=== PATIENT | female | born 1950 | race Caucasian/White ===

== ENCOUNTER 2017-04-17 10:34 | Emergency (ER) | payer OTHER ==
[~2017-04-17] VITALS: Ht 154.9 cm; Wt 58.2 kg
[~2017-04-17 10:34] MED LIST: AMLO10TA4 PO; APR25 PO; ATOR-22 PO; CIPR-255 PO; CLON0.3D4 TD; DOXA4TAB2 PO; FRC PO; HYDR25TA4 PO; LABE1TAB28 PO; LISI40TA PO; LORA-741 PO; LXP/10 PO; NXM/40 PO; SPIR25TA89 PO; ZOLP5TAB PO
[2017-04-17 10:45] VITALS: TEMP 36.5; Ht 154.9 cm; Wt 58.2 kg
[2017-04-17] MEDS ORDERED: HYDR-4717 PO (11:16)
[2017-04-17] MEDS ORDERED: LPT/40 PO (11:16)
[2017-04-17] MEDS ORDERED: SPIR50TA2 PO (11:16)
[2017-04-17] MEDS ORDERED: FRCT/ PO (11:16)
[2017-04-17] MEDS ORDERED: KETOROLAC TROMETHAMINE 60 MG/2 ML VIAL IM STA (11:51)
--- NOTE | 2017-04-17 12:01 | EMERGENCY ROOM VISIT NOTE ---
ED Visit Note First contact with patient: 11:43 CHIEF COMPLAINT: Low back pain HISTORY OF PRESENT ILLNESS: This 67-year-old female patient presents to the emergency department in [facility], with her family, complaining of pain in the low back on the right which began yesterday afternoon. The pain was gradual in onset, is now constant and worse with movement. The patient notes the pain as constant, achy with occasional sharp pains and a 6/10. The pain does occasionally radiate down the posterior aspect of her right leg. The patient does have a history of lumbar spine surgery, and states she had 2 lumbar disks removed. She did see pain management after this, approximately 3 years ago. She states the pain management, she had a steroid injection, which seems to have lasted the past 3 years, and she has not had a flare-up of her discomfort since then. The patient did not contact her PCP or pain management provider for worsening pain. The patient has taken no medication for relief of the pain. The patient denies any loss of control of their bowel or bladder functions. There has been no leg numbness or weakness, and no change in sensation. No nausea or vomiting or abdominal pain. No chest pain or shortness of breath. The patient denies recent back injury. No dysuria or increased urinary frequency. REVIEW OF SYSTEMS: A 10 system review of systems was performed with positives and pertinent negatives listed in the history of present illness. All other systems were reviewed and are negative. ALLERGIES: None MEDICATIONS: Please see list. I did personally review the patient's medication history with her. PMH: Migraines, hypertension, hyperlipidemia, anxiety, depression, heart disease , insomnia SOCIAL HISTORY: Patient lives locally with her family. She denies drug, alcohol , tobacco use. PHYSICAL EXAM: VITALS: Vitals are noted on the nurse's note and reviewed by myself. Vital signs stable. GENERAL: This is a 67-year-old female, in no acute distress, nondiaphoretic, well-developed well-nourished. SKIN: The skin was without rashes, erythema, edema, or bruising. Capillary refill less than 2 seconds. NECK: Supple without nuchal rigidity. No cervical spine tenderness. No paraspinous muscle tenderness. HEART: Regular rate and rhythm without murmurs gallops or rubs. LUNGS: Clear to auscultation bilaterally without wheezes, rales or rhonchi. ABDOMEN: Positive bowel sounds x 4. Normal tympanic percussion. Soft, nontender, without masses or organomegaly. Braun sign negative. MUSCULOSKELETAL: No muscle atrophy, erythema, or edema noted of the back. There is mild tenderness over the lumbar spinous processes on the right. There is more significant tenderness over the paraspinous muscles on the right. There is no tenderness over the thoracic spine or paraspinous muscles. There are muscle spasms present. The patient is slow to move around with maximum tenderness with with moving from a lying down to sitting position. Positive straight leg raise test on the right. NEURO: Patient was alert and oriented to person place and time. Normal sensation to light and sharp touch. Deep tendon reflexes 2+ in the lower extremities. Dorsalis pedis pulse 2+ bilaterally. Strength 5/5 and equal in the bilateral lower extremities. RADIOLOGY: X-Ray Lumbar Spine: FINDINGS: There is no fracture. No subluxation. Mild levoscoliosis which could be positional. Mild facet degenerative changes within the lower lumbar spine. This has slightly progressed. Mild disc space narrowing at L5-S1, unchanged. There are small endplate osteophytes seen within the lumbar spine. IMPRESSION: 1. Slight progression of the mild facet degenerative changes within the lower lumbar spine. 2. No change in the mild disc space narrowing at L5-S1.. 3. Mild levoscoliosis. This could be positional. EMERGENCY DEPARTMENT COURSE/MDM: The patient was seen and evaluated as above. X -ray of the lumbar spine was ordered and reviewed by myself and radiologist. Urinalysis was ordered. The patient was given a dose of 60 mg Toradol IM, and did report improvement in her pain. I discussed results with the patient and her family at bedside. Urinalysis did show 1+ blood, 10-30 WBC, 5-10 Hyaline Case, and >30 epithelial cells, and 1+ bacteria. Given the patient is not symptomatic at this time, I feel that this is likely a contaminated specimen. Culture is pending, and will consider treatment based on culture results. The patient was seen and evaluated by Dr. Hernandez. The patient was discharged home in good condition. DIFFERENTIAL DIAGNOSIS: Lumbar strain, sciatica, lumbar disc protrusion, lumbar fracture, muscle spasms, malignancy, and others DIAGNOSIS: Low back pain with sciatica DISCHARGE INSTRUCTIONS AND TREATMENT: Current/Historical Medications Scheduled Amlodipine Besylate (Norvasc), 10 MG PO DAILY Atorvastatin (Lipitor), 40 MG PO DAILY Clonidine Hcl ([id number]), 1 PATCH TD WK Doxazosin Mesylate (Cardura), 4 MG PO QPM Escitalopram Oxalate (Lexapro), 10 MG PO DAILY Hydralazine Hcl (Apresoline), 50 MG PO TID Hydrochlorothiazide (Hctz), 25 MG PO DAILY Labetalol (Normodyne), 200 MG PO DAILY Lisinopril (Zestril), 40 MG PO DAILY Lorazepam (Ativan), 0.5 MG PO BID PRN Spironolactone (Aldactone), 50 MG PO QAM Zolpidem Tartrate (Ambien), 5 MG PO HS Scheduled PRN Acetamin/Butalbital/Caffeine (Fioricet), 1 TAB PO Q6 PRN for Pain Allergies Coded Allergies: No Known Allergies (Verified , 10/31/02) Vital Signs Date Time Temp Pulse Resp B/P (MAP) Pulse Ox O2 Delivery O2 Flow Rate FiO2 04/17/17 11:58 72 18 142/76 97 Room Air 04/17/17 10:45 36.5 89 18 130/78 97 Room Air Laboratory Results Test 04/17/17 11:55 Urine Color YELLOW Urine Appearance CLOUDY (CLEAR) Urine pH 5.0 (4.5-7.5) Urine Specific [place] 1.028 (1.000-1.030) Urine Protein NEG (NEG) Urine Glucose (UA) NEG (NEG) Urine Ketones NEG (NEG) Urine Occult Blood 1+ (NEG) Urine Nitrite NEG (NEG) Urine Bilirubin NEG (NEG) Urine Urobilinogen NEG (NEG) Urine Leukocyte Esterase NEG (NEG) Urine WBC (Auto) 10-30 /hpf (0-5) Urine RBC (Auto) 0-4 /hpf (0-4) Urine Hyaline Casts (Auto) 5-10 /lpf (0-5) Urine Epithelial Cells (Auto) >30 /lpf (0-5) Urine Bacteria (Auto) 1+ (NEG) Medications Administered Medications (Trade) Dose Ordered Sig/Payton Route Start Time Stop Time Status Last Admin Dose Admin Ketorolac Tromethamine (Toradol Inj) 60 mg NOW STAT IM 04/17/17 11:51 04/17/17 11:53 DC 04/17/17 12:00 60 MG Departure Information Impression Primary Impression: Sciatica Dispostion Home / Self-Care Condition GOOD Prescriptions Methylprednisolone (MEDROL DOSEPAK) 4 Mg Jono 0 PO DAILY, #1 PKT Prov: Lauren Moon PA-C 04/17/17 Cyclobenzaprine Hcl (FLEXERIL) 5 Mg Tab 5 MG PO TID, #15 TAB PRN Prov: Lauren Moon PA-C 04/17/17 Referrals Everett Macedo D.O. (PCP) Patient Instructions ED Sciatica, [facility] Additional Instructions You have been treated in the Emergency Department for Back Pain. You have been prescribed Flexeril (cyclobenzaprine) 1 tab orally, up to three times per day. Do NOT exceed 30 mg (6 tabs) per day. Take your first dose at bedtime as it can make you drowsy. Always take all medications as prescribed. This medication may cause increased CLIENT SERVICES VICE PRESIDENT depression. If you experience any neurological symptoms, increased fatigue, or other concerns, return to the ED immediately. You have been prescribed a Medrol Dosepak. This is a steroid which will help decrease your inflammation, redness, and itch. Take the medicine as prescribed. Take the ENTIRE 6 day course of the steroids. For pain control, you can use the following [id number] medicines (if >12 yo): Ibuprofen(Motrin, Advil) may be used for fever or pain. Use 600mg every six hours as needed. Take with food. Avoid using more than 2400mg in a 24 hour period. Do not use 2400mg per day for more than three consecutive days without physician direction. Prolonged inappropriate use can lead to stomach upset or ulcers. (AND/OR) Acetaminophen(Tylenol) may be used for fever or pain. Use 1000mg every six to eight hours as needed. Avoid using more than 3000mg in a 24 hour period. If this is an acute injury, ice can be applied to the area of pain for the first 3 days to help decrease pain and inflammation. After the first 3 days, a heating pad can be used over the area for continued soothing relief. We did note some abnormalities on your urinalysis. We will send this for culture, and call you with the results. If you begin experiencing urinary symptoms including burning with urination, pain with urination, blood in her urine, or other concerning symptoms, contact your primary care provider or the emergency department for further evaluation and management. You should schedule a follow-up appointment in 2-3 days with your Primary Care Provider for further evaluation and treatment of your back pain. You should request a referral to physical therapy. You should consider follow-up with your painter barrel. Return to the Emergency Department if your current symptoms worsen despite treatment course outlined above, or if you develop any of the following symptoms : intractable pain despite aforementioned treatment course, loss of control of your bowel or bladder, numbness or tingling in your groin, or development of a fever. Problem Qualifiers Primary Impression: Sciatica Laterality: right Qualified Codes: M54.31 - Sciatica, right side
[2017-04-17 12:23] LABS: URINE APPEARANCE CLOUDY (CLEAR); URINE BILIRUBIN NEG (NEG); URINE COLOR YELLOW; URINE EPITHELIAL CELL AUTO >30 /lpf (0-5); URINE NITRITE NEG (NEG); URINE SPECIFIC GRAVITY 1.028 (1.000-1.030); UROBILINOGEN NEG (NEG); ZZUR CULT IF INDIC CLEAN CATCH YES
[2017-04-17 12:29] LABS: MANUAL MICROSCOPIC REQUIRED? NO; REVIEW REQ? NO
--- NOTE | 2017-04-17 12:31 | DIAGNOSTIC IMAGING REPORT ---
LUMBAR SPINE 5 VIEWS HISTORY: right low back pain COMPARISON: L spine 07/13/2012. FINDINGS: There is no fracture. No subluxation. Mild levoscoliosis which could be positional. Mild facet degenerative changes within the lower lumbar spine. This has slightly progressed. Mild disc space narrowing at L5-S1, unchanged. There are small endplate osteophytes seen within the lumbar spine. IMPRESSION: 1. Slight progression of the mild facet degenerative changes within the lower lumbar spine. 2. No change in the mild disc space narrowing at L5-S1.. 3. Mild levoscoliosis. This could be positional. Electronically signed by: César Decker M.D. 04/17/2017 12:30 PM Dictated Date/Time: 04/17/2017 12:27 PM
[2017-04-17] MEDS ORDERED: CYCL5TAB PO (12:52)
[2017-04-17] MEDS ORDERED: METH4PAK PO (12:52)
[2017-04-17 13:03] VITALS: BP 147/84; PULSE 68; O2SAT 96
--- NOTE | 2017-04-18 16:50 | EMERGENCY ROOM VISIT NOTE ---
ED Visit Note First contact with patient: 11:43 HPI: low back pain in setting of chronic low back pain. PE: AFVSS, NAD NC/AT RRR, no murmurs CTAB Abd soft NT/ND Back: Mild ttp lumbar region with +SLR. Ext: no edema, erythema Neuro: grossly intact Plan: Xray negative for acute findings. Sciatica. Plan for pcp/ortho f/u. I reviewed the patient's past medical history, medications, and visit nursing notes. I discussed the case with the physician social research assistant, examined the patient, and agree with the findings and plan as documented in the physician assistants note. Current/Historical Medications Scheduled Amlodipine Besylate (Norvasc), 10 MG PO DAILY Atorvastatin (Lipitor), 40 MG PO DAILY Clonidine Hcl ([id number]-Kyh-2), 1 PATCH TD WK Cyclobenzaprine Hcl (Flexeril), 5 MG PO TID Doxazosin Mesylate (Cardura), 4 MG PO QPM Escitalopram Oxalate (Lexapro), 10 MG PO DAILY Hydralazine Hcl (Apresoline), 50 MG PO TID Hydrochlorothiazide (Hctz), 25 MG PO DAILY Labetalol (Normodyne), 200 MG PO DAILY Lisinopril (Zestril), 40 MG PO DAILY Lorazepam (Ativan), 0.5 MG PO BID PRN Methylprednisolone (Medrol Dosepak), 0 PO DAILY Spironolactone (Aldactone), 50 MG PO QAM Zolpidem Tartrate (Ambien), 5 MG PO HS Scheduled PRN Acetamin/Butalbital/Caffeine (Fioricet), 1 TAB PO Q6 PRN for Pain Allergies Coded Allergies: No Known Allergies (Verified , 10/31/02) Vital Signs Date Time Temp Pulse Resp B/P (MAP) Pulse Ox O2 Delivery O2 Flow Rate FiO2 04/17/17 13:03 68 18 147/84 96 04/17/17 11:58 72 18 142/76 97 Room Air 04/17/17 10:45 36.5 89 18 130/78 97 Room Air Laboratory Results Test 04/17/17 11:55 Urine Color YELLOW Urine Appearance CLOUDY (CLEAR) Urine pH 5.0 (4.5-7.5) Urine Specific [place] 1.028 (1.000-1.030) Urine Protein NEG (NEG) Urine Glucose (UA) NEG (NEG) Urine Ketones NEG (NEG) Urine Occult Blood 1+ (NEG) Urine Nitrite NEG (NEG) Urine Bilirubin NEG (NEG) Urine Urobilinogen NEG (NEG) Urine Leukocyte Esterase NEG (NEG) Urine WBC (Auto) 10-30 /hpf (0-5) Urine RBC (Auto) 0-4 /hpf (0-4) Urine Hyaline Casts (Auto) 5-10 /lpf (0-5) Urine Epithelial Cells (Auto) >30 /lpf (0-5) Urine Bacteria (Auto) 1+ (NEG) Date/Time Source Procedure Growth Status 04/17/17 11:55 Urine , Clean Catch Urine Culture - Final MORE THAN THREE TYPES OF ORGANISMS MA... Complete Medications Administered Medications (Trade) Dose Ordered Sig/Payton Route Start Time Stop Time Status Last Admin Dose Admin Ketorolac Tromethamine (Toradol Inj) 60 mg NOW STAT IM 04/17/17 11:51 04/17/17 11:53 DC 04/17/17 12:00 60 MG Departure Information Impression Primary Impression: Sciatica Dispostion Home / Self-Care Condition GOOD Prescriptions Methylprednisolone (MEDROL DOSEPAK) 4 Mg Jono 0 PO DAILY, #1 PKT Prov: Lauren Moon PA-C 04/17/17 Cyclobenzaprine Hcl (FLEXERIL) 5 Mg Tab 5 MG PO TID, #15 TAB PRN Prov: Lauren Moon PA-C 04/17/17 Referrals Everett Macedo DSergioOSergio (PCP) Forms HOME CARE DOCUMENTATION FORM, IMPORTANT VISIT INFORMATION Patient Instructions [facility], ED Sciatica Additional Instructions You have been treated in the Emergency Department for Back Pain. You have been prescribed Flexeril (cyclobenzaprine) 1 tab orally, up to three times per day. Do NOT exceed 30 mg (6 tabs) per day. Take your first dose at bedtime as it can make you drowsy. Always take all medications as prescribed. This medication may cause increased FULFILLMENT ASSOCIATE depression. If you experience any neurological symptoms, increased fatigue, or other concerns, return to the ED immediately. You have been prescribed a Medrol Dosepak. This is a steroid which will help decrease your inflammation, redness, and itch. Take the medicine as prescribed. Take the ENTIRE 6 day course of the steroids. For pain control, you can use the following [id number] medicines (if >12 yo): Ibuprofen(Motrin, Advil) may be used for fever or pain. Use 600mg every six hours as needed. Take with food. Avoid using more than 2400mg in a 24 hour period. Do not use 2400mg per day for more than three consecutive days without physician direction. Prolonged inappropriate use can lead to stomach upset or ulcers. (AND/OR) Acetaminophen(Tylenol) may be used for fever or pain. Use 1000mg every six to eight hours as needed. Avoid using more than 3000mg in a 24 hour period. If this is an acute injury, ice can be applied to the area of pain for the first 3 days to help decrease pain and inflammation. After the first 3 days, a heating pad can be used over the area for continued soothing relief. We did note some abnormalities on your urinalysis. We will send this for culture, and call you with the results. If you begin experiencing urinary symptoms including burning with urination, pain with urination, blood in her urine, or other concerning symptoms, contact your primary care provider or the emergency department for further evaluation and management. You should schedule a follow-up appointment in 2-3 days with your Primary Care Provider for further evaluation and treatment of your back pain. You should request a referral to physical therapy. 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 Return to the Emergency Department if your current symptoms worsen despite treatment course outlined above, or if you develop any of the following symptoms : intractable pain despite aforementioned treatment course, loss of control of your bowel or bladder, numbness or tingling in your groin, or development of a fever.
== END 2017-04-17 13:04 | disposition home or self-care (01) ==
LOC: C.EDB 10:38 → C.EDC 13:04
DX: M54.40 Lumbago with sciatica, unspecified side (principal); I11.9 Hypertensive heart disease without heart failure; E78.5 Hyperlipidemia, unspecified; F41.9 Anxiety disorder, unspecified; F32.9 Major depressive disorder, single episode, unspecified; G47.00 Insomnia, unspecified; Z79.899 Other long term (current) drug therapy

== ENCOUNTER 2022-05-16 08:46 | Inpatient (IN) ==
[2022-05-16] MEDS ORDERED: SODIUM CHLORIDE 0.9% 1000ML 1,000 ML IV STA (08:57)
[2022-05-16] MEDS ORDERED: ONDANSETRON INJ 2 MG/ML 2 ML VIAL IV STA ×2 (08:57→12:40)
--- NOTE | 2022-05-16 08:59 | Emergency Department Note ---
Impression & Plan Atrial fibrillation with RVR ADMIT ED Provider Note HPI: The patient is a 72-year-old female with history of atrial fibrillation, on anticoagulation, who presents emergency department with a chief complaint of nausea, vomiting, and diarrhea that been ongoing for the past 3 days. Patient states her symptoms have been progressively worsening. Patient denies any abdom inal pain, states that she does have severe nausea, on arrival to the emergency department the patient is hemodynamically stable but mildly tachycardic, she appears uncomfortable but denies any chest pain or shortness of breath. Patient is saturating well on room air on arrival. 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 On arrival she does appear to be uncomfortable, complains of some chills as well as nausea but denies any focal complaint of pain. Denies any shortness of breath. Shortly after arrival IV was established, patient was given IV fluid bolus, lab work was obtained and CT imaging was ordered. While lab work was returning and patient was being fluid resuscitated, patient did go into a tachyarrhythmia on the monitor with rates into the 170s, she did also have some ectopy consistent with short runs of ventricular tachycardia approximately 8-10 beats each. These were not sustained. This was noted by me at the bedside. I did alert the bedside nurse and patient was placed on pads for possible cardioversion, amiodarone bolus and drip were ordered, shortly after amiodarone bolus was given the patient's heart rate did respond in the low 100s but did still appear irregular consistent with her atrial fibrillation. Case was discussed with on-call cardiology for [facility], Dr. Benitez, who did evaluate the patient at the bedside. She was symptomatically improved following the amiodarone bolus and drip being initiated. Troponin is noted to be elevated at 220, patient denies any chest pain or shortness of breath, suspect this might be demand ischemia related to her recent dehydration and tachyarrhythmia. We will hold off on heparin drip at this time and will repeat troponin upon admission. CT imaging of the chest as well as CT imaging of the abdomen pelvis were obtained, CT imaging of the chest does not show any evidence of pulmonary embol ism, no evidence of aortic dissection, CT imaging of the abdomen and pelvis does not show any evidence of any acute surgical pathology. Patient's lactic acid is elevated at 5.2, I suspect this is secondary to fluid losses given her vomiting and diarrhea over the weekend, this did downtrend with fluid resuscitation to 3.2 on repeat here in the ED. Potassium also noted to be low at 3.0, no acute k idney injury, potassium repletion ordered IV. Leukocytosis noted, likely viral in origin. We will hold on antibiotics at this time given that there is no obvious bacterial source for infection and patient symptoms are viral in nature in addition to her COVID-19 test being positive. On my reassessment the patient is well-appearing, her COVID-19 test did return positive, this also might be playing a role in her symptoms. At this point she is saturating well on room air and she is hemodynamically stable with heart rate now improved. Case was discussed with the on-call admitting hospitalist Dr. Valdes for [facility]. Patient was admitted to an inpatient bed for further management. * CRITICAL CARE TIME: 65 min -Stabilization of tachyarrhythmia requiring IV amiodarone, time spent at the bedside, discussion with consulting physicians/cardiology, arrangement of admission Diagnosis: 1. Atrial fibrillation with RVR 2. Elevated troponin 3. Lactic acidosis 4. Nausea, vomiting, diarrhea 5. Hypokalemia Disposition: ADMIT Mack Klein, Emergency Medicine Past Med/Surg History Medical History Anxiety Ascending aortic aneurysm 4.4cm per resting echo 04/2021 Chronic heart failure with preserved ejection fraction (HFpEF) Diastolic dysfunction Esophageal reflux HLD (hyperlipidemia) Hypertension Left atrial dilation Migraine PAF (paroxysmal atrial fibrillation) Persistent insomnia Surgical History History of cholecystectomy History of lumbar surgery History of partial hysterectomy Family History Mother Hypertension Father TIA (transient ischemic attack) Sister Diabetes Other No pertinent family history in first degree relatives Social History Smoking Status: Never smoker Hx Alcohol Use: No Hx Substance Use: No Preferred Language: Sudanese Communication Ability: Effective Visual Impairment: No Limitations Hearing Ability: Normal Sheriff Sergeant Required: No Beliefs That Will Affect Care: None marital status: Current Living Situation: Spouse current occupational status: retired Feels Safe at Home: Yes Safety Concerns: Feels Safe At This Time Assistive Devices: Denture - Upper, Denture - Lower and Glasses Allergies Allergies Allergy/AdvReac Type Severity Reaction Status Date / Time No Known Allergies Allergy Verified 05/16/22 12:46 Home Meds Home Medications Medication Instructions Recorded Confirmed apixaban 5 mg tablet (Eliquis) 5 mg PO BID 05/16/22 05/16/22 atorvastatin 40 mg tablet 40 mg PO DAILY 05/16/22 05/16/22 clonidine 0.3 mg/24 hr weekly 0.3 mg transdermal WK 05/16/22 05/16/22 transdermal patch doxazosin 4 mg tablet 4 mg PO QPM 05/16/22 05/16/22 gabapentin 100 mg capsule 100 mg PO TID 05/16/22 05/16/22 lorazepam 0.5 mg tablet 0.5 mg PO BID PRN Anxiety 05/16/22 05/16/22 ramelteon 8 mg tablet 8 mg PO HS 05/16/22 05/16/22 trazodone 50 mg tablet 50 mg PO HS 05/16/22 05/16/22 Results & Data (ED) Vital Signs Vital Signs - 24 hr 05/16/22 08:46 05/16/22 09:11 05/16/22 08:56 Temperature 36.4 C L Temperature Source Oral Pulse Rate 90 94 H 131 H Pulse Rate [Apical] Pulse Rate from SpO2 Sensor 130 H Respiratory Rate 18 18 23 Respiratory Effort / Characteristics Non-Labored Spontaneous Respiratory Depth Normal Respiratory Pattern Regular Blood Pressure 169/124 H Blood Pressure [Left Arm] Blood Pressure Mean 139 Blood Pressure Mean [Left Arm] Pulse Oximetry 96 98 97 Oxygen Delivery Method Room Air Room Air Sepsis Recent Fever Within 48 Hours No Sepsis New/Unexplained Change in Mental Status N/A Sepsis Action Taken by Nursing No Action Required 05/16/22 09:00 05/16/22 09:30 05/16/22 09:50 Temperature Temperature Source Pulse Rate 72 101 H 93 H Pulse Rate [Apical] Pulse Rate from SpO2 Sensor 119 H 114 H Respiratory Rate 24 25 H 25 H Respiratory Effort / Characteristics Respiratory Depth Respiratory Pattern Blood Pressure 150/91 H Blood Pressure [Left Arm] Blood Pressure Mean 110 Blood Pressure Mean [Left Arm] Pulse Oximetry 97 98 Oxygen Delivery Method Sepsis Recent Fever Within 48 Hours Sepsis New/Unexplained Change in Mental Status Sepsis Action Taken by Nursing 05/16/22 10:00 05/16/22 10:30 05/16/22 11:31 Temperature Temperature Source Pulse Rate 95 H 197 H 87 Pulse Rate [Apical] Pulse Rate from SpO2 Sensor 66 173 H 93 H Respiratory Rate 23 19 22 Respiratory Effort / Characteristics Respiratory Depth Respiratory Pattern Blood Pressure 148/106 H 142/95 H 131/80 Blood Pressure [Left Arm] Blood Pressure Mean 120 110 97 Blood Pressure Mean [Left Arm] Pulse Oximetry 98 99 97 Oxygen Delivery Method Sepsis Recent Fever Within 48 Hours Sepsis New/Unexplained Change in Mental Status Sepsis Action Taken by Nursing 05/16/22 12:40 05/16/22 12:00 05/16/22 12:30 Temperature 37.3 C Temperature Source Oral Pulse Rate 101 H 107 H Pulse Rate [Apical] 119 H Pulse Rate from SpO2 Sensor 105 H 120 H Respiratory Rate 24 33 H 28 H Respiratory Effort / Characteristics Non-Labored Spontaneous Respiratory Depth Normal Respiratory Pattern Blood Pressure 125/67 141/91 H Blood Pressure [Left Arm] 141/91 H Blood Pressure Mean 86 107 Blood Pressure Mean [Left Arm] 107 Pulse Oximetry 94 96 96 Oxygen Delivery Method Room Air Sepsis Recent Fever Within 48 Hours Sepsis New/Unexplained Change in Mental Status Sepsis Action Taken by Nursing 05/16/22 13:00 Temperature Temperature Source Pulse Rate 108 H Pulse Rate [Apical] Pulse Rate from SpO2 Sensor 111 H Respiratory Rate 21 Respiratory Effort / Characteristics Respiratory Depth Respiratory Pattern Blood Pressure 111/84 Blood Pressure [Left Arm] Blood Pressure Mean 93 Blood Pressure Mean [Left Arm] Pulse Oximetry 90 Oxygen Delivery Method Sepsis Recent Fever Within 48 Hours Sepsis New/Unexplained Change in Mental Status Sepsis Action Taken by Nursing Laboratory Data Result diagrams: 05/16/22 09:47 05/16/22 09:47 Lab Results 05/16/22 05/16/22 05/16/22 Range/Units 09:38 09:47 09:47 WBC 14.79 H (4.8-10.8) K/ul RBC 5.19 (3.93-5.22) M/uL Hgb 14.2 (12.0-16.0) g/dl Hct 43.3 (34.1-44.9) % MCV 83.4 (80.0-100.0) fL MCH 27.4 (25.0-34.0) pg MCHC 32.8 (32.0-36.0) g/dL RDW Std Deviation 46.0 (36.4-46.3) fL RDW Coeff of Jessica 15.2 H (11.5-14.5) % Plt Count 293 (130-400) K/uL MPV 11.7 (9.4-12.3) fL Immature Gran % (Auto) 0.9 % Neut % (Auto) 89.3 % Lymph % (Auto) 6.7 % [place] % (Auto) 2.9 % Eos % (Auto) 0.0 % Baso % (Auto) 0.2 % Neut # (Auto) 13.20 H (1.4-6.5) K/uL Lymph # (Auto) 0.99 L (1.2-3.4) K/uL [place] # (Auto) 0.43 (0.24-0.82) K/uL Eos # (Auto) 0.00 (0-0.50) K/uL Baso # (Auto) 0.03 (0-0.2) K/uL Immature Gran # (Auto) 0.14 H (0.00-0.02) K/uL PT 11.4 (9.0-12.0) Seconds INR 1.1 (0.9-1.1) APTT 27.1 (21.0-31.0) Seconds PTT Ratio 1.0 Sodium (136-145) mmol/L Potassium (3.5-5.1) mmol/L Chloride (98-107) mmol/L Carbon Dioxide (21-32) mmol/L Anion Gap (3-11) BUN (6-23) mg/dl Creatinine (0.6-1.2) mg/dl Est Cr Clr Drug Dosing ml/min Est GFR ( Amer) ml/min Est GFR (Non-Af Amer) ml/min BUN/Creatinine Ratio (10-20) Glucose (70-99(Fasting)) mg/dl Lactate (0.4-2.0) mmol/L Calcium (8.5-10.1) mg/dl Magnesium (1.7-2.4) mg/dl Total Bilirubin (0.2-1.0) mg/dl AST (13-39) U/L ALT (7-52) U/L Alkaline Phosphatase (34-104) U/L Troponin I High Sens (0-14) pg/ml Total Protein (6.0-8.3) gm/dl Albumin (3.4-5.0) gm/dl Globulin (2.5-4.0) gm/dl Albumin/Globulin Ratio (0.9-2) Lipase (11-82) U/L Urine Color Urine Appearance (Clear) Urine pH (4.5-7.5) Ur Specific [place] (1.000-1.030) Urine Protein (Negative) Urine Glucose (UA) (Negative) Urine Ketones (Negative) Urine Blood (Negative) Urine Nitrite (Negative) Urine Bilirubin (Negative) Urine Urobilinogen (Negative) Ur Leukocyte Esterase (Negative) Urine WBC (Auto) (0-5) /hpf Urine RBC (Auto) (0-4) /hpf U Hyaline Cast (Auto) (0-5) /lpf U Epithel Cells (Auto) (0-5) /lpf Urine Bacteria (Auto) (Negative) Ur Renal Epithelial Cell Granular Casts (0) /lpf Urine Mucus (None Prsent) Urine Yeast (None Prsent) SARS-CoV-2 (PCR) POSITIVE A* (Negative) Influenza Type A (PCR) Negative (Neg) Influenza Type B (PCR) Negative (Neg) RSV (RT-PCR) Negative (Neg) 05/16/22 05/16/22 05/16/22 Range/Units 09:47 09:47 09:47 WBC (4.8-10.8) K/ul RBC (3.93-5.22) M/uL Hgb (12.0-16.0) g/dl Hct (34.1-44.9) % MCV (80.0-100.0) fL MCH (25.0-34.0) pg MCHC (32.0-36.0) g/dL RDW Std Deviation (36.4-46.3) fL RDW Coeff of Jessica (11.5-14.5) % Plt Count (130-400) K/uL MPV (9.4-12.3) fL Immature Gran % (Auto) % Neut % (Auto) % Lymph % (Auto) % [place] % (Auto) % Eos % (Auto) % Baso % (Auto) % Neut # (Auto) (1.4-6.5) K/uL Lymph # (Auto) (1.2-3.4) K/uL [place] # (Auto) (0.24-0.82) K/uL Eos # (Auto) (0-0.50) K/uL Baso # (Auto) (0-0.2) K/uL Immature Gran # (Auto) (0.00-0.02) K/uL PT (9.0-12.0) Seconds INR (0.9-1.1) APTT (21.0-31.0) Seconds PTT Ratio Sodium 140 (136-145) mmol/L Potassium 3.0 L (3.5-5.1) mmol/L Chloride 103 (98-107) mmol/L Carbon Dioxide 15 L (21-32) mmol/L Anion Gap 22 H (3-11) BUN 19 (6-23) mg/dl Creatinine 0.64 (0.6-1.2) mg/dl Est Cr Clr Drug Dosing 59.1 ml/min Est GFR ( Amer) 102.6 ml/min Est GFR (Non-Af Amer) 88.5 ml/min BUN/Creatinine Ratio 29.7 H (10-20) Glucose 213 H (70-99(Fasting)) mg/dl Lactate 5.2 H* (0.4-2.0) mmol/L Calcium 9.5 (8.5-10.1) mg/dl Magnesium 2.0 (1.7-2.4) mg/dl Total Bilirubin 0.4 (0.2-1.0) mg/dl AST 37 (13-39) U/L ALT 23 (7-52) U/L Alkaline Phosphatase 111 H (34-104) U/L Troponin I High Sens 221.4 H* (0-14) pg/ml Total Protein 8.4 H (6.0-8.3) gm/dl Albumin 4.5 (3.4-5.0) gm/dl Globulin 3.9 (2.5-4.0) gm/dl Albumin/Globulin Ratio 1.2 (0.9-2) Lipase 18 (11-82) U/L Urine Color Urine Appearance (Clear) Urine pH (4.5-7.5) Ur Specific [place] (1.000-1.030) Urine Protein (Negative) Urine Glucose (UA) (Negative) Urine Ketones (Negative) Urine Blood (Negative) Urine Nitrite (Negative) Urine Bilirubin (Negative) Urine Urobilinogen (Negative) Ur Leukocyte Esterase (Negative) Urine WBC (Auto) (0-5) /hpf Urine RBC (Auto) (0-4) /hpf U Hyaline Cast (Auto) (0-5) /lpf U Epithel Cells (Auto) (0-5) /lpf Urine Bacteria (Auto) (Negative) Ur Renal Epithelial Cell Granular Casts (0) /lpf Urine Mucus (None Prsent) Urine Yeast (None Prsent) SARS-CoV-2 (PCR) (Negative) Influenza Type A (PCR) (Neg) Influenza Type B (PCR) (Neg) RSV (RT-PCR) (Neg) 05/16/22 05/16/22 Range/Units 11:30 12:01 WBC (4.8-10.8) K/ul RBC (3.93-5.22) M/uL Hgb (12.0-16.0) g/dl Hct (34.1-44.9) % MCV (80.0-100.0) fL MCH (25.0-34.0) pg MCHC (32.0-36.0) g/dL RDW Std Deviation (36.4-46.3) fL RDW Coeff of Jessica (11.5-14.5) % Plt Count (130-400) K/uL MPV (9.4-12.3) fL Immature Gran % (Auto) % Neut % (Auto) % Lymph % (Auto) % [place] % (Auto) % Eos % (Auto) % Baso % (Auto) % Neut # (Auto) (1.4-6.5) K/uL Lymph # (Auto) (1.2-3.4) K/uL [place] # (Auto) (0.24-0.82) K/uL Eos # (Auto) (0-0.50) K/uL Baso # (Auto) (0-0.2) K/uL Immature Gran # (Auto) (0.00-0.02) K/uL PT (9.0-12.0) Seconds INR (0.9-1.1) APTT (21.0-31.0) Seconds PTT Ratio Sodium (136-145) mmol/L Potassium (3.5-5.1) mmol/L Chloride (98-107) mmol/L Carbon Dioxide (21-32) mmol/L Anion Gap (3-11) BUN (6-23) mg/dl Creatinine (0.6-1.2) mg/dl Est Cr Clr Drug Dosing ml/min Est GFR ( Amer) ml/min Est GFR (Non-Af Amer) ml/min BUN/Creatinine Ratio (10-20) Glucose (70-99(Fasting)) mg/dl Lactate 3.2 H* (0.4-2.0) mmol/L Calcium (8.5-10.1) mg/dl Magnesium (1.7-2.4) mg/dl Total Bilirubin (0.2-1.0) mg/dl AST (13-39) U/L ALT (7-52) U/L Alkaline Phosphatase (34-104) U/L Troponin I High Sens (0-14) pg/ml Total Protein (6.0-8.3) gm/dl Albumin (3.4-5.0) gm/dl Globulin (2.5-4.0) gm/dl Albumin/Globulin Ratio (0.9-2) Lipase (11-82) U/L Urine Color Yellow Urine Appearance Clear (Clear) Urine pH 5.5 (4.5-7.5) Ur Specific [place] 1.030 (1.000-1.030) Urine Protein 4+ H (Negative) Urine Glucose (UA) 1+ H (Negative) Urine Ketones 4+ H (Negative) Urine Blood 2+ H (Negative) Urine Nitrite Negative (Negative) Urine Bilirubin Negative (Negative) Urine Urobilinogen Negative (Negative) Ur Leukocyte Esterase Negative (Negative) Urine WBC (Auto) 10-30 H (0-5) /hpf Urine RBC (Auto) 5-10 H (0-4) /hpf U Hyaline Cast (Auto) 5-10 H (0-5) /lpf U Epithel Cells (Auto) >30 H (0-5) /lpf Urine Bacteria (Auto) 1+ H (Negative) Ur Renal Epithelial Cell Not Reportable Granular Casts 1-5 H (0) /lpf Urine Mucus Present A (None Prsent) Urine Yeast Budding A (None Prsent) SARS-CoV-2 (PCR) (Negative) Influenza Type A (PCR) (Neg) Influenza Type B (PCR) (Neg) RSV (RT-PCR) (Neg) Administered Medications Amiodarone HCl/Dextrose (Nexterone / D5w) 360 mg in 200 mls @ 33.333 mls/hr IV ONE ONE Stop: 05/16/22 16:43 Last Admin: 05/16/22 10:45 Dose: 1 mg/min, 33.3 mls/hr Documented By: JUSTIN Co-signed By: MALACHI Potassium Chloride/Sodium Chloride (Normal Saline W/20 Meq Kcl) 20 meq in 1,000 mls @ 125 mls/hr IV .Q8H VEGA; Protocol Stop: 06/15/22 10:44 Last Admin: 05/16/22 10:53 Dose: 125 mls/hr Documented By: MALACHI Discontinued Medications Amiodarone HCl/Dextrose (Amiodarone 360mg / 200ml D5w) Confirm Administered Dose 360 mg IV .STK-MED ONE Stop: 05/16/22 10:32 Last Admin: 05/16/22 10:46 Dose: Not Given Documented By: JUSTIN Amiodarone HCl/Dextrose (Amiodarone 150mg / 100ml D5w) Confirm Administered Dose 150 mg IV .STK-MED ONE Stop: 05/16/22 10:32 Last Admin: 05/16/22 10:36 Dose: Not Given Documented By: BRIDGET Amiodarone HCl (Amiodarone Iv Bolus & Drip) 1 each IV NOW STA; Protocol Stop: 05/16/22 10:34 Last Admin: 05/16/22 10:46 Dose: Not Given Documented By: JUSTIN Sodium Chloride (Nss 1000ml) 1,000 mls @ 999 mls/hr IV .Q1H1M STA Stop: 05/16/22 09:57 Last Infusion: 05/16/22 10:45 Dose: 0 mls/hr Documented By: Admin: 05/16/22 09:43 Dose: 999 mls/hr Documented By: MALACHI Amiodarone HCl/Dextrose (Nexterone / D5w) 150 mg in 100 mls @ 600 mls/hr IV NOW STA Stop: 05/16/22 10:42 Last Infusion: 05/16/22 10:45 Dose: 0 mls/hr Documented By: JUSTIN Co-signed By: MALACHI Admin: 05/16/22 10:36 Dose: 600 mls/hr Documented By: BRIDGET Co-signed By: JUSTIN Sodium Chloride (Nss 1000ml) 1,000 mls @ 999 mls/hr IV .Q1H1M ONE Stop: 05/16/22 12:16 Last Infusion: 05/16/22 12:56 Dose: 0 mls/hr Documented By: Admin: 05/16/22 11:37 Dose: 999 mls/hr Documented By: MALACHI Ioversol (Optiray 300 500ml) 120 ml IV ONCE ONE Stop: 05/16/22 11:18 Last Admin: 05/16/22 11:17 Dose: 120 ml Documented By: RONY Lorazepam (Lorazepam 2 Mg/1 Ml Vial) Confirm Administered Dose 1 mg .ROUTE .STK- MED ONE Stop: 05/16/22 10:40 Last Admin: 05/16/22 10:43 Dose: 1 mg Documented By: JUSTIN Metoprolol Tartrate (Metoprolol Tartrate 25 Mg Tab) 25 mg PO ONCE ONE Stop: 05/16/22 10:42 Last Admin: 05/16/22 10:53 Dose: 25 mg Documented By: MALACHI Miscellaneous (Stat Iv Infusion Titration Per Protocol) 1 each N/A NOW STA Stop: 05/16/22 10:34 Last Admin: 05/16/22 10:46 Dose: Not Given Documented By: JUSTIN Ondansetron HCl (Ondansetron Inj 2 Mg/Ml 2 Ml Vial) 4 mg IV NOW STA Stop: 05/16/22 08:58 Last Admin: 05/16/22 09:43 Dose: 4 mg Documented By: MALACHI Ondansetron HCl (Ondansetron Inj 2 Mg/Ml 2 Ml Vial) 4 mg IV NOW STA Stop: 05/16/22 12:41 Last Admin: 05/16/22 12:42 Dose: 4 mg Documented By: MCKENNA Imaging Data Radiologist's Impression: Chest X-Ray 05/16/22 08:57 SINGLE VIEW CHEST CLINICAL HISTORY: Atypical chest pain. FINDINGS: An AP, portable, upright chest radiograph is compared to study dated 12/11/2021 and correlated with chest CT dated 01/27/2014. The heart is mildly enlarged noting atherosclerotic calcification of the thoracic aorta. The pulmonary vasculature is noncongested. Chronic interstitial thickening and mild elevation of the right hemidiaphragm is similar to previous. There is bibasilar scarring/atelectasis. The lungs and pleural spaces are otherwise clear. No pneumothorax is seen. The skeletal structures are osteopenic. The bony thorax is grossly intact. IMPRESSION: Mild cardiomegaly with no active disease in the chest. ACT 112: Negative or not required by law. Electronically signed by: Austin Saucedo M.D. 05/16/2022 9:27 AM Abdomen/Pelvis CT 05/16/22 08:58 CT SCAN OF THE ABDOMEN AND PELVIS WITH IV CONTRAST CLINICAL HISTORY: Nausea and vomiting. Diarrhea. COMPARISON STUDY: Abdominal CT dated 12/12/2019. TECHNIQUE: Following the IV administration of 120 cc of Optiray 300, CT scan of the abdomen and pelvis is performed from the lung bases to the proximal femora. Images are reviewed in the axial, sagittal, and coronal planes. IV contrast was administered without complication. A dose lowering technique was utilized adhering to the principles of ALARA. FINDINGS: Lung bases: The heart is enlarged and without pericardial effusion. The coronary arteries a density calcified. There is a small hiatal hernia. The lung bases are clear noting dependent atelectasis. There is mild aneurysmal dilatation of the partially visualized ascending thoracic aorta. This measures at least 4.0 cm in diameter. Liver: The contrast-enhanced liver is normal in size, contour, and attenuation. There is no intrahepatic biliary ductal dilatation. The hepatic veins and portal veins are patent. Gallbladder: Surgically absent. Spleen: Normal in size and attenuation. Pancreas: Atrophic and grossly unremarkable. Adrenal glands: Unremarkable. Kidneys: The contrast enhanced kidneys are normal in size and without hydronephrosis. The kidneys enhance symmetrically. Scattered subcentimeter cortical hypodensities likely represent cysts but are too small for definitive characterization. Abdominal vasculature: There is advanced atherosclerotic calcification mild ectasia of the abdominal aorta. Bowel: There is moderate colonic diverticulosis without CT evidence of acute diverticulitis. No bowel obstruction is seen. Question mucosal hyperemia of the left colon. There is no colonic wall thickening or surrounding inflammation. The appendix is identified and reported surgically absent. Peritoneum: There is no intraperitoneal free air or abdominal ascites. Lymphadenopathy: None. Pelvic viscera: The bladder is mildly distended but otherwise normal in appearance. The uterus is surgically absent. No adnexal lesion is seen. Skeletal structures: No lytic or blastic lesions are seen. IMPRESSION: 1. Question mucosal hyperemia of the left colon. There is no colonic wall thickening or surrounding inflammation. Correlate clinically for evidence of a mild nonspecific colitis. 2. Colonic diverticulosis without CT evidence of acute diverticulitis. 3. There is no bowel obstruction. 4. Additional findings as above. ACT 112: Negative or not required by law. Electronically signed by: Austin Saucedo M.D. 05/16/2022 11:36 AM Chest CTA 05/16/22 10:55 CHEST CTA for PULMONARY ARTERIES CT DOSE: 545.39 mGy.cm HISTORY: Covid. Headache. Nausea. Vomiting. Shortness of breath. Assess for pulmonary embolus. TECHNIQUE: Multiaxial CT images of the chest were performed following the intravenous administration of contrast to evaluate the pulmonary arteries. Maximal intensity projection images were also obtained. A dose lowering technique was utilized adhering to the principles of ALARA. COMPARISON STUDY: Chest CT 01/27/2014. FINDINGS: There is a 2.1 cm right thyroid nodule. No mediastinal or hilar lymphadenopathy. There is a small hiatus hernia. Otherwise, normal caliber esophagus moderate focal narrowing at the takeoff of the right subclavian artery due to the calcified plaque. The ascending thoracic aorta measures up to 4.3 cm in diameter which is slightly increased in size. The heart is mildly enlarged. No evidence for an aortic dissection. Please refer to the same day abdomen and pelvis CT for further evaluation of the abdominal structures. No pleural or pericardial effusions. No suspicious lytic or blastic osseous lesions. Nondiagnostic evaluation of the bilateral lower lobe subsegmental pulmonary art eries due to the respiratory motion artifact. Otherwise, the remaining pulmonary arteries show no filling defects to suggest a pulmonary embolus. No pneumothorax. The central airways are patent. No focal lung consolidations to suggest pneumonia. Mild dependent changes seen at the lung bases. IMPRESSION: 1. No evidence for pulmonary embolus with limitations as described above. 2. Mild aneurysmal dilatation of the ascending thoracic aorta measuring 4.3 cm in diameter. This has slightly increased in size. 3. No focal lung consolidations to suggest pneumonia. 4. A 2.1 cm right thyroid nodule. Follow-up nonemergent thyroid ultrasound recommended for further evaluation. ACT 112: Negative or not required by law. Electronically signed by: César Decker M.D. 05/16/2022 11:49 AM Discharge Plan Visit Data Chief Complaint: Illness ED Provider: Mack Klein Discharge Problem: Atrial fibrillation with RVR Patient Disposition: Admitted As Inpatient Discharge Instructions Interventions: ED Discharge Assessment Last Done: 05/16/22 14:50
--- NOTE | 2022-05-16 09:29 | XRay Report ---
SINGLE VIEW CHEST CLINICAL HISTORY: Atypical chest pain. FINDINGS: An AP, portable, upright chest radiograph is compared to study dated 12/11/2021 and correlat ed with chest CT dated 01/27/2014. The heart is mildly enlarged noting atherosclerotic calcification o f the thoracic aorta. The pulmonary vasculature is noncongested. Chronic interstitial thickening and mild elevation of the right hemidiaphragm is similar to previous. There is bibasilar scarring/atelect asis. The lungs and pleural spaces are otherwise clear. No pneumothorax is seen. The skeletal structu res are osteopenic. The bony thorax is grossly intact. IMPRESSION: Mild cardiomegaly with no active disease in the chest. ACT 112: Negative or not required by law. Electronically signed by: Austin Saucedo M.D. 05/16/2022 9:27 AM
[2022-05-16 10:07] LABS: Basophils # (auto) 0.03 K/uL (0-0.2); Basophils % (auto) 0.2 %; Hematocrit (blood only) 43.3 % (34.1-44.9); Hemoglobin 14.2 g/dl (12.0-16.0); Immature Granulocytes # (auto) 0.14 K/uL (0.00-0.02); Immature Granulocytes % (auto) 0.9 %; Lymphocytes # (auto) 0.99 K/uL (1.2-3.4); Lymphocytes % (auto) 6.7 %; Mean Corpuscular Hemoglobin 27.4 pg (25.0-34.0); Mean Corpuscular Hgb Conc 32.8 g/dL (32.0-36.0); Mean Corpuscular Volume 83.4 fL (80.0-100.0); Mean Platelet Volume 11.7 fL (9.4-12.3); Monocytes # (auto) 0.43 K/uL (0.24-0.82); Monocytes % (auto) 2.9 %; Neutrophils % (auto) 89.3 %; Platelet Count 293 K/uL (130-400); RDW Coefficient of Variation 15.2 % (11.5-14.5); Red Blood Count 5.19 M/uL (3.93-5.22); White Blood Count 14.79 K/ul (4.8-10.8)
[2022-05-16 10:18] LABS: INR 1.1 (0.9-1.1); Partial Thromboplastin Time 27.1 Seconds (21.0-31.0); Prothrombin Time 11.4 Seconds (9.0-12.0)
[2022-05-16] MEDS ORDERED: AMIODARONE 150MG / 100ML D5W IV ONE (10:31)
[2022-05-16] MEDS ORDERED: AMIODARONE 360MG / 200ML D5W IV ONE (10:31)
[2022-05-16] MEDS ORDERED: 0.2 MICRON FILTER SET 1 EACH IV STA (10:33)
[2022-05-16] MEDS ORDERED: AMIODARONE IV BOLUS & DRIP IV STA (10:33)
[2022-05-16] MEDS ORDERED: AMIODARONE / D5W 150 MG/100 ML BAG IV STA (10:33)
[2022-05-16] MEDS ORDERED: STAT IV Infusion **Titration per Protocol STA (10:33)
[2022-05-16 10:36] LABS: Albumin Globulin Ratio 1.2 (0.9-2); Albumin Level 4.5 gm/dl (3.4-5.0); BUN Creatinine Ratio 29.7 (10-20); Bilirubin,Total 0.4 mg/dl (0.2-1.0); Calcium 9.5 mg/dl (8.5-10.1); Creatinine Clr Calc Pharmacy 59.1 ml/min; Est GFR (African American) 102.6 ml/min; Est GFR (Non-African American) 88.5 ml/min; Globulin 3.9 gm/dl (2.5-4.0); Total Protein 8.4 gm/dl (6.0-8.3)
[2022-05-16] MEDS ORDERED: LORazepam 2 MG/1 ML VIAL ONE (10:39)
[2022-05-16] MEDS ORDERED: METOPROLOL TARTRATE 25 MG TAB PO ONE (10:41)
[2022-05-16 10:42] LABS: Influenza A virus by PCR Negative (Neg); Influenza B virus by PCR Negative (Neg); RSV by PCR Negative (Neg)
[2022-05-16] MEDS ORDERED: AMIODARONE / D5W 360 MG/200 ML BAG IV ONE (10:44)
[2022-05-16] MEDS ORDERED: NSS + 20MEQ KCL 20 MEQ/1,000 ML BAG IV SCH (10:45)
--- NOTE | 2022-05-16 10:46 | Cardiology Consultation ---
Date of Consultation May 16, 2022 Assessment & Plan (1) PAF (paroxysmal atrial fibrillation): (2) NSVT (nonsustained ventricular tachycardia): (3) Atrial fibrillation with rapid ventricular response: (4) Hypertension: (5) Diastolic dysfunction: (6) Ascending aortic aneurysm: (7) Pneumonia due to COVID-19 virus: (8) Hypokalemia: Plan Atrial fibrillation and rapid ventricular response along with nonsustained ventricular tachycardia in the setting of acute COVID-19 infection, questionable UTI and significant hypokalemia I agree with the initiation of amiodarone if nothing else for the short-term until electrolytes have been corrected and underlying infectious process has been treated Also recommend starting the Toprol tartrate 25 mg p.o. twice daily, may uptitrate frequency and dose as needed Obviously, electrolytes should be repleted and followed closely 1600: pt spontaneously converted to sinus rhythm complete 24 hour amio load repeat ekg pt states that she has a clonidine patch on, recommend removing for now History of Present Illness Reason for Consultation: Tachyarrhythmia Requesting Physician: Dr. Plunkett Attending Physician: The patient and her daughter state that she has not been feeling well for 5 days now with URI symptoms. She then developed N/V/D for the last 3 days and has not been able to take any of her home meds. On the moring of presentation she becam so weak that her summoned EMS. Upon arrival she was in afib with rvr and salvos of NSVT. Past medical history: 1. Paroxysmal atrial fibrillation, 1st diagnosed 05/2020 asymptomatic, [id number] score of 3- on Eliquis 2. Severe left atrial dilation 3. Longstanding labile difficult to control hypertension 4. Mixed valvular heart disease a. Aortic sclerosis b. Partial fusion of the non coronary cusp and left coronary cusp of the aortic valve c. Mild aortic regurg d. Mild mitral regurg 5. Chronic diastolic CHF, NYHA class 1 6. Asymptomatic PACs and PVCs 7. Enlarged ascending aorta 4.4 cm per resting echo 04/2021 8. Dyslipidemia Allergies Allergy/AdvReac Type Severity Reaction Status Date / Time No Known Allergies Allergy Verified 05/16/22 12:46 Home Medications Medication Instructions Recorded Confirmed Type apixaban 5 mg tablet (Eliquis) 5 mg PO BID 05/16/22 05/16/22 History atorvastatin 40 mg tablet 40 mg PO DAILY 05/16/22 05/16/22 History gabapentin 100 mg capsule 100 mg PO TID 05/16/22 05/16/22 History lorazepam 0.5 mg tablet 0.5 mg PO BID PRN Anxiety 05/16/22 05/16/22 History ramelteon 8 mg tablet 8 mg PO HS 05/16/22 05/16/22 History amiodarone 200 mg tablet 200 mg PO DAILY #30 tabs 05/27/22 Rx furosemide 20 mg tablet 20 mg PO BID17 30 days #30 tabs 05/27/22 Rx metoprolol succinate 25 mg 12.5 mg PO QAM 30 days #15 tabs 05/27/22 Rx tablet,extended release 24 hr pantoprazole 40 mg tablet,delayed 40 mg PO QAM 7 days #7 tabs 05/27/22 Rx release polyethylene glycol 3350 17 gram 17 g PO DAILY 30 days #30 ea 05/27/22 Rx oral powder packet (Miralax) sacubitril 24 mg-valsartan 26 mg 1 tab PO BID 30 days #60 tabs 05/27/22 Rx tablet (Entresto) Patient History Medical History Anxiety Ascending aortic aneurysm 4.4cm per resting echo 04/2021 Chronic heart failure with preserved ejection fraction (HFpEF) Diastolic dysfunction Esophageal reflux HLD (hyperlipidemia) Hypertension Left atrial dilation Migraine PAF (paroxysmal atrial fibrillation) Persistent insomnia Surgical History History of cholecystectomy History of lumbar surgery History of partial hysterectomy Family History Mother Hypertension Father TIA (transient ischemic attack) Sister Diabetes Other No pertinent family history in first degree relatives Social History Smoking Status: Never smoker Hx Alcohol Use: No Hx Substance Use: No Preferred Language: [place]ian Communication Ability: Unable Visual Impairment: No Limitations Hearing Ability: Normal Frame Tender Required: No Beliefs That Will Affect Care: None marital status: Current Living Situation: Spouse current occupational status: retired Feels Safe at Home: Yes Assistive Devices: None Physical Exam Physical Exam: General: Awake alert oriented, no acute distress. HEENT: Normocephalic, atraumatic. Pupils equal, round and reactive to light and accommodation. Extraocular muscles are intact. Anicteric sclera. Moist mucous membranes. Neck: No JVD. No bruit. Cardiovascular: Regular. Positive S-4. Normal S-1 and S-2. No S-3. 3/6 mid to late systolic ejection murmur, greatest at the right sternal border, second intercostal space with radiation to the bilateral carotids. No rubs. Pulmonary: Clear to auscultation bilaterally. No rales, rhonchi, or wheezing. Abdomen: Bowel sounds x 4, soft. Diffuse tenderness. Extremities: No clubbing, cyanosis or edema. +2 pedal pulses bilaterally. Skin: Warm and dry. Results & Data ([facility]) Vital Signs (Past 12 Hours) Vital Signs Temp Pulse Resp BP Pulse Ox O2 Del Method 05/16/22 09:50 93 H 25 H 150/91 H 05/16/22 09:30 101 H 25 H 98 05/16/22 09:00 72 24 97 05/16/22 08:56 131 H 23 97 05/16/22 09:11 94 H 18 98 Room Air 05/16/22 08:46 36.4 C L 90 18 169/124 H 96 Room Air Diagnostic Findings May 10, 2021 TTE Interpretation Summary (as per Dr. Benitez): Normal LV chamber size and wall thickness. Normal LV systolic function without regional wall motion abnormality. Calculated LV ejection Fraction = 64% (bi-plane method of discs). Grade 2 diastolic dysfunction. Mild aortic valve sclerosis without stenosis, mild aortic regurgitation. Severe left atrial enlargement. The aortic root is normal sized. The proximal ascending thoracic aorta is mildly enlarged, 4.4 cm
[2022-05-16 10:50] LABS: SARS CoV2 RNA(COVID-19) InHosp POSITIVE (Negative)
[2022-05-16 10:54] LABS: Troponin I High Sensitivity 221.4 pg/ml (0-14)
[2022-05-16] MEDS ORDERED: SODIUM CHLORIDE 0.9% 1000ML 1,000 ML IV ONE (11:16)
[2022-05-16] MEDS ORDERED: OPTIRAY 300 500mL IV ONE (11:17)
--- NOTE | 2022-05-16 11:38 | CT Scan Report ---
CT SCAN OF THE ABDOMEN AND PELVIS WITH IV CONTRAST CLINICAL HISTORY: Nausea and vomiting. Diarrhea. COMPARISON STUDY: Abdominal CT dated 12/12/2019. TECHNIQUE: Following the IV administration of 120 cc of Optiray 300, CT scan of the abdomen and pelv is is performed from the lung bases to the proximal femora. Images are reviewed in the axial, sagitta l, and coronal planes. IV contrast was administered without complication. A dose lowering technique w as utilized adhering to the principles of ALARA. FINDINGS: Lung bases: The heart is enlarged and without pericardial effusion. The coronary arteries a density c alcified. There is a small hiatal hernia. The lung bases are clear noting dependent atelectasis. Ther e is mild aneurysmal dilatation of the partially visualized ascending thoracic aorta. This measures a t least 4.0 cm in diameter. Liver: The contrast-enhanced liver is normal in size, contour, and attenuation. There is no intrahepa tic biliary ductal dilatation. The hepatic veins and portal veins are patent. Gallbladder: Surgically absent. Spleen: Normal in size and attenuation. Pancreas: Atrophic and grossly unremarkable. Adrenal glands: Unremarkable. Kidneys: The contrast enhanced kidneys are normal in size and without hydronephrosis. The kidneys enh ance symmetrically. Scattered subcentimeter cortical hypodensities likely represent cysts but are too small for definitive characterization. Abdominal vasculature: There is advanced atherosclerotic calcification mild ectasia of the abdominal aorta. Bowel: There is moderate colonic diverticulosis without CT evidence of acute diverticulitis. No bowel obstruction is seen. Question mucosal hyperemia of the left colon. There is no colonic wall thickeni ng or surrounding inflammation. The appendix is identified and reported surgically absent. Peritoneum: There is no intraperitoneal free air or abdominal ascites. Lymphadenopathy: None. Pelvic viscera: The bladder is mildly distended but otherwise normal in appearance. The uterus is chinedu gically absent. No adnexal lesion is seen. Skeletal structures: No lytic or blastic lesions are seen. IMPRESSION: 1. Question mucosal hyperemia of the left colon. There is no colonic wall thickening or surrounding i nflammation. Correlate clinically for evidence of a mild nonspecific colitis. 2. Colonic diverticulosis without CT evidence of acute diverticulitis. 3. There is no bowel obstruction. 4. Additional findings as above. ACT 112: Negative or not required by law. Electronically signed by: Austin Saucedo M.D. 05/16/2022 11:36 AM
[2022-05-16 11:48] LABS: Appearance Urine Clear (Clear); Bacteria Urine Automated 1+ (Negative); Bilirubin Urine Negative (Negative); Blood Urine 2+ (Negative); Color Urine Yellow; Epithelial Cell Urine Auto >30 /lpf (0-5); Glucose Urine UA 1+ (Negative); Ketones Urine 4+ (Negative); Leukocyte Esterase Urine Negative (Negative); Nitrite Urine Negative (Negative); Protein Urine 4+ (Negative); Urobilinogen Urine Negative (Negative); pH Urine 5.5 (4.5-7.5)
--- NOTE | 2022-05-16 11:52 | CT Scan Report ---
CHEST CTA for PULMONARY ARTERIES CT DOSE: 545.39 mGy.cm HISTORY: Covid. Headache. Nausea. Vomiting. Shortness of breath. Assess for pulmonary embolus. TECHNIQUE: Multiaxial CT images of the chest were performed following the intravenous administration of contrast to evaluate the pulmonary arteries. Maximal intensity projection images were also obtaine d. A dose lowering technique was utilized adhering to the principles of ALARA. COMPARISON STUDY: Chest CT 01/27/2014. FINDINGS: There is a 2.1 cm right thyroid nodule. No mediastinal or hilar lymphadenopathy. There is a small hiatus hernia. Otherwise, normal caliber esophagus moderate focal narrowing at the takeoff of the right subclavian artery due to the calcified plaque. The ascending thoracic aorta measures up to 4.3 cm in diameter which is slightly increased in size. The heart is mildly enlarged. No evidence for an aortic dissection. Please refer to the same day abdomen and pelvis CT for further evaluation of t he abdominal structures. No pleural or pericardial effusions. No suspicious lytic or blastic osseous lesions. Nondiagnostic evaluation of the bilateral lower lobe subsegmental pulmonary arteries due to the respiratory motion artifact. Otherwise, the remaining pulmonary arteries show no filling defects to suggest a pulmonary embolus. No pneumothorax. The central airways are patent. No focal lung consol idations to suggest pneumonia. Mild dependent changes seen at the lung bases. IMPRESSION: 1. No evidence for pulmonary embolus with limitations as described above. 2. Mild aneurysmal dilatation of the ascending thoracic aorta measuring 4.3 cm in diameter. This has slightly increased in size. 3. No focal lung consolidations to suggest pneumonia. 4. A 2.1 cm right thyroid nodule. Follow-up nonemergent thyroid ultrasound recommended for further ev aluation. ACT 112: Negative or not required by law. Electronically signed by: César Decker M.D. 05/16/2022 11:49 AM
[2022-05-16 12:15] LABS: Mucus Urine Present (None Prsent)
--- NOTE | 2022-05-16 13:26 | History & Physical Report ---
Date of Service May 16, 2022 Assessment & Plan (1) Atrial fibrillation with rapid ventricular response: Plan: In the setting of COVID-19 infection and hypokalemia. Currently hemodynamically stable on amiodarone drip. - Admit to PCU - Continue amiodarone gtt for now - appreciate cardiology input - Starting metoprolol tartrate 25 mg BID per cardio recommendations - Potassium being repleted - recheck tonight. Magnesium was 2.0. - Continue Eliquis (2) NSVT (nonsustained ventricular tachycardia): (3) Elevated troponin: Plan: Tachyarrhythmias noted on EKG and monitor in ED - suspect demand ischemia related to #1 and #2 as well as hypovolemia - Trend troponin Q6H x3 - Repeat EKG in AM (4) Pneumonia due to COVID-19 virus: Plan: Not hypoxic when initially evaluated. If develops hypoxia requiring persistent O2, would consider addition of dexamethasone. Supportive care for N/V/D - diarrhea seems to be improving but if recurrent consider stool studies. Continue IVF hydration - clinically dehydrated. Concern for ischemic colitis based on location of abdominal pain and diarrhea, which seemed to start after poor oral intake. (5) Hypokalemia: Plan: Replete potassium and recheck in AM (6) Chronic heart failure with preserved ejection fraction (HFpEF): Plan: Appears hypovolemic at present (7) HLD (hyperlipidemia): (8) Hypertension: (9) Ascending aortic aneurysm: Plan: Stable on imaging (10) Esophageal reflux: Plan Continue other home medications as appropriate Pt seen and reviewed with collaborating physician, Dr. Valdes. Plan of care discussed and as outlined above. DVT Prophylaxis: Eliquis Code status: DNI but otherwise would like everything done. Francy Mcclellan PA-C History of Present Illness Chief Complaint: nausea, vomiting, weakness Primary Care Provider: Everett Macedo, This is 72 y/o female with a PMH of PAF on chronic AC with Eliquis, HFpEF, stable thoracic aortic aneurysm, HTN, GERD, anxiety, migraine, and hypercholesterolemia who presents to the ED today with N/V and weakness. Pt apparently started with congestion and cough five days ago, which last about two days. Three days ago, she started with N/V/D, fatigue, and loss of appetite. Yesterday, symptoms were particularly severe with frequent diarrhea, subjective fevers, sweats, abdominal pain, and weakness. Today, although the diarrhea has started to improve, she had multiple episodes of emesis and was so weak that she was unable to walk so her called EMS to bring her to the ED. In the ED, she developed a tachyarrhythmia with multiple runs of non-sustained V-tach so she was given an amiodarone bolus and started on a drip with improvement. Since then, her HR has improved and she has been hemodynamically stable. She reports mild SOB but no significant cough. Denies headache, chest pain or tightness. She has noted dizziness, worse with position changes. Pt was vaccinated for COVID x 3 ([facility] She notes that she was around her sister last week who tested positive for COVID. Allergies Allergy/AdvReac Type Severity Reaction Status Date / Time No Known Allergies Allergy Verified 05/16/22 12:46 Home Medications Medication Instructions Recorded Confirmed Type apixaban 5 mg tablet (Eliquis) 5 mg PO BID 05/16/22 05/16/22 History atorvastatin 40 mg tablet 40 mg PO DAILY 05/16/22 05/16/22 History clonidine 0.3 mg/24 hr weekly 0.3 mg transdermal WK 05/16/22 05/16/22 History transdermal patch doxazosin 4 mg tablet 4 mg PO QPM 05/16/22 05/16/22 History gabapentin 100 mg capsule 100 mg PO TID 05/16/22 05/16/22 History lorazepam 0.5 mg tablet 0.5 mg PO BID PRN Anxiety 05/16/22 05/16/22 History ramelteon 8 mg tablet 8 mg PO HS 05/16/22 05/16/22 History trazodone 50 mg tablet 50 mg PO HS 05/16/22 05/16/22 History Past Med/Surg History Medical History Anxiety Ascending aortic aneurysm 4.4cm per resting echo 04/2021 Chronic heart failure with preserved ejection fraction (HFpEF) Diastolic dysfunction Esophageal reflux HLD (hyperlipidemia) Hypertension Left atrial dilation Migraine PAF (paroxysmal atrial fibrillation) Persistent insomnia Surgical History History of cholecystectomy History of lumbar surgery History of partial hysterectomy Family History Mother Hypertension Father TIA (transient ischemic attack) Sister Diabetes Other No pertinent family history in first degree relatives Social History Smoking Status: Never smoker Hx Alcohol Use: No Hx Substance Use: No Preferred Language: Spanish Communication Ability: Effective Visual Impairment: No Limitations Hearing Ability: Normal Bridge Opener Required: No Beliefs That Will Affect Care: None marital status: Current Living Situation: Spouse current occupational status: retired Feels Safe at Home: Yes Safety Concerns: Feels Safe At This Time Assistive Devices: Denture - Upper, Denture - Lower and Glasses Review of Systems Review of Systems: All systems reviewed & are unremarkable except as noted in HPI & below Constitutional: + fever, + sweats, + fatigue, + weakness and + anorexia Eyes: no diplopia Ear, Nose, Mouth, Throat: as per Subjective / HPI Respiratory: + dyspnea; no cough and no hemoptysis Cardiovascular: + lightheadedness; no chest pain, no palpitations, no syncope and no edema Gastrointestinal: as per Subjective / HPI; no hematemesis and no blood in stools Genitourinary: no dysuria, no difficulty urinating and no urinary frequency Musculoskeletal: + myalgia; no back pain and no neck pain Integumentary: no rash and no yellowing of the skin Neurologic: + generalized weakness and + dizziness; no headache(s) Psychiatric: + anxiety; no depression Physical Exam Constitutional: well developed and well nourished; no acute distress Eyes: + anicteric sclerae ENMT: Mouth: + dry oral mucous membranes Neck: trachea midline Respiratory: no respiratory distress and no labored breathing Auscultation: + crackles (at left base); no wheezes Cardiovascular: Rate/Rhythm: + tachycardic and + irregularly irregular Vessels: dorsalis pedis pulses present and radial pulses present Extremities: no calf tenderness and no pedal edema Gastrointestinal (Abdomen): Inspection/Auscultation: + hypoactive bowel sounds; abdomen not distended Percussion/Palpation: + abdomen tender (diffusely but worse in epigastric area) and abdomen soft Musculoskeletal: Head/Neck/Chest: normocephalic, head atraumatic and neck supple Skin: no jaundice Neurologic: moves all extremities; no focal motor deficits and not confused Psychiatric: A+Ox3, euthymic affect Results & Data Results & Data ([facility]) Vital Signs (Past 12 Hours) Vital Signs Temp Pulse Pulse Resp BP BP Pulse Ox 05/16/22 12:40 37.3 C 119 H 24 141/91 H 94 05/16/22 11:31 87 22 131/80 97 05/16/22 10:30 197 H 19 142/95 H 99 05/16/22 10:00 95 H 23 148/106 H 98 05/16/22 09:50 93 H 25 H 150/91 H 05/16/22 09:30 101 H 25 H 98 05/16/22 09:00 72 24 97 05/16/22 08:56 131 H 23 97 05/16/22 09:11 94 H 18 98 05/16/22 08:46 36.4 C L 90 18 169/124 H 96 O2 Del Method 05/16/22 12:40 Room Air 05/16/22 11:31 05/16/22 10:30 05/16/22 10:00 05/16/22 09:50 05/16/22 09:30 05/16/22 09:00 05/16/22 08:56 05/16/22 09:11 Room Air 05/16/22 08:46 Room Air Laboratory Results Laboratory Results - last 24 hr 05/16/22 05/16/22 05/16/22 09:38 09:47 09:47 WBC 14.79 H RBC 5.19 Hgb 14.2 Hct 43.3 MCV 83.4 MCH 27.4 MCHC 32.8 RDW Std Deviation 46.0 RDW Coeff of Jessica 15.2 H Plt Count 293 MPV 11.7 Immature Gran % (Auto) 0.9 Neut % (Auto) 89.3 Lymph % (Auto) 6.7 [place] % (Auto) 2.9 Eos % (Auto) 0.0 Baso % (Auto) 0.2 Neut # (Auto) 13.20 H Lymph # (Auto) 0.99 L [place] # (Auto) 0.43 Eos # (Auto) 0.00 Baso # (Auto) 0.03 Immature Gran # (Auto) 0.14 H PT 11.4 INR 1.1 APTT 27.1 PTT Ratio 1.0 Sodium Potassium Chloride Carbon Dioxide Anion Gap BUN Creatinine Est Cr Clr Drug Dosing Est GFR ( Amer) Est GFR (Non-Af Amer) BUN/Creatinine Ratio Glucose Lactate Calcium Magnesium Total Bilirubin AST ALT Alkaline Phosphatase Troponin I High Sens Total Protein Albumin Globulin Albumin/Globulin Ratio Lipase Urine Color Urine Appearance Urine pH Ur Specific [place] Urine Protein Urine Glucose (UA) Urine Ketones Urine Blood Urine Nitrite Urine Bilirubin Urine Urobilinogen Ur Leukocyte Esterase Urine WBC (Auto) Urine RBC (Auto) U Hyaline Cast (Auto) U Epithel Cells (Auto) Urine Bacteria (Auto) Ur Renal Epithelial Cell Granular Casts Urine Mucus Urine Yeast SARS-CoV-2 (PCR) POSITIVE A* Influenza Type A (PCR) Negative Influenza Type B (PCR) Negative RSV (RT-PCR) Negative 05/16/22 05/16/22 05/16/22 09:47 09:47 09:47 WBC RBC Hgb Hct MCV MCH MCHC RDW Std Deviation RDW Coeff of Jessica Plt Count MPV Immature Gran % (Auto) Neut % (Auto) Lymph % (Auto) [place] % (Auto) Eos % (Auto) Baso % (Auto) Neut # (Auto) Lymph # (Auto) [place] # (Auto) Eos # (Auto) Baso # (Auto) Immature Gran # (Auto) PT INR APTT PTT Ratio Sodium 140 Potassium 3.0 L Chloride 103 Carbon Dioxide 15 L Anion Gap 22 H BUN 19 Creatinine 0.64 Est Cr Clr Drug Dosing 59.1 Est GFR ( Amer) 102.6 Est GFR (Non-Af Amer) 88.5 BUN/Creatinine Ratio 29.7 H Glucose 213 H Lactate 5.2 H* Calcium 9.5 Magnesium 2.0 Total Bilirubin 0.4 AST 37 ALT 23 Alkaline Phosphatase 111 H Troponin I High Sens 221.4 H* Total Protein 8.4 H Albumin 4.5 Globulin 3.9 Albumin/Globulin Ratio 1.2 Lipase 18 Urine Color Urine Appearance Urine pH Ur Specific [place] Urine Protein Urine Glucose (UA) Urine Ketones Urine Blood Urine Nitrite Urine Bilirubin Urine Urobilinogen Ur Leukocyte Esterase Urine WBC (Auto) Urine RBC (Auto) U Hyaline Cast (Auto) U Epithel Cells (Auto) Urine Bacteria (Auto) Ur Renal Epithelial Cell Granular Casts Urine Mucus Urine Yeast SARS-CoV-2 (PCR) Influenza Type A (PCR) Influenza Type B (PCR) RSV (RT-PCR) 05/16/22 05/16/22 11:30 12:01 WBC RBC Hgb Hct MCV MCH MCHC RDW Std Deviation RDW Coeff of Jessica Plt Count MPV Immature Gran % (Auto) Neut % (Auto) Lymph % (Auto) [place] % (Auto) Eos % (Auto) Baso % (Auto) Neut # (Auto) Lymph # (Auto) [place] # (Auto) Eos # (Auto) Baso # (Auto) Immature Gran # (Auto) PT INR APTT PTT Ratio Sodium Potassium Chloride Carbon Dioxide Anion Gap BUN Creatinine Est Cr Clr Drug Dosing Est GFR ( Amer) Est GFR (Non-Af Amer) BUN/Creatinine Ratio Glucose Lactate 3.2 H* Calcium Magnesium Total Bilirubin AST ALT Alkaline Phosphatase Troponin I High Sens Total Protein Albumin Globulin Albumin/Globulin Ratio Lipase Urine Color Yellow Urine Appearance Clear Urine pH 5.5 Ur Specific [place] 1.030 Urine Protein 4+ H Urine Glucose (UA) 1+ H Urine Ketones 4+ H Urine Blood 2+ H Urine Nitrite Negative Urine Bilirubin Negative Urine Urobilinogen Negative Ur Leukocyte Esterase Negative Urine WBC (Auto) 10-30 H Urine RBC (Auto) 5-10 H U Hyaline Cast (Auto) 5-10 H U Epithel Cells (Auto) >30 H Urine Bacteria (Auto) 1+ H Ur Renal Epithelial Cell Not Reportable Granular Casts 1-5 H Urine Mucus Present A Urine Yeast Budding A SARS-CoV-2 (PCR) Influenza Type A (PCR) Influenza Type B (PCR) RSV (RT-PCR) Diagnostic Findings Chest X-ray 05/16/22 - IMPRESSION: Mild cardiomegaly with no active disease in the chest. Chest CTA 05/16/22 - IMPRESSION: 1. No evidence for pulmonary embolus with limitations as described above. 2. Mild aneurysmal dilatation of the ascending thoracic aorta measuring 4.3 cm in diameter. This has slightly increased in size. 3. No focal lung consolidations to suggest pneumonia. 4. A 2.1 cm right thyroid nodule. Follow-up nonemergent thyroid ultrasound recommended for further evaluation. CT Abd/Pel 05/16/22 - IMPRESSION: 1. Question mucosal hyperemia of the left colon. There is no colonic wall thickening or surrounding inflammation. Correlate clinically for evidence of a mild nonspecific colitis. 2. Colonic diverticulosis without CT evidence of acute diverticulitis. 3. There is no bowel obstruction. 4. Additional findings as above. Medications Administered Amiodarone HCl/Dextrose (Nexterone / D5w) 360 mg in 200 mls @ 33.333 mls/hr IV ONE ONE Stop: 05/16/22 16:43 Last Admin: 05/16/22 10:45 Dose: 1 mg/min, 33.3 mls/hr Documented By: JUSTIN Co-signed By: MALACHI Potassium Chloride/Sodium Chloride (Normal Saline W/20 Meq Kcl) 20 meq in 1,000 mls @ 125 mls/hr IV .Q8H VEGA; Protocol Stop: 06/15/22 10:44 Last Admin: 05/16/22 10:53 Dose: 125 mls/hr Documented By: MALACHI Discontinued Medications Amiodarone HCl/Dextrose (Amiodarone 360mg / 200ml D5w) Confirm Administered Dose 360 mg IV .STK-MED ONE Stop: 05/16/22 10:32 Last Admin: 05/16/22 10:46 Dose: Not Given Documented By: JUSTIN Amiodarone HCl/Dextrose (Amiodarone 150mg / 100ml D5w) Confirm Administered Dose 150 mg IV .STK-MED ONE Stop: 05/16/22 10:32 Last Admin: 05/16/22 10:36 Dose: Not Given Documented By: BRIDGET Amiodarone HCl (Amiodarone Iv Bolus & Drip) 1 each IV NOW STA; Protocol Stop: 05/16/22 10:34 Last Admin: 05/16/22 10:46 Dose: Not Given Documented By: JUSTIN Sodium Chloride (Nss 1000ml) 1,000 mls @ 999 mls/hr IV .Q1H1M STA Stop: 05/16/22 09:57 Last Infusion: 05/16/22 10:45 Dose: 0 mls/hr Documented By: Admin: 05/16/22 09:43 Dose: 999 mls/hr Documented By: MALACHI Amiodarone HCl/Dextrose (Nexterone / D5w) 150 mg in 100 mls @ 600 mls/hr IV NOW STA Stop: 05/16/22 10:42 Last Infusion: 05/16/22 10:45 Dose: 0 mls/hr Documented By: JUSTIN Co-signed By: MALACHI Admin: 05/16/22 10:36 Dose: 600 mls/hr Documented By: BRIDGET Co-signed By: JUSTIN Sodium Chloride (Nss 1000ml) 1,000 mls @ 999 mls/hr IV .Q1H1M ONE Stop: 05/16/22 12:16 Last Infusion: 05/16/22 12:56 Dose: 0 mls/hr Documented By: Admin: 05/16/22 11:37 Dose: 999 mls/hr Documented By: MALACHI Ioversol (Optiray 300 500ml) 120 ml IV ONCE ONE Stop: 05/16/22 11:18 Last Admin: 05/16/22 11:17 Dose: 120 ml Documented By: RONY Lorazepam (Lorazepam 2 Mg/1 Ml Vial) Confirm Administered Dose 1 mg .ROUTE .STK- MED ONE Stop: 05/16/22 10:40 Last Admin: 05/16/22 10:43 Dose: 1 mg Documented By: JUSTIN Metoprolol Tartrate (Metoprolol Tartrate 25 Mg Tab) 25 mg PO ONCE ONE Stop: 05/16/22 10:42 Last Admin: 05/16/22 10:53 Dose: 25 mg Documented By: MALACHI Miscellaneous (Stat Iv Infusion Titration Per Protocol) 1 each N/A NOW STA Stop: 05/16/22 10:34 Last Admin: 05/16/22 10:46 Dose: Not Given Documented By: JUSTIN Ondansetron HCl (Ondansetron Inj 2 Mg/Ml 2 Ml Vial) 4 mg IV NOW STA Stop: 05/16/22 08:58 Last Admin: 05/16/22 09:43 Dose: 4 mg Documented By: MALACHI Ondansetron HCl (Ondansetron Inj 2 Mg/Ml 2 Ml Vial) 4 mg IV NOW STA Stop: 05/16/22 12:41 Last Admin: 05/16/22 12:42 Dose: 4 mg Documented By: Code Status & VTE Plan VTE Prophylaxis Plan VTE Prophylaxis will be ordered: Yes Supervising Physician Co-Signing Physician Notes 72-year-old female presents with nausea vomiting and diarrhea following a 2-day influenza-like illness now known to be COVID. No known antibiotics in the last 3 months but she is on a PPI regularly. Reports the diarrhea has now resolved as of this morning. She is still significantly nauseous and not eating or drinking much. She presented via EMS to the ER and developed a tachyarrhythmia with multiple runs of nonsustained V. tach so was given an amiodarone bolus and started on a drip with improvement in her heart rate to the 120s. She denies any chest pain or trouble breathing. She does report some fever yesterday but did not take her temperature. She has an epigastric/left upper quadrant abdominal pain that is continuous and improved when she lays on her right side. She is overall feeling significantly weak and reporting difficulty walking. Her sister was positive for COVID last week and likely gave it to her. White blood cell count elevated to 15 K, normal H&H, normal platelet, patient is on Eliquis and INR is 1.1. Sodium is normal at 140, potassium low at 3.0. She is acidotic with a CO2 of 15 and an elevated anion gap is noted with a lactic acidosis present and a lactate of 5.2. BUN and creatinine are normal with creatinine at 0.64. Glucose is 213 and she reports poor p.o. intake so this is likely a fasting glucose. Highly sensitive troponin was 221 in the setting of multiple tachyarrhythmias. Lipase was 18. Imaging revealed a CT angiogram of the chest with no evidence of pulmonary embolus. She had mild aneurysmal dilation of the ascending thoracic aorta measuring 4.3 cm. She had a 2.1 cm right thyroid nodule. There were no focal lung consolidations to suggest pneumonia. CT scan of the abdomen pelvis with IV contrast was also performed revealing questionable mucosal hyperemia of the left colon with no colonic wall thickening or surrounding inflammation. There was no evidence of acute diverticulitis. Overall this patient presents with conduction abnormalities and a clinical picture consistent with possible severe sepsis. She is COVID-positive and has no urinary symptoms but bacteria present in the urine. There is no evidence of focal pneumonia at this point and she is not hypoxic. No COVID-specific therapies will be offered. Labs are reflective of a starvation/lactic acidosis with a high anion gap metabolic acidosis, low potassium, and reports of poor p.o. intake. LUQ pain and findings on CT abd reflect possible ischemic colitis from hypotension and dehydration in a known watershed area of the gut. Magnesium is normal with Phos pending. Multiple days of not eating but this patient at clinical risk for refeeding syndrome. We will ensure Phos is repleted. We will also give thiamine. Will check BMP and electrolytes frequently and replace as needed. Troponin is elevated with EKG abnormalities suggestive of subendocardial ischemia. She denies any chest pain and has suffered tachyarrhythmias in the setting of possible sepsis. Cardiology has been consulted and will continue to monitor on telemetry and trend troponins. Calcified plaque noted in right subclavian artery on imaging. She has a history of paroxysmal atrial fibrillation and is on Eliquis. She has known diastolic dysfunction but is not presenting with a heart failure syndrome. She is clinically hypovolemic. Plan will be to cover with broad-spectrum antibiotics, rehydrate and await blood and urine cultures. We will continue amiodarone drip for tachyarrhythmia and trend troponins and EKGs out of concern for possible developing ACS. Demand ischemia is more likely in the setting of acute infection with dehydration and tachycardia. Defer to cardiology for further work-up. Beta-john added as noted above. Cont Eliquis. Notably her fasting glucose is elevated to 213 indicating a possible diagnosis of diabetes. She has not been diagnosed with this in the past. We will check an A1c and frequently monitor blood glucose with coverage using insulin as needed. No carb coverage or glargine has been ordered at this time. Darling Valdes DO [facility] Hospitalist
[2022-05-16] MEDS ORDERED: ACETAMINOPHEN 325 MG TAB PO PRN (15:27)
[2022-05-16] MEDS ORDERED: GLUCOSE 40% GEL 15 GM TUBE PO PRN (15:46)
[2022-05-16] MEDS ORDERED: GLUCAGON FOR INJ 1 MG VIAL SQ PRN (15:46)
[2022-05-16] MEDS ORDERED: CARBOHYDRATES FOR HYPOGLYCEMIA PO PRN (15:46)
[2022-05-16] MEDS ORDERED: DEXTROSE 50% 50 ML SYRINGE IV PRN (15:46)
[2022-05-16] MEDS ORDERED: GLUCOSE 10 TAB/TUBE PO PRN (15:46)
[2022-05-16] MEDS ORDERED: THIAMINE HCL 100 MG in SYRINGE 9 ML IV STA (15:57)
[2022-05-16] MEDS ORDERED: CHECK CLONIDINE PATCH PLACEMENT SCH (16:00)
[2022-05-16 16:35] LABS: Troponin I High Sensitivity 3563.6 pg/ml (0-14)
[2022-05-16] MEDS: AMIODARONE / D5W 360 MG/200 ML BAG IV SCH (16:46)
[2022-05-16] MEDS ORDERED: NITROGLYCERIN SL 0.4 MG/TAB TAB ONE (16:55)
[2022-05-16 16:59] LABS: Phosphorus 1.7 mg/dl (2.5-4.9)
[2022-05-16 17:01] LABS: Base Excess ABG -8.6 mEq/L (-9-1.8); HCO3 ABG 14 mmol/L (19-24); Oxygen Saturation ABG 99.2 % (90-95); PCO2 ABG 22 mmHg (35-46); PO2 ABG 80 mmHg (80-95); pH ABG 7.41 (7.35-7.45)
[2022-05-16 17:03] LABS: Allen Test POS (Pos)
[2022-05-16] MEDS ORDERED: FUROSEMIDE 40 MG/4 ML VIAL IV ONE ×2 (17:08→17:13)
[2022-05-16] MEDS: POTASSIUM CHLORIDE / WTR 10 MEQ/100 ML PLCT IV SCH ×3 (17:12→18:25)
[2022-05-16] MEDS: RAMELTEON: ORDER AWAITING ACTION SCH (17:16)
[2022-05-16] MEDS ORDERED: HYDROmorphone INJ 0.5 MG/0.5 ML SYR IV STA (17:17)
[2022-05-16] MEDS ORDERED: POTASSIUM PHOS 3 MMOL/1 ML INFUSION IV STA (17:26)
[2022-05-16] MEDS ORDERED: PROMETHAZINE HCL 12.5 MG in SODIUM CHLORIDE 0.9% 50 ML IV ONE (17:30)
[2022-05-16] MEDS ORDERED: ACETAMINOPHEN 1,000 MG/100 ML VIAL IV PRN (17:32)
--- NOTE | 2022-05-16 17:39 | XRay Report ---
XR chest 1V portable CLINICAL HISTORY: difficulty breathing COMPARISON STUDY: Chest radiograph and chest CT performed earlier today. FINDINGS: Lung volumes are normal. There is no pneumothorax. There has been interval development of i nterstitial thickening and bilateral airspace opacities since chest radiograph and chest CT performed earlier today. Cardiomediastinal silhouette is stable. IMPRESSION: Interval development of interstitial thickening in bilateral airspace opacities since ch est radiograph and chest CT performed earlier today. This favors rapid development of moderate pulmon amada edema. ACT 112: Negative or not required by law. Electronically signed by: Mega Butler M.D. 05/16/2022 5:37 PM
--- NOTE | 2022-05-16 17:42 | Communication Note ---
Date of Service: May 16, 2022 Contacted by nurse around 4:40p that she was having increased SOB and hypoxia, worsened subxiphoid discomfort, similar to what was going on earlier in the ER. She has persistent nausea and is diaphoretic and holding her head. Her eyes are closed and she is in moderate distress. No vomiting. Vitals are 106/71, HR 84, 94% on 6LPM via oxymask. Repeat trop was 3563 from 212 several hours ago. She was given sublingual nitroglycerin 0.4mg x one tab with no change in subxiphoid pain. Repeat EKG showed sinus arrhythmia without evidence of ST elevations or depressions concerning for active ACS. Demand ischemia most likely but with worsening symptoms, I did contact the on-call casino controller to discuss further. Per Dr. Heaton, she doesn't currently meet criteria to go for heart catheterization. Also, we can explain her symptoms with other possible etiologies. Telemetry review did reveal short bursts of atrial fibrillation at least twice with her heart rate climbing to 180bpm for several seconds and then converting back to sinus rhythm. She remains on the amiodarone drip. Breath sounds were coarse bilaterally and flash pulmonary edema was of concern after rapid fluid resuscitation for sepsis this morning. Lasix 40mg IV x one dose was ordered and as her hypoxia was worsening to 88%, she was placed on BIPAP 08/22. [place] ordered. ABG returned with pH 7.41/ pCO2 22/pO2 80/HCO3 14 consistent with a metabolic acidosis with respiratory compensation. Additional attempts to control her nausea will be to use phenergan now (avoid zofran with prolonged QTc) and if not successful try a small dose of dilaudid. Discussed timing with primary RN who will separate to avoid polypharmacy side effect and excessive sedation. Phosphate will be repleted. Potassium replacement is hanging now given low K to start and now furosemide administration. was updated at bedside and he and his verbalized understanding of the plan. Repeat lactate returned at 3.0 from 3.2. With ongoing abdominal pain, persistent nausea that is mod to severe, almost suggestive of pain out of proportion to exam, there is a concern for possible mesenteric ischemia. This also may just be related to possible ischemic colitis given the dehydration picture described originally. Contacted surgery for a look at her and recommendations. Total critical care time spent at bedside with patient, obtaining diagnostic studies with interpretation, coordinating care with professional staff and updating family members includes 30 minutes. DO Lucio
[2022-05-16] MEDS ORDERED: POTASSIUM PHOSPHATE 30 MMOL in SODIUM CHLORIDE 0.9% 500 ML IV ONE (17:45)
[2022-05-16] MEDS: INSULIN ASPART PER UNIT SC SCH ×2 (17:59→21:07)
[2022-05-16] MEDS ORDERED: PIPERACILLIN/TAZOBACTAM 3.375 GM in DEXTROSE 5% 100 ML IV ONE (18:15)
[2022-05-16] MEDS ORDERED: PIPERACILLIN/TAZOBACTAM 4.5 GM in DEXTROSE 5% 100 ML IV SCH (18:15)
[2022-05-16] MEDS ORDERED: HEPARIN 25000 UNIT/500 ML D5W IV ONE (18:34)
[2022-05-16] MEDS ORDERED: IPRATROPIUM BROMIDE NEB SOLN 0.02% 2.5 ML VIAL INH STA (20:10)
[2022-05-16] MEDS ORDERED: LEVALBUTEROL 1.25MG/0.5ML NEB INH STA (20:10)
[2022-05-16] MEDS ORDERED: XOPENEX/ATROVENT 1.25mg/0.5MG NEB COMBO NEB STA (20:10)
--- NOTE | 2022-05-16 20:39 | Surgery Consultation ---
Date of Consultation May 16, 2022 Assessment & Plan (1) Abdominal pain: The patient has been admitted on the hospitalist service. Concerning the patient's abdominal pain we recommend proceeding as follows: Is uncertain the cause of patient's abdominal pain but certainly could be related to her underlying COVID infection. She also may have a developing nonspecific colitis as noted on her CT scan Recommend providing analgesics Recommend providing antiemetics Recommending resuscitation with IV fluids Continue antibiotics in form of Zosyn Follow serial abdominal exams The present time the patient does not have a surgical abdomen or hot does not exhibit pain out of proportion to physical exam, therefore not feel an urgent operation is required Patient has numerous other medical issues at play which could be contributing to her abdominal pain. She is noted to have episodes of atrial fibrillation with rapid ventricular response. She is also noted to have an elevated troponin suggesting an underlying cardiac etiology. The treating service has ordered an echocardiogram which is pending. Will continue to follow along while the patient is hospitalized. Remainder of plan as directed by primary service Supervising Physician Co-Signing Physician Notes Patient discussed with Grant CIFUENTES, labs and imaging results reviewed. Symptoms likely related to covid and other underlying medical problems, unlikely to be mesenteric ischemia as queried. Surgery will follow, call with questions or concerns History of Present Illness Reason for Consultation: Abdominal pain/concern for possible mesenteric ischemia Attending Physician: Darling Valdes, History of Present Illness This is a 72-year-old female with multiple medical problems. Patient notes that she developed a COVID-19 infection approximately 2 days ago. Her symptomatology included a cough along with decreased appetite and some generalized abdominal pain. She notes that the abdominal pain is not pinpoint and is just generally across her entire abdomen. She denies any radiation of the pain. She also denies any modifying factors of her abdominal pain. She did report some associated nausea and vomiting along with diarrhea. She does not note any fevers, shakes, or chills. She also reports some minor shortness of breath with her COVID-19 infection. She further reports that since she developed this infection she has had very poor oral intake, eating and drinking very little over the past 2 days. She finally presented to the emergency department today as she noted some generalized weakness stating she had a great deal of difficulty getting around her home. With her generalized weakness she denies any vertigo. She denies any visual changes. She denies any falls or head injuries. The patient presented to the emergency department where the patient developed atrial fibrillation with rapid ventricular response with a heart rate in the 170s to 180s. She has subsequent been placed on a amiodarone drip along with a heparin drip. Imaging that the patient had included an initial chest x-ray that showed no evidence of CHF or pneumonia. She underwent a CT scan of the chest that showed no evidence of pulmonary emboli. She was noted to have some aneurysmal dilatation of the ascending thoracic aorta at approximately 4.3 cm. There were no evidence of pneumonia on this study. She underwent a CT scan of the abdomen pelvis that showed some hyperemia of the left colon. There was no colonic wall thickening or surrounding inflammation. Nonspecific colitis could not be excluded. There is no evidence of bowel obstruction or diverticulitis. Labs include a CBC her white blood cell count was 14.7. Her hemoglobin and hematocrit were both noted to be normal. Her platelet count was noted to be normal. Coagulation studies were all noted to be within the normal range. Chemistry profile showed sodium was 140 with a potassium of 3.0. Her BUN and creatinine were both within the normal range. The patient was not noted to have significant elevation of her LFTs or lipase. It is nowhere the mention that she was tested for COVID which came back positive. It should be noted that the patient developed respiratory distress following admission. She had a follow-up chest x-ray performed that showed development of interstitial thickening and bilateral airspace opacities suggestive of developing pulmonary edema. Serial labs were performed including lactic acid levels. Her initial lactic acid level in the emergency department is 5.2. This was repeated at 12:00 PM and was noted to be 3.2. She had an additional lactic acid level checked at approximately 4:50 PM which was decreased to 3.0. At approximately 4:50 PM the patient also had an ABG that showed a pH of 7.41, a PCO2 of 22, P O2 of 80, and a bicarb level of 14. Troponin levels were checked with initial troponin of 221 which is subsequently risen to 3563. At the time of my visit with the patient (which was at approximately 7:30 PM this evening) she had been placed on BiPAP secondary to her respiratory distress. I discussed with the bedside nurse and the patient has received some diuresis and with these modalities she has noted a significant improvement of h er respiratory symptoms. At the time of my visit she specifically denied any chest pain. The patient did not report any abdominal pain other than pain with palpation. With palpation the patient complained of some pain in a generalized fashion of her abdomen but she specifically denied any rebound tenderness or guarding. There is noteworthy to mention that the treating at the bedside noted that the patient was noted to be hypotensive with a systolic blood pressure in the 80s to 90s upon arrival to the floor, but she was noted to have a clonidine patch in place which was subsequently removed and her blood pressure has improved. At the present time the patient is receiving medicines in the form of an amiodarone drip, a heparin drip, antibiotics in the form of Zosyn, and intravenous fluids. At the time of my interview the patient notes that her symptomatology had markedly improved as noted above and she was in no distress. Allergies Allergy/AdvReac Type Severity Reaction Status Date / Time No Known Allergies Allergy Verified 05/16/22 12:46 Home Medications Medication Instructions Recorded Confirmed Type apixaban 5 mg tablet (Eliquis) 5 mg PO BID 05/16/22 05/16/22 History atorvastatin 40 mg tablet 40 mg PO DAILY 05/16/22 05/16/22 History clonidine 0.3 mg/24 hr weekly 0.3 mg transdermal WK 05/16/22 05/16/22 History transdermal patch doxazosin 4 mg tablet 4 mg PO QPM 05/16/22 05/16/22 History gabapentin 100 mg capsule 100 mg PO TID 05/16/22 05/16/22 History lorazepam 0.5 mg tablet 0.5 mg PO BID PRN Anxiety 05/16/22 05/16/22 History ramelteon 8 mg tablet 8 mg PO HS 05/16/22 05/16/22 History trazodone 50 mg tablet 50 mg PO HS 05/16/22 05/16/22 History Patient History Medical History Anxiety Ascending aortic aneurysm 4.4cm per resting echo 04/2021 Chronic heart failure with preserved ejection fraction (HFpEF) Diastolic dysfunction Esophageal reflux HLD (hyperlipidemia) Hypertension Left atrial dilation Migraine PAF (paroxysmal atrial fibrillation) Persistent insomnia Surgical History History of cholecystectomy History of lumbar surgery History of partial hysterectomy Family History Mother Hypertension Father TIA (transient ischemic attack) Sister Diabetes Other No pertinent family history in first degree relatives Social History Smoking Status: Never smoker Hx Alcohol Use: No Hx Substance Use: No Preferred Language: Citizen Of The [place] Communication Ability: Effective Visual Impairment: No Limitations Hearing Ability: Normal Prototype Sewer Required: No Beliefs That Will Affect Care: None marital status: Current Living Situation: Spouse current occupational status: retired Feels Safe at Home: Yes Safety Concerns: Feels Safe At This Time Assistive Devices: Denture - Upper, Denture - Lower and Glasses Review of Systems Constitutional: + fatigue and + weakness; no fever and no chills Eyes: no eye pain Ear, Nose, Mouth, Throat: no ear pain Respiratory: + cough and + dyspnea Cardiovascular: no chest pain Gastrointestinal: + abdominal pain, + nausea, + vomiting and + diarrhea/loose stools Genitourinary: no dysuria Musculoskeletal: no back pain Integumentary: no rash Neurologic: + generalized weakness; no localized weakness Physical Exam Constitutional: well developed and well nourished; no acute distress Eyes: no conjunctival abnormality ENMT: Ears: no hearing impairment and no external ear abnormality Unable to assess oral mucosa as patient had BiPAP in place Neck: trachea midline Respiratory: Breath sounds are present bilaterally with some decreased breath sounds noted at the bases. There is no use of accessory muscles. BiPAP was in place. She was not in respiratory distress at this time. Cardiovascular: Rate/Rhythm: regular rate and regular rhythm Vessels: dorsalis pedis pulses present and radial pulses present Gastrointestinal (Abdomen): Abdomen is soft, nonrigid, and nondistended. There is no rebound tenderness or guarding. There was some generalized pain with palpation which appeared to be greatest on the left side of her abdomen. Musculoskeletal: Feet are warm and non-mottled, there is no calf tenderness Skin: no rashes Neurologic: Patient is alert and oriented x3. She can move all 4 extremities and follows simple commands without any noted focal deficits Psychiatric: A+Ox3, euthymic affect Results & Data ([facility]) Vital Signs (Past 12 Hours) Vital Signs Temp Pulse Pulse Resp BP BP Pulse Ox 05/16/22 19:40 96 H 28 H 96 05/16/22 19:34 36.7 C 88 18 112/74 97 05/16/22 18:49 85 05/16/22 17:30 86 32 H 95 05/16/22 17:03 26 H 135/91 88 L 05/16/22 15:27 05/16/22 15:27 36.7 C 84 22 106/71 94 05/16/22 14:50 91 H 30 H 98/71 L 95 05/16/22 14:30 91 H 30 H 98/71 L 95 05/16/22 14:00 86 23 97/67 L 97 05/16/22 13:50 83 18 94/65 L 93 05/16/22 13:50 83 20 94/65 L 93 05/16/22 13:30 86 22 88/64 L 93 05/16/22 13:00 108 H 21 111/84 90 05/16/22 12:30 107 H 28 H 141/91 H 96 05/16/22 12:00 101 H 33 H 125/67 96 05/16/22 13:22 94 05/16/22 13:21 83 L 05/16/22 12:40 37.3 C 119 H 24 141/91 H 94 05/16/22 11:31 87 22 131/80 97 05/16/22 10:30 197 H 19 142/95 H 99 05/16/22 10:00 95 H 23 148/106 H 98 05/16/22 09:50 93 H 25 H 150/91 H 05/16/22 09:30 101 H 25 H 98 05/16/22 09:00 72 24 97 05/16/22 08:56 131 H 23 97 05/16/22 09:11 94 H 18 98 05/16/22 08:46 36.4 C L 90 18 169/124 H 96 O2 Del Method O2 Flow Rate FiO2 05/16/22 19:40 40 05/16/22 19:34 BiPAP 05/16/22 18:49 05/16/22 17:30 50 05/16/22 17:03 Oxymask 7 05/16/22 15:27 Oxymask 6 05/16/22 15:27 Oxymask 6 05/16/22 14:50 Room Air 05/16/22 14:30 05/16/22 14:00 05/16/22 13:50 05/16/22 13:50 Nasal Cannula 2 05/16/22 13:30 05/16/22 13:00 05/16/22 12:30 05/16/22 12:00 05/16/22 13:22 Nasal Cannula 6 05/16/22 13:21 Room Air 05/16/22 12:40 Room Air 05/16/22 11:31 05/16/22 10:30 05/16/22 10:00 05/16/22 09:50 05/16/22 09:30 05/16/22 09:00 05/16/22 08:56 05/16/22 09:11 Room Air 05/16/22 08:46 Room Air PG Care Time/CCT Total # of Minutes Spent Total Time Spent with Patient: Total time spent is greater than 50% in coordination of care (as documented) at patient's floor/unit and/or counseling patient: Coding Level of Care Code 24162 Inpt Consult Level 5 Diagnoses Abdominal pain R10.9
[2022-05-16] MEDS: HEPARIN SODIUM/DEXTROSE 25,000 UNITS/500 ML BAG IV SCH (20:47)
[2022-05-16] MEDS ORDERED: Heparin IV Adult Wt-Based Low-Dose *NO* Bolus Protocol IV SCH (21:00)
[2022-05-16] MEDS ORDERED: traZODone HCL 50 MG TAB PO SCH (21:00)
[2022-05-16] MEDS ORDERED: APIXABAN 5 MG TABLET PO SCH (21:00)
[2022-05-16] MEDS ORDERED: DOXAZosin MESYLATE 4 MG TAB PO SCH (21:00)
[2022-05-16 21:53] LABS: BUN Creatinine Ratio 26.1 (10-20); Calcium 8.3 mg/dl (8.5-10.1); Creatinine Clr Calc Pharmacy 54.8 ml/min; Est GFR (African American) 100.1 ml/min; Est GFR (Non-African American) 86.4 ml/min; Potassium 3.7 mmol/L (3.5-5.1)
[2022-05-16] MEDS: GABAPENTIN 100 MG CAP PO SCH (22:00)
[2022-05-16] MEDS: METOPROLOL TARTRATE 25 MG TAB PO SCH (22:00)
[2022-05-16 22:03] LABS: Troponin I High Sensitivity 5229.6 pg/ml (0-14)
[2022-05-16] MEDS ORDERED: MELATONIN 3 MG TAB PO PRN (23:00)
[2022-05-16] MEDS: PIPERACILLIN/TAZOBACTAM 3.375 GM in DEXTROSE 5% 100 ML IV SCH (23:32)
[2022-05-17] MEDS ORDERED: hydrOXYzine HCl 10 MG TAB PO STA (01:20)
[2022-05-17] MEDS ORDERED: POTASSIUM CHLORIDE CRTAB 20 MEQ TABCR PO STA (01:22)
[2022-05-17] MEDS ORDERED: DIGOXIN 250 MCG in SYRINGE 9 ML IV STA (01:23)
[2022-05-17] MEDS ORDERED: ALBUMIN 25% 100 mL 25 GM/100 ML VIAL IV ONE (02:33)
[2022-05-17] MEDS ORDERED: FUROSEMIDE INJ 20 MG/2 ML VIAL IV ONE (02:33)
[2022-05-17] MEDS ORDERED: XOPENEX/ATROVENT 1.25mg/0.5MG NEB COMBO NEB STA (02:33)
[2022-05-17] MEDS ORDERED: IPRATROPIUM BROMIDE NEB SOLN 0.02% 2.5 ML VIAL INH STA (02:45)
[2022-05-17] MEDS ORDERED: LEVALBUTEROL 1.25MG/0.5ML NEB INH STA (02:45)
[2022-05-17] MEDS ORDERED: ACETAMINOPHEN 1000 MG/100 ML IV IV ONE (02:59)
[2022-05-17] MEDS ORDERED: FAMOTIDINE 20 MG in SYRINGE 3 ML IV ONE (03:15)
[2022-05-17] MEDS ORDERED: LORazepam 0.25 MG in SYRINGE 0.125 ML IV STA (03:16)
[2022-05-17 03:49] LABS: Partial Thromboplastin Ratio 1.4; Partial Thromboplastin Time 38.3 Seconds (21.0-31.0)
[2022-05-17] MEDS: AMIODARONE / D5W 360 MG/200 ML BAG IV SCH ×2 (03:49→15:47)
[2022-05-17 04:00] LABS: Basophils # (auto) 0.03 K/uL (0-0.2); Basophils % (auto) 0.2 %; Hematocrit (blood only) 41.4 % (34.1-44.9); Hemoglobin 13.6 g/dl (12.0-16.0); Immature Granulocytes % (auto) 0.5 %; Lymphocytes # (auto) 1.29 K/uL (1.2-3.4); Lymphocytes % (auto) 6.9 %; Mean Corpuscular Hgb Conc 32.9 g/dL (32.0-36.0); Mean Corpuscular Volume 82.1 fL (80.0-100.0); Mean Platelet Volume 12.2 fL (9.4-12.3); Monocytes % (auto) 5.4 %; Neutrophils # (auto) 16.18 K/uL (1.4-6.5); Platelet Count 310 K/uL (130-400); RDW Coefficient of Variation 15.9 % (11.5-14.5); RDW Standard Deviation 47.1 fL (36.4-46.3); Red Blood Count 5.04 M/uL (3.93-5.22)
[2022-05-17 04:04] LABS: BUN Creatinine Ratio 29.7 (10-20); Calcium 8.3 mg/dl (8.5-10.1); Creatinine Clr Calc Pharmacy 51.1 ml/min; Est GFR (African American) 93.2 ml/min; Est GFR (Non-African American) 80.4 ml/min; Magnesium 1.7 mg/dl (1.7-2.4); Phosphorus 4.1 mg/dl (2.5-4.9); Potassium 3.8 mmol/L (3.5-5.1)
--- NOTE | 2022-05-17 06:02 | Electrocardiogram Report ---
Test Reason : Blood Pressure : / mmHG Vent. Rate : 103 BPM Atrial Rate : 103 BPM P-R Int : 114 ms QRS Dur : 092 ms QT Int : 372 ms P-R-T Axes : 073 003 019 degrees QTc Int : 487 ms Multifocal atrial tachycardia with frequent Premature ventricular complexes Marked ST abnormality, possible inferior subendocardial injury Abnormal ECG When compared with ECG of 12-DEC-2019 18:59, ST now depressed in Inferior leads T wave amplitude has increased in Anterior leads Premature ventricular complexes are now Present There are now multiple P wave morphologies Confirmed by Luke Vallejo ([id number]) on 05/17/2022 6:01:53 AM Referred By: REFERRED SELF Confirmed By:Luke Vallejo
--- NOTE | 2022-05-17 06:11 | Electrocardiogram Report ---
Test Reason : Blood Pressure : / mmHG Vent. Rate : 186 BPM Atrial Rate : 178 BPM P-R Int : 126 ms QRS Dur : 086 ms QT Int : 266 ms P-R-T Axes : 071 023 -79 degrees QTc Int : 468 ms Atrial fibrillation with rapid ventricular response with premature ventricular or aberrantly conducte d complexes Marked ST abnormality, possible inferior subendocardial injury Marked ST abnormality, possible anterolateral subendocardial injury Abnormal ECG When compared with ECG of 16-MAY-2022 09:23, Atrial fibrillation has replaced Multifocal atrial tachycardia ST now depressed in Lateral leads T wave inversion more evident in Inferior leads Vent. rate has increased by 83 bpm Confirmed by Luke Vallejo ([id number]) on 05/17/2022 6:11:18 AM Referred By: REFERRED SELF Confirmed By:Luke Vallejo
[2022-05-17 07:30] LABS: Estimated Average Glucose 128 mg/dl; Hemoglobin A1C 6.1 % (4.5-5.6)
[2022-05-17] MEDS: RAMELTEON: ORDER AWAITING ACTION SCH ×3 (07:41→15:47)
[2022-05-17] MEDS: INSULIN ASPART PER UNIT SC SCH ×3 (07:41→19:21)
[2022-05-17] MEDS: THIAMINE HCL 100 MG in SYRINGE 9 ML IV SCH (07:48)
[2022-05-17] MEDS: PIPERACILLIN/TAZOBACTAM 3.375 GM in DEXTROSE 5% 100 ML IV SCH ×3 (07:48→23:52)
[2022-05-17] MEDS: FUROSEMIDE 40 MG/4 ML VIAL IV SCH (07:49)
[2022-05-17 08:21] LABS: Partial Thromboplastin Ratio 1.8
[2022-05-17 08:22] LABS: Partial Thromboplastin Time 48.3 Seconds (21.0-31.0)
[2022-05-17] MEDS ORDERED: AMIODARONE 150MG / 100ML D5W IV ONE (08:48)
--- NOTE | 2022-05-17 08:53 | Cardiology Progress Note ---
Date of Service May 17, 2022 Assessment & Plan (1) PAF (paroxysmal atrial fibrillation): (2) NSVT (nonsustained ventricular tachycardia): (3) Atrial fibrillation with rapid ventricular response: (4) Hypertension: (5) Diastolic dysfunction: (6) Ascending aortic aneurysm: (7) Pneumonia due to COVID-19 virus: (8) Hypokalemia: (9) STEMI (ST elevation myocardial infarction): (10) Elevated troponin: (11) Abdominal pain: (12) Atrial flutter with rapid ventricular response: (13) Acute respiratory failure with hypoxia: Plan Atrial fibrillation and rapid ventricular response along with nonsustained ventricular tachycardia in the setting of acute COVID-19 infection, questionable UTI and significant hypokalemia 0840: now with new ST segment elevations in anterior leads with reciprocal changes echo with severely reduced LV systolic function, apical ballooning pattern also, atrial flutter with rapid ventricular response I rebolused IV amiodarone recommend pulmonary/critical care evaluation discussed with crown and bridge dental lab technician team, will be taken to the lab with COVID precautions Update 1030: cardiac cath without significant obstructive disease recurrent and sustained v-tach, shocked x 1 lidocaine added to amio with improvement pt intubated after giving consent transfer to ICU will cont IV amio and lidocaine ideally would benefit from beta blockade as well hemodynamics will not support currently at this time, pt is critically ill with new nonischemic cardiomyopathy (suspect catecholamine induced in the setting of Covid 19 infection), acute cardiogenic shock and recurrent ventricular tachycardia requiring defibrillation and 2 antiarrhythmics cont IV amio and lidocaine vent support per critical care may ultimately require transfer to tertiary care center for ECMO support multiple attempts made to contact without success Admission and Anticipated Discharge Date Admission Date: May 16, 2022 Subjective Patient seen and examined. Chart reviewed. Telemetry reviewed. EKG reviewed. Echocardiogram reviewed. Contacted by nursing and the primary team. Patient had atrial flutter overnight which recurred this morning. With flutter the patient feels significantly worsened. She states that she just feels washed out and exhausted. Denies chest pain. States that her breathing is okay but when further questioning admits that she is short of breath from her baseline. Also with continued abdominal discomfort and bilateral hand numbness and tingling. Review of Systems 2 Review of Systems: All systems reviewed & are unremarkable except as noted in HPI & below Physical Exam Physical Exam: General: Awake, alert and oriented x 3. Mild respiratory distress on high flow oxygen. HEENT: Normocephalic, atraumatic. Pupils equal, round and reactive to light an d accommodation. Extraocular muscles are intact. Anicteric sclera. Moist mucous membranes. Neck: No JVD. No bruit. Cardiovascular: Regular. Positive S-4. Normal S-1 and S-2. No S-3. 3/6 mid to late systolic ejection murmur, greatest at the right sternal border, second intercostal space with radiation to the bilateral carotids. No rubs. Pulmonary: Clear to auscultation bilaterally. No rales, rhonchi, or wheezing. Abdomen: Bowel sounds x 4, soft. Diffuse tenderness. Extremities: No clubbing, cyanosis or edema. +2 pedal pulses bilaterally. Skin: Warm and dry. Results & Data ([facility]) Vital Signs (Past 12 Hours) Vital Signs Temp Pulse Pulse Resp BP BP Pulse Ox 05/17/22 07:25 36.6 C 90 22 121/79 90 05/17/22 07:13 102 H 05/17/22 07:02 102 H 22 91 05/17/22 04:06 36.6 C 98 H 18 121/79 91 05/17/22 03:14 100 H 26 H 90 05/17/22 00:15 89 05/16/22 23:30 105 H 27 H 92 05/16/22 22:52 36.6 C 89 18 114/76 92 05/16/22 22:01 O2 Del Method O2 Flow Rate FiO2 05/17/22 07:25 High Flow Nasal Cannula 05/17/22 07:13 05/17/22 07:02 High Flow Nasal Cannula 40 90 05/17/22 04:06 BiPAP 05/17/22 03:14 High Flow Nasal Cannula 40 100 05/17/22 00:15 05/16/22 23:30 40 05/16/22 22:52 BiPAP 05/16/22 22:01 BiPAP 40
--- NOTE | 2022-05-17 08:53 | Hospitalist Progress Note ---
Date of Service May 17, 2022 Assessment & Plan (1) Atrial fibrillation with rapid ventricular response: Plan: Afib RVR Sustained VT requiring defibrillation Continue on amiodarone drip Continue IV heparin for anticoagulation Appreciate cardiology input [facility] Nonischemic cardiomyopathy Possibly Takotsubo cardiomyopathy Cardiogenic shock -S/P Cardiac Cath:Multivessel coronary artery disease. 50% mid LAD. Medium D2 80% proximal. 50% calcified ostial circumflex, 50% inferior branch of OM2. 60% mid, 50% distal RCA. Elevated left-sided filling pressure (LVEDP 22). Normal pulmonary artery pressure. Preserved cardiac output --ECHO: Apical ballooning pattern of the LV chamber. Moderate hypokinesis of all basal wall segments with progressive akinesis at the mid levels and dyskinesis at the apex. Severely reduced LV systolic function EF 15 to 20%. Right ventricular cavity size is normal. Right ventricular systolic function is normal as assessed by tricuspid annular plane systolic excursion. Aortic valve sclerosis moderate, without significant aortic valvular stenosis. Mild aortic regurgitation. PASP of 48 mmHg. --Patient had sustained VT requiring defibrillation --Appreciate Cardiology, Critical Care Input -- Continue pressors --On IV lasix 40mg daily, volume status, I's and O's, daily weight --Monitor electrolytes Acute respiratory distress syndrome Acute hypoxic respiratory failure S/P Intubation 05/17 COVID 19 Infection Patient is intubated in [employer] CRP:5.69 Procalcitonin: 0.24 Appreciate critical care input Continue vent support Started on Dexamethasone Continue Empiric Antibiotics Sepsis Likely multifactorial: COVID-19 infection, colitis, possible UTI Lactic acidosis Colitis Abnormal UA Rule out UTI Urine Culture pending Blood Cultures:pedning On Zosyn for now Prediabetes HbA1C: 6.1 Continue ISS given elevated BGs while on steroids (2) NSVT (nonsustained ventricular tachycardia): Plan: Management as above (3) Elevated troponin: Plan: Likely demand ischemia due to Sepsis, tachyarrhythmias, stress-induced cardiomyopathy, COVID-19 infection (4) Pneumonia due to COVID-19 virus: Plan: Management as above (5) Hypokalemia: Plan: Hypokalemia Hypophosphatemia Replete electrolytes as needed (6) Chronic heart failure with preserved ejection fraction (HFpEF): Plan: Monitor volume status closely on IV diuresis (7) HLD (hyperlipidemia): Plan: Resume Statin as able (8) Hypertension: Plan: Monitor (9) Ascending aortic aneurysm: Plan: Stable (10) Esophageal reflux: Plan DVT Px: IV Heparin Code Status Conditional Code Admission and Anticipated Discharge Date Admission Date: May 16, 2022 Subjective Patient is seen and examined at bedside Reports nausea, dizziness, feels flushed this morning Denied any chest pain, dyspnea Was on High flow oxygen and IV heparin Discussed with Cardiology regarding EKG changes and heart alert was called Planned to transferred to ICU post Cath [employer] Operations Specialist was notified as well Tried to call family, but no answer Review of Systems Review of Systems: All systems reviewed & are unremarkable except as noted in Subjective Physical Exam Physical Exam: Physical Exam: Vitals signs as noted above General Appearance:Moderately built and nourished, no apparent distress Head: normocephalic, Atraumatic Eyes: normal inspection, EOMI Neck: supple, Trachea midline Respiratory/Chest: Normal breath sounds, CTA, No accessory muscle use Cardiovascular: S1, S2, ? murmur, +Tachycardia Abdomen/GI:Soft, Non tender, Bowel sounds present Extremities/Musculoskeletal:normal inspection, no edema Neurologic/Psych:AAOX3, grossly no focal neurological deficits Skin: normal color, warm Results & Data Results & Data ([facility]) Vital Signs (Past 12 Hours) Vital Signs Temp Pulse Pulse Resp BP BP Pulse Ox 05/17/22 07:25 36.6 C 90 22 121/79 90 05/17/22 07:13 102 H 05/17/22 07:02 102 H 22 91 05/17/22 04:06 36.6 C 98 H 18 121/79 91 05/17/22 03:14 100 H 26 H 90 05/17/22 00:15 89 05/16/22 23:30 105 H 27 H 92 05/16/22 22:52 36.6 C 89 18 114/76 92 05/16/22 22:01 O2 Del Method O2 Flow Rate FiO2 05/17/22 07:25 High Flow Nasal Cannula 05/17/22 07:13 05/17/22 07:02 High Flow Nasal Cannula 40 90 05/17/22 04:06 BiPAP 05/17/22 03:14 High Flow Nasal Cannula 40 100 05/17/22 00:15 05/16/22 23:30 40 05/16/22 22:52 BiPAP 05/16/22 22:01 BiPAP 40 Laboratory Results Short CBC 05/17/22 Range/Units 03:10 WBC 18.60 H (4.8-10.8) K/ul Hgb 13.6 (12.0-16.0) g/dl Hct 41.4 (34.1-44.9) % Plt Count 310 (130-400) K/uL BMP 05/16/22 05/17/22 21:15 03:10 Sodium 140 140 Potassium 3.7 D 3.8 Chloride 110 H 110 H Carbon Dioxide 20 L 16 L BUN 18 22 Creatinine 0.69 0.74 Glucose 147 H 151 H Calcium 8.3 L 8.3 L
[2022-05-17] MEDS ORDERED: AMIODARONE / D5W 150 MG/100 ML BAG IV STA (08:57)
[2022-05-17] MEDS ORDERED: 0.2 MICRON FILTER SET 1 EACH IV ONE (08:57)
[2022-05-17] MEDS ORDERED: PROMETHAZINE HCL 6.25 MG in SODIUM CHLORIDE 0.9% 50 ML IV PRN (09:12)
[2022-05-17] MEDS ORDERED: HEPARIN (PORCINE) 1000 UNIT/ML 10 ML (CATH LAB USE ONLY) ONE (09:17)
[2022-05-17] MEDS ORDERED: niCARdipine HCL INJ 2.5 MG/ML 10 ML AMP ONE (09:17)
[2022-05-17] MEDS ORDERED: MIDAZOLAM HCL 1 MG/ML 2ML VIAL ONE (09:18)
[2022-05-17] MEDS ORDERED: fentaNYL citrate 100 MCG/2 ML VIAL ONE (09:18)
[2022-05-17] MEDS ORDERED: NITROGLYCERIN/D5W 100MCG/ML 20ML SYR ONE (09:18)
[2022-05-17] MEDS ORDERED: PHENYLEPHRINE HCL INJ 10 MG/ML VIAL (CATH LAB USE ONLY) ONE (09:23)
--- NOTE | 2022-05-17 09:27 | Communication Note ---
Date of Service: May 17, 2022 I attempted to contact the patient's , Shady, to update on status. No answer on either listed home number or work number.
--- NOTE | 2022-05-17 09:29 | Communication Note ---
Date of Service: May 17, 2022 Tried to reach family multiple times to update patient's condition. No answer when called.
--- NOTE | 2022-05-17 09:32 | Pre Anesthesia Assessment ---
Date of Service May 17, 2022 Pre Sedation Assessment Vital Signs Temp Pulse Pulse Resp BP BP BP 05/17/22 07:25 97.9 F 90 22 121/79 05/17/22 07:13 102 H 05/17/22 07:02 102 H 22 05/17/22 04:06 97.9 F 98 H 18 121/79 05/17/22 03:14 100 H 26 H 05/17/22 00:15 89 05/16/22 23:30 105 H 27 H 05/16/22 22:52 97.9 F 89 18 114/76 05/16/22 22:01 05/16/22 20:38 88 26 H 05/16/22 19:40 96 H 28 H 05/16/22 19:34 98.1 F 88 18 112/74 05/16/22 18:49 85 05/16/22 17:30 86 32 H 05/16/22 17:03 26 H 135/91 05/16/22 15:27 05/16/22 15:27 98.1 F 84 22 106/71 05/16/22 14:50 91 H 30 H 98/71 L 05/16/22 14:30 91 H 30 H 98/71 L 05/16/22 14:00 86 23 97/67 L 05/16/22 13:50 83 18 94/65 L 05/16/22 13:50 83 20 94/65 L 05/16/22 13:30 86 22 88/64 L 05/16/22 13:00 108 H 21 111/84 05/16/22 12:30 107 H 28 H 141/91 H 05/16/22 12:00 101 H 33 H 125/67 05/16/22 13:22 05/16/22 13:21 05/16/22 12:40 99.1 F 119 H 24 141/91 H 05/16/22 11:31 87 22 131/80 05/16/22 10:30 197 H 19 142/95 H 05/16/22 10:00 95 H 23 148/106 H 05/16/22 09:50 93 H 25 H 150/91 H Pulse Ox O2 Del Method O2 Flow Rate FiO2 05/17/22 07:25 90 High Flow Nasal Cannula 05/17/22 07:13 05/17/22 07:02 91 High Flow Nasal Cannula 40 90 05/17/22 04:06 91 BiPAP 05/17/22 03:14 90 High Flow Nasal Cannula 40 100 05/17/22 00:15 05/16/22 23:30 92 40 05/16/22 22:52 92 BiPAP 05/16/22 22:01 BiPAP 40 05/16/22 20:38 95 BiPAP 40 05/16/22 19:40 96 40 05/16/22 19:34 97 BiPAP 05/16/22 18:49 05/16/22 17:30 95 50 05/16/22 17:03 88 L Oxymask 7 05/16/22 15:27 Oxymask 6 05/16/22 15:27 94 Oxymask 6 05/16/22 14:50 95 Room Air 05/16/22 14:30 95 05/16/22 14:00 97 05/16/22 13:50 93 05/16/22 13:50 93 Nasal Cannula 2 05/16/22 13:30 93 05/16/22 13:00 90 05/16/22 12:30 96 05/16/22 12:00 96 05/16/22 13:22 94 Nasal Cannula 6 05/16/22 13:21 83 L Room Air 05/16/22 12:40 94 Room Air 05/16/22 11:31 97 05/16/22 10:30 99 05/16/22 10:00 98 05/16/22 09:50 Cardiovascular RRR, no murmur, no edema Respiratory normal respiratory effort, lungs clear to auscultation Pre-Sedation Airway Assessment Smoking Status: Never smoker Hx Sleep Apnea: No Hx Difficult Intubation: No Short, Thick Neck: No Thyromental Distance: > or= 3.5 Finger Breadths Mallampati Class: III ASA: ASA4 Procedure Planning Contraindications for Sedation: none Current Medications Reviewed: Yes Notes The planned sedation has been discussed with the patient. Informed Consent was obtained. I have identified the patient, determined the appropriateness of sedation and have assessed the patient immediately prior to the procedure. All medicine(s) and interventions are by my order.
[2022-05-17] MEDS ORDERED: diphenhydrAMINE 50 MG/ML VIAL ONE (09:35)
[2022-05-17] MEDS ORDERED: ONDANSETRON INJ 2 MG/ML 2 ML VIAL ONE (09:39)
[2022-05-17] MEDS ORDERED: SODIUM BICARB 8.4% INJ 50 MEQ/50 ML SYR IV ONE ×2 (09:41→11:31)
[2022-05-17] MEDS ORDERED: LIDOCAINE HCL/D5W 2000 MG/500 ML BAG IV ONE (09:48)
--- NOTE | 2022-05-17 09:48 | Critical Care Consultation ---
Date of Consultation May 17, 2022 Assessment & Plan (1) STEMI (ST elevation myocardial infarction): (2) Atrial fibrillation with RVR: (3) UTI (urinary tract infection): (4) Acute respiratory failure with hypoxia: (5) Hypokalemia: (6) Pneumonia due to COVID-19 virus: (7) NSVT (nonsustained ventricular tachycardia): Plan ICU Assessment and Plan Reason Critically Ill: 72 yo F with PMH PAF on Eliquis, HFpEF, HTN, HLD and active COVID infection presenting with multiple symptoms including fatigue, cough- later went to AF w/ RVR and had acute STEMI, transferred to ICU s/p cardiac catheterization for critical illness. Neuro - [facility] ICU: NEGATIVE Sedation: Propofol 20 mcg/kg/min Analgesia: None Cardiac - Cardiogenic shock and ventricular tachycardia storm secondary to acute anterior wall STEMI -Cardiology consulted and following -Echocardiogram 05/17/22, read pending -Cardiac catheterization 05/17/22, report pending -Continue pressor support- norepinephrine 0.05 mcg/kg/min, wean as tolerated -Continue anti-arrhythmics- amiodarone infusion, lidocaine infusion -Further runs of VT noted after transfer to ICU Atrial fibrillation with RVR -Likely due to hypokalemia, sepsis from acute infection -Continue amiodarone as above -Resume heparin for anticoagulation once pt hemodynamically stable Respiratory- Acute hypoxic respiratory failure -Multifactorial- cardiogenic shock from STEMI, flash pulmonary edema in background of active COVID infection -Required intubation prior to cardiac catheterization, assess extubation readiness once hemodynamically stable -Ventilator settings- TV 330, RR 25, PEEP 14, FiO2 100 -Maintain FiO2 < 60%, plateau pressures < 30 cm H2O GI - Nonspecific colitis -CTAP on admission demonstrating mucosal hyperemia of left colon -May be due to dehydration -General surgery consulted- low suspicion for mesenteric ischemia, continue supportive care NPO while intubated, continue Normosol mIVF RENAL/LYTES - High anion gap metabolic acidosis -AG 22 on admission, improved to 14 today- likely due to lactic acidosis 2/2 sepsis as lactate also downtrending Hypokalemia -K 3.0 on admission improved to 3.8 today s/p IV repletion -Goal K > 4 Hypophosphatemia -PO4 1.7 on admission improved to 4.1 today s/p IV repletion Hypomagnesemia -Mg 1.7 borderline, trend Mg -Goal Mg > 2 Cr 0.74 today, at baseline ICU electrolyte repletion protocol Trend BMP, Mg, PO4 - Abnormal urinalysis -Admission UA with some concern for infection though pt reports no urinary symptoms -Continue Zosyn empirically [place] in place -Strict I's and O's ENDO - Prediabetes -A1C 6.1% on admission -BSGs acceptable at present -ICU hyperglycemia protocol HEME - Hgb stable 13.6 Heparin infusion discontinued prior to catheterization lab May resume heparin infusion pending pt stability ID - Sepsis likely secondary to COVID-19 infection/pneumonia, colitis, possible UTI -WBC 14.8 -> 18.6 -Procalcitonin negative, CRP 5.7 on admission -Lactate 5.2 on admission resolved to 1.9 last night -Repeat lactate today -Continue empiric Zosyn for now -Dexamethasone 6 mg IV initiated 05/17 -BCx, UCx, MRSA nares pending -Trend CBC INTEGUMENTARY - -None LINES/IV ACCESS - -PIV x3 -L radial arterial line -Central venous line -[place] -Intubated DVT PROPHYLAXIS - -Holding home Eliquis -May resume heparin infusion pending pt stability Thank you for allowing us to be part of this patient's care. Please refer to Dr. Palmer's documentation for any further recommendations. Supervising Physician Co-Signing Physician Notes Patient seen and examined. EMR reviewed. Discussed with family practice resident as well as cardiology in the admitting hospitalist. Discussed with bedside critical care nurse. Patient transferred to the ICU after undergoing cardiac catheterization for presumed non-ST elevation myocardial infarction. Diffuse coronary disease identified which was nonocclusive. The patient developed respiratory distress and was intubated in the [employer] Physical Therapist Assistant and brought to the ICU. On arrival she was immediately assessed. She was hypotensive and hypoxemic with sats in the low 80s. Recurrent maneuvers were conducted. She responded favorably. Additional sedative medications and paralytics were administered to facilitate compliance with the ventilator. Blood gas was obtained which demonstrated improvement in the patient's acidosis. Additional bicarb and calcium were given and norepinephrine was started for persistent hypotension after an arterial line was placed. The patient has severe hypoxemic respiratory failure which is likely multifactorial in the setting of cardiomyopathy as well as COVID infection. Will place on dexamethasone for COVID and follow chest x-ray. Continue ARDS net ventilator strategy with plateau pressures less than 30. We will allow for permissive hypercapnia if needed. Try and maintain PaO2 greater than 55. Continue sedation with propofol. As needed Versed and fentanyl. Restraints will be applied to prevent dislodgment of life-sustaining support devices. Discussed with cardiology. The patient is currently on amiodarone and lidocaine for refractory VT. Defer antiarrhythmics to them. Would also defer restarting heparin anticoagulation for atrial fibrillation. Brought up whether or not the patient would be candidate for advanced heart failure therapies such as LVAD. Will defer to cardiology as to whether or not she is a candidate although her age might preclude that at this point time. Will obtain cultures given the patient's febrile status and elevated white blood cell count. If they are negative, antibiotics will likely be discontinued in the next 24 hours. Cultures to date have shown no growth. Keep n.p.o. pending improvement in the patient's hemodynamics. If she is able to wean off pressors, may consider initiation of trophic tube feeding within the next 12 to 24 hours. The patient previously expressed desire to avoid intubation but reportedly in the [employer] [facility] Physical Therapist Assistant rescinded her DNR status and would now like her maintained is a full code. She is already on pressors and intubated in the ICU. I doubt that CPR would add much with regards to the patient's overall survival however defibrillation does seem reasonable until we can get her out of her VT. Continue electrolyte replacement. The patient is critically ill at this point time. A total of 55 minutes in critical care time was spent evaluation management stabilization of this patient excluding procedures. No family immediately available History of Present Illness Reason for Consultation: Cardiogenic shock due to STEMI, AF w/ RVR, COVID+ Requesting Physician: Javier Cardoso MD Attending Physician: Javier Cardoso MD History of Present Illness 72 yo F with PMH PAF on Eliquis, HFpEF, thoracic aortic aneurysm, HTN, HLD, GERD, anxiety initially presented on 05/16 for nausea, NBNB emesis and generalized weakness in background of URI symptoms- cough, congestion- over past 5 days. Pt experienced worsening of symptoms including onset of diarrhea, subjec tive fevers, night sweats and abdominal pain and dyspnea leading up to admission. Pt was exposed to her sister who tested positive for COVID last week. In ED, pt experienced AF w/ RVR to 170s-180s and multiple runs of NSVT prompting amiodarone bolus + infusion with improvement. Also started on heparin infusion. Admission CXR clear for CHF, pneumonia. Chest CT clear of acute PE. Labs significant for WBC 14.7, K 3.0, COVID+, lactate 5.2, troponin 221. Pt became hypotensive to 90s/60s, concern for sepsis prompted IV fluid resuscitation with NSS and initiation of Zosyn, K repletion. HR did improve to 100s. Pt subsequently experienced respiratory distress with hypoxia, along with chest pain and dyspnea- f/u CXR demonstrated interstitial thickening with b/l airspace opacities concerning for pulmonary edema. Repeat labs demonstrated downtrending of lactate to 3.0, troponin increase to 3563. Started on BIPAP for respiratory distress, also diuresed with Lasix 40 mg IV- improved respiratory symptoms noted. Continued on amiodarone infusion. Overnight, pt experienced atrial flutter and continued to report dyspnea but no chest pain. EKG revealed anterior lead ST elevations concerning for STEMI. Received another amiodarone bolus. Pt emergently taken to cardiac catheterization, ICU consulted for critical illness. Allergies Allergy/AdvReac Type Severity Reaction Status Date / Time No Known Allergies Allergy Verified 05/16/22 12:46 Home Medications Medication Instructions Recorded Confirmed Type apixaban 5 mg tablet (Eliquis) 5 mg PO BID 05/16/22 05/16/22 History atorvastatin 40 mg tablet 40 mg PO DAILY 05/16/22 05/16/22 History clonidine 0.3 mg/24 hr weekly 0.3 mg transdermal WK 05/16/22 05/16/22 History transdermal patch doxazosin 4 mg tablet 4 mg PO QPM 05/16/22 05/16/22 History gabapentin 100 mg capsule 100 mg PO TID 05/16/22 05/16/22 History lorazepam 0.5 mg tablet 0.5 mg PO BID PRN Anxiety 05/16/22 05/16/22 History ramelteon 8 mg tablet 8 mg PO HS 05/16/22 05/16/22 History trazodone 50 mg tablet 50 mg PO HS 05/16/22 05/16/22 History Patient History Medical History Anxiety Ascending aortic aneurysm 4.4cm per resting echo 04/2021 Chronic heart failure with preserved ejection fraction (HFpEF) Diastolic dysfunction Esophageal reflux HLD (hyperlipidemia) Hypertension Left atrial dilation Migraine PAF (paroxysmal atrial fibrillation) Persistent insomnia Surgical History History of cholecystectomy History of lumbar surgery History of partial hysterectomy Family History Mother Hypertension Father TIA (transient ischemic attack) Sister Diabetes Other No pertinent family history in first degree relatives Social History Smoking Status: Never smoker Hx Alcohol Use: No Hx Substance Use: No Preferred Language: Slovenian Communication Ability: Effective Visual Impairment: No Limitations Hearing Ability: Normal Ecotherapist Required: No Beliefs That Will Affect Care: None marital status: Current Living Situation: Spouse current occupational status: retired Feels Safe at Home: Yes Safety Concerns: Feels Safe At This Time Assistive Devices: Denture - Upper, Denture - Lower and Glasses Review of Systems Review of Systems: Negative per HPI Physical Exam Physical Exam: GENERAL - Sedated, intubated SKIN - No rashes. HEAD - NC/AT. EYES - PERRL EARS - No deformities of external structures b/l NOSE - Midline. No epistaxis. Septum midline without deviation. MOUTH/OROPHARYNX - No perioral cyanosis. Buccal mucosa pink and moist. NECK - no tracheal deviation LUNGS - intubated, ventilator settings- TV 330, RR 25, PEEP 14, FiO2 100 CARDIAC - Tachycardic, normal S1, S2, no murmurs noted ABDOMEN - Soft, nondistended, no rigidity EXTREMITIES - No clubbing or peripheral cyanosis. No peripheral edema present. Distal pulses of b/l LE intact b/l NEUROLOGIC - Sedated, responds to noxious stimuli PSYCH - Sedated Results & Data Results & Data ([facility]) Vital Signs (Past 12 Hours) Vital Signs Temp Pulse Pulse Resp BP BP Pulse Ox 05/17/22 07:25 36.6 C 90 22 121/79 90 05/17/22 07:13 102 H 05/17/22 07:02 102 H 22 91 05/17/22 04:06 36.6 C 98 H 18 121/79 91 05/17/22 03:14 100 H 26 H 90 05/17/22 00:15 89 05/16/22 23:30 105 H 27 H 92 05/16/22 22:52 36.6 C 89 18 114/76 92 05/16/22 22:01 O2 Del Method O2 Flow Rate FiO2 05/17/22 07:25 High Flow Nasal Cannula 05/17/22 07:13 05/17/22 07:02 High Flow Nasal Cannula 40 90 05/17/22 04:06 BiPAP 05/17/22 03:14 High Flow Nasal Cannula 40 100 05/17/22 00:15 05/16/22 23:30 40 05/16/22 22:52 BiPAP 05/16/22 22:01 BiPAP 40 Resident Activity Tracking Resident Involvement: Resident Care Provided Care Provided: Adult Hospital Medicine
[2022-05-17] MEDS ORDERED: MAG SULFATE 50% 1GM/2ML VIAL IV ONE (09:50)
--- NOTE | 2022-05-17 10:30 | Emergency Department Note ---
ED Visit Note The patient is a 72-year-old female that I was called to evaluate while she was in the S[employer]er Apprentice. The patient was admitted yesterday for rapid atrial fibrillation ventricular tachycardia and an abnormal troponin. She had worsening symptoms this morning and was found to have an EKG that was felt to be consistent with an acute STEMI. The patient was taken to the S[facility]er Apprentice. Her pulmonary condition started to worsen. She was felt to be suffering from cardiogenic shock and pulmonary edema. I was asked to evaluate the patient in the S[employer]er Apprentice. It was noted the patient previously was a DNR. I talked to her while she was on the Splicer Apprentice table and she was agreeable to intubation at this time given the severity of her symptoms especially her cardiogenic shock. The patient was intubated in the usual fashion. Please see the intubation note. Endotracheal Intubation Indication edema and hypoxia. The patient was on 100% oxygen via NRB prior to the procedure. Suction, airway equipment, RSI drugs, respiratory equipment, and appropriate personnel were prepared prior to the initiation of the procedure. A time out was taken. Induction was performed with etomidate and rocuronium. After observing the clinical benefit of the medications, the airway was easily visualized utilizing a 7.5glide scope. A 7.5 size ETT tube was placed atraumatically to 26 cm using standard technique. The cuff inflated without signs of malfunction. There were bilateral breath sounds, positive colormetric change, no gastric sounds, a good capnography waveform, and post procedure pulse oximetry was 78%. There were no complications. Endotracheal tube position was confirmed using fluoro. .
--- NOTE | 2022-05-17 10:41 | Cardiac Catheterization ---
[facility] Data: Magazine Designer Cardiac Status Clinical evaluation leading to the procedure CAD Presenation: STEMI Diagnostic Physicians Name: Tay Heaton MD Closure Device Recommendations: Medical Therapy and/or Counseling Cardiac Cath Procedure Full Procedure Date May 17, 2022 Pre-Procedure Diagnosis Pre-Procedure Diagnosis: Acute Coronary Syndrome AUC Score AUC Score: 8 Post-Procedure Diagnosis Post-Procedure Diagnosis: Severe CAD and Elevated Intracardiac Pressures Procedure(s) Performed Procedure(s) Performed: Coronary Angiography, Left Heart Cath, Right Heart Cath and Defibrillation Match Up Person Tay Heaton MD Restaurant Hourly Manager(s) Hot Billet Shear Operator Estimated Blood Loss Estimated Blood Loss: 15 Medication(s) Medication(s): Fentanyl, Heparin, Lidocaine 1%, Nicardipine, Nitroglycerin and Versed Summary of Findings Indication: Anterior ST elevations, hypoxic respiratory failure, nonsustained VT, new severe LV dysfunction Access: 6 Fr right radial artery, 7 Fr right common femoral vein Catheters: EBU 3.5 guide, JR4, pigtail, 7 Fr swan Findings: LM -medium caliber, calcified, luminal regularities LAD -ectatic proximally, calcified, early trifurcation with D1, D2 and medium LAD. 50% mid LAD after D2. Mid segment calcified with mild diffuse disease, distal vessel small without significant disease and wraps around apex. Medium D2 with 80 to 90% proximal stenosis Circumflex -medium caliber, 50% calcified ostial stenosis. Bifurcating OM 2 with 50% diffuse disease in inferior branch. Small distal AV groove circumflex with diffuse disease RCA -medium caliber, dominant, 50-60% mid segment stenosis, 50% distal stenosis just before takeoff of PDA. Small distal PLB/PLB with mild disease LVEDP -22 Procedure course: Patient arrived to Magazine Designer nauseated, tachypneic, hypoxic on BiPAP. Chest pain-free. During diagnostic angiography had frequent nonsustained and sustained VT. Was already on amiodarone infusion. Received additional magnesium, bicarbonate and started on lidocaine infusion. 1 prolonged sustained episode of VT requiring defibrillation at 200 J x 1. In the setting of respiratory distress, ventricular arrhythmia patient electively intubated by Dr. Casas. Received additional 40 of IV Lasix. Right heart catheterization: RA 3 RV 31/5 PA 38/16/22 PAWP 12 PaSat 48% AoSat 70% Prbahakar CO/CI 5.6/3.6 Arterial Closure: TR band Summary: 1. Multivessel coronary artery disease -50% mid LAD. Medium D2 80% proximal 50% calcified ostial circumflex, 50% inferior branch of OM2 60% mid, 50% distal RCA 2. Elevated left-sided filling pressure (LVEDP 22) 3. Normal pulmonary artery pressure 4. Preserved cardiac output 5. Sustained VT requiring defibrillation x1 6. Acute hypoxic respiratory failure post intubation Recommendations: Patient has YARA-3 flow throughout coronaries. No occlusive/high risk CAD to explain new LV dysfunction, decompensated heart failure. Has a nonischemic cardiomyopathy possible stress-induced. Continue antiarrhythmics, GDMT for NICM and diuresis per Dr. Benitez Continue ASCVD risk factor modification. No need for additional revascularization or hemodynamic support Hemodynamics Rest Ao:: 104/64/82 Final Ao: 117/62/82 LV: 100/22 Recommendations Recommendations: Medical Therapy and/or Counseling Specimens Specimens: None Radiation Exposure (mGy) 882 Contrast (mls) 50 Anesthesia Moderate 1012-3567 Procedural Complication(s) None Disposition ICU I attest to the content of the Intraoperative Record and any orders documented therein. Any exceptions are noted below. [facility] Card Cath Procedure Codes Cardiac Catheterization Procedure 1: Cardiovascular Cath Procedures: 92441 Coronaries & LHC (+/-LV) & RHC Therapeutic Services & Ancillary Proc Procedure 1: Cardiovascular Tx and Anc Procedures: 46421 Cardioversion Moderate Sedation Procedure 1: Sedation/Anesthesia: 80295 Mod Sedation by the same physician;Init15 Min Child Age 5 & Up Procedure 2: Sedation/Anesthesia: 55596 Mod Sedation by the same physician; Ea [id number] Minutes PG Care Time/CCT Total # of Minutes Spent Total Time Spent with Patient: Total time spent is greater than 50% in coordination of care (as documented) at patient's floor/unit and/or counseling patient:
[2022-05-17] MEDS ORDERED: PROPOFOL IV EMULSION 10 MG/ML 100 ML VIAL IV ONE (10:58)
[2022-05-17] MEDS: LIDOCAINE/D5W DRIP 4MG/ML 2,000 MG/500 ML BAG IV SCH (11:00)
[2022-05-17] MEDS: propofoL 1,000 MG/100 ML VIAL IV SCH ×3 (11:00→23:52)
[2022-05-17] MEDS ORDERED: VECURONIUM BROMIDE 10 MG VIAL IV ONE (11:09)
[2022-05-17] MEDS ORDERED: NOREPINEPHRINE/D5W 4 MG/250 ML IV ONE (11:18)
[2022-05-17] MEDS: NOREPINEPHRINE/D5W 4 MG/250 ML PLCT IV SCH (11:20)
[2022-05-17] MEDS: PROPOFOL BOLUS FROM BAG IV PRN ×2 (11:30→15:00)
[2022-05-17] MEDS ORDERED: CALCIUM CHLORIDE 10% 10 ML SYR IV ONE (11:31)
[2022-05-17] MEDS ORDERED: ICU PROTOCOL FOR HYPERGLYCEMIA PRN (11:37)
[2022-05-17] MEDS ORDERED: VECURONIUM BROMIDE 10 MG VIAL IV STA (11:37)
[2022-05-17] MEDS ORDERED: STAT IV Infusion **Titration per Protocol STA ×2 (11:37→16:50)
[2022-05-17] MEDS ORDERED: SODIUM BICARBONATE 8.4% INJ 50 MEQ/50 ML VIAL IV STA (12:08)
--- NOTE | 2022-05-17 12:18 | XRay Report ---
XR chest 1V portable CLINICAL HISTORY: intubation TECHNIQUE: Single frontal radiograph of the chest was obtained. Comparison: Comparison is made to chest radiograph 05/16/2022 FINDINGS: Interval placement of an endotracheal tube with the tip in the right mainstem bronchus. The enteric t ube tip and side-port lie below the diaphragm. The cardiomediastinal silhouette is normal. Multifocal airspace opacities are seen. No evidence of pleural effusion or pneumothorax. IMPRESSION: 1. Endotracheal tube is in the right mainstem bronchus and should be withdrawn approximately 4 cm fo r improved positioning. The enteric tube is in satisfactory position. 2. Multifocal airspace opacities are seen which may represent alveolar edema with or without superim posed aspiration/pneumonia. ACT 112: Negative or not required by law. Electronically signed by: Filipe Hyman M.D. 05/17/2022 12:16 PM
[2022-05-17] MEDS: GABAPENTIN 100 MG CAP PO SCH ×3 (12:29→20:46)
[2022-05-17] MEDS ORDERED: CALCIUM CHLORIDE 10% 1,000 MG in DEXTROSE 5% 50 ML IV ONE (12:30)
--- NOTE | 2022-05-17 12:30 | Communication Note ---
Date of Service: May 17, 2022 Spoke with patient's in ICU waiting, updated on status and severity of current condition. Preferred house number to contact: [phone] his contact number in the chart is his cell phone, he has limited bilingual receptionist
[2022-05-17] MEDS: METOPROLOL TARTRATE 25 MG TAB PO SCH (12:45)
[2022-05-17] MEDS ORDERED: Nursing to Pharmacy Communication SCH (12:45)
--- NOTE | 2022-05-17 13:05 | Procedure Note ---
Procedure Note Date of Service May 17, 2022 Note ARTERIAL LINE PROCEDURE NOTE: Procedure: Arterial Line Placement Provider: Karan Palmer MD Indication: Monitoring on Pressors Anesthesia: None Procedure was emergent. Patient intubated and sedated. No family immediately available. A time-out was completed verifying correct patient, procedure, site, positioning, and implant(s) or special equipment if applicable. Allens test was performed to ensure adequate perfusion. Patients left wrist was prepped and draped in the usual sterile fashion. A 20g Arrow arterial line was introduced into the left radial artery. Catheter was threaded, and the needle was removed with appropriate blood return. Good waveform was observed. The patient tolerated the procedure well. Blood Loss: Minimal Complications: None Coding CPT Codes Tubes, Drains, and Vasc Access - Tubes, Drains, and Vasc Access: [id number] Insertion Catheter, Artery ([id number]) [facility] [place] Procedure Codes (Charges) Tubes, Drains, and Vasc Access Procedure 1: Tubes, Drains, and Vasc Access: [id number] Insertion Catheter, Artery
--- NOTE | 2022-05-17 13:10 | Billing Data ---
Date of Service May 17, 2022 Coding Level of Care Code Critical Care mins
[2022-05-17] MEDS: dexAMETHasone 6 MG in SYRINGE 0 ML IV SCH (13:15)
--- NOTE | 2022-05-17 13:29 | Communication Note ---
Date of Service: May 17, [address] Palmer, ICU attending. He has a low concern for mesenteric ischemia. Given her significantly depressed EF and other current med ical problems, we will follow peripherally.
--- NOTE | 2022-05-17 13:49 | Electrocardiogram Report ---
Test Reason : Blood Pressure : / mmHG Vent. Rate : 122 BPM Atrial Rate : 122 BPM P-R Int : 136 ms QRS Dur : 078 ms QT Int : 364 ms P-R-T Axes : 066 026 050 degrees QTc Int : 518 ms Poor data quality, interpretation may be adversely affected Atrial fibrillation with rapid ventricular response with premature ventricular or aberrantly conducte d complexes Possible Anterior infarct , age undetermined Nonspecific ST and T wave abnormality Abnormal ECG When compared with ECG of 16-MAY-2022 10:30, Vent. rate has decreased by 64 bpm Confirmed by Luke Vallejo ([id number]) on 05/17/2022 1:49:44 PM Referred By: REFERRED SELF Confirmed By:Luke Vallejo
--- NOTE | 2022-05-17 13:54 | Electrocardiogram Report ---
Test Reason : Blood Pressure : / mmHG Vent. Rate : 091 BPM Atrial Rate : 091 BPM P-R Int : 136 ms QRS Dur : 084 ms QT Int : 430 ms P-R-T Axes : 054 -01 -19 degrees QTc Int : 528 ms Normal sinus rhythm with sinus arrhythmia Nonspecific ST and T wave abnormality Prolonged QT Abnormal ECG When compared with ECG of 16-MAY-2022 12:35, Sinus rhythm has replaced Atrial fibrillation Premature ventricular complexes are no longer Present Borderline criteria for Anterior infarct are no longer Present ST no longer depressed in Anterolateral leads Confirmed by Luke Vallejo ([id number]) on 05/17/2022 1:53:58 PM Referred By: REFERRED SELF Confirmed By:Luke Vallejo
[2022-05-17] MEDS: NORMOSOL-R 1,000 ML IV SCH (14:00)
--- NOTE | 2022-05-17 14:31 | Electrocardiogram Report ---
Test Reason : Blood Pressure : / mmHG Vent. Rate : 105 BPM Atrial Rate : 105 BPM P-R Int : 162 ms QRS Dur : 086 ms QT Int : 376 ms P-R-T Axes : 067 026 -60 degrees QTc Int : [address] elevation consider anterior injury or acute infarct ACUTE SC / STEMI Prolonged QT Abnormal ECG When compared with ECG of 16-MAY-2022 16:59, ST elevation now present in Anterior leads Confirmed by Luke Vallejo ([id number]) on 05/17/2022 2:31:22 PM Referred By: REFERRED SELF Confirmed By:Luke Vallejo
[2022-05-17 14:34] LABS: iSTAT Arterial Blood Gas HCO3 15 meg/L (19-24); iSTAT Arterial Blood Gas pCO2 34 mmHg (35-46); iSTAT Arterial Blood Gas pH 7.23 (7.35-7.45); iSTAT Arterial Blood Gas pO2 83 mmHg (80-95); iSTAT Carbon Dioxide 15 mmol/L (24-31)
[2022-05-17 14:34] LABS: iSTAT Arterial Blood Gas HCO3 23 meg/L (19-24); iSTAT Arterial Blood Gas pCO2 55 mmHg (35-46); iSTAT Arterial Blood Gas pH 7.23 (7.35-7.45); iSTAT Arterial Blood Gas pO2 < 32 mmHg (80-95); iSTAT Carbon Dioxide 25 mmol/L (24-31)
[2022-05-17] MEDS: ACETAMINOPHEN 500 MG TAB PO SCH ×2 (14:59→22:06)
[2022-05-17] MEDS ORDERED: ETOMIDATE 2 MG/ML 20 ML VIAL IV ONE (16:14)
[2022-05-17] MEDS ORDERED: ROCURONIUM BROMIDE 10 MG/ML 5 ML VIAL IV ONE (16:14)
[2022-05-17] MEDS: MIDAZOLAM HCL 1 MG/ML 2ML VIAL IV PRN ×3 (16:29→22:06)
[2022-05-17 17:29] LABS: BUN Creatinine Ratio 23.5 (10-20); Calcium 9.3 mg/dl (8.5-10.1); Creatinine Clr Calc Pharmacy 37.1 ml/min; Est GFR (African American) 63.2 ml/min; Est GFR (Non-African American) 54.5 ml/min; Magnesium 2.6 mg/dl (1.7-2.4); Phosphorus 2.3 mg/dl (2.5-4.9)
[2022-05-17] MEDS: ICU ELECTROLYTE REPLACEMENT PROTOCOL SCH (18:50)
[2022-05-17] MEDS: POT PHOSPHATE MONOBASIC W/ SOD TAB NG SCH ×2 (18:55→22:06)
[2022-05-17] MEDS: POTASSIUM CHLORIDE 20 MEQ/15 ML UDC NG SCH ×2 (18:55→22:05)
--- NOTE | 2022-05-17 19:28 | Communication Note ---
Date of Service: May 17, [address] Palmer regarding the patient's condition and reviewed the patient's chart. Patient remains in critical condition with guarded prognosis. She continues to have frequent PVCs but no more sustained V. tach at this time. Continue amiodarone and lidocaine and replete electrolytes. Weaning pressors as tolerated and have made a little progress on FiO2 weaning. I did speak with the patient's and updated him on her status and he is aware that she is in critical condition with guarded prognosis. CODE STATUS was readdressed and per 's wishes, in the event of cardiac arrest he would not like any more aggressive measures including CPR, defibrillation, and other ACLS measures taken. He stated that she has suffered enough. We will continue with current medical management and support in hopes that her condition improves. CRITICAL CARE TIME - I have personally spent 20 minutes of critical care time in the direct manag ement of this patient. This is a life/limb threatening event. This includes time spent evaluating patient, direct bedside care, chart review, placing orders, interpretation of diagnostic studies, discussion with consultants, patient, and family members, as well as other required patient management activities. This time is exclusive of all separately billable procedures, and teaching time and separate from and in addition to any other critical care service time. Coding Level of Care Code Critical Care misty de la fuente'kelly 30 min
[2022-05-17 21:06] LABS: Partial Thromboplastin Ratio 2.2
[2022-05-17 21:09] LABS: Partial Thromboplastin Time 61.8 Seconds (21.0-31.0)
[2022-05-18] MEDS: INSULIN ASPART PER UNIT SC SCH ×5 (00:19→20:19)
[2022-05-18] MEDS: MIDAZOLAM HCL 1 MG/ML 2ML VIAL IV PRN ×10 (00:20→21:25)
[2022-05-18] MEDS: RAMELTEON: ORDER AWAITING ACTION SCH ×3 (00:22→12:38)
[2022-05-18] MEDS: NOREPINEPHRINE/D5W 4 MG/250 ML PLCT IV SCH (01:01)
[2022-05-18] MEDS: POT PHOSPHATE MONOBASIC W/ SOD TAB NG SCH (01:47)
[2022-05-18] MEDS: PROPOFOL BOLUS FROM BAG IV PRN ×3 (01:54→03:49)
[2022-05-18] MEDS: AMIODARONE / D5W 360 MG/200 ML BAG IV SCH ×2 (03:49→15:57)
[2022-05-18] MEDS: HEPARIN SODIUM/DEXTROSE 25,000 UNITS/500 ML BAG IV SCH (03:51)
[2022-05-18] MEDS: propofoL 1,000 MG/100 ML VIAL IV SCH ×4 (04:02→21:25)
[2022-05-18 04:10] LABS: Mixed Venous Blood Gas Base Excess 4.9 mEq/L (-7.7-1.9); Mixed Venous Blood Gas HCO3 29 mmol/L (19-24); Mixed Venous Blood Gas O2 Sat < 60.0 % (68); Mixed Venous Blood Gas PCO2 41 mmHg (38-50); Mixed Venous Blood Gas PO2 23 mmHg (80-95); Mixed Venous Blood Gas pH 7.46 (7.35-7.45)
[2022-05-18 04:12] LABS: Basophils # (auto) 0.02 K/uL (0-0.2); Basophils % (auto) 0.1 %; Hemoglobin 11.4 g/dl (12.0-16.0); Immature Granulocytes # (auto) 0.06 K/uL (0.00-0.02); Immature Granulocytes % (auto) 0.4 %; Lymphocytes # (auto) 1.93 K/uL (1.2-3.4); Lymphocytes % (auto) 11.9 %; Mean Corpuscular Hemoglobin 27.3 pg (25.0-34.0); Mean Corpuscular Hgb Conc 33.5 g/dL (32.0-36.0); Mean Corpuscular Volume 81.5 fL (80.0-100.0); Mean Platelet Volume 11.9 fL (9.4-12.3); Monocytes # (auto) 0.72 K/uL (0.24-0.82); Monocytes % (auto) 4.4 %; Neutrophils # (auto) 13.49 K/uL (1.4-6.5); Neutrophils % (auto) 83.2 %; Platelet Count 219 K/uL (130-400); RDW Coefficient of Variation 15.5 % (11.5-14.5); RDW Standard Deviation 45.8 fL (36.4-46.3); Red Blood Count 4.17 M/uL (3.93-5.22); White Blood Count 16.22 K/ul (4.8-10.8)
[2022-05-18 04:34] LABS: BUN Creatinine Ratio 27.6 (10-20); Calcium 8.3 mg/dl (8.5-10.1); Creatinine Clr Calc Pharmacy 43.5 ml/min; Est GFR (African American) 76.6 ml/min; Est GFR (Non-African American) 66.1 ml/min; Magnesium 2.4 mg/dl (1.7-2.4); Phosphorus 1.8 mg/dl (2.5-4.9)
[2022-05-18 04:40] LABS: Partial Thromboplastin Ratio 3.4
[2022-05-18] MEDS ORDERED: SODIUM PHOSPHATE 3 MMOL/1 ML INFUSION IV STA (04:40)
[2022-05-18] MEDS: ICU ELECTROLYTE REPLACEMENT PROTOCOL SCH ×2 (04:42→17:04)
[2022-05-18] MEDS: POTASSIUM CHLORIDE / WTR 20 MEQ/100 ML PLCT IV SCH ×4 (05:26→12:24)
[2022-05-18] MEDS: ACETAMINOPHEN 500 MG TAB PO SCH ×3 (05:27→21:28)
[2022-05-18] MEDS ORDERED: SODIUM PHOSPHATE 21 MMOL in DEXTROSE 5% 500 ML IV ONE (05:30)
[2022-05-18 05:37] LABS: Partial Thromboplastin Time 93.7 Seconds (21.0-31.0)
--- NOTE | 2022-05-18 05:47 | Electrocardiogram Report ---
Test Reason : Blood Pressure : / mmHG Vent. Rate : 099 BPM Atrial Rate : 099 BPM P-R Int : 144 ms QRS Dur : 078 ms QT Int : 340 ms P-R-T Axes : 080 021 -51 degrees QTc Int : 436 ms Sinus rhythm with marked sinus arrhythmia Premature atrial complexes ST elevation consider anterolateral injury or acute infarct ACUTE MN / STEMI Abnormal ECG When compared with ECG of 17-MAY-2022 05:43, QT has shortened Confirmed by Luke Vallejo ([id number]) on 05/18/2022 5:46:44 AM Referred By: REFERRED SELF Confirmed By:Luke Vallejo
[2022-05-18] MEDS: GABAPENTIN 100 MG CAP PO SCH ×3 (07:31→20:02)
[2022-05-18] MEDS: THIAMINE HCL 100 MG in SYRINGE 9 ML IV SCH (07:40)
[2022-05-18] MEDS: FUROSEMIDE 40 MG/4 ML VIAL IV SCH (07:41)
[2022-05-18] MEDS ORDERED: cloNIDine HCL 0.3 MG/24 HR TRANSDERM SYS TD SCH (09:00)
--- NOTE | 2022-05-18 09:22 | Critical Care Progress Note ---
Date of Service May 18, 2022 Assessment & Plan (1) NSVT (nonsustained ventricular tachycardia): (2) PAF (paroxysmal atrial fibrillation): (3) Pneumonia due to COVID-19 virus: (4) Atrial fibrillation with rapid ventricular response: (5) Chronic heart failure with preserved ejection fraction (HFpEF): (6) Elevated troponin: (7) STEMI (ST elevation myocardial infarction): (8) Acute respiratory failure with hypoxia: Plan ICU Assessment and Plan Reason Critically Ill:72 yo F with PMH PAF on Eliquis, HFpEF, HTN, HLD and active COVID infection presenting with multiple symptoms including fatigue, cough- later went to AF w/ RVR and had acute STEMI, transferred to ICU s/p cardiac catheterization for critical illness. Neuro - [facility] ICU: NEGATIVE Sedation: Propofol 20 mcg/kg/min Analgesia: None Wean sedation as tolerated Cardiac - Cardiogenic shock and ventricular tachycardia storm secondary to acute anterior wall STEMI -Cardiology consulted and following -Echocardiogram 05/17- EF 15-20%, global hypo/akinesis -Cardiac catheterization 05/17- severe non-obstructive CAD -Pt may need medical optimization of CHF/CAD, possible LVAD/AICD for long- term, deferring to cardiology -Continue pressor support- norepinephrine 0.05 mcg/kg/min, wean as tolerated -Continue anti-arrhythmics- amiodarone infusion, lidocaine infusion -No further VT runs since day prior Atrial fibrillation with RVR -Likely due to hypokalemia, sepsis from acute infection -Continue amiodarone as above -Heparin infusion for anticoagulation Respiratory- Acute hypoxic respiratory failure -Multifactorial- cardiogenic shock from STEMI, flash pulmonary edema 2/2 cardiomyopathy, in background of active COVID infection -Required intubation prior to cardiac catheterization, assess extubation readiness once hemodynamically stable -Continue dexamethasone 6 mg IV (day 2) -Ventilator settings- TV 330, RR 25, PEEP 14, FiO2 30 -Maintain FiO2 < 60%, plateau pressures < 30 cm H2O GI - Nonspecific colitis -CTAP on admission demonstrating mucosal hyperemia of left colon -May be due to dehydration -General surgery consulted- low suspicion for mesenteric ischemia, continue supportive care NPO while intubated, continue Normosol mIVF Initiate trophic feeds today Renal/Electrolytes High anion gap metabolic acidosis -AG 22 on admission, improved to 9 today- likely due to lactic acidosis 2/2 sepsis which is improving Hypokalemia -K 3.0 today -Goal K > 4 Hypophosphatemia -PO4 1.8 today Hypomagnesemia -Mg 2.4 today -Goal Mg > 2 Cr 0.87 today, at baseline ICU electrolyte repletion protocol Trend BMP, Mg, PO4 - Abnormal urinalysis -Admission UA with some concern for infection though pt reports no urinary symptoms -Discontinued Zosyn today [place] in place -Strict I's and O's ENDO - Prediabetes -A1C 6.1% on admission -BSGs acceptable at present -ICU hyperglycemia protocol HEME - Hgb 13.6 -> 11.4 today Trend CBC, aPTT while on heparin ID - Sepsis likely secondary to COVID-19 infection/pneumonia, colitis, possible UTI -WBC 18.6 -> 16.2 -Procalcitonin negative, CRP 5.7 on admission -Lactate 5.2 on admission, resolved to 1.8 today -BCx and UCx NGTD, MRSA nares negative -Afebrile past 24 hours -Discontinued Zosyn today -Trend CBC INTEGUMENTARY - -None LINES/IV ACCESS - -PIV x3 -L radial arterial line -Central venous line -NG tube -[place] -Intubated -Remove pulmonary artery catheter today DVT PROPHYLAXIS - -Heparin infusion Admission and Anticipated Discharge Date Admission Date: May 16, 2022 Supervising Physician Co-Signing Physician Notes Patient seen and examined. EMR reviewed. Discussed on multidisciplinary rounds and with bedside critical care nurse as well as with family practice resident. Agree with assessment plan as noted. The patient has shown improvement in her hemodynamics. Norepinephrine has been weaned down significantly. We have also been able to make significant progress with regards to her oxygenation status. We will start working on weaning PEEP per [facility] net protocols. Continue dexamethasone. Continue glycemic control per pharmacy. Will defer lidocaine and amiodarone to cardiology. She is fully anticoagulated on a heparin drip at this point time. Unclear if she will require LifeVest or AICD implantation if she recovers. Does not appear that the pulmonary artery catheter is offering actionable data at this point time so I would recommend that it be discontinued but will defer to cardiology. Would like to keep the venous sheath in place if possible for access. Patient's completed a full course of antibiotics. Her fevers have improved. We will start trophic tube feeds. Overall prognosis remains guarded although the patient has shown some clinical improvement over the last 24 hours. No family immediately available. A total of 47 minutes critical care time was spent in evaluation management stabilization of this patient with life-threatening organ system failure Subjective No acute events overnight, no further runs of VT Pt intubated and sedated on evaluation this morning. Was able to track but no meaningful interview could be obtained given sedation. Did not appear to be in any increased distress. Review of Systems Review of Systems: Per subjective Physical Exam Physical Exam: GENERAL - Awake, intubated SKIN - No rashes. HEAD - NC/AT. EYES - PERRL EARS - No deformities of external structures b/l NOSE - Midline. No epistaxis. Septum midline without deviation. MOUTH/OROPHARYNX - No perioral cyanosis. Buccal mucosa pink and moist. NECK - no tracheal deviation LUNGS - intubated, ventilator settings- TV 330, RR 22, PEEP 14, FiO2 30 CARDIAC - Tachycardic, irregular rate, normal S1, S2, no murmurs noted ABDOMEN - Soft, nondistended, no rigidity EXTREMITIES - No clubbing or peripheral cyanosis. No peripheral edema present. Distal pulses of b/l LE intact b/l NEUROLOGIC - Tracks, responds to noxious stimuli PSYCH - Sedated Results & Data Results & Data ([facility]) Vital Signs (Past 12 Hours) Vital Signs Temp Pulse Resp BP Pulse Ox O2 Del Method FiO2 05/18/22 08:15 36.6 C 81 27 H 90 Mechanical Vent 0.4 05/18/22 08:00 36.7 C 78 26 H 91 05/18/22 07:57 36.7 C 75 20 90 05/18/22 07:57 115/77 05/18/22 07:45 36.7 C 83 27 H 89 L 05/18/22 07:30 36.7 C 71 22 95 05/18/22 07:15 36.7 C 70 20 95 05/18/22 07:00 36.8 C 77 38 H 93 05/18/22 08:00 Mechanical Vent 0.4 05/18/22 07:13 69 24 95 50 05/18/22 06:00 50 05/18/22 06:00 37.0 C 71 20 90 05/18/22 05:57 97/57 L 05/18/22 05:57 37.0 C 75 20 90 05/18/22 05:30 37.0 C 81 33 H 90 05/18/22 05:00 36.9 C 77 23 90 05/18/22 04:57 36.9 C 80 26 H 91 05/18/22 04:57 113/74 05/18/22 04:30 36.9 C 66 22 97 05/18/22 04:00 36.9 C 73 25 H 95 05/18/22 03:57 36.9 C 70 25 H 95 05/18/22 03:57 99/63 L 05/18/22 03:30 36.9 C 68 25 H 96 05/18/22 06:00 67 102/51 L 05/18/22 04:00 72 118/57 L 05/18/22 04:54 20 50 05/18/22 02:15 72 25 H 94 60 05/18/22 02:49 60 05/18/22 02:50 69 105/57 L 05/18/22 01:00 37.1 C 05/18/22 03:00 37.0 C 70 25 H 95 05/18/22 02:57 37.0 C 70 25 H 95 05/18/22 02:57 85/62 L 05/18/22 02:30 37.1 C 71 25 H 94 05/18/22 02:00 77 25 H 93 05/18/22 01:57 77 25 H 92 05/18/22 01:57 120/76 05/18/22 01:30 79 22 91 05/18/22 01:00 73 25 H 95 05/18/22 00:30 75 25 H 95 05/18/22 00:30 60 05/17/22 23:00 73 05/18/22 00:00 37.5 C 05/17/22 23:00 37.3 C 05/17/22 22:00 37.1 C 05/17/22 21:00 37.2 C 05/18/22 00:00 93 H 31 H 93 05/17/22 23:57 116/87 05/17/22 23:57 87 27 H 91 05/17/22 23:30 75 25 H 96 05/17/22 23:00 78 25 H 95 05/17/22 22:57 107/74 05/17/22 22:57 77 25 H 95 05/17/22 22:30 78 25 H 93 05/17/22 22:00 85 25 H 92 05/17/22 21:57 81 25 H 05/17/22 21:57 113/83 05/17/22 21:30 75 25 H 97 05/17/22 21:00 78 25 H 97 05/17/22 20:57 78 25 H 97 05/17/22 20:57 103/79 05/18/22 00:00 77 104/57 L 05/17/22 23:27 Mechanical Vent 70 05/17/22 23:20 78 25 H 95 70 05/17/22 22:49 70 05/17/22 22:48 70 Resident Activity Tracking Resident Involvement: Resident Care Provided Care Provided: Adult Hospital Medicine
[2022-05-18 09:32] LABS: iSTAT Arterial Blood Gas HCO3 22 meg/L (19-24); iSTAT Arterial Blood Gas pCO2 52 mmHg (35-46); iSTAT Arterial Blood Gas pH 7.24 (7.35-7.45); iSTAT Arterial Blood Gas pO2 43 mmHg (80-95); iSTAT Carbon Dioxide 24 mmol/L (24-31); iSTAT Hematocrit 37 % (37-47); iSTAT Hemoglobin 12.6 g/dl (12.0-16.0); iSTAT Potassium 2.7 mmol/L (3.3-5.0); iSTAT Sodium 143 mmol/L (135-144)
[2022-05-18] MEDS: NORMOSOL-R 1,000 ML IV SCH (10:12)
[2022-05-18] MEDS ORDERED: PEPTAMEN INTENSE VHP 1.0 CAL 1,000 ML BAG OG SCH (10:15)
[2022-05-18] MEDS: TUBE FEEDING WATER FLUSH OG SCH ×4 (11:04→22:36)
--- NOTE | 2022-05-18 11:58 | Cardiology Progress Note ---
Date of Service May 18, 2022 Assessment & Plan (1) PAF (paroxysmal atrial fibrillation): (2) NSVT (nonsustained ventricular tachycardia): (3) Atrial fibrillation with rapid ventricular response: (4) Hypertension: (5) Diastolic dysfunction: (6) Ascending aortic aneurysm: (7) Pneumonia due to COVID-19 virus: (8) Hypokalemia: (9) STEMI (ST elevation myocardial infarction): (10) Elevated troponin: (11) Abdominal pain: (12) Atrial flutter with rapid ventricular response: (13) Acute respiratory failure with hypoxia: Plan Atrial fibrillation and rapid ventricular response along with nonsustained ventricular tachycardia in the setting of acute COVID-19 infection, questionable UTI and significant hypokalemia which progressed to ventricular tachycardia requiring defibrillation during catheterization No significant obstructive disease by cardiac catheterization. No further sustained ventricular tachycardia while on IV amiodarone and lidocaine Differential diagnosis from a cardiac standpoint would be catecholamine induced cardiomyopathy versus myocarditis In either circumstance would recommend continued supportive care and antiarrhythmics to prevent further ventricular arrhythmias. No changes from a cardiac standpoint at this time Admission and Anticipated Discharge Date Admission Date: May 16, 2022 Subjective Patient seen and examined. Chart reviewed. Telemetry reviewed. 2 bursts of nonsustained ventricular tachycardia this a.m. at 0301 and 0746. No sustained ventricular tachycardia. Review of Systems Review of Systems: Unobtainable due to endotracheal tube Physical Exam Physical Exam: General: Intubated and sedated. HEENT: Normocephalic, atraumatic. Pupils equal, round and reactive to light and accommodation. Extraocular muscles are intact. Anicteric sclera. Moist mucous membranes. Neck: No JVD. No bruit. Cardiovascular: Regular. Positive S-4. Normal S-1 and S-2. No S-3. 3/6 mid to late systolic ejection murmur, greatest at the right sternal border, second intercostal space with radiation to the bilateral carotids. No rubs. Pulmonary: Clear to auscultation bilaterally. No rales, rhonchi, or wheezing. Abdomen: Bowel sounds x 4, soft. Diffuse tenderness. Extremities: No clubbing, cyanosis or edema. +2 pedal pulses bilaterally. Skin: Warm and dry. Results & Data ([facility]) Vital Signs (Past 12 Hours) Vital Signs Temp Pulse Resp BP Pulse Ox O2 Del Method FiO2 08/31/22 11:06 90 22 91 40 05/18/22 10:00 0.4 05/18/22 08:15 36.6 C 81 27 H 90 Mechanical Vent 0.4 05/18/22 08:00 36.7 C 78 26 H 91 05/18/22 07:57 36.7 C 75 20 90 05/18/22 07:57 115/77 05/18/22 07:45 36.7 C 83 27 H 89 L 05/18/22 07:30 36.7 C 71 22 95 05/18/22 07:15 36.7 C 70 20 95 05/18/22 07:00 36.8 C 77 38 H 93 05/18/22 08:00 Mechanical Vent 0.4 05/18/22 07:13 69 24 95 50 05/18/22 06:00 50 05/18/22 06:00 37.0 C 71 20 90 05/18/22 05:57 97/57 L 05/18/22 05:57 37.0 C 75 20 90 05/18/22 05:30 37.0 C 81 33 H 90 05/18/22 05:00 36.9 C 77 23 90 05/18/22 04:57 36.9 C 80 26 H 91 05/18/22 04:57 113/74 05/18/22 04:30 36.9 C 66 22 97 05/18/22 04:00 36.9 C 73 25 H 95 05/18/22 03:57 36.9 C 70 25 H 95 05/18/22 03:57 99/63 L 05/18/22 03:30 36.9 C 68 25 H 96 05/18/22 06:00 67 102/51 L 05/18/22 04:00 72 118/57 L 05/18/22 04:54 20 50 05/18/22 02:15 72 25 H 94 60 05/18/22 02:49 60 05/18/22 02:50 69 105/57 L 05/18/22 01:00 37.1 C 05/18/22 03:00 37.0 C 70 25 H 95 05/18/22 02:57 37.0 C 70 25 H 95 05/18/22 02:57 85/62 L 05/18/22 02:30 37.1 C 71 25 H 94 08/31/22 02:00 77 25 H 93 05/18/22 01:57 77 25 H 92 05/18/22 01:57 120/76 05/18/22 01:30 79 22 91 05/18/22 01:00 73 25 H 95 05/18/22 00:30 75 25 H 95 05/18/22 00:30 60 05/18/22 00:00 37.5 C 05/18/22 00:00 93 H 31 H 93 05/17/22 23:57 116/87 05/17/22 23:57 87 27 H 91 05/18/22 00:00 77 104/57 L
--- NOTE | 2022-05-18 12:37 | XRay Report ---
XR chest 1V portable CLINICAL HISTORY: Resp failure TECHNIQUE: Single frontal radiograph of the chest was obtained. Comparison: Comparison is made to chest radiograph 05/17/2022 FINDINGS: The endotracheal tube has been withdrawn and the tip now lies 1 cm from the miya. Enteric tube is s table. Cardiomegaly is noted. Lower lobe airspace opacities are less conspicuous than on the prior ex am. There is suggestion of moderate pulmonary edema. No evidence of pleural effusion or pneumothorax. IMPRESSION: 1. Interval improvement in airspace opacities which may represent improving alveolar edema. Intersti tial edema is again noted. 2. The endotracheal tube tip has been retracted. It can be further withdrawn approximately 2 cm for improved positioning. ACT 112: Negative or not required by law. Electronically signed by: Filipe Hyman M.D. 05/18/2022 12:35 PM
[2022-05-18] MEDS: PANTOprazole 40 MG in SYRINGE 0 ML IV SCH (13:39)
[2022-05-18] MEDS: dexAMETHasone 6 MG in SYRINGE 0 ML IV SCH (13:40)
[2022-05-18 13:52] LABS: Partial Thromboplastin Ratio 1.7
--- NOTE | 2022-05-18 13:54 | Hospitalist Progress Note ---
Date of Service May 18, 2022 Assessment & Plan (1) Atrial fibrillation with rapid ventricular response: Plan: Afib RVR Sustained VT requiring defibrillation Continue on amiodarone drip Continue IV heparin for anticoagulation Appreciate cardiology input Transition to Eliquis as able Also on IV lidocaine Nonischemic cardiomyopathy Possibly Takotsubo cardiomyopathy Cardiogenic shock -S/P Cardiac Cath:Multivessel coronary artery disease. 50% mid LAD. Medium D2 80% proximal. 50% calcified ostial circumflex, 50% inferior branch of OM2. 60% mid, 50% distal RCA. Elevated left-sided filling pressure (LVEDP 22). Normal pulmonary artery pressure. Preserved cardiac output --ECHO: Apical ballooning pattern of the LV chamber. Moderate hypokinesis of all basal wall segments with progressive akinesis at the mid levels and dyskinesis at the apex. Severely reduced LV systolic function EF 15 to 20%. Right ventricular cavity size is normal. Right ventricular systolic function is normal as assessed by tricuspid annular plane systolic excursion. Aortic valve sclerosis moderate, without significant aortic valvular stenosis. Mild aortic regurgitation. PASP of 48 mmHg. --Patient had sustained VT requiring defibrillation --Appreciate Cardiology, Critical Care Input -- Continue pressors --On IV lasix 40mg daily, volume status, I's and O's, daily weight --Monitor electrolytes Wean off of pressors as able Acute respiratory distress syndrome Acute hypoxic respiratory failure S/P Intubation 05/17 COVID 19 Infection Patient is intubated in [employer] CRP:5.69 Procalcitonin: 0.24 Appreciate critical care input Continue vent support Started on Dexamethasone Sepsis Likely multifactorial: COVID-19 infection, colitis, possible UTI Lactic acidosis Colitis UTI ruled out Urine Culture Mixed Probable Skin elier Blood Cultures:No growth to date Zosyn discontinued Prediabetes HbA1C: 6.1 Continue ISS given elevated BGs while on steroids (2) NSVT (nonsustained ventricular tachycardia): Plan: Management as above (3) Elevated troponin: Plan: Likely demand ischemia due to Sepsis, tachyarrhythmias, stress-induced cardiomyopathy, COVID-19 infection (4) Pneumonia due to COVID-19 virus: Plan: Management as above (5) Hypokalemia: Plan: Hypokalemia Hypophosphatemia Replete electrolytes as needed (6) Chronic heart failure with preserved ejection fraction (HFpEF): Plan: Monitor volume status closely on IV diuresis (7) HLD (hyperlipidemia): Plan: Resume Statin as able (8) Hypertension: Plan: Monitor (9) Ascending aortic aneurysm: Plan: Stable (10) Esophageal reflux: Plan DVT Px: IV Heparin Code Status Conditional Code Admission and Anticipated Discharge Date Admission Date: May 16, 2022 Subjective Patient is seen and examined at bedside Sedated and intubated Currently on pressors, trying to be weaned off Also on IV amiodarone, heparin drip 2 episodes of NSVT overnight No sustained tachycardia this morning No distress on exam today Review of Systems Review of Systems: Unobtainable due to endotracheal tube Physical Exam Physical Exam: Physical Exam: Vitals signs as noted above General Appearance:Moderately built and nourished, no apparent distress, Intubated Head: normocephalic, Atraumatic Eyes: normal inspection, EOMI Neck: supple, Trachea midline Respiratory/Chest: Normal breath sounds, CTA, No accessory muscle use Cardiovascular: S1, S2, murmur Abdomen/GI:Soft, Non tender, Bowel sounds present Extremities/Musculoskeletal:normal inspection, no edema Neurologic/Psych:Sedated and Intubated Skin: normal color, warm Results & Data Results & Data ([facility]) Vital Signs (Past 12 Hours) Vital Signs Temp Pulse Resp BP Pulse Ox O2 Del Method FiO2 05/18/22 11:06 90 22 91 40 05/18/22 10:00 0.4 05/18/22 08:15 36.6 C 81 27 H 90 Mechanical Vent 0.4 05/18/22 08:00 36.7 C 78 26 H 91 05/18/22 07:57 36.7 C 75 20 90 05/18/22 07:57 115/77 05/18/22 07:45 36.7 C 83 27 H 89 L 05/18/22 07:30 36.7 C 71 22 95 05/18/22 07:15 36.7 C 70 20 95 05/18/22 07:00 36.8 C 77 38 H 93 05/18/22 08:00 Mechanical Vent 0.4 05/18/22 07:13 69 24 95 50 05/18/22 06:00 50 05/18/22 06:00 37.0 C 71 20 90 05/18/22 05:57 97/57 L 05/18/22 05:57 37.0 C 75 20 90 05/18/22 05:30 37.0 C 81 33 H 90 05/18/22 05:00 36.9 C 77 23 90 05/18/22 04:57 36.9 C 80 26 H 91 05/18/22 04:57 113/74 05/18/22 04:30 36.9 C 66 22 97 05/18/22 04:00 36.9 C 73 25 H 95 05/18/22 03:57 36.9 C 70 25 H 95 05/18/22 03:57 99/63 L 05/18/22 03:30 36.9 C 68 25 H 96 05/18/22 06:00 67 102/51 L 05/18/22 04:00 72 118/57 L 05/18/22 04:54 20 50 05/18/22 02:15 72 25 H 94 60 05/18/22 02:49 60 05/18/22 02:50 69 105/57 L 05/18/22 03:00 37.0 C 70 25 H 95 05/18/22 02:57 37.0 C 70 25 H 95 05/18/22 02:57 85/62 L 05/18/22 02:30 37.1 C 71 25 H 94 05/18/22 02:00 77 25 H 93 05/18/22 01:57 77 25 H 92 05/18/22 01:57 120/76 Laboratory Results Short CBC 05/18/22 Range/Units 03:49 WBC 16.22 H (4.8-10.8) K/ul Hgb 11.4 L (12.0-16.0) g/dl Hct 34.0 L (34.1-44.9) % Plt Count 219 (130-400) K/uL BMP 05/17/22 05/18/22 17:00 03:49 Sodium 144 141 Potassium 3.0 L D 3.0 L Chloride 107 107 Carbon Dioxide 25 25 BUN 24 H 24 H Creatinine 1.02 0.87 Glucose 162 H 175 H Calcium 9.3 8.3 L
[2022-05-18 13:57] LABS: Partial Thromboplastin Time 48.1 Seconds (21.0-31.0)
[2022-05-18] MEDS: LIDOCAINE/D5W DRIP 4MG/ML 2,000 MG/500 ML BAG IV SCH (16:17)
--- NOTE | 2022-05-18 22:35 | Electrocardiogram Report ---
Test Reason : Blood Pressure : / mmHG Vent. Rate : 076 BPM Atrial Rate : 076 BPM P-R Int : 130 ms QRS Dur : 078 ms QT Int : 388 ms P-R-T Axes : -55 030 -78 degrees QTc Int : 436 ms Unusual P axis, possible ectopic atrial rhythm with occasional Premature ventricular complexes T wave abnormality, consider anterolateral ischemia Abnormal ECG When compared with ECG of 17-MAY-2022 08:39, Ectopic atrial rhythm has replaced Sinus rhythm ST no longer elevated in Anterior leads Confirmed by Luke Vallejo ([id number]) on 05/18/2022 10:35:16 PM Referred By: REFERRED SELF Confirmed By:Luke Vallejo
[2022-05-19] MEDS: PROPOFOL BOLUS FROM BAG IV PRN ×3 (00:35→06:22)
[2022-05-19] MEDS: INSULIN ASPART PER UNIT SC SCH ×6 (00:36→20:21)
[2022-05-19] MEDS: TUBE FEEDING WATER FLUSH OG SCH ×5 (02:11→16:54)
[2022-05-19] MEDS: HEPARIN SODIUM/DEXTROSE 25,000 UNITS/500 ML BAG IV SCH (02:11)
[2022-05-19] MEDS: RAMELTEON: ORDER AWAITING ACTION SCH ×3 (02:11→11:19)
[2022-05-19] MEDS: propofoL 1,000 MG/100 ML VIAL IV SCH ×4 (02:14→13:33)
[2022-05-19] MEDS: AMIODARONE / D5W 360 MG/200 ML BAG IV SCH ×2 (04:18→16:53)
[2022-05-19 04:46] LABS: iSTAT Art Bld Gas pCO2 Correct 38 mmHg (35-46); iSTAT Art Bld Gas pH Corrected 7.476 (7.35-7.45); iSTAT Arterial Blood Gas HCO3 28 meg/L (19-24); iSTAT Arterial Blood Gas pCO2 37 mmHg (35-46); iSTAT Arterial Blood Gas pH 7.48 (7.35-7.45); iSTAT Arterial Blood Gas pO2 72 mmHg (80-95); iSTAT Arterial Blood Gas pO2 C 74; iSTAT Carbon Dioxide 29 mmol/L (24-31); iSTAT FiO2 50 %; iSTAT Hematocrit 29 % (37-47); iSTAT Hemoglobin 9.9 g/dl (12.0-16.0); iSTAT Potassium 3.5 mmol/L (3.3-5.0); iSTAT Site Art Line; iSTAT Sodium 139 mmol/L (135-144)
[2022-05-19 05:45] LABS: Hematocrit (blood only) 29.1 % (34.1-44.9); Hemoglobin 9.8 g/dl (12.0-16.0); Mean Corpuscular Hemoglobin 27.4 pg (25.0-34.0); Mean Corpuscular Hgb Conc 33.7 g/dL (32.0-36.0); Mean Corpuscular Volume 81.3 fL (80.0-100.0); RDW Coefficient of Variation 15.5 % (11.5-14.5); RDW Standard Deviation 45.7 fL (36.4-46.3); Red Blood Count 3.58 M/uL (3.93-5.22); White Blood Count 10.71 K/ul (4.8-10.8)
[2022-05-19 06:11] LABS: Partial Thromboplastin Ratio 1.5; Partial Thromboplastin Time 40.4 Seconds (21.0-31.0)
[2022-05-19 06:19] LABS: BUN Creatinine Ratio 39.5 (10-20); Calcium 7.9 mg/dl (8.5-10.1); Creatinine Clr Calc Pharmacy 108.2 ml/min; Est GFR (African American) 121.8 ml/min; Est GFR (Non-African American) 105.1 ml/min; Phosphorus 1.8 mg/dl (2.5-4.9); Potassium 3.4 mmol/L (3.5-5.1)
[2022-05-19] MEDS: NORMOSOL-R 1,000 ML IV SCH (06:19)
[2022-05-19] MEDS: MIDAZOLAM HCL 1 MG/ML 2ML VIAL IV PRN ×2 (06:19→08:09)
[2022-05-19] MEDS: ACETAMINOPHEN 500 MG TAB PO SCH (06:20)
[2022-05-19] MEDS ORDERED: POTASSIUM PHOS 3 MMOL/1 ML INFUSION IV STA (06:29)
[2022-05-19] MEDS: ICU ELECTROLYTE REPLACEMENT PROTOCOL SCH ×2 (06:40→16:00)
[2022-05-19 06:47] LABS: Mean Platelet Volume 13.3 fL (9.4-12.3); Platelet Count 140 K/uL (130-400)
[2022-05-19] MEDS ORDERED: POTASSIUM PHOSPHATE 24 MMOL in SODIUM CHLORIDE 0.9% 500 ML IV ONE (07:00)
[2022-05-19 07:36] LABS: Basophils # (auto) 0.01 K/uL (0-0.2); Basophils % (auto) 0.1 %; Immature Granulocytes # (auto) 0.05 K/uL (0.00-0.02); Immature Granulocytes % (auto) 0.5 %; Lymphocytes # (auto) 1.25 K/uL (1.2-3.4); Lymphocytes % (auto) 11.7 %; Monocytes # (auto) 0.48 K/uL (0.24-0.82); Monocytes % (auto) 4.5 %; Neutrophils # (auto) 8.92 K/uL (1.4-6.5); Neutrophils % (auto) 83.2 %
[2022-05-19] MEDS ORDERED: ACETAMINOPHEN 500 MG TAB PO PRN (07:40)
[2022-05-19] MEDS: THIAMINE HCL 100 MG in SYRINGE 9 ML IV SCH (08:04)
[2022-05-19] MEDS: MULTI VIT W/MINERALS LIQUID 15 ML UDP NG SCH (08:04)
[2022-05-19] MEDS: GABAPENTIN 100 MG CAP PO SCH ×3 (08:05→19:14)
[2022-05-19] MEDS: NOREPINEPHRINE/D5W 4 MG/250 ML PLCT IV SCH (08:06)
[2022-05-19] MEDS: FUROSEMIDE 40 MG/4 ML VIAL IV SCH ×2 (08:09→20:12)
[2022-05-19] MEDS ORDERED: metOLazone 5 MG TABLET PO ONE (08:33)
--- NOTE | 2022-05-19 09:20 | Critical Care Progress Note ---
Date of Service May 19, 2022 Assessment & Plan (1) NSVT (nonsustained ventricular tachycardia): (2) PAF (paroxysmal atrial fibrillation): (3) Pneumonia due to COVID-19 virus: (4) Atrial fibrillation with rapid ventricular response: (5) Chronic heart failure with preserved ejection fraction (HFpEF): (6) Elevated troponin: (7) STEMI (ST elevation myocardial infarction): (8) Acute respiratory failure with hypoxia: Plan ICU Assessment and Plan Reason Critically Ill:72 yo F with PMH PAF on Eliquis, HFpEF, HTN, HLD and active COVID infection presenting with multiple symptoms including fatigue, cough- later went to AF w/ RVR and had acute STEMI, transferred to ICU s/p cardiac catheterization for critical illness. Neuro - [facility] ICU: NEGATIVE Sedation: Propofol Analgesia: Tylenol PRN Pt awake today, wean sedation as tolerated Cardiac - Cardiogenic shock and ventricular tachycardia storm secondary to acute anterior wall STEMI -Cardiology consulted and following -Echocardiogram 05/17- EF 15-20%, global hypo/akinesis -Cardiac catheterization 05/17- severe non-obstructive CAD -Pt may need medical optimization of CHF/CAD, possible LVAD/AICD for long- term, deferring to cardiology -Pt weaned off pressors 05/18 -Continue anti-arrhythmics- amiodarone infusion, lidocaine infusion- deferring to cardiology HFrEF with pulmonary vascular congestion -Diuresis regimen increased from Lasix 40 mg IV daily to BID -1x metolazone given due to poor UOP- net positive 2500 ccs -Cr 0.38 Atrial fibrillation with RVR- resolved -Likely due to hypokalemia, sepsis from acute infection -Continue amiodarone as above -Heparin infusion for anticoagulation -Currently in sinus rhythm Respiratory- Acute hypoxic respiratory failure -Multifactorial- cardiogenic shock from STEMI, flash pulmonary edema 2/2 cardiomyopathy, in background of active COVID infection -Required intubation prior to cardiac catheterization -Continue dexamethasone 6 mg IV (day 3) -Ventilator settings- TV 330, RR 18, PEEP 12, FiO2 40- attempt wean as PEEP further reduced -Maintain FiO2 < 60%, plateau pressures < 30 cm H2O GI - -CTAP on admission demonstrating mucosal hyperemia of left colon -May be due to dehydration, does not represent active colitis -General surgery consulted- low suspicion for mesenteric ischemia, continue supportive care Continue Normosol mIVF Continue trophic feeds- Peptamen VHP, goal rate 50 cc/hr Renal/Electrolytes Metabolic alkalosis -ABG pH 7.48, HCO3 28- likely in wake of recent hypercapnia in ventilated patient also receiving Lasix -Attempt to weani High anion gap metabolic acidosis- resolved -AG 22 on admission, improved to 7 today- likely due to lactic acidosis 2/2 sepsis which has improved Hypokalemia -K 3.4 today -Goal K > 4 Hypophosphatemia -PO4 1.8 today Hypomagnesemia -Mg 2.0 today -Goal Mg > 2 Cr 0.38 today, at baseline ICU electrolyte repletion protocol Trend BMP, Mg, PO4 - Abnormal urinalysis -Admission UA with some concern for infection though pt reports no urinary symptoms -Discontinued Zosyn 05/[address] ENDO - Prediabetes -A1C 6.1% on admission -BSGs acceptable at present -ICU hyperglycemia protocol HEME - Hgb 11.4 -> 9.8 today Trend CBC, aPTT while on heparin ID - Sepsis likely secondary to COVID-19 infection/pneumonia, colitis, possible UTI -WBC 16.2 -> 10.7 -Procalcitonin negative, CRP 5.7 on admission -Lactate 5.2 on admission, resolved to 1.8 -BCx and UCx NGTD, MRSA nares negative -Discontinued Zosyn 05/18 -Trend CBC INTEGUMENTARY - -None LINES/IV ACCESS - -PIV x3 -L radial arterial line -Central venous line -NG tube -[place] -Intubated -Remove pulmonary artery catheter today- coordinate with cardiology DVT PROPHYLAXIS - -Heparin infusion Admission and Anticipated Discharge Date Admission Date: May 16, 2022 Supervising Physician Co-Signing Physician Notes Patient seen and examined. EMR reviewed. Discussed on critical care multidisciplinary rounds and reviewed with bedside ICU nurse and family practice resident. Discussed with overnight critical care MARC. Patient remains ventilator dependent but were making progress in weaning her FiO2 and PEEP. She is now off pressors. Her pulmonary artery catheter was discontinued this morning without event. She is tolerating trophic tube feedings but if were able to get her PEEP down to 8, these will be held in hopes of spontaneous breathing trial and potential ventilator liberation. She may need to be extubated to positive airway pressure/BiPAP. X-ray appears more wet. Despite Lasix, we have been unable to achieve any significant diuresis. Will increase Lasix to 40 mg IV twice daily and add single dose of metolazone. Depending on results and electrolytes, may consider chronic metolazone and/or Aldactone therapy. Will defer amiodarone, anticoagulation, and lidocaine to cardiology. If the patient is successful in ventilator liberation, she will require speech therapy evaluation, PT, and OT evaluations. We will keep the femoral sheath in place for now for IV access but if the patient is extubated, this will likely need to be discontinued but hopefully at that point time will have adequate peripheral access for her parenteral medications. No family immediately available. Patient remains critically ill with significant possibility of clinical decline and loss of organ function and or . A total of 47 minutes in critical care time was spent in evaluation management and stabilization of this patient Subjective Pt had 5 beat run of VT earlier around 6:30 AM. Otherwise no acute events overnight. Pt awake on evaluation and responsive to commands, appeared pleased when told we will attempt to wean her off ventilator today. Review of Systems Review of Systems: Per subjective Physical Exam Physical Exam: GENERAL - Awake, intubated SKIN - No rashes. HEAD - NC/AT. EYES - PERRL EARS - No deformities of external structures b/l NOSE - Midline. No epistaxis. Septum midline without deviation. MOUTH/OROPHARYNX - No perioral cyanosis. Buccal mucosa pink and moist. NECK - no tracheal deviation LUNGS - intubated, ventilator settings- TV 330, RR 18, PEEP 12, FiO2 40 CARDIAC - Regular rate and rhythm, normal S1, S2, systolic murmur noted over RUSB ABDOMEN - Soft, nondistended, no rigidity EXTREMITIES - No clubbing or peripheral cyanosis. No peripheral edema present. Distal pulses of b/l LE intact b/l NEUROLOGIC - Tracks, responds to commands Results & Data Results & Data ([facility]) Vital Signs (Past 12 Hours) Vital Signs Temp Pulse Resp BP Pulse Ox FiO2 05/19/22 08:02 76 25 H 94 40 05/19/22 06:00 36.9 C 75 18 117/69 95 05/19/22 05:30 36.9 C 69 18 93 05/19/22 05:00 37.0 C 68 16 94 05/19/22 04:57 37.0 C 69 20 94 05/19/22 04:57 94/63 L 05/19/22 04:30 37.0 C 73 18 96 05/19/22 04:00 36.8 C 78 21 96 05/19/22 03:57 115/73 05/19/22 03:57 36.8 C 81 23 93 05/19/22 03:30 36.7 C 82 35 H 93 05/19/22 03:00 36.6 C 81 22 93 05/19/22 02:57 111/67 05/19/22 02:57 36.6 C 78 28 H 92 05/19/22 02:30 36.5 C 77 19 97 05/19/22 05:50 40 05/19/22 04:35 18 40 05/19/22 03:25 73 20 94 50 05/18/22 23:00 76 05/19/22 02:00 36.5 C 77 29 H 98 05/19/22 01:57 117/73 05/19/22 01:57 36.5 C 75 24 97 05/19/22 01:30 36.4 C L 75 24 97 05/19/22 01:00 36.4 C L 76 26 H 97 05/19/22 00:57 120/73 05/19/22 00:57 36.4 C L 74 25 H 98 05/19/22 00:30 36.4 C L 63 20 95 05/19/22 00:00 36.6 C 63 20 95 05/18/22 23:57 88/59 L 05/18/22 23:57 36.6 C 64 20 95 05/18/22 23:30 36.7 C 64 20 94 05/18/22 23:00 36.9 C 67 20 93 05/18/22 22:57 89/57 L 05/18/22 22:57 36.9 C 67 18 93 05/18/22 22:30 37.0 C 70 20 96 05/18/22 22:00 37.2 C 72 0 L 96 05/18/22 21:57 88/59 L 05/18/22 21:57 37.2 C 72 20 96 05/18/22 21:30 37.3 C 85 49 H 95 05/18/22 21:00 37.2 C 83 23 05/18/22 20:57 114/73 05/18/22 20:57 37.2 C 87 27 H 05/19/22 02:00 50 05/18/22 23:05 67 20 94 50 05/18/22 22:00 50 Resident Activity Tracking Resident Involvement: Resident Care Provided Care Provided: Adult Hospital Medicine
--- NOTE | 2022-05-19 10:10 | Cardiology Progress Note ---
Date of Service May 19, 2022 Assessment & Plan (1) PAF (paroxysmal atrial fibrillation): (2) NSVT (nonsustained ventricular tachycardia): (3) Atrial fibrillation with rapid ventricular response: (4) Hypertension: (5) Diastolic dysfunction: (6) Ascending aortic aneurysm: (7) Pneumonia due to COVID-19 virus: (8) Hypokalemia: (9) STEMI (ST elevation myocardial infarction): (10) Elevated troponin: (11) Abdominal pain: (12) Atrial flutter with rapid ventricular response: (13) Acute respiratory failure with hypoxia: Plan Atrial fibrillation and rapid ventricular response along with nonsustained ventricular tachycardia in the setting of acute COVID-19 infection, questionable UTI and significant hypokalemia which progressed to ventricular tachycardia requiring defibrillation during catheterization No significant obstructive disease by cardiac catheterization. No further sustained ventricular tachycardia while on IV amiodarone and lidocaine Differential diagnosis from a cardiac standpoint would be catecholamine induced cardiomyopathy versus myocarditis In either circumstance would recommend continued supportive care and antiarrhythmics to prevent further ventricular arrhythmias. Will attempt to wean off lidocaine today but continue amiodarone infusion. Should blood pressure supported low-dose beta-john should also be added. Admission and Anticipated Discharge Date Admission Date: May 16, 2022 Subjective Patient seen and examined. Chart reviewed. Telemetry reviewed. No events overnight reported by nursing. Review of Systems Review of Systems: Unobtainable due to endotracheal tube Physical Exam Physical Exam: General: Intubated and sedated. HEENT: Normocephalic, atraumatic. Pupils equal, round and reactive to light and accommodation. Extraocular muscles are intact. Anicteric sclera. Moist mucous membranes. Neck: No JVD. No bruit. Cardiovascular: Regular. Positive S-4. Normal S-1 and S-2. No S-3. 3/6 mid to late systolic ejection murmur, greatest at the right sternal border, second intercostal space with radiation to the bilateral carotids. No rubs. Pulmonary: Clear to auscultation bilaterally. No rales, rhonchi, or wheezing. Abdomen: Bowel sounds x 4, soft. Diffuse tenderness. Extremities: No clubbing, cyanosis or edema. +2 pedal pulses bilaterally. Skin: Warm and dry. Results & Data ([facility]) Vital Signs (Past 12 Hours) Vital Signs Temp Pulse Resp BP Pulse Ox FiO2 09/01/22 08:02 76 25 H 94 40 05/19/22 06:00 36.9 C 75 18 117/69 95 05/19/22 05:30 36.9 C 69 18 93 05/19/22 05:00 37.0 C 68 16 94 05/19/22 04:57 37.0 C 69 20 94 05/19/22 04:57 94/63 L 05/19/22 04:30 37.0 C 73 18 96 05/19/22 04:00 36.8 C 78 21 96 05/19/22 03:57 115/73 05/19/22 03:57 36.8 C 81 23 93 05/19/22 03:30 36.7 C 82 35 H 93 05/19/22 03:00 36.6 C 81 22 93 05/19/22 02:57 111/67 05/19/22 02:57 36.6 C 78 28 H 92 05/19/22 02:30 36.5 C 77 19 97 05/19/22 05:50 40 05/19/22 04:35 18 40 05/19/22 03:25 73 20 94 50 05/18/22 23:00 76 05/19/22 02:00 36.5 C 77 29 H 98 05/19/22 01:57 117/73 05/19/22 01:57 36.5 C 75 24 97 05/19/22 01:30 36.4 C L 75 24 97 05/19/22 01:00 36.4 C L 76 26 H 97 05/19/22 00:57 120/73 05/19/22 00:57 36.4 C L 74 25 H 98 05/19/22 00:30 36.4 C L 63 20 95 05/19/22 00:00 36.6 C 63 20 95 05/18/22 23:57 88/59 L 05/18/22 23:57 36.6 C 64 20 95 05/18/22 23:30 36.7 C 64 20 94 05/18/22 23:00 36.9 C 67 20 93 05/18/22 22:57 89/57 L 05/18/22 22:57 36.9 C 67 18 93 05/18/22 22:30 37.0 C 70 20 96 05/19/22 02:00 50 05/18/22 23:05 67 20 94 50
--- NOTE | 2022-05-19 10:25 | Billing Data ---
Date of Service May 19, 2022 Coding Level of Care Code Critical Care mins
[2022-05-19] MEDS: PANTOprazole 40 MG in SYRINGE 0 ML IV SCH (12:27)
[2022-05-19] MEDS: dexAMETHasone 6 MG in SYRINGE 0 ML IV SCH (12:27)
[2022-05-19 12:50] LABS: Partial Thromboplastin Ratio 1.4; Partial Thromboplastin Time 38.7 Seconds (21.0-31.0)
--- NOTE | 2022-05-19 14:51 | XRay Report ---
SINGLE VIEW CHEST CLINICAL HISTORY: Respiratory failure. FINDINGS: An AP, portable, upright chest radiograph is compared to study dated 05/18/2022 and correlat ed with chest CT dated 05/16/2022. The examination is degraded by portable technique and patient rotat ion. Endotracheal and enteric tubes are unchanged in position. The tip of the endotracheal tube termi nates approximately 1 cm above the miya. The heart is enlarged noting atherosclerotic calcification of the thoracic aorta. There is pulmonary vascular congestion with evidence of interstitial edema. S mall pleural effusions are suspected. No pneumothorax is seen. The skeletal structures are osteopenic . The bony thorax is grossly intact. IMPRESSION: 1. Stable lines and tubes. 2. Cardiomegaly with evidence of congestive failure and pulmonary edema. This appears worsened as com pared to yesterday. 3. Suspect small pleural effusions. ACT 112: Negative or not required by law. Electronically signed by: Austin Saucedo M.D. 05/19/2022 2:50 PM
[2022-05-19] MEDS: LIDOCAINE/D5W DRIP 4MG/ML 2,000 MG/500 ML BAG IV SCH (16:00)
--- NOTE | 2022-05-19 16:19 | Hospitalist Progress Note ---
Date of Service May 19, 2022 Assessment & Plan (1) Atrial fibrillation with rapid ventricular response: Plan: Afib RVR Sustained VT requiring defibrillation Continue on amiodarone drip Continue IV heparin for anticoagulation Appreciate cardiology input Transition to Eliquis as able IV lidocaine discontinued Plan to start on Beta john if BP tolerates Nonischemic cardiomyopathy Possibly Takotsubo cardiomyopathy Cardiogenic shock -S/P Cardiac Cath:Multivessel coronary artery disease. 50% mid LAD. Medium D2 80% proximal. 50% calcified ostial circumflex, 50% inferior branch of OM2. 60% mid, 50% distal RCA. Elevated left-sided filling pressure (LVEDP 22). Normal pulmonary artery pressure. Preserved cardiac output --ECHO: Apical ballooning pattern of the LV chamber. Moderate hypokinesis of all basal wall segments with progressive akinesis at the mid levels and dyskinesis at the apex. Severely reduced LV systolic function EF 15 to 20%. Right ventricular cavity size is normal. Right ventricular systolic function is normal as assessed by tricuspid annular plane systolic excursion. Aortic valve sclerosis moderate, without significant aortic valvular stenosis. Mild aortic regurgitation. PASP of 48 mmHg. --Patient had sustained VT requiring defibrillation --Appreciate Cardiology, Critical Care Input --Pressors discontinued --volume status, I's and O's, daily weight --Monitor electrolytes -IV lasix increased to 40mg BID Acute respiratory distress syndrome Acute hypoxic respiratory failure S/P Intubation 05/17 COVID 19 Infection Patient is intubated in [employer] Claim [employer]er CRP:5.69 Procalcitonin: 0.24 Appreciate critical care input Continue vent support Continue Dexamethasone Plan to be extubated today Sepsis Likely multifactorial: COVID-19 infection, colitis, possible UTI Lactic acidosis Colitis UTI ruled out Urine Culture Mixed Probable Skin elier Blood Cultures:No growth to date Zosyn discontinued Prediabetes HbA1C: 6.1 Continue ISS given elevated BGs while on steroids (2) NSVT (nonsustained ventricular tachycardia): Plan: Management as above (3) Elevated troponin: Plan: Likely demand ischemia due to Sepsis, tachyarrhythmias, stress-induced cardiomyopathy, COVID-19 infection (4) Pneumonia due to COVID-19 virus: Plan: Management as above (5) Hypokalemia: Plan: Hypokalemia Hypophosphatemia Replete electrolytes as needed (6) Chronic heart failure with preserved ejection fraction (HFpEF): Plan: Monitor volume status closely on IV diuresis (7) HLD (hyperlipidemia): Plan: Resume Statin as able (8) Hypertension: Plan: Monitor (9) Ascending aortic aneurysm: Plan: Stable (10) Esophageal reflux: Plan DVT Px: IV Heparin Code Status Conditional Code Admission and Anticipated Discharge Date Admission Date: May 16, 2022 Subjective Patient is seen and examined at bedside Plan to be extubated today IV lidocaine discontinued Off pressors today Tolerating trickle feeds Chest x-ray showed evidence of congestive failure and pulmonary edema Off sedation, patient denies any chest pain, dyspnea Review of Systems Review of Systems: Unobtainable due to endotracheal tube Physical Exam Physical Exam: Physical Exam: Vitals signs as noted above General Appearance:Moderately built and nourished, no apparent distress, Intubated Head: normocephalic, Atraumatic Eyes: normal inspection, EOMI Neck: supple, Trachea midline Respiratory/Chest: Normal breath sounds, CTA, No accessory muscle use Cardiovascular: S1, S2, murmur Abdomen/GI:Soft, Non tender, Bowel sounds present Extremities/Musculoskeletal:normal inspection, no edema Neurologic/Psych:Intubated Skin: normal color, warm Results & Data Results & Data ([facility]) Vital Signs (Past 12 Hours) Vital Signs Temp Pulse Resp BP Pulse Ox O2 Del Method FiO2 05/19/22 16:00 37.7 C H 84 21 93 05/19/22 15:00 37.5 C 78 24 91 05/19/22 15:55 79 32 H 92 50 05/19/22 14:00 37.2 C 77 24 91 BiPAP 50 05/19/22 14:00 74 30 H 94 50 05/19/22 13:45 78 92 05/19/22 13:03 72 25 H 93 40 05/19/22 13:00 36.9 C 72 24 97 05/19/22 12:00 36.7 C 68 20 96 05/19/22 12:00 40 05/19/22 11:15 67 19 96 40 05/19/22 11:00 36.7 C 67 18 96 05/19/22 10:00 36.9 C 69 19 95 05/19/22 09:00 36.9 C 73 18 91 05/19/22 08:57 112/73 05/19/22 08:57 36.9 C 71 18 91 09/01/22 08:00 36.8 C 77 24 93 40 05/19/22 07:57 122/74 05/19/22 07:57 36.8 C 77 23 93 05/19/22 07:00 36.9 C 68 18 94 05/19/22 08:00 Mechanical Vent 40 05/19/22 08:00 40 05/19/22 08:00 Mechanical Vent 05/19/22 08:02 76 25 H 94 40 05/19/22 06:00 36.9 C 75 18 117/69 95 05/19/22 05:30 36.9 C 69 18 93 05/19/22 05:00 37.0 C 68 16 94 05/19/22 04:57 37.0 C 69 20 94 05/19/22 04:57 94/63 L 05/19/22 04:30 37.0 C 73 18 96 05/19/22 05:50 40 05/19/22 04:35 18 40 Laboratory Results Short CBC 05/19/22 Range/Units 05:21 WBC 10.71 (4.8-10.8) K/ul Hgb 9.8 L (12.0-16.0) g/dl Hct 29.1 L (34.1-44.9) % Plt Count 140 (130-400) K/uL BMP 05/19/22 05:21 Sodium 138 Potassium 3.4 L Chloride 104 Carbon Dioxide 27 BUN 15 Creatinine 0.38 L D Glucose 117 H Calcium 7.9 L
--- NOTE | 2022-05-19 17:49 | Electrocardiogram Report ---
Test Reason : Blood Pressure : / mmHG Vent. Rate : 069 BPM Atrial Rate : 069 BPM P-R Int : 110 ms QRS Dur : 086 ms QT Int : 478 ms P-R-T Axes : 045 039 111 degrees QTc Int : 512 ms Sinus rhythm with short VA T wave abnormality, consider anterolateral ischemia Prolonged QT Abnormal ECG When compared with ECG of 18-MAY-2022 05:43, Sinus rhythm has replaced Ectopic atrial rhythm QT has lengthened Confirmed by Tay Lorenz ([id number]) on 05/19/2022 5:49:39 PM Referred By: REFERRED SELF Confirmed By:Conrado Lorezn
[2022-05-19 20:06] LABS: Partial Thromboplastin Ratio 1.4; Partial Thromboplastin Time 37.2 Seconds (21.0-31.0)
[2022-05-19] MEDS ORDERED: HEPARIN SOD (PORCINE) 1000 UNIT/ML IV ONE (20:23)
[2022-05-20] MEDS: RAMELTEON: ORDER AWAITING ACTION SCH ×4 (00:25→22:40)
[2022-05-20] MEDS: INSULIN ASPART PER UNIT SC SCH ×6 (00:42→20:15)
[2022-05-20 02:52] LABS: Partial Thromboplastin Ratio 1.5; Partial Thromboplastin Time 42.4 Seconds (21.0-31.0)
[2022-05-20] MEDS: AMIODARONE / D5W 360 MG/200 ML BAG IV SCH ×2 (03:03→15:41)
[2022-05-20 04:36] LABS: Hematocrit (blood only) 34.3 % (34.1-44.9); Hemoglobin 11.3 g/dl (12.0-16.0); Mean Corpuscular Hemoglobin 26.8 pg (25.0-34.0); Mean Corpuscular Hgb Conc 32.9 g/dL (32.0-36.0); Mean Corpuscular Volume 81.5 fL (80.0-100.0); Mean Platelet Volume 12.5 fL (9.4-12.3); Nucleated RBC # (auto) 0.03 K/uL (0-0); Nucleated RBC % (auto) 0.2 %; Platelet Count 184 K/uL (130-400); RDW Coefficient of Variation 15.6 % (11.5-14.5); RDW Standard Deviation 45.7 fL (36.4-46.3); Red Blood Count 4.21 M/uL (3.93-5.22); White Blood Count 14.55 K/ul (4.8-10.8)
[2022-05-20 05:11] LABS: BUN Creatinine Ratio 27.1 (10-20); Creatinine Clr Calc Pharmacy 69.7 ml/min; Est GFR (African American) 105.4 ml/min; Est GFR (Non-African American) 90.9 ml/min; Magnesium 1.9 mg/dl (1.7-2.4); Phosphorus 2.3 mg/dl (2.5-4.9); Potassium 3.6 mmol/L (3.5-5.1)
[2022-05-20] MEDS: ICU ELECTROLYTE REPLACEMENT PROTOCOL SCH ×3 (06:08→22:39)
--- NOTE | 2022-05-20 07:42 | Critical Care Progress Note ---
Date of Service May 20, 2022 Assessment & Plan (1) NSVT (nonsustained ventricular tachycardia): (2) PAF (paroxysmal atrial fibrillation): (3) Pneumonia due to COVID-19 virus: (4) Atrial fibrillation with rapid ventricular response: (5) Chronic heart failure with preserved ejection fraction (HFpEF): (6) Elevated troponin: (7) STEMI (ST elevation myocardial infarction): (8) Acute respiratory failure with hypoxia: Plan ICU Assessment and Plan Reason Critically Ill:72 yo F with PMH PAF on Eliquis, HFpEF, HTN, HLD and active COVID infection presenting with multiple symptoms including fatigue, cough- later went to AF w/ RVR and had acute STEMI, transferred to ICU s/p cardiac catheterization for critical illness. Neuro - CAM ICU: NEGATIVE Sedation: None Analgesia: Tylenol PRN Pt awake and interactive at present Cardiac - Cardiogenic shock and ventricular tachycardia storm secondary to acute anterior wall STEMI- improving -Cardiology consulted and following -Echocardiogram 05/17- EF 15-20%, global hypo/akinesis -Cardiac catheterization 05/17- severe non-obstructive CAD -Pt may need medical optimization of CHF/CAD, possible life-vest/AICD for long-term, deferring to cardiology -Pt weaned off pressors 05/18 -Lidocaine weaned on 05/19, HR stable in 70s -Continue amiodarone infusion- deferring to cardiology HFrEF with pulmonary vascular congestion -Diuresis regimen increased from Lasix 40 mg IV daily to BID on 05/19 -UOP adequate 5.3L over past 24 hours, -3L fluid balance -Cr 0.38 -> 0.6 today -Continue Lasix 40 mg IV BID -Repeat CXR pending Atrial fibrillation with RVR- resolved -Likely due to hypokalemia, sepsis from acute infection -Continue amiodarone as above- deferring to cardiology for weaning anti- arrhythmics -Heparin infusion for anticoagulation Respiratory- Acute hypoxic respiratory failure -Multifactorial- cardiogenic shock from STEMI, flash pulmonary edema 2/2 cardiomyopathy, in background of active COVID infection -Required intubation prior to cardiac catheterization, extubated 05/19 to BIPAP and now on oxymask 7L/min -Continue dexamethasone 6 mg IV (day 4) -Attempt slow wean to RA GI - -CTAP on admission demonstrating mucosal hyperemia of left colon -May be due to dehydration, does not represent active colitis -General surgery consulted- low suspicion for mesenteric ischemia, continue supportive care Continue Normosol mIVF Speech therapy evaluation ordered Renal/Electrolytes Hypokalemia -K 3.6 today -Goal K > 4 Hypophosphatemia -PO4 2.3 today Hypomagnesemia -Mg 1.9 today -Goal Mg > 2 Cr 0.38 to 0.6 today, at baseline ICU electrolyte repletion protocol Trend BMP, Mg, PO4 - Abnormal urinalysis -Admission UA with some concern for infection though pt reports no urinary symptoms -Discontinued Zosyn 05/[address] ENDO - Prediabetes -A1C 6.1% on admission -BSGs acceptable at present -ICU hyperglycemia protocol HEME - Hgb 9.8 -> 11.3 today Trend CBC, aPTT while on heparin ID - Sepsis likely secondary to COVID-19 infection/pneumonia, colitis, possible UTI- resolved -WBC 10.7 -> 14.6 today -Procalcitonin negative, CRP 5.7 on admission -Lactate 5.2 on admission, resolved to 1.8 -BCx and UCx NGTD, MRSA nares negative -Discontinued Zosyn 05/18 -Trend CBC INTEGUMENTARY - -None LINES/IV ACCESS - -PIV x3 -L radial arterial line -Central venous line -[place] -Remove femoral sheath catheter today- coordinate with cardiac catheterization lab DVT PROPHYLAXIS - -Heparin infusion PT/OT- ordered Admission and Anticipated Discharge Date Admission Date: May 16, 2022 Supervising Physician Co-Signing Physician Notes Patient seen and examined. She is doing well clinically. She is having her oxygen weaned down. She is now diuresing appropriately. She remains hemodynamically stable off pressors. Will contact the Plug Sorter to remove the venous sheath. We will then get her out of bed to chair. PT OT and speech therapy evaluations. Advance diet per speech therapy. Continue diuresis with goal 1 to 2 L net negative over the next 24 hours. Hold additional metolazone but will continue Lasix twice daily. We will continue to wean oxygen as tolerated. Continue pulmonary toilet. Continue dexamethasone 6 mg daily for total of 10 days or until oxygen saturations improved. Defer antiarrhythmics to cardiology. The patient is significantly improved at this point time and stable to transfer out of the intensive care unit. Critical care services will sign off. Feel free to contact us with additional questions or concerns Subjective Pt extubated to BIPAP over past 24 hours, now on oxymask Pt awake on evaluation today, was able to interact and follow commands despite not speaking due to being on BIPAP at time of evaluation. Did not indicate any acute distress. Review of Systems Review of Systems: Per subjective Physical Exam Physical Exam: GENERAL - Awake, oxymask in place, no acute distress SKIN - No rashes. HEAD - NC/AT. EYES - PERRL EARS - No deformities of external structures b/l NOSE - Midline. No epistaxis. Septum midline without deviation. MOUTH/OROPHARYNX - No perioral cyanosis. Buccal mucosa pink and moist. NECK - no tracheal deviation LUNGS - coarse breath sounds diffusely without overt wheezes or respiratory distress CARDIAC - Irregular rhythm, normal S1, S2, systolic murmur noted over RUSB ABDOMEN - Soft, nondistended, mild diffuse tenderness, no rigidity EXTREMITIES - No clubbing or peripheral cyanosis. No peripheral edema present. Distal pulses of b/l LE intact b/l NEUROLOGIC - Tracks, responds to commands Results & Data Results & Data ([facility]) Vital Signs (Past 12 Hours) Vital Signs Temp Pulse Resp BP Pulse Ox O2 Del Method O2 Flow Rate 05/20/22 06:15 37.5 C 75 28 H 118/66 92 BiPAP 05/20/22 05:15 37.5 C 74 27 H 123/69 92 BiPAP 05/20/22 04:15 37.6 C H 79 28 H 117/64 91 BiPAP 05/20/22 03:55 75 28 H 91 05/20/22 03:15 37.6 C H 79 25 H 123/69 92 BiPAP 40 05/20/22 03:00 37.6 C H 73 25 H 123/69 92 BiPAP 05/20/22 02:15 37.6 C H 80 25 H 116/64 93 BiPAP 05/20/22 01:15 37.6 C H 78 23 93 BiPAP 05/20/22 00:00 37.7 C H 82 25 H 122/68 93 BiPAP 05/19/22 23:16 74 26 H 94 05/19/22 23:00 37.7 C H 76 24 116/78 93 BiPAP 05/19/22 22:16 37.7 C H 89 23 124/69 92 BiPAP 05/19/22 21:15 37.7 C H 80 23 118/76 92 BiPAP 05/19/22 19:55 87 27 H 97 05/19/22 20:15 37.7 C H 86 30 H 131/73 95 BiPAP 05/19/22 20:36 FiO2 05/20/22 06:15 40 05/20/22 05:15 40 05/20/22 04:15 40 05/20/22 03:55 40 05/20/22 03:15 05/20/22 03:00 40 05/20/22 02:15 40 05/20/22 01:15 40 05/20/22 00:00 40 05/19/22 23:16 40 05/19/22 23:00 40 05/19/22 22:16 40 05/19/22 21:15 50 05/19/22 19:55 40 05/19/22 20:15 50 05/19/22 20:36 50 Resident Activity Tracking Resident Involvement: Resident Care Provided Care Provided: Adult [facility] Medicine
[2022-05-20] MEDS: HEPARIN SODIUM/DEXTROSE 25,000 UNITS/500 ML BAG IV SCH ×2 (07:49→12:45)
[2022-05-20] MEDS: MULTI VIT W/MINERALS LIQUID 15 ML UDP NG SCH (07:50)
--- NOTE | 2022-05-20 08:28 | XRay Report ---
XR chest 1V portable CLINICAL HISTORY: covid COMPARISON STUDY: Chest CT May 16, 2022. Chest radiograph May 19, 2022. FINDINGS: Endotracheal and nasogastric tubes have been removed. Mild cardiomegaly is unchanged. Inter stitial thickening and bilateral opacities have improved. There is no pneumothorax. No definite pleur al effusion is identified. IMPRESSION: 1. Interval improvement in interstitial thickening and bilateral opacities. 2. Interval removal of the endotracheal and nasogastric tubes. ACT 112: Negative or not required by law. Electronically signed by: Mega Butler M.D. 05/20/2022 8:26 AM
[2022-05-20] MEDS: POTASSIUM CHLORIDE / WTR 20 MEQ/100 ML PLCT IV SCH ×2 (08:31→10:43)
[2022-05-20] MEDS: FUROSEMIDE 40 MG/4 ML VIAL IV SCH ×2 (08:31→20:15)
[2022-05-20] MEDS: MAGNESIUM SULFATE / D5W 1 GM/100 ML BAG IV SCH ×2 (08:31→10:43)
[2022-05-20] MEDS: POT PHOSPHATE MONOBASIC W/ SOD TAB PO SCH ×3 (08:31→12:45)
[2022-05-20] MEDS: GABAPENTIN 100 MG CAP PO SCH ×3 (08:31→19:19)
[2022-05-20 09:36] LABS: Partial Thromboplastin Time 55.3 Seconds (21.0-31.0)
--- NOTE | 2022-05-20 11:20 | Billing Data ---
Date of Service May 20, 2022 Coding Level of Care Code 94743 Subseq Hosp Care Lvl 3
[2022-05-20] MEDS: dexAMETHasone 6 MG in SYRINGE 0 ML IV SCH (12:44)
[2022-05-20] MEDS: PANTOprazole 40 MG in SYRINGE 0 ML IV SCH (12:44)
--- NOTE | 2022-05-20 12:46 | Cardiology Progress Note ---
Date of Service May 20, 2022 Assessment & Plan (1) PAF (paroxysmal atrial fibrillation): (2) NSVT (nonsustained ventricular tachycardia): (3) Atrial fibrillation with rapid ventricular response: (4) Hypertension: (5) Diastolic dysfunction: (6) Ascending aortic aneurysm: (7) Pneumonia due to COVID-19 virus: (8) Hypokalemia: (9) STEMI (ST elevation myocardial infarction): (10) Elevated troponin: (11) Abdominal pain: (12) Atrial flutter with rapid ventricular response: (13) Acute respiratory failure with hypoxia: Plan Atrial fibrillation and rapid ventricular response along with nonsustained ventricular tachycardia in the setting of acute COVID-19 infection, questionable UTI and significant hypokalemia which progressed to ventricular tachycardia requiring defibrillation during catheterization No significant obstructive disease by cardiac catheterization. Lidocaine drip discontinued on 05/19/2022 No further ventricular tachycardia. Has converted to normal sinus rhythm. Unable to take p.o. so we will continue IV amiodarone for now but once able to tolerate it would change to 200 mg p.o. twice daily. Would also start low-dose evidence-based beta-john when able to Okay to transfer to telemetry from a cardiac standpoint Admission and Anticipated Discharge Date Admission Date: May 16, 2022 Subjective Patient seen and examined. Chart reviewed. Telemetry reviewed. Extubated last p.m. Converted normal sinus rhythm this a.m. She did fail her speech eval. Review of Systems Review of Systems: All systems reviewed & are unremarkable except as noted in HPI & below Physical Exam Physical Exam: General: Awake alert oriented, no acute distress. HEENT: Normocephalic, atraumatic. Pupils equal, round and reactive to light and accommodation. Extraocular muscles are intact. Anicteric sclera. Moist mucous membranes. Neck: No JVD. No bruit. Cardiovascular: Regular. Positive S-4. Normal S-1 and S-2. No S-3. 3/6 mid to late systolic ejection murmur, greatest at the right sternal border, second intercostal space with radiation to the bilateral carotids. No rubs. Pulmonary: Clear to auscultation bilaterally. No rales, rhonchi, or wheezing. Abdomen: Bowel sounds x 4, soft. Diffuse tenderness. Extremities: No clubbing, cyanosis or edema. +2 pedal pulses bilaterally. Skin: Warm and dry. Results & Data ([facility]) Vital Signs (Past 12 Hours) Vital Signs Temp Pulse Pulse Resp BP Pulse Ox O2 Del Method 05/20/22 12:00 37.3 C 82 26 H 92 05/20/22 11:29 78 26 H 93 High Flow Nasal Cannula 05/20/22 11:09 37.2 C 80 24 93 High Flow Nasal Cannula 05/20/22 11:09 115/68 05/20/22 11:00 37.2 C 81 23 95 05/20/22 10:09 114/70 05/20/22 10:09 37.3 C 82 28 H 92 05/20/22 10:00 37.3 C 82 26 H 92 05/20/22 09:09 115/69 05/20/22 09:00 37.4 C 75 22 93 High Flow Nasal Cannula 05/20/22 08:35 84 27 H 91 High Flow Nasal Cannula 05/20/22 08:15 124/70 05/20/22 08:00 37.4 C 81 33 H 93 05/20/22 07:15 122/65 05/20/22 07:15 37.4 C 73 26 H 93 05/20/22 07:00 37.4 C 75 30 H 93 05/20/22 08:00 Oxymask 05/20/22 08:00 Oxymask 05/20/22 06:15 37.5 C 75 28 H 118/66 92 BiPAP 05/20/22 05:15 37.5 C 74 27 H 123/69 92 BiPAP 05/20/22 04:15 37.6 C H 79 28 H 117/64 91 BiPAP 05/20/22 03:55 75 28 H 91 05/20/22 03:15 37.6 C H 79 25 H 123/69 92 BiPAP 05/20/22 03:00 37.6 C H 73 25 H 123/69 92 BiPAP 05/20/22 02:15 37.6 C H 80 25 H 116/64 93 BiPAP 05/20/22 01:15 37.6 C H 78 23 93 BiPAP O2 Flow Rate FiO2 05/20/22 12:00 05/20/22 11:29 30 45 05/20/22 11:09 30 60 05/20/22 11:09 05/20/22 11:00 05/20/22 10:09 05/20/22 10:09 05/20/22 10:00 05/20/22 09:09 05/20/22 09:00 30 60 05/20/22 08:35 30 60 05/20/22 08:15 05/20/22 08:00 05/20/22 07:15 05/20/22 07:15 05/20/22 07:00 05/20/22 08:00 7 05/20/22 08:00 7 05/20/22 06:15 40 05/20/22 05:15 40 05/20/22 04:15 40 05/20/22 03:55 40 05/20/22 03:15 40 05/20/22 03:00 40 05/20/22 02:15 40 05/20/22 01:15 40
--- NOTE | 2022-05-20 14:12 | Hospitalist Progress Note ---
Date of Service May 20, 2022 Assessment & Plan (1) Atrial fibrillation with rapid ventricular response: Plan: Afib RVR Sustained VT requiring defibrillation Continue on amiodarone drip Continue IV heparin for anticoagulation Appreciate cardiology input Transition to Eliquis as able IV lidocaine discontinued Plan to start on Beta john if BP tolerates Has been improving gradually . We will moved to telemetry unit Nonischemic cardiomyopathy Possibly Takotsubo cardiomyopathy Cardiogenic shock -S/P Cardiac Cath:Multivessel coronary artery disease. 50% mid LAD. Medium D2 80% proximal. 50% calcified ostial circumflex, 50% inferior branch of OM2. 60% mid, 50% distal RCA. Elevated left-sided filling pressure (LVEDP 22). Normal pulmonary artery pressure. Preserved cardiac output --ECHO: Apical ballooning pattern of the LV chamber. Moderate hypokinesis of all basal wall segments with progressive akinesis at the mid levels and dyskinesis at the apex. Severely reduced LV systolic function EF 15 to 20%. Right ventricular cavity size is normal. Right ventricular systolic function is normal as assessed by tricuspid annular plane systolic excursion. Aortic valve sclerosis moderate, without significant aortic valvular stenosis. Mild aortic regurgitation. PASP of 48 mmHg. --Patient had sustained VT requiring defibrillation --Appreciate Cardiology, Critical Care Input --Pressors discontinued --volume status, I's and O's, daily weight --Monitor electrolytes -Rate is controlled and no evidence of fluid overload (2) NSVT (nonsustained ventricular tachycardia): Plan: Management as above (3) Elevated troponin: Plan: Likely demand ischemia due to Sepsis, tachyarrhythmias, stress-induced cardio myopathy, COVID-19 infection (4) Pneumonia due to COVID-19 virus: Plan: Sepsis Likely multifactorial: COVID-19 infection, colitis, possible UTI Lactic acidosis Colitis UTI ruled out Urine Culture Mixed Probable Skin elier Blood Cultures:No growth to date Zosyn discontinued Course of antibiotic's finished Acute respiratory distress syndrome Acute hypoxic respiratory failure S/P Intubation 05/17 COVID 19 Infection Patient is intubated in [employer] CRP:5.69 Procalcitonin: 0.24 Appreciate critical care input Continue vent support Continue Dexamethasone Plan to be extubated on 05/19/2022 Remains medically stable (5) Hypokalemia: Plan: Hypokalemia Hypophosphatemia Replete electrolytes as needed (6) Chronic heart failure with preserved ejection fraction (HFpEF): Plan: Monitor volume status closely on IV diuresis (7) HLD (hyperlipidemia): Plan: Resume Statin as able (8) Hypertension: Plan: Monitor (9) Ascending aortic aneurysm: Plan: Stable (10) Esophageal reflux: Plan Prediabetes HbA1C: 6.1 Continue ISS given elevated BGs while on steroids DVT Px: IV Heparin Code Status Conditional Code Admission and Anticipated Discharge Date Admission Date: May 16, 2022 Subjective 05/20/2022 The patient was seen and examined in ICU She remains weak and lethargic and complains to have some problem with swallowing Denies any fever and or chills, any shortness of breath at rest, any abdominal pain, nausea and or vomiting Review of Systems Review of Systems: All systems reviewed and are unremarkable except as noted below Physical Exam Physical Exam: Lying in bed comfortably Constitutional: + ill appearing and average body habitus Eyes: PERRL, conjunctivae normal, anicteric sclerae ENMT: external ear and nose normal, oropharynx normal Neck: trachea midline, no thyromegaly Respiratory: no respiratory distress Auscultation: + diminished lung sounds and + crackles (Minimal bibasilar crackles) Cardiovascular: Rate/Rhythm: regular rate and regular rhythm; not tachycardic Heart Sounds: normal S1 and normal S2; no murmur Extremities: + edema (1 + bilaterally) Results & Data Results & Data ([facility]) Vital Signs (Past 12 Hours) Vital Signs Temp Pulse Pulse Resp BP Pulse Ox O2 Del Method 05/20/22 13:09 37.3 C 82 25 H 90 High Flow Nasal Cannula 05/20/22 13:09 115/65 05/20/22 12:09 117/70 05/20/22 12:00 37.3 C 82 26 H 92 05/20/22 11:29 78 26 H 93 High Flow Nasal Cannula 05/20/22 11:09 37.2 C 80 24 93 High Flow Nasal Cannula 05/20/22 11:09 115/68 05/20/22 11:00 37.2 C 81 23 95 05/20/22 10:09 114/70 05/20/22 10:09 37.3 C 82 28 H 92 05/20/22 10:00 37.3 C 82 26 H 92 05/20/22 09:09 115/69 05/20/22 09:00 37.4 C 75 22 93 High Flow Nasal Cannula 05/20/22 08:35 84 27 H 91 High Flow Nasal Cannula 05/20/22 08:15 124/70 05/20/22 08:00 37.4 C 81 33 H 93 05/20/22 07:15 122/65 05/20/22 07:15 37.4 C 73 26 H 93 05/20/22 07:00 37.4 C 75 30 H 93 05/20/22 08:00 Oxymask 05/20/22 08:00 Oxymask 05/20/22 06:15 37.5 C 75 28 H 118/66 92 BiPAP 05/20/22 05:15 37.5 C 74 27 H 123/69 92 BiPAP 05/20/22 04:15 37.6 C H 79 28 H 117/64 91 BiPAP 05/20/22 03:55 75 28 H 91 05/20/22 03:15 37.6 C H 79 25 H 123/69 92 BiPAP 05/20/22 03:00 37.6 C H 73 25 H 123/69 92 BiPAP 05/20/22 02:15 37.6 C H 80 25 H 116/64 93 BiPAP O2 Flow Rate FiO2 05/20/22 13:09 30 45 05/20/22 13:09 05/20/22 12:09 05/20/22 12:00 05/20/22 11:29 30 45 05/20/22 11:09 30 60 05/20/22 11:09 05/20/22 11:00 05/20/22 10:09 05/20/22 10:09 05/20/22 10:00 05/20/22 09:09 05/20/22 09:00 30 60 05/20/22 08:35 30 60 05/20/22 08:15 05/20/22 08:00 05/20/22 07:15 05/20/22 07:15 05/20/22 07:00 05/20/22 08:00 7 05/20/22 08:00 7 05/20/22 06:15 40 05/20/22 05:15 40 05/20/22 04:15 40 05/20/22 03:55 40 05/20/22 03:15 40 05/20/22 03:00 40 05/20/22 02:15 40 Laboratory Results Short CBC 05/20/22 Range/Units 04:27 WBC 14.55 H (4.8-10.8) K/ul Hgb 11.3 L (12.0-16.0) g/dl Hct 34.3 (34.1-44.9) % Plt Count 184 (130-400) K/uL BMP 05/20/22 04:27 Sodium 137 Potassium 3.6 Chloride 96 L Carbon Dioxide 32 BUN 16 Creatinine 0.59 L Glucose 122 H Calcium 9.0 Medications Administered Current Inpatient Medications Acetaminophen (Acetaminophen 500 Mg Tab) 1,000 mg PO Q8H PRN PRN Reason: pain Stop: 06/16/22 14:29 Dextrose (Dextrose 50% 50 Ml Syringe) 25 - 50 ml IV UD PRN; Protocol PRN Reason: Hypoglycemia Protocol Stop: 06/15/22 15:45 Furosemide (Furosemide 40 Mg/4 Ml Vial) 40 mg IV BID VEGA Stop: 06/18/22 20:59 Last Admin: 05/20/22 08:31 Dose: 40 mg Gabapentin (Gabapentin 100 Mg Cap) 100 mg PO TID VEGA Stop: 06/15/22 20:59 Last Admin: 05/20/22 11:35 Dose: Not Given Glucagon (Glucagon For Inj 1 Mg Vial) 1 mg SQ UD PRN; Protocol PRN Reason: Hypoglycemia Protocol Stop: 06/15/22 15:45 Glucose (Glucose 40% Gel 15 Gm Tube) 15 - 30 gm PO UD PRN; Protocol PRN Reason: Hypoglycemia Protocol Stop: 06/15/22 15:45 Glucose (Glucose 10 Tab/Tube) 4 - 8 tab PO UD PRN; Protocol PRN Reason: Hypoglycemia Treatment Stop: 06/15/22 15:45 Amiodarone HCl/Dextrose (Nexterone / D5w) 360 mg in 200 mls @ 16.667 mls/hr IV .Q12H VEGA Stop: 06/15/22 16:44 Last Admin: 05/20/22 03:03 Dose: 0.5 mg/min, 16.7 mls/hr Heparin Sodium/Dextrose (Heparin Sodium/Dextrose) 25,000 units in 500 mls @ 16 mls/hr IV .Q24H VEGA; Protocol Stop: 06/15/22 20:59 Last Admin: 05/20/22 12:45 Dose: 800 units/hr, 16 mls/hr Dexamethasone 6 mg/ Syringe 1.5 mls @ 1 mls/min IV Q24H [facility] Stop: 06/16/22 11:59 Last Admin: 05/20/22 12:44 Dose: 1 mls/min Pantoprazole Sodium 40 mg/ (Syringe) 10 mls @ 5 mls/min IV DAILY@1100 [facility] Stop: 06/17/22 10:59 Last Admin: 05/20/22 12:44 Dose: 5 mls/min Insulin Aspart (Insulin Aspart Per Unit) 0 units SC Q4 [facility] Stop: 06/17/22 11:59 Last Admin: 05/20/22 12:45 Dose: Not Given Miscellaneous (Ramelteon: Order Awaiting Action) 1 each N/A QS [facility] Stop: 06/15/22 15:59 Last Admin: 05/20/22 11:35 Dose: Not Given Miscellaneous (Carbohydrates For Hypoglycemia ) 15 - 30 gm PO UD PRN PRN Reason: Hypoglycemia Protocol Stop: 06/15/22 15:45 Miscellaneous (Icu Electrolyte Replacement Protocol) 1 each N/A BID@06,18 [facility]; Protocol Stop: 05/24/22 17:59 Last Admin: 05/20/22 07:52 Dose: 1 each Multivitamins/Minerals (Multi Vit W/Minerals Liquid 15 Ml Udp) 15 ml NG QAM [facility] Stop: 06/18/22 08:59 Last Admin: 05/20/22 07:50 Dose: Not Given Potassium Phosphate (Pot Phosphate Monobasic W/ Sod Tab) 1 tab PO Q4H [facility] Stop: 05/20/22 16:01 Last Admin: 05/20/22 12:45 Dose: Not Given
--- NOTE | 2022-05-20 15:01 | Electrocardiogram Report ---
Test Reason : Blood Pressure : / mmHG Vent. Rate : 084 BPM Atrial Rate : 227 BPM P-R Int : 000 ms QRS Dur : 094 ms QT Int : 494 ms P-R-T Axes : 000 026 -06 degrees QTc Int : 583 ms Poor data quality, interpretation may be adversely affected Sinus rhythm with PACs Nonspecific ST and T wave abnormality Abnormal ECG When compared with ECG of 19-MAY-2022 05:28, Nonspecific T wave abnormality has replaced inverted T waves in Anterolateral leads QT has lengthened Confirmed by Tay Lorenz ([id number] on 05/20/2022 3:00:47 PM Referred By: REFERRED SELF Confirmed By:Conrado Lorenz
[2022-05-20] MEDS ORDERED: ONDANSETRON INJ 2 MG/ML 2 ML VIAL IV PRN (22:53)
[2022-05-20] MEDS ORDERED: ONDANSETRON INJ 2 MG/ML 2 ML VIAL IV ONE (22:55)
[2022-05-21] MEDS: INSULIN ASPART PER UNIT SC SCH ×6 (00:27→20:12)
[2022-05-21] MEDS: AMIODARONE / D5W 360 MG/200 ML BAG IV SCH ×2 (03:54→15:24)
[2022-05-21 05:55] LABS: Basophils # (auto) 0.01 K/uL (0-0.2); Basophils % (auto) 0.1 %; Hematocrit (blood only) 36.3 % (34.1-44.9); Immature Granulocytes # (auto) 0.06 K/uL (0.00-0.02); Immature Granulocytes % (auto) 0.5 %; Mean Corpuscular Hemoglobin 26.9 pg (25.0-34.0); Mean Corpuscular Hgb Conc 33.1 g/dL (32.0-36.0); Mean Corpuscular Volume 81.4 fL (80.0-100.0); Mean Platelet Volume 11.8 fL (9.4-12.3); Monocytes # (auto) 1.09 K/uL (0.24-0.82); Monocytes % (auto) 9.9 %; Neutrophils # (auto) 8.71 K/uL (1.4-6.5); Neutrophils % (auto) 79.5 %; Nucleated RBC # (auto) 0.03 K/uL (0-0); Nucleated RBC % (auto) 0.3 %; Platelet Count 232 K/uL (130-400); RDW Coefficient of Variation 15.5 % (11.5-14.5); RDW Standard Deviation 45.2 fL (36.4-46.3); Red Blood Count 4.46 M/uL (3.93-5.22); White Blood Count 10.97 K/ul (4.8-10.8)
[2022-05-21 06:10] LABS: Partial Thromboplastin Ratio 1.3
[2022-05-21 06:18] LABS: BUN Creatinine Ratio 47.5 (10-20); Calcium 9.3 mg/dl (8.5-10.1); Creatinine Clr Calc Pharmacy 69.3 ml/min; Est GFR (African American) 105.4 ml/min; Est GFR (Non-African American) 90.9 ml/min; Magnesium 2.2 mg/dl (1.7-2.4); Phosphorus 3.1 mg/dl (2.5-4.9); Potassium 3.5 mmol/L (3.5-5.1)
[2022-05-21] MEDS ORDERED: HEPARIN SOD (PORCINE) 1000 UNIT/ML IV ONE (06:40)
[2022-05-21] MEDS: GABAPENTIN 100 MG CAP PO SCH ×3 (08:52→19:57)
[2022-05-21] MEDS: RAMELTEON: ORDER AWAITING ACTION SCH ×2 (08:52→11:22)
[2022-05-21] MEDS: FUROSEMIDE 40 MG/4 ML VIAL IV SCH ×2 (08:53→19:58)
[2022-05-21] MEDS: MULTI VIT W/MINERALS LIQUID 15 ML UDP NG SCH (08:53)
[2022-05-21] MEDS: ICU ELECTROLYTE REPLACEMENT PROTOCOL SCH (08:53)
[2022-05-21] MEDS: dexAMETHasone 6 MG in SYRINGE 0 ML IV SCH (11:22)
[2022-05-21] MEDS: PANTOprazole 40 MG in SYRINGE 0 ML IV SCH (11:22)
--- NOTE | 2022-05-21 12:30 | Cardiology Progress Note ---
Date of Service May 21, 2022 Assessment & Plan (1) PAF (paroxysmal atrial fibrillation): (2) NSVT (nonsustained ventricular tachycardia): (3) Atrial fibrillation with rapid ventricular response: (4) Hypertension: (5) Diastolic dysfunction: (6) Ascending aortic aneurysm: (7) Pneumonia due to COVID-19 virus: (8) Hypokalemia: (9) STEMI (ST elevation myocardial infarction): (10) Elevated troponin: (11) Abdominal pain: (12) Atrial flutter with rapid ventricular response: (13) Acute respiratory failure with hypoxia: Plan The patient is maintaining sinus rhythm. She is not quite taking oral medications and food regularly and I think we should keep her on the amiodarone before we switch her off to oral. Otherwise the patient is stable. Admission and Anticipated Discharge Date Admission Date: May 16, 2022 Subjective The patient is extubated and alert. Review of Systems Review of Systems: Review of Systems: See HPI for pertinent positives. All other 10 point review of systems are negative. Physical Exam Physical Exam: General: no acute distress and stated age Head: normocephalic, no masses, lesions, tenderness or abnormalities Eyes: conjunctiva are pink and non-injected, sclera clear Neck: supple, no adenopathy, no bruits, normal jugular venous pulse, no hepatojugular reflux Chest: normal shape and normal respiratory effort Lungs: clear to auscultation and percussion Cardiac Exam: - regular rate & rhythm, no murmurs gallops or rubs - normal S1, normal S2 Pulses: 2(+) throughout Abdomen: abdomen soft, non-tender, no abnormal masses and no hepatosplenomegaly Musculoskeletal: no gait disturbance, no joint inflammation, no deforming arthritis Extremities: no edema and no cyanosis Neuro: grossly normal exam Results & Data ([facility]) Vital Signs (Past 12 Hours) Vital Signs Temp Pulse Resp BP Pulse Ox O2 Del Method O2 Flow Rate 05/21/22 11:29 82 22 94 High Flow Nasal Cannula 05/21/22 08:00 36.9 C 73 23 127/75 90 High Flow Nasal Cannula 05/21/22 08:00 High Flow Nasal Cannula 05/21/22 07:25 72 22 90 High Flow Nasal Cannula 05/21/22 03:11 80 23 93 High Flow Nasal Cannula 30 09/03/22 04:00 37.0 C 77 22 135/76 95 High Flow Nasal Cannula 30 FiO2 05/21/22 11:29 35 05/21/22 08:00 35 05/21/22 08:00 35 05/21/22 07:25 35 05/21/22 03:11 35 05/21/22 04:00 35 Laboratory Results Laboratory Results - last 24 hr 05/20/22 05/20/22 05/20/22 12:50 15:46 20:06 WBC RBC Hgb Hct MCV MCH MCHC RDW Std Deviation RDW Coeff of Jessica Plt Count MPV Immature Gran % (Auto) Neut % (Auto) Lymph % (Auto) [place] % (Auto) Eos % (Auto) Baso % (Auto) Neut # (Auto) Lymph # (Auto) [place] # (Auto) Eos # (Auto) Baso # (Auto) Immature Gran # (Auto) Absolute Nucleated RBC Nucleated RBC % (auto) APTT PTT Ratio Sodium Potassium Chloride Carbon Dioxide Anion Gap BUN Creatinine Est Cr Clr Drug Dosing Est GFR ( Amer) Est GFR (Non-Af Amer) BUN/Creatinine Ratio Glucose POC Glucose 118 H 139 H 135 H Calcium Phosphorus Magnesium 05/20/22 05/21/22 05/21/22 23:25 04:03 05:38 WBC 10.97 H RBC 4.46 Hgb 12.0 Hct 36.3 MCV 81.4 MCH 26.9 MCHC 33.1 RDW Std Deviation 45.2 RDW Coeff of Jessica 15.5 H Plt Count 232 MPV 11.8 Immature Gran % (Auto) 0.5 Neut % (Auto) 79.5 Lymph % (Auto) 10.0 [place] % (Auto) 9.9 Eos % (Auto) 0.0 Baso % (Auto) 0.1 Neut # (Auto) 8.71 H Lymph # (Auto) 1.10 L [place] # (Auto) 1.09 H Eos # (Auto) 0.00 Baso # (Auto) 0.01 Immature Gran # (Auto) 0.06 H Absolute Nucleated RBC 0.03 H Nucleated RBC % (auto) 0.3 APTT PTT Ratio Sodium Potassium Chloride Carbon Dioxide Anion Gap BUN Creatinine Est Cr Clr Drug Dosing Est GFR ( Amer) Est GFR (Non-Af Amer) BUN/Creatinine Ratio Glucose POC Glucose 132 H 120 H Calcium Phosphorus Magnesium 05/21/22 05/21/22 05/21/22 05:38 05:38 11:28 WBC RBC Hgb Hct MCV MCH MCHC RDW Std Deviation RDW Coeff of Jessica Plt Count MPV Immature Gran % (Auto) Neut % (Auto) Lymph % (Auto) [place] % (Auto) Eos % (Auto) Baso % (Auto) Neut # (Auto) Lymph # (Auto) [place] # (Auto) Eos # (Auto) Baso # (Auto) Immature Gran # (Auto) Absolute Nucleated RBC Nucleated RBC % (auto) APTT 37.0 H PTT Ratio 1.3 Sodium 135 L Potassium 3.5 Chloride 94 L Carbon Dioxide 30 Anion Gap 11 BUN 28 H Creatinine 0.59 L Est Cr Clr Drug Dosing 69.3 Est GFR ( Amer) 105.4 Est GFR (Non-Af Amer) 90.9 BUN/Creatinine Ratio 47.5 H Glucose 118 H POC Glucose 131 H Calcium 9.3 Phosphorus 3.1 Magnesium 2.2 Medications Administered Current Inpatient Medications Acetaminophen (Acetaminophen 500 Mg Tab) 1,000 mg PO Q8H PRN PRN Reason: pain Stop: 06/16/22 14:29 Dextrose (Dextrose 50% 50 Ml Syringe) 25 - 50 ml IV UD PRN; Protocol PRN Reason: Hypoglycemia Protocol Stop: 06/15/22 15:45 Furosemide (Furosemide 40 Mg/4 Ml Vial) 40 mg IV BID VEGA Stop: 06/18/22 20:59 Last Admin: 05/21/22 08:53 Dose: 40 mg Gabapentin (Gabapentin 100 Mg Cap) 100 mg PO TID VEGA Stop: 06/15/22 20:59 Last Admin: 05/21/22 11:22 Dose: 100 mg Glucagon (Glucagon For Inj 1 Mg Vial) 1 mg SQ UD PRN; Protocol PRN Reason: Hypoglycemia Protocol Stop: 06/15/22 15:45 Glucose (Glucose 40% Gel 15 Gm Tube) 15 - 30 gm PO UD PRN; Protocol PRN Reason: Hypoglycemia Protocol Stop: 06/15/22 15:45 Glucose (Glucose 10 Tab/Tube) 4 - 8 tab PO UD PRN; Protocol PRN Reason: Hypoglycemia Treatment Stop: 06/15/22 15:45 Amiodarone HCl/Dextrose (Nexterone / D5w) 360 mg in 200 mls @ 16.667 mls/hr IV .Q12H VEGA Stop: 06/15/22 16:44 Last Admin: 05/21/22 03:54 Dose: 0.5 mg/min, 16.7 mls/hr Heparin Sodium/Dextrose (Heparin Sodium/Dextrose) 25,000 units in 500 mls @ 18 mls/hr IV .Q24H [facility]; Protocol Stop: 06/15/22 20:59 Last Titration: 05/21/22 06:34 Dose: 900 units/hr, 18 mls/hr Dexamethasone 6 mg/ Syringe 1.5 mls @ 1 mls/min IV Q24H [facility] Stop: 06/16/22 11:59 Last Admin: 05/21/22 11:22 Dose: 1 mls/min Pantoprazole Sodium 40 mg/ (Syringe) 10 mls @ 5 mls/min IV DAILY@1100 [facility] Stop: 06/17/22 10:59 Last Admin: 05/21/22 11:22 Dose: 5 mls/min Insulin Aspart (Insulin Aspart Per Unit) 0 units SC Q4 [facility] Stop: 06/17/22 11:59 Last Admin: 05/21/22 11:22 Dose: Not Given Miscellaneous (Ramelteon: Order Awaiting Action) 1 each N/A QS [facility] Stop: 06/15/22 15:59 Last Admin: 05/21/22 11:22 Dose: Not Given Miscellaneous (Carbohydrates For Hypoglycemia ) 15 - 30 gm PO UD PRN PRN Reason: Hypoglycemia Protocol Stop: 06/15/22 15:45 Miscellaneous (Icu Electrolyte Replacement Protocol) 1 each N/A BID@06,18 [facility]; Protocol Stop: 05/24/22 17:59 Last Admin: 05/21/22 08:53 Dose: Not Given Multivitamins/Minerals (Multi Vit W/Minerals Liquid 15 Ml Udp) 15 ml NG QAM [facility] Stop: 06/18/22 08:59 Last Admin: 05/21/22 08:53 Dose: Not Given
[2022-05-21 13:25] LABS: Partial Thromboplastin Ratio 1.6
[2022-05-21] MEDS: HEPARIN SODIUM/DEXTROSE 25,000 UNITS/500 ML BAG IV SCH (15:23)
--- NOTE | 2022-05-21 15:35 | Hospitalist Progress Note ---
Date of Service May 21, 2022 Assessment & Plan (1) Atrial fibrillation with rapid ventricular response: Plan: Afib RVR Sustained VT requiring defibrillation Continue on amiodarone drip Continue IV heparin for anticoagulation Appreciate cardiology input Transition to Eliquis as able IV lidocaine discontinued Plan to start on Beta john if BP tolerates Has been improving gradually . We will moved to telemetry unit We will continue with the intravenous amiodarone for now as per pharmacy manager Remains stable without any cardiac symptoms Has been getting PT and OT Nonischemic cardiomyopathy Possibly Takotsubo cardiomyopathy Cardiogenic shock -S/P Cardiac Cath:Multivessel coronary artery disease. 50% mid LAD. Medium D2 80% proximal. 50% calcified ostial circumflex, 50% inferior branch of OM2. 60% mid, 50% distal RCA. Elevated left-sided filling pressure (LVEDP 22). Normal pulmonary artery pressure. Preserved cardiac output --ECHO: Apical ballooning pattern of the LV chamber. Moderate hypokinesis of all basal wall segments with progressive akinesis at the mid levels and dyskinesis at the apex. Severely reduced LV systolic function EF 15 to 20%. Right ventricular cavity size is normal. Right ventricular systolic function is normal as assessed by tricuspid annular plane systolic excursion. Aortic valve sclerosis moderate, without significant aortic valvular stenosis. Mild aortic regurgitation. PASP of 48 mmHg. --Patient had sustained VT requiring defibrillation --Appreciate Cardiology, Critical Care Input --Pressors discontinued --volume status, I's and O's, daily weight --Monitor electrolytes -Rate is controlled and no evidence of fluid overload (2) NSVT (nonsustained ventricular tachycardia): Plan: Management as above (3) Elevated troponin: Plan: Likely demand ischemia due to Sepsis, tachyarrhythmias, stress-induced cardiomyopathy, COVID-19 infection (4) Pneumonia due to COVID-19 virus: Plan: Sepsis Likely multifactorial: COVID-19 infection, colitis, possible UTI Lactic acidosis Colitis UTI ruled out Urine Culture Mixed Probable Skin elier Blood Cultures:No growth to date Zosyn discontinued Course of antibiotic's finished Acute respiratory distress syndrome Acute hypoxic respiratory failure S/P Intubation 05/17 COVID 19 Infection Patient is intubated in [employer] CRP:5.69 Procalcitonin: 0.24 Appreciate critical care input Continue vent support Continue Dexamethasone Extubated on 05/19/2022 Remains medically stable-saturating normally on 3 L nasal cannula (5) Hypokalemia: Plan: Hypokalemia Hypophosphatemia Replete electrolytes as needed (6) Chronic heart failure with preserved ejection fraction (HFpEF): Plan: Monitor volume status closely on IV diuresis (7) HLD (hyperlipidemia): Plan: Resume Statin as able (8) Hypertension: Plan: Monitor (9) Ascending aortic aneurysm: Plan: Stable (10) Esophageal reflux: Plan Prediabetes HbA1C: 6.1 Continue ISS given elevated BGs while on steroids DVT Px: IV Heparin Code Status Conditional Code Admission and Anticipated Discharge Date Admission Date: May 16, 2022 Subjective 05/20/2022 The patient was seen and examined in ICU She remains weak and lethargic and complains to have some problem with swallowing Denies any fever and or chills, any shortness of breath at rest, any abdominal pain, nausea and or vomiting 05/21/2022 The patient was seen and examined in ICU She required high flow nasal cannula oxygen to maintain saturation but now she has been saturating normally on 3 L via nasal cannula Generally weak but denies any other significant symptoms Review of Systems Review of Systems: All systems reviewed and are unremarkable except as noted below Neurologic: Generally very weak and lethargic Physical Exam Physical Exam: Sitting on a chair without any acute distress Constitutional: + ill appearing and average body habitus Eyes: PERRL, conjunctivae normal, anicteric sclerae ENMT: external ear and nose normal, oropharynx normal Neck: trachea midline, no thyromegaly Respiratory: no respiratory distress Auscultation: + diminished lung sounds and + crackles (Minimal bibasilar crackles) Cardiovascular: Rate/Rhythm: regular rate and regular rhythm; not tachycardic Heart Sounds: normal S1 and normal S2; no murmur Extremities: + edema (1 + bilaterally) Gastrointestinal (Abdomen): Inspection/Auscultation: normal bowel sounds; abdomen not distended Percussion/Palpation: abdomen soft; abdomen nontender Musculoskeletal: No acute arthritis involving any joint Neurologic: Alert awake and oriented x3. Generally weak Results & Data Results & Data ([facility]) Vital Signs (Past 12 Hours) Vital Signs Temp Pulse Resp BP Pulse Ox O2 Del Method O2 Flow Rate 05/21/22 12:29 37.0 C 83 24 108/67 94 Nasal Cannula 3 05/21/22 11:29 82 22 94 High Flow Nasal Cannula 30 05/21/22 08:00 36.9 C 73 23 127/75 90 High Flow Nasal Cannula 30 05/21/22 08:00 High Flow Nasal Cannula 30 05/21/22 07:25 72 22 90 High Flow Nasal Cannula 30 05/21/22 04:00 37.0 C 77 22 135/76 95 High Flow Nasal Cannula 30 FiO2 05/21/22 12:29 05/21/22 11:29 35 05/21/22 08:00 35 05/21/22 08:00 35 05/21/22 07:25 35 05/21/22 04:00 35 Laboratory Results Short CBC 05/21/22 Range/Units 05:38 WBC 10.97 H (4.8-10.8) K/ul Hgb 12.0 (12.0-16.0) g/dl Hct 36.3 (34.1-44.9) % Plt Count 232 (130-400) K/uL BMP 05/21/22 05:38 Sodium 135 L Potassium 3.5 Chloride 94 L Carbon Dioxide 30 BUN 28 H Creatinine 0.59 L Glucose 118 H Calcium 9.3 Medications Administered Laboratory Results WBC 10.97 K/ul (4.8-10.8) H 05/21/22 05:38 RBC 4.46 M/uL (3.93-5.22) 05/21/22 05:38 Hgb 12.0 g/dl (12.0-16.0) 05/21/22 05:38 POC Hgb 9.9 g/dl (12.0-16.0) L 05/19/22 04:28 Hct 36.3 % (34.1-44.9) 05/21/22 05:38 POC Hct 29 % (37-47) L 05/19/22 04:28 MCV 81.4 fL (80.0-100.0) 05/21/22 05:38 MCH 26.9 pg (25.0-34.0) 05/21/22 05:38 MCHC 33.1 g/dL (32.0-36.0) 05/21/22 05:38 RDW Std Deviation 45.2 fL (36.4-46.3) 05/21/22 05:38 RDW Coeff of Jessica 15.5 % (11.5-14.5) H 05/21/22 05:38 Plt Count 232 K/uL (130-400) 05/21/22 05:38 MPV 11.8 fL (9.4-12.3) 05/21/22 05:38 Immature Gran % (Auto) 0.5 % 05/21/22 05:38 Neut % (Auto) 79.5 % 05/21/22 05:38 Lymph % (Auto) 10.0 % 05/21/22 05:38 [place] % (Auto) 9.9 % 05/21/22 05:38 Eos % (Auto) 0.0 % 05/21/22 05:38 Baso % (Auto) 0.1 % 05/21/22 05:38 Neut # (Auto) 8.71 K/uL (1.4-6.5) H 05/21/22 05:38 Lymph # (Auto) 1.10 K/uL (1.2-3.4) L 05/21/22 05:38 [place] # (Auto) 1.09 K/uL (0.24-0.82) H 05/21/22 05:38 Eos # (Auto) 0.00 K/uL (0-0.50) 05/21/22 05:38 Baso # (Auto) 0.01 K/uL (0-0.2) 05/21/22 05:38 Immature Gran # (Auto) 0.06 K/uL (0.00-0.02) H 05/21/22 05:38 Absolute Nucleated RBC 0.03 K/uL (0-0) H 05/21/22 05:38 Nucleated RBC % (auto) 0.3 % 05/21/22 05:38 PT 11.4 Seconds (9.0-12.0) 05/16/22 09:47 INR 1.1 (0.9-1.1) 05/16/22 09:47 APTT 43.0 Seconds (21.0-31.0) H 05/21/22 12:49 PTT Ratio 1.6 05/21/22 12:49 Sample Site Art Line 05/19/22 04:28 POC pH 7.48 (7.35-7.45) H 05/19/22 04:28 POC pCO2 37 mmHg (35-46) 05/19/22 04:28 POC pO2 72 mmHg (80-95) L 05/19/22 04:28 POC HCO3 28 matias/L (19-24) H 05/19/22 04:28 POC Total CO2 29 mmol/L (24-31) 05/19/22 04:28 POC Base Excess 4.0 matias/L (-9-1.8) H 05/19/22 04:28 ABG pH 7.41 (7.35-7.45) 05/16/22 16:51 ABG pH (Temp Correct) 7.476 (7.35-7.45) H 05/19/22 04:28 ABG pCO2 22 mmHg (35-46) L 05/16/22 16:51 ABG pCO2 (Temp Corrct 38 mmHg (35-46) 05/19/22 04:28 ABG pO2 80 mmHg (80-95) 05/16/22 16:51 POC ABG pO2 at Pt Temp 74 05/19/22 04:28 ABG HCO3 14 mmol/L (19-24) L 05/16/22 16:51 POC ABG O2 Sat 95.0 % (90-95) 05/19/22 04:28 ABG O2 Saturation 99.2 % (90-95) H 05/16/22 16:51 ABG Base Excess -8.6 mEq/L (-9-1.8) 05/16/22 16:51 Kenneth Test NA 05/19/22 04:28 Mixed VBG pH 7.46 (7.35-7.45) H 05/18/22 04:03 Mixed VBG pCO2 41 mmHg (38-50) 05/18/22 04:03 Mixed VBG pO2 23 mmHg (80-95) L 05/18/22 04:03 Mixed VBG HCO3 29 mmol/L (19-24) H 05/18/22 04:03 Mixed VBG Base Excess 4.9 mEq/L (-7.7-1.9) H 05/18/22 04:03 Mixed VBG O2 Saturation < 60.0 % (68) 05/18/22 04:03 Oxygen Given 6L 05/16/22 16:51 O2 Delivery Device Ventilator 05/19/22 04:28 POC O2 Rate 20 05/19/22 04:28 Minute Ventilation 6.6 05/19/22 04:28 POC FiO2 50 % 05/19/22 04:28 Tidal Volume 330 05/19/22 04:28 PEEP 12 05/19/22 04:28 POC Sodium 139 mmol/L (135-144) 05/19/22 04:28 Sodium 135 mmol/L (136-145) L 05/21/22 05:38 POC Potassium 3.5 mmol/L (3.3-5.0) 05/19/22 04:28 Potassium 3.5 mmol/L (3.5-5.1) 05/21/22 05:38 Chloride 94 mmol/L (98-107) L 05/21/22 05:38 Carbon Dioxide 30 mmol/L (21-32) 05/21/22 05:38 Anion Gap 11 (3-11) 05/21/22 05:38 BUN 28 mg/dl (6-23) H 05/21/22 05:38 Creatinine 0.59 mg/dl (0.6-1.2) L 05/21/22 05:38 Est Cr Clr Drug Dosing 69.3 ml/min 05/21/22 05:38 Est GFR ( Amer) 105.4 ml/min 05/21/22 05:38 Est GFR (Non-Af Amer) 90.9 ml/min 05/21/22 05:38 BUN/Creatinine Ratio 47.5 (10-20) H 05/21/22 05:38 Glucose 118 mg/dl (70-99(Fasting)) H 05/21/22 05:38 POC Glucose 131 mg/dl (70-99) H 05/21/22 11:28 POC Glucose (other) 122 mg/dl (70-99) H 05/18/22 16:09 Estimat Average Glucose 128 mg/dl 05/17/22 03:10 Hemoglobin A1c 6.1 % (4.5-5.6) H 05/17/22 03:10 Lactate 1.8 mmol/L (0.4-2.0) 05/17/22 19:15 Calcium 9.3 mg/dl (8.5-10.1) 05/21/22 05:38 Phosphorus 3.1 mg/dl (2.5-4.9) 05/21/22 05:38 Magnesium 2.2 mg/dl (1.7-2.4) 05/21/22 05:38 Total Bilirubin 0.4 mg/dl (0.2-1.0) 05/16/22 09:47 AST 37 U/L (13-39) 05/16/22 09:47 ALT 23 U/L (7-52) 05/16/22 09:47 Alkaline Phosphatase 111 U/L (34-104) H 05/16/22 09:47 Troponin I High Sens 3597.5 pg/ml (0-14) H* D 05/18/22 07:52 C-Reactive Protein 5.69 mg/dl (0-0.5) H 05/17/22 07:43 B-Natriuretic Peptide 1588 pg/ml (0-100) H 05/16/22 21:15 Total Protein 8.4 gm/dl (6.0-8.3) H 05/16/22 09:47 Albumin 4.5 gm/dl (3.4-5.0) 05/16/22 09:47 Globulin 3.9 gm/dl (2.5-4.0) 05/16/22 09:47 Albumin/Globulin Ratio 1.2 (0.9-2) 05/16/22 09:47 Lipase 18 U/L (11-82) 05/16/22 09:47 Procalcitonin 0.24 ng/ml (0-0.5) 05/16/22 15:44 Urine Color Yellow 05/16/22 11:30 Urine Appearance Clear (Clear) 05/16/22 11:30 Urine pH 5.5 (4.5-7.5) 05/16/22 11:30 Ur Specific [place] 1.030 (1.000-1.030) 05/16/22 11:30 Urine Protein 4+ (Negative) H 05/16/22 11:30 Urine Glucose (UA) 1+ (Negative) H 05/16/22 11:30 Urine Ketones 4+ (Negative) H 05/16/22 11:30 Urine Blood 2+ (Negative) H 05/16/22 11:30 Urine Nitrite Negative (Negative) 05/16/22 11:30 Urine Bilirubin Negative (Negative) 05/16/22 11:30 Urine Urobilinogen Negative (Negative) 05/16/22 11:30 Ur Leukocyte Esterase Negative (Negative) 05/16/22 11:30 Urine WBC (Auto) 10-30 /hpf (0-5) H 05/16/22 11:30 Urine RBC (Auto) 5-10 /hpf (0-4) H 05/16/22 11:30 U Hyaline Cast (Auto) 5-10 /lpf (0-5) H 05/16/22 11:30 U Epithel Cells (Auto) >30 /lpf (0-5) H 05/16/22 11:30 Urine Bacteria (Auto) 1+ (Negative) H 05/16/22 11:30 Ur Renal Epithelial Cell Not Reportable 05/16/22 11:30 Granular Casts 1-5 /lpf (0) H 05/16/22 11:30 Urine Mucus Present (None Prsent) A 05/16/22 11:30 Urine Yeast Budding (None Prsent) A 05/16/22 11:30 Nasal Screen MRSA (PCR) Negative (Negative) 05/17/22 11:40 SARS-CoV-2 (PCR) POSITIVE (Negative) A* 05/16/22 09:38 Influenza Type A (PCR) Negative (Neg) 05/16/22 09:38 Influenza Type B (PCR) Negative (Neg) 05/16/22 09:38 RSV (RT-PCR) Negative (Neg) 05/16/22 09:38 Impressions Abdomen/Pelvis CT 05/16/22 08:58 CT SCAN OF THE ABDOMEN AND PELVIS WITH IV CONTRAST CLINICAL HISTORY: Nausea and vomiting. Diarrhea. COMPARISON STUDY: Abdominal CT dated 12/12/2019. TECHNIQUE: Following the IV administration of 120 cc of Optiray 300, CT scan of the abdomen and pelvis is performed from the lung bases to the proximal femora. Images are reviewed in the axial, sagittal, and coronal planes. IV contrast was administered without complication. A dose lowering technique was utilized adhering to the principles of ALARA. FINDINGS: Lung bases: The heart is enlarged and without pericardial effusion. The coronary arteries a density calcified. There is a small hiatal hernia. The lung bases are clear noting dependent atelectasis. There is mild aneurysmal dilatation of the partially visualized ascending thoracic aorta. This measures at least 4.0 cm in diameter. Liver: The contrast-enhanced liver is normal in size, contour, and attenuation. There is no intrahepatic biliary ductal dilatation. The hepatic veins and portal veins are patent. Gallbladder: Surgically absent. Spleen: Normal in size and attenuation. Pancreas: Atrophic and grossly unremarkable. Adrenal glands: Unremarkable. Kidneys: The contrast enhanced kidneys are normal in size and without hydronephrosis. The kidneys enhance symmetrically. Scattered subcentimeter cortical hypodensities likely represent cysts but are too small for definitive characterization. Abdominal vasculature: There is advanced atherosclerotic calcification mild ectasia of the abdominal aorta. Bowel: There is moderate colonic diverticulosis without CT evidence of acute diverticulitis. No bowel obstruction is seen. Question mucosal hyperemia of the left colon. There is no colonic wall thickening or surrounding inflammation. The appendix is identified and reported surgically absent. Peritoneum: There is no intraperitoneal free air or abdominal ascites. Lymphadenopathy: None. Pelvic viscera: The bladder is mildly distended but otherwise normal in appearance. The uterus is surgically absent. No adnexal lesion is seen. Skeletal structures: No lytic or blastic lesions are seen. IMPRESSION: 1. Question mucosal hyperemia of the left colon. There is no colonic wall thickening or surrounding inflammation. Correlate clinically for evidence of a mild nonspecific colitis. 2. Colonic diverticulosis without CT evidence of acute diverticulitis. 3. There is no bowel obstruction. 4. Additional findings as above. ACT 112: Negative or not required by law. Electronically signed by: Austin Saucedo M.D. 05/16/2022 11:36 AM Chest CTA 05/16/22 10:55 CHEST CTA for PULMONARY ARTERIES CT DOSE: 545.39 mGy.cm HISTORY: Covid. Headache. Nausea. Vomiting. Shortness of breath. Assess for pulmonary embolus. TECHNIQUE: Multiaxial CT images of the chest were performed following the intravenous administration of contrast to evaluate the pulmonary arteries. Maximal intensity projection images were also obtained. A dose lowering technique was utilized adhering to the principles of ALARA. COMPARISON STUDY: Chest CT 01/27/2014. FINDINGS: There is a 2.1 cm right thyroid nodule. No mediastinal or hilar lymphadenopathy. There is a small hiatus hernia. Otherwise, normal caliber esophagus moderate focal narrowing at the takeoff of the right subclavian artery due to the calcified plaque. The ascending thoracic aorta measures up to 4.3 cm in diameter which is slightly increased in size. The heart is mildly enlarged. No evidence for an aortic dissection. Please refer to the same day abdomen and pelvis CT for further evaluation of the abdominal structures. No pleural or pericardial effusions. No suspicious lytic or blastic osseous lesions. Nondiagnostic evaluation of the bilateral lower lobe subsegmental pulmonary arteries due to the respiratory motion artifact. Otherwise, the remaining pulmonary arteries show no filling defects to suggest a pulmonary embolus. No pn eumothorax. The central airways are patent. No focal lung consolidations to suggest pneumonia. Mild dependent changes seen at the lung bases. IMPRESSION: 1. No evidence for pulmonary embolus with limitations as described above. 2. Mild aneurysmal dilatation of the ascending thoracic aorta measuring 4.3 cm in diameter. This has slightly increased in size. 3. No focal lung consolidations to suggest pneumonia. 4. A 2.1 cm right thyroid nodule. Follow-up nonemergent thyroid ultrasound recommended for further evaluation. ACT 112: Negative or not required by law. Electronically signed by: César Dceker M.D. 05/16/2022 11:49 AM Chest X-Ray 05/20/22 08:10 XR chest 1V portable CLINICAL HISTORY: covid COMPARISON STUDY: Chest CT May 16, 2022. Chest radiograph May 19, 2022. FINDINGS: Endotracheal and nasogastric tubes have been removed. Mild cardiomegaly is unchanged. Interstitial thickening and bilateral opacities have improved. There is no pneumothorax. No definite pleural effusion is identified. IMPRESSION: 1. Interval improvement in interstitial thickening and bilateral opacities. 2. Interval removal of the endotracheal and nasogastric tubes. ACT 112: Negative or not required by law. Electronically signed by: Mega Butler M.D. 05/20/2022 8:26 AM
[2022-05-21 23:42] LABS: Partial Thromboplastin Ratio 1.8
[2022-05-22] MEDS: INSULIN ASPART PER UNIT SC SCH ×6 (00:12→20:29)
[2022-05-22] MEDS: RAMELTEON: ORDER AWAITING ACTION SCH ×4 (00:24→22:34)
[2022-05-22] MEDS: AMIODARONE / D5W 360 MG/200 ML BAG IV SCH (02:34)
[2022-05-22] MEDS: ICU ELECTROLYTE REPLACEMENT PROTOCOL SCH (04:57)
[2022-05-22 04:59] LABS: BUN Creatinine Ratio 53.6 (10-20); Calcium 9.2 mg/dl (8.5-10.1); Creatinine Clr Calc Pharmacy 59.3 ml/min; Est GFR (African American) 100.1 ml/min; Est GFR (Non-African American) 86.4 ml/min; Magnesium 2.2 mg/dl (1.7-2.4); Partial Thromboplastin Ratio 1.9; Phosphorus 3.6 mg/dl (2.5-4.9); Potassium 3.4 mmol/L (3.5-5.1)
[2022-05-22 05:13] LABS: Partial Thromboplastin Time 52.2 Seconds (21.0-31.0)
[2022-05-22] MEDS: MULTI VIT W/MINERALS LIQUID 15 ML UDP NG SCH (07:31)
[2022-05-22] MEDS ORDERED: POTASSIUM CHLORIDE CRTAB 20 MEQ TABCR PO STA (07:53)
[2022-05-22] MEDS: GABAPENTIN 100 MG CAP PO SCH ×3 (09:04→20:07)
[2022-05-22] MEDS: FUROSEMIDE 40 MG/4 ML VIAL IV SCH ×2 (09:04→20:07)
[2022-05-22] MEDS: PANTOprazole 40 MG TAB PO SCH (09:10)
[2022-05-22] MEDS: dexAMETHasone 6 MG in SYRINGE 0 ML IV SCH (11:29)
--- NOTE | 2022-05-22 11:47 | Cardiology Progress Note ---
Date of Service May 22, 2022 Assessment & Plan (1) PAF (paroxysmal atrial fibrillation): (2) NSVT (nonsustained ventricular tachycardia): (3) Diastolic dysfunction: (4) Ascending aortic aneurysm: (5) Pneumonia due to COVID-19 virus: (6) STEMI (ST elevation myocardial infarction): (7) Elevated troponin: (8) Atrial flutter with rapid ventricular response: (9) Acute respiratory failure with hypoxia: Plan I think at this point we should discontinue the IV amiodarone and start her on amiodarone 200 mg with meals 3 times daily. Otherwise the patient is stable and slowly improving. Admission and Anticipated Discharge Date Admission Date: May 16, 2022 Subjective The patient is in isolation due to COVID. She is sitting in a chair and now ab le to take oral medications Review of Systems Review of Systems: Review of Systems: See HPI for pertinent positives. All other 10 point review of systems are negative. Physical Exam Physical Exam: General: no acute distress and stated age Head: normocephalic, no masses, lesions, tenderness or abnormalities Eyes: conjunctiva are pink and non-injected, sclera clear Neck: supple, no adenopathy, no bruits, normal jugular venous pulse, no hepatojugular reflux Chest: normal shape and normal respiratory effort Lungs: clear to auscultation and percussion Cardiac Exam: - regular rate & rhythm, no murmurs gallops or rubs - normal S1, normal S2 Pulses: 2(+) throughout Abdomen: abdomen soft, non-tender, no abnormal masses and no hepatosplenomegaly Musculoskeletal: no gait disturbance, no joint inflammation, no deforming arthritis Extremities: no edema and no cyanosis Neuro: grossly normal exam Results & Data ([facility]) Vital Signs (Past 12 Hours) Vital Signs Temp Pulse Pulse Resp BP BP Pulse Ox 05/22/22 10:00 77 22 96 05/22/22 08:00 36.9 C 70 20 130/74 95 05/22/22 08:00 05/22/22 03:47 36.6 C 69 22 129/73 94 05/22/22 03:20 72 14 94 05/21/22 23:44 36.5 C 71 24 113/69 94 O2 Del Method O2 Flow Rate FiO2 05/22/22 10:00 Nasal Cannula 3 05/22/22 08:00 05/22/22 08:00 BiPAP 05/22/22 03:47 BiPAP 05/22/22 03:20 35 05/21/22 23:44 BiPAP Laboratory Results Laboratory Results - last 24 hr 05/21/22 05/21/22 05/21/22 12:49 15:36 20:02 APTT 43.0 H PTT Ratio 1.6 Sodium Potassium Chloride Carbon Dioxide Anion Gap BUN Creatinine Est Cr Clr Drug Dosing Est GFR ( Amer) Est GFR (Non-Af Amer) BUN/Creatinine Ratio Glucose POC Glucose 148 H 147 H Calcium Phosphorus Magnesium 05/21/22 05/21/22 05/22/22 23:03 23:16 04:14 APTT 49.0 H* PTT Ratio 1.8 Sodium 136 Potassium 3.4 L Chloride 93 L Carbon Dioxide 32 Anion Gap 11 BUN 37 H Creatinine 0.69 Est Cr Clr Drug Dosing 59.3 Est GFR ( Amer) 100.1 Est GFR (Non-Af Amer) 86.4 BUN/Creatinine Ratio 53.6 H Glucose 128 H POC Glucose 138 H Calcium 9.2 Phosphorus 3.6 Magnesium 2.2 05/22/22 05/22/22 05/22/22 04:14 04:47 11:35 APTT 52.2 H* PTT Ratio 1.9 Sodium Potassium Chloride Carbon Dioxide Anion Gap BUN Creatinine Est Cr Clr Drug Dosing Est GFR ( Amer) Est GFR (Non-Af Amer) BUN/Creatinine Ratio Glucose POC Glucose 116 H 126 H Calcium Phosphorus Magnesium Medications Administered Current Inpatient Medications Acetaminophen (Acetaminophen 500 Mg Tab) 1,000 mg PO Q8H PRN PRN Reason: pain Stop: 06/16/22 14:29 Amiodarone HCl (Amiodarone 200 Mg Tab) 200 mg PO TIDM [facility] Stop: 06/21/22 11:59 Dextrose (Dextrose 50% 50 Ml Syringe) 25 - 50 ml IV UD PRN; Protocol PRN Reason: Hypoglycemia Protocol Stop: 06/15/22 15:45 Furosemide (Furosemide 40 Mg/4 Ml Vial) 40 mg IV BID [facility] Stop: 06/18/22 20:59 Last Admin: 05/22/22 09:04 Dose: 40 mg Gabapentin (Gabapentin 100 Mg Cap) 100 mg PO TID [facility] Stop: 06/15/22 20:59 Last Admin: 05/22/22 09:04 Dose: 100 mg Glucagon (Glucagon For Inj 1 Mg Vial) 1 mg SQ UD PRN; Protocol PRN Reason: Hypoglycemia Protocol Stop: 06/15/22 15:45 Glucose (Glucose 40% Gel 15 Gm Tube) 15 - 30 gm PO UD PRN; Protocol PRN Reason: Hypoglycemia Protocol Stop: 06/15/22 15:45 Glucose (Glucose 10 Tab/Tube) 4 - 8 tab PO UD PRN; Protocol PRN Reason: Hypoglycemia Treatment Stop: 06/15/22 15:45 Heparin Sodium/Dextrose (Heparin Sodium/Dextrose) 25,000 units in 500 mls @ 19 mls/hr IV .Q24H [facility]; Protocol Stop: 06/15/22 20:59 Last Titration: 05/22/22 05:42 Dose: 950 units/hr, 19 mls/hr Dexamethasone 6 mg/ Syringe 1.5 mls @ 1 mls/min IV Q24H [facility] Stop: 06/16/22 11:59 Last Admin: 05/22/22 11:29 Dose: 1 mls/min Insulin Aspart (Insulin Aspart Per Unit) 0 units SC Q4 [facility] Stop: 06/17/22 11:59 Last Admin: 05/22/22 07:30 Dose: Not Given Miscellaneous (Ramelteon: Order Awaiting Action) 1 each N/A QS [facility] Stop: 06/15/22 15:59 Last Admin: 05/22/22 07:31 Dose: Not Given Miscellaneous (Carbohydrates For Hypoglycemia ) 15 - 30 gm PO UD PRN PRN Reason: Hypoglycemia Protocol Stop: 06/15/22 15:45 Pantoprazole Sodium (Pantoprazole 40 Mg Tab) 40 mg PO QAM [facility] Stop: 06/21/22 08:59 Last Admin: 05/22/22 09:10 Dose: 40 mg
[2022-05-22] MEDS: AMIODARONE 200 MG TAB PO SCH ×2 (11:59→16:12)
--- NOTE | 2022-05-22 13:38 | Hospitalist Progress Note ---
Date of Service May 22, 2022 Assessment & Plan (1) Atrial fibrillation with rapid ventricular response: Plan: Afib RVR Sustained VT requiring defibrillation Continue on amiodarone drip Continue IV heparin for anticoagulation Appreciate cardiology input Transition to Eliquis as able IV lidocaine discontinued Plan to start on Beta john if BP tolerates Has been improving gradually . We will moved to telemetry unit We will continue with the intravenous amiodarone for now as per campaign management senior manager Remains stable without any cardiac symptoms Nonischemic cardiomyopathy Possibly Takotsubo cardiomyopathy Cardiogenic shock -S/P Cardiac Cath:Multivessel coronary artery disease. 50% mid LAD. Medium D2 80% proximal. 50% calcified ostial circumflex, 50% inferior branch of OM2. 60% mid, 50% distal RCA. Elevated left-sided filling pressure (LVEDP 22). Normal p ulmonary artery pressure. Preserved cardiac output --ECHO: Apical ballooning pattern of the LV chamber. Moderate hypokinesis of all basal wall segments with progressive akinesis at the mid levels and dyskinesis at the apex. Severely reduced LV systolic function EF 15 to 20%. Right ventricular cavity size is normal. Right ventricular systolic function is normal as assessed by tricuspid annular plane systolic excursion. Aortic valve sclerosis moderate, without significant aortic valvular stenosis. Mild aortic regurgitation. PASP of 48 mmHg. --Patient had sustained VT requiring defibrillation --Appreciate Cardiology, Critical Care Input --Pressors discontinued --volume status, I's and O's, daily weight --Monitor electrolytes -Rate is controlled and no evidence of fluid overload -Intravenous amiodarone has been changed to oral amiodarone from today and will continue IV heparin for now Anorexia No problem with swallowing Diet consistency and form as per speech therapist (2) NSVT (nonsustained ventricular tachycardia): Plan: Management as above (3) Elevated troponin: Plan: Likely demand ischemia due to Sepsis, tachyarrhythmias, stress-induced cardiomyopathy, COVID-19 infection (4) Pneumonia due to COVID-19 virus: Plan: Sepsis Likely multifactorial: COVID-19 infection, colitis, possible UTI Lactic acidosis Colitis UTI ruled out Urine Culture Mixed Probable Skin elier Blood Cultures:No growth to date Zosyn discontinued Course of antibiotic's finished Decadron will be finished on eighth of this month Acute respiratory distress syndrome Acute hypoxic respiratory failure S/P Intubation 8/30 COVID 19 Infection Patient is intubated in [place] CRP:5.69 Procalcitonin: 0.24 Appreciate critical care input Continue vent support Continue Dexamethasone Extubated on 05/19/2022 Remains medically stable-saturating normally on 3 L nasal cannula (5) Hypokalemia: Plan: Hypokalemia Hypophosphatemia Replete electrolytes as needed (6) Chronic heart failure with preserved ejection fraction (HFpEF): Plan: Monitor volume status closely on IV diuresis We will continue intravenous furosemide for now Remains in positive balance of more than 1 L (7) HLD (hyperlipidemia): Plan: Resume Statin as able (8) Hypertension: Plan: Monitor (9) Ascending aortic aneurysm: Plan: Stable (10) Esophageal reflux: Plan Prediabetes HbA1C: 6.1 Continue ISS given elevated BGs while on steroids DVT Px: IV Heparin Code Status Conditional Code Admission and Anticipated Discharge Date Admission Date: May 16, 2022 Subjective 05/20/2022 The patient was seen and examined in ICU She remains weak and lethargic and complains to have some problem with swallowing Denies any fever and or chills, any shortness of breath at rest, any abdominal pain, nausea and or vomiting 05/21/2022 The patient was seen and examined in ICU She required high flow nasal cannula oxygen to maintain saturation but now she has been saturating normally on 3 L via nasal cannula Generally weak but denies any other significant symptoms 05/22/2022 The patient was seen and examined in ICU with telemetry status She has been feeling much better but remains very weak and lethargic She complains to have anorexia but no other significant symptoms Review of Systems Review of Systems: All systems reviewed and are unremarkable except as noted below Physical Exam Physical Exam: Sitting on a chair without any acute distress Constitutional: + ill appearing and average body habitus Eyes: PERRL, conjunctivae normal, anicteric sclerae ENMT: external ear and nose normal, oropharynx normal Neck: trachea midline, no thyromegaly Respiratory: no respiratory distress Auscultation: + diminished lung sounds and + crackles (Minimal bibasilar crackles) Cardiovascular: Rate/Rhythm: regular rate and regular rhythm; not tachycardic Heart Sounds: normal S1 and normal S2; no murmur Extremities: + edema (1 + bilaterally) Gastrointestinal (Abdomen): Inspection/Auscultation: normal bowel sounds; abdomen not distended Percussion/Palpation: abdomen soft; abdomen nontender Musculoskeletal: No acute arthritis in any joint Neurologic: normal touch/pain/proprioception and moves all extremities; not confused Generally weak and lethargic Lymphatic: no cervical or axillary lymphadenopathy Results & Data Results & Data ([facility]) Vital Signs (Past 12 Hours) Vital Signs Temp Pulse Pulse Resp BP BP Pulse Ox 05/22/22 12:00 36.7 C 72 15 126/79 93 05/22/22 10:00 77 22 96 05/22/22 08:00 36.9 C 70 20 130/74 95 05/22/22 08:00 05/22/22 03:47 36.6 C 69 22 129/73 94 05/22/22 03:20 72 14 94 O2 Del Method O2 Flow Rate FiO2 05/22/22 12:00 Nasal Cannula 2 05/22/22 10:00 Nasal Cannula 3 05/22/22 08:00 05/22/22 08:00 BiPAP 05/22/22 03:47 BiPAP 05/22/22 03:20 35 Laboratory Results BMP 05/22/22 04:14 Sodium 136 Potassium 3.4 L Chloride 93 L Carbon Dioxide 32 BUN 37 H Creatinine 0.69 Glucose 128 H Calcium 9.2 Medications Administered Current Inpatient Medications Acetaminophen (Acetaminophen 500 Mg Tab) 1,000 mg PO Q8H PRN PRN Reason: pain Stop: 06/16/22 14:29 Amiodarone HCl (Amiodarone 200 Mg Tab) 200 mg PO TIDM [facility] Stop: 06/21/22 11:59 Last Admin: 05/22/22 11:59 Dose: 200 mg Dextrose (Dextrose 50% 50 Ml Syringe) 25 - 50 ml IV UD PRN; Protocol PRN Reason: Hypoglycemia Protocol Stop: 06/15/22 15:45 Furosemide (Furosemide 40 Mg/4 Ml Vial) 40 mg IV BID [facility] Stop: 06/18/22 20:59 Last Admin: 05/22/22 09:04 Dose: 40 mg Gabapentin (Gabapentin 100 Mg Cap) 100 mg PO TID [facility] Stop: 06/15/22 20:59 Last Admin: 05/22/22 11:59 Dose: Not Given Glucagon (Glucagon For Inj 1 Mg Vial) 1 mg SQ UD PRN; Protocol PRN Reason: Hypoglycemia Protocol Stop: 06/15/22 15:45 Glucose (Glucose 40% Gel 15 Gm Tube) 15 - 30 gm PO UD PRN; Protocol PRN Reason: Hypoglycemia Protocol Stop: 06/15/22 15:45 Glucose (Glucose 10 Tab/Tube) 4 - 8 tab PO UD PRN; Protocol PRN Reason: Hypoglycemia Treatment Stop: 06/15/22 15:45 Heparin Sodium/Dextrose (Heparin Sodium/Dextrose) 25,000 units in 500 mls @ 19 mls/hr IV .Q24H [facility]; Protocol Stop: 06/15/22 20:59 Last Titration: 05/22/22 05:42 Dose: 950 units/hr, 19 mls/hr Dexamethasone 6 mg/ Syringe 1.5 mls @ 1 mls/min IV Q24H [facility] Stop: 06/16/22 11:59 Last Admin: 05/22/22 11:29 Dose: 1 mls/min Insulin Aspart (Insulin Aspart Per Unit) 0 units SC Q4 [facility] Stop: 06/17/22 11:59 Last Admin: 05/22/22 11:58 Dose: Not Given Miscellaneous (Ramelteon: Order Awaiting Action) 1 each N/A QS [facility] Stop: 06/15/22 15:59 Last Admin: 05/22/22 11:59 Dose: Not Given Miscellaneous (Carbohydrates For Hypoglycemia ) 15 - 30 gm PO UD PRN PRN Reason: Hypoglycemia Protocol Stop: 06/15/22 15:45 Pantoprazole Sodium (Pantoprazole 40 Mg Tab) 40 mg PO QAM [facility] Stop: 06/21/22 08:59 Last Admin: 05/22/22 09:10 Dose: 40 mg
[2022-05-22] MEDS: HEPARIN SODIUM/DEXTROSE 25,000 UNITS/500 ML BAG IV SCH (16:12)
[2022-05-23] MEDS: INSULIN ASPART PER UNIT SC SCH ×7 (00:03→19:57)
[2022-05-23 06:27] LABS: BUN Creatinine Ratio 69.4 (10-20); Calcium 9.2 mg/dl (8.5-10.1); Est GFR (African American) 103.7 ml/min; Est GFR (Non-African American) 89.5 ml/min; Magnesium 2.1 mg/dl (1.7-2.4); Potassium 3.3 mmol/L (3.5-5.1)
[2022-05-23 06:32] LABS: Partial Thromboplastin Ratio 2.5
[2022-05-23 06:41] LABS: Basophils # (auto) 0.04 K/uL (0-0.2); Basophils % (auto) 0.3 %; Hemoglobin 12.7 g/dl (12.0-16.0); Immature Granulocytes # (auto) 0.12 K/uL (0.00-0.02); Immature Granulocytes % (auto) 0.8 %; Lymphocytes % (auto) 7.2 %; Mean Corpuscular Hemoglobin 26.7 pg (25.0-34.0); Mean Corpuscular Hgb Conc 31.8 g/dL (32.0-36.0); Mean Corpuscular Volume 84.2 fL (80.0-100.0); Mean Platelet Volume 12.5 fL (9.4-12.3); Monocytes # (auto) 1.46 K/uL (0.24-0.82); Monocytes % (auto) 9.5 %; Neutrophils # (auto) 12.63 K/uL (1.4-6.5); Neutrophils % (auto) 82.2 %; Platelet Count 171 K/uL (130-400); RDW Coefficient of Variation 15.7 % (11.5-14.5); RDW Standard Deviation 47.2 fL (36.4-46.3); Red Blood Count 4.75 M/uL (3.93-5.22); White Blood Count 15.35 K/ul (4.8-10.8)
[2022-05-23 06:55] LABS: Partial Thromboplastin Time 68.9 Seconds (21.0-31.0)
[2022-05-23] MEDS: RAMELTEON: ORDER AWAITING ACTION SCH ×2 (07:12→11:44)
[2022-05-23] MEDS: AMIODARONE 200 MG TAB PO SCH ×3 (07:12→17:10)
[2022-05-23] MEDS: PANTOprazole 40 MG TAB PO SCH (07:13)
[2022-05-23] MEDS: GABAPENTIN 100 MG CAP PO SCH ×3 (07:13→20:04)
[2022-05-23] MEDS ORDERED: POTASSIUM CHLORIDE CRTAB 20 MEQ TABCR PO STA (07:50)
[2022-05-23] MEDS: FUROSEMIDE 40 MG/4 ML VIAL IV SCH ×2 (08:46→20:05)
[2022-05-23] MEDS: dexAMETHasone 6 MG in SYRINGE 0 ML IV SCH (11:43)
--- NOTE | 2022-05-23 12:27 | Hospitalist Progress Note ---
Date of Service May 23, 2022 Assessment & Plan (1) Atrial fibrillation with rapid ventricular response: Plan: Afib RVR Sustained VT requiring defibrillation Continue on amiodarone drip Continue IV heparin for anticoagulation Appreciate cardiology input Transition to Eliquis as able IV lidocaine discontinued Plan to start on Beta john if BP tolerates Has been improving gradually . We will moved to telemetry unit We will continue with the intravenous amiodarone for now as per audio visual production specialist Remains stable without any cardiac symptoms Heart rate remains controlled and asymptomatic Nonischemic cardiomyopathy Possibly Takotsubo cardiomyopathy Cardiogenic shock -S/P Cardiac Cath:Multivessel coronary artery disease. 50% mid LAD. Medium D2 80% proximal. 50% calcified ostial circumflex, 50% inferior branch of OM2. 60% mid, 50% distal RCA. Elevated left-sided filling pressure (LVEDP 22). Normal pulmonary artery pressure. Preserved cardiac output --ECHO: Apical ballooning pattern of the LV chamber. Moderate hypokinesis of all basal wall segments with progressive akinesis at the mid levels and dyskinesis at the apex. Severely reduced LV systolic function EF 15 to 20%. Right ventricular cavity size is normal. Right ventricular systolic function is normal as assessed by tricuspid annular plane systolic excursion. Aortic valve sclerosis moderate, without significant aortic valvular stenosis. Mild aortic regurgitation. PASP of 48 mmHg. --Patient had sustained VT requiring defibrillation --Appreciate Cardiology, Critical Care Input --Pressors discontinued --volume status, I's and O's, daily weight --Monitor electrolytes -Rate is controlled and no evidence of fluid overload -Intravenous amiodarone has been changed to oral amiodarone from today and will continue IV heparin for now -Cumulative fluid balance is still positive to 79 -We will continue current management Anorexia No problem with swallowing Diet consistency and form as per speech therapist (2) NSVT (nonsustained ventricular tachycardia): Plan: Management as above (3) Elevated troponin: Plan: Likely demand ischemia due to Sepsis, tachyarrhythmias, stress-induced cardiomyopathy, COVID-19 infection (4) Pneumonia due to COVID-19 virus: Plan: Sepsis Likely multifactorial: COVID-19 infection, colitis, possible UTI Lactic acidosis Colitis UTI ruled out Urine Culture Mixed Probable Skin elier Blood Cultures:No growth to date Zosyn discontinued Course of antibiotic's finished Decadron will be finished on eighth of this month Acute respiratory distress syndrome Acute hypoxic respiratory failure S/P Intubation 05/17 COVID 19 Infection Patient is intubated in [place] CRP:5.69 Procalcitonin: 0.24 Appreciate critical care input Continue vent support Continue Dexamethasone Extubated on 05/19/2022 Remains medically stable-saturating normally on 3 L nasal cannula Oxygen requirement is down to 2 L/min (5) Hypokalemia: Plan: Hypokalemia Hypophosphatemia Replete electrolytes as needed (6) Chronic heart failure with preserved ejection fraction (HFpEF): Plan: Monitor volume status closely on IV diuresis We will continue intravenous furosemide for now Remains in positive balance of more than 1 L (7) HLD (hyperlipidemia): Plan: Resume Statin as able (8) Hypertension: Plan: Monitor (9) Ascending aortic aneurysm: Plan: Stable (10) Esophageal reflux: Plan Prediabetes HbA1C: 6.1 Continue ISS given elevated BGs while on steroids DVT Px: IV Heparin Code Status Conditional Code Admission and Anticipated Discharge Date Admission Date: May 16, 2022 Subjective 05/20/2022 The patient was seen and examined in ICU She remains weak and lethargic and complains to have some problem with swallowing Denies any fever and or chills, any shortness of breath at rest, any abdominal pain, nausea and or vomiting 05/21/2022 The patient was seen and examined in ICU She required high flow nasal cannula oxygen to maintain saturation but now she has been saturating normally on 3 L via nasal cannula Generally weak but denies any other significant symptoms 05/22/2022 The patient was seen and examined in ICU with telemetry status She has been feeling much better but remains very weak and lethargic She complains to have anorexia but no other significant symptoms 05/23/2022 The patient was seen and examined in ICU with telemetry status She has been weak and lethargic otherwise denies any significant symptoms She has been out of bed today Review of Systems Review of Systems: All systems reviewed and are unremarkable except as noted below Physical Exam Physical Exam: Sitting on a chair without any acute distress Constitutional: + ill appearing and average body habitus Eyes: PERRL, conjunctivae normal, anicteric sclerae ENMT: external ear and nose normal, oropharynx normal Neck: trachea midline, no thyromegaly Respiratory: no respiratory distress Auscultation: + diminished lung sounds and + crackles (Minimal bibasilar crackles) Cardiovascular: Rate/Rhythm: regular rate and regular rhythm; not tachycardic Heart Sounds: normal S1 and normal S2; no murmur Extremities: + edema (1 + bilaterally) Gastrointestinal (Abdomen): Inspection/Auscultation: normal bowel sounds; abdomen not distended Percussion/Palpation: abdomen soft; abdomen nontender Neurologic: normal touch/pain/proprioception and moves all extremities; not confused Lymphatic: no cervical or axillary lymphadenopathy Results & Data Results & Data ([facility]) Vital Signs (Past 12 Hours) Vital Signs Temp Pulse Pulse Resp BP Pulse Ox O2 Del Method 05/23/22 12:17 36.9 C 89 24 136/82 94 Nasal Cannula 05/23/22 08:00 Nasal Cannula 05/23/22 07:16 37.0 C 74 22 127/79 96 Nasal Cannula 05/23/22 04:00 36.6 C 65 20 146/82 H 96 BiPAP 05/23/22 02:15 64 24 91 O2 Flow Rate FiO2 05/23/22 12:17 2 05/23/22 08:00 2 05/23/22 07:16 2 05/23/22 04:00 35 05/23/22 02:15 35 Laboratory Results Short CBC 05/23/22 Range/Units 05:44 WBC 15.35 H (4.8-10.8) K/ul Hgb 12.7 (12.0-16.0) g/dl Hct 40.0 (34.1-44.9) % Plt Count 171 (130-400) K/uL BMP 05/23/22 05:44 Sodium 136 Potassium 3.3 L Chloride 94 L Carbon Dioxide 31 BUN 43 H Creatinine 0.62 Glucose 121 H Calcium 9.2 Medications Administered Current Inpatient Medications Acetaminophen (Acetaminophen 500 Mg Tab) 1,000 mg PO Q8H PRN PRN Reason: pain Stop: 06/16/22 14:29 Amiodarone HCl (Amiodarone 200 Mg Tab) 200 mg PO TIDM [facility] Stop: 06/21/22 11:59 Last Admin: 05/23/22 11:43 Dose: 200 mg Dextrose (Dextrose 50% 50 Ml Syringe) 25 - 50 ml IV UD PRN; Protocol PRN Reason: Hypoglycemia Protocol Stop: 06/15/22 15:45 Furosemide (Furosemide 40 Mg/4 Ml Vial) 40 mg IV BID [facility] Stop: 06/18/22 20:59 Last Admin: 05/23/22 08:46 Dose: 40 mg Gabapentin (Gabapentin 100 Mg Cap) 100 mg PO TID [facility] Stop: 06/15/22 20:59 Last Admin: 05/23/22 11:43 Dose: 100 mg Glucagon (Glucagon For Inj 1 Mg Vial) 1 mg SQ UD PRN; Protocol PRN Reason: Hypoglycemia Protocol Stop: 06/15/22 15:45 Glucose (Glucose 40% Gel 15 Gm Tube) 15 - 30 gm PO UD PRN; Protocol PRN Reason: Hypoglycemia Protocol Stop: 06/15/22 15:45 Glucose (Glucose 10 Tab/Tube) 4 - 8 tab PO UD PRN; Protocol PRN Reason: Hypoglycemia Treatment Stop: 06/15/22 15:45 Heparin Sodium/Dextrose (Heparin Sodium/Dextrose) 25,000 units in 500 mls @ 18 mls/hr IV .Q24H [facility]; Protocol Stop: 06/15/22 20:59 Last Titration: 05/23/22 07:09 Dose: 900 units/hr, 18 mls/hr Dexamethasone 6 mg/ Syringe 1.5 mls @ 1 mls/min IV Q24H [facility] Stop: 06/16/22 11:59 Last Admin: 05/23/22 11:43 Dose: 1 mls/min Insulin Aspart (Insulin Aspart Per Unit) 0 units SC Q4 [facility] Stop: 06/17/22 11:59 Last Admin: 05/23/22 12:16 Dose: Not Given Miscellaneous (Ramelteon: Order Awaiting Action) 1 each N/A QS [facility] Stop: 06/15/22 15:59 Last Admin: 05/23/22 11:44 Dose: Not Given Miscellaneous (Carbohydrates For Hypoglycemia ) 15 - 30 gm PO UD PRN PRN Reason: Hypoglycemia Protocol Stop: 06/15/22 15:45 Pantoprazole Sodium (Pantoprazole 40 Mg Tab) 40 mg PO QAM [facility] Stop: 06/21/22 08:59 Last Admin: 05/23/22 07:13 Dose: 40 mg
[2022-05-23 13:41] LABS: Partial Thromboplastin Ratio 2.2
[2022-05-23 14:14] LABS: Partial Thromboplastin Time 60.1 Seconds (21.0-31.0)
[2022-05-23] MEDS: HEPARIN SODIUM/DEXTROSE 25,000 UNITS/500 ML BAG IV SCH (17:13)
[2022-05-24] MEDS: INSULIN ASPART PER UNIT SC SCH ×6 (00:43→21:47)
[2022-05-24] MEDS: RAMELTEON: ORDER AWAITING ACTION SCH ×4 (00:44→23:34)
[2022-05-24 06:12] LABS: Basophils # (auto) 0.03 K/uL (0-0.2); Basophils % (auto) 0.1 %; Hematocrit (blood only) 40.3 % (34.1-44.9); Immature Granulocytes # (auto) 0.27 K/uL (0.00-0.02); Immature Granulocytes % (auto) 1.2 %; Lymphocytes # (auto) 1.06 K/uL (1.2-3.4); Lymphocytes % (auto) 4.9 %; Mean Corpuscular Hemoglobin 26.6 pg (25.0-34.0); Mean Corpuscular Hgb Conc 32.3 g/dL (32.0-36.0); Mean Corpuscular Volume 82.6 fL (80.0-100.0); Mean Platelet Volume 11.7 fL (9.4-12.3); Monocytes # (auto) 1.73 K/uL (0.24-0.82); Neutrophils # (auto) 18.53 K/uL (1.4-6.5); Neutrophils % (auto) 85.8 %; Platelet Count 288 K/uL (130-400); RDW Coefficient of Variation 15.5 % (11.5-14.5); RDW Standard Deviation 46.2 fL (36.4-46.3); Red Blood Count 4.88 M/uL (3.93-5.22); White Blood Count 21.62 K/ul (4.8-10.8)
[2022-05-24 06:42] LABS: Partial Thromboplastin Ratio 2.1
[2022-05-24 06:45] LABS: BUN Creatinine Ratio 61.8 (10-20); Calcium 9.4 mg/dl (8.5-10.1); Creatinine Clr Calc Pharmacy 55.6 ml/min; Est GFR (African American) 100.6 ml/min; Est GFR (Non-African American) 86.8 ml/min; Magnesium 2.1 mg/dl (1.7-2.4); Phosphorus 3.7 mg/dl (2.5-4.9); Potassium 3.9 mmol/L (3.5-5.1)
[2022-05-24 07:29] LABS: Partial Thromboplastin Time 57.3 Seconds (21.0-31.0)
[2022-05-24] MEDS: FUROSEMIDE 40 MG/4 ML VIAL IV SCH (08:09)
[2022-05-24] MEDS: PANTOprazole 40 MG TAB PO SCH (09:50)
[2022-05-24] MEDS: AMIODARONE 200 MG TAB PO SCH ×3 (09:51→15:47)
[2022-05-24] MEDS: GABAPENTIN 100 MG CAP PO SCH ×3 (09:51→20:24)
[2022-05-24] MEDS: FUROSEMIDE 40 MG TAB PO SCH ×2 (09:51→15:47)
[2022-05-24] MEDS: dexAMETHasone 6 MG in SYRINGE 0 ML IV SCH (11:28)
--- NOTE | 2022-05-24 11:40 | Cardiology Progress Note ---
Date of Service May 24, 2022 Assessment & Plan (1) PAF (paroxysmal atrial fibrillation): (2) NSVT (nonsustained ventricular tachycardia): (3) Diastolic dysfunction: (4) Ascending aortic aneurysm: (5) Pneumonia due to COVID-19 virus: (6) STEMI (ST elevation myocardial infarction): (7) Elevated troponin: (8) Atrial flutter with rapid ventricular response: (9) Acute respiratory failure with hypoxia: Plan The patient is sitting in a chair and able to take pills. I have switched her over to amiodarone and now I am going to reduce the dose to 200 mg twice daily. I think we can also switch her to Eliquis and stop her IV heparin. Admission and Anticipated Discharge Date Admission Date: May 16, 2022 Subjective The patient is in isolation due to COVID. Review of Systems Review of Systems: Review of Systems: See HPI for pertinent positives. All ot her 10 point review of systems are negative. Physical Exam Physical Exam: Per protocol, I did not enter the patient's room to limit the exposure to COVID. Results & Data ([facility]) Vital Signs (Past 12 Hours) Vital Signs Temp Pulse Pulse Resp BP Pulse Ox O2 Del Method 05/24/22 09:00 37.0 C 66 16 140/77 97 05/24/22 08:00 Nasal Cannula 05/24/22 03:20 66 21 96 05/24/22 03:47 36.6 C 66 20 144/81 H 98 BiPAP 05/24/22 00:00 36.6 C 64 20 141/84 H 98 BiPAP O2 Flow Rate FiO2 05/24/22 09:00 05/24/22 08:00 2 05/24/22 03:20 35 05/24/22 03:47 35 05/24/22 00:00 35 Laboratory Results Laboratory Results - last 24 hr 05/23/22 05/23/22 05/23/22 11:49 13:00 17:15 WBC RBC Hgb Hct MCV MCH MCHC RDW Std Deviation RDW Coeff of Jessica Plt Count MPV Immature Gran % (Auto) Neut % (Auto) Lymph % (Auto) Wolfe % (Auto) Eos % (Auto) Baso % (Auto) Neut # (Auto) Lymph # (Auto) Wolfe # (Auto) Eos # (Auto) Baso # (Auto) Immature Gran # (Auto) APTT 60.1 H* PTT Ratio 2.2 Sodium Potassium Chloride Carbon Dioxide Anion Gap BUN Creatinine Est Cr Clr Drug Dosing Est GFR ( Amer) Est GFR (Non-Af Amer) BUN/Creatinine Ratio Glucose POC Glucose 120 H 154 H Calcium Phosphorus Magnesium 05/24/22 05/24/22 05/24/22 05:22 05:22 05:22 WBC 21.62 H RBC 4.88 Hgb 13.0 Hct 40.3 MCV 82.6 MCH 26.6 MCHC 32.3 RDW Std Deviation 46.2 RDW Coeff of Jessica 15.5 H Plt Count 288 D MPV 11.7 Immature Gran % (Auto) 1.2 Neut % (Auto) 85.8 Lymph % (Auto) 4.9 Wolfe % (Auto) 8.0 Eos % (Auto) 0.0 Baso % (Auto) 0.1 Neut # (Auto) 18.53 H Lymph # (Auto) 1.06 L Wolfe # (Auto) 1.73 H Eos # (Auto) 0.00 Baso # (Auto) 0.03 Immature Gran # (Auto) 0.27 H APTT 57.3 H* PTT Ratio 2.1 Sodium 135 L Potassium 3.9 Chloride 93 L Carbon Dioxide 32 Anion Gap 10 BUN 42 H Creatinine 0.68 Est Cr Clr Drug Dosing 55.6 Est GFR ( Amer) 100.6 Est GFR (Non-Af Amer) 86.8 BUN/Creatinine Ratio 61.8 H Glucose 121 H POC Glucose Calcium 9.4 Phosphorus 3.7 Magnesium 2.1 05/24/22 11:34 WBC RBC Hgb Hct MCV MCH MCHC RDW Std Deviation RDW Coeff of Jessica Plt Count MPV Immature Gran % (Auto) Neut % (Auto) Lymph % (Auto) Wolfe % (Auto) Eos % (Auto) Baso % (Auto) Neut # (Auto) Lymph # (Auto) Wolfe # (Auto) Eos # (Auto) Baso # (Auto) Immature Gran # (Auto) APTT PTT Ratio Sodium Potassium Chloride Carbon Dioxide Anion Gap BUN Creatinine Est Cr Clr Drug Dosing Est GFR ( Amer) Est GFR (Non-Af Amer) BUN/Creatinine Ratio Glucose POC Glucose 160 H Calcium Phosphorus Magnesium Medications Administered Current Inpatient Medications Acetaminophen (Acetaminophen 500 Mg Tab) 1,000 mg PO Q8H PRN PRN Reason: pain Stop: 06/16/22 14:29 Amiodarone HCl (Amiodarone 200 Mg Tab) 200 mg PO BIDM VEGA Stop: 06/23/22 16:59 Apixaban (Apixaban 5 Mg Tablet) 5 mg PO BID VEGA Stop: 06/23/22 20:59 Dextrose (Dextrose 50% 50 Ml Syringe) 25 - 50 ml IV UD PRN; Protocol PRN Reason: Hypoglycemia Protocol Stop: 06/15/22 15:45 Furosemide (Furosemide 40 Mg Tab) 40 mg PO BID17 VEGA Stop: 06/23/22 08:59 Last Admin: 05/24/22 09:51 Dose: 40 mg Gabapentin (Gabapentin 100 Mg Cap) 100 mg PO TID VEGA Stop: 06/15/22 20:59 Last Admin: 05/24/22 09:51 Dose: 100 mg Glucagon (Glucagon For Inj 1 Mg Vial) 1 mg SQ UD PRN; Protocol PRN Reason: Hypoglycemia Protocol Stop: 06/15/22 15:45 Glucose (Glucose 40% Gel 15 Gm Tube) 15 - 30 gm PO UD PRN; Protocol PRN Reason: Hypoglycemia Protocol Stop: 06/15/22 15:45 Glucose (Glucose 10 Tab/Tube) 4 - 8 tab PO UD PRN; Protocol PRN Reason: Hypoglycemia Treatment Stop: 06/15/22 15:45 Dexamethasone 6 mg/ Syringe 1.5 mls @ 1 mls/min IV Q24H VEGA Stop: 05/26/22 16:00 Last Admin: 05/24/22 11:28 Dose: 1 mls/min Insulin Aspart (Insulin Aspart Per Unit) 0 units SC ACHS [facility] Stop: 06/17/22 11:59 Miscellaneous (Ramelteon: Order Awaiting Action) 1 each N/A QS VEGA Stop: 06/15/22 15:59 Last Admin: 05/24/22 08:09 Dose: Not Given Miscellaneous (Carbohydrates For Hypoglycemia ) 15 - 30 gm PO UD PRN PRN Reason: Hypoglycemia Protocol Stop: 06/15/22 15:45 Pantoprazole Sodium (Pantoprazole 40 Mg Tab) 40 mg PO QAM VEGA Stop: 06/21/22 08:59 Last Admin: 05/24/22 09:50 Dose: 40 mg
--- NOTE | 2022-05-24 15:08 | Hospitalist Progress Note ---
Date of Service May 24, 2022 Assessment & Plan (1) Atrial fibrillation with rapid ventricular response: Plan: Afib RVR Sustained VT requiring defibrillation Continue on amiodarone drip Continue IV heparin for anticoagulation Appreciate cardiology input Transition to Eliquis as able IV lidocaine discontinued Plan to start on Beta john if BP tolerates Has been improving gradually . We will moved to telemetry unit We will continue with the intravenous amiodarone for now as per truck leasing manager Remains stable without any cardiac symptoms Heart rate remains controlled and asymptomatic Amiodarone doses have been decreased to 200 mg twice daily Clinically remains stable Heparin has been discontinued and she has been on Eliquis from today Nonischemic cardiomyopathy Possibly Takotsubo cardiomyopathy Cardiogenic shock -S/P Cardiac Cath:Multivessel coronary artery disease. 50% mid LAD. Medium D2 80% proximal. 50% calcified ostial circumflex, 50% inferior branch of OM2. 60% mid, 50% distal RCA. Elevated left-sided filling pressure (LVEDP 22). Normal p ulmonary artery pressure. Preserved cardiac output --ECHO: Apical ballooning pattern of the LV chamber. Moderate hypokinesis of all basal wall segments with progressive akinesis at the mid levels and dyskinesis at the apex. Severely reduced LV systolic function EF 15 to 20%. Right ventricular cavity size is normal. Right ventricular systolic function is normal as assessed by tricuspid annular plane systolic excursion. Aortic valve sclerosis moderate, without significant aortic valvular stenosis. Mild aortic regurgitation. PASP of 48 mmHg. --Patient had sustained VT requiring defibrillation --Appreciate Cardiology, Critical Care Input --Pressors discontinued --volume status, I's and O's, daily weight --Monitor electrolytes -Rate is controlled and no evidence of fluid overload -Cumulative fluid balance is --282 ml -Intravenous Lasix has been discontinued and now placed on Lasix 40 twice daily -Monitor electrolytes Anorexia No problem with swallowing Diet consistency and form as per speech therapist Leukocytosis Likely secondary to use of Decadron No signs and or symptoms of infection Decadron will be discontinued after 10 doses (2) NSVT (nonsustained ventricular tachycardia): Plan: Management as above (3) Elevated troponin: Plan: Likely demand ischemia due to Sepsis, tachyarrhythmias, stress-induced cardiomyopathy, COVID-19 infection (4) Pneumonia due to COVID-19 virus: Plan: Sepsis Likely multifactorial: COVID-19 infection, colitis, possible UTI Lactic acidosis Colitis UTI ruled out Urine Culture Mixed Probable Skin elier Blood Cultures:No growth to date Zosyn discontinued Course of antibiotic's finished Decadron will be finished on eighth of this month Acute respiratory distress syndrome Acute hypoxic respiratory failure S/P Intubation 05/17 COVID 19 Infection Patient is intubated in [employer] CRP:5.69 Procalcitonin: 0.24 Appreciate critical care input Continue vent support Continue Dexamethasone Extubated on 05/19/2022 Remains medically stable-saturating normally on 3 L nasal cannula Oxygen requirement is down to 2 L/min Has been saturating normally on room air (5) Hypokalemia: Plan: Hypokalemia Hypophosphatemia Replete electrolytes as needed (6) Chronic heart failure with preserved ejection fraction (HFpEF): Plan: Monitor volume status closely on IV diuresis We will continue intravenous furosemide for now Remains in positive balance of more than 1 L (7) HLD (hyperlipidemia): Plan: Resume Statin as able (8) Hypertension: Plan: Monitor (9) Ascending aortic aneurysm: Plan: Stable (10) Esophageal reflux: Plan Prediabetes HbA1C: 6.1 Continue ISS given elevated BGs while on steroids DVT Px: IV Heparin Code Status Conditional Code Admission and Anticipated Discharge Date Admission Date: May 16, 2022 Subjective 05/20/2022 The patient was seen and examined in ICU She remains weak and lethargic and complains to have some problem with swallowing Denies any fever and or chills, any shortness of breath at rest, any abdominal pain, nausea and or vomiting 05/21/2022 The patient was seen and examined in ICU She required high flow nasal cannula oxygen to maintain saturation but now she has been saturating normally on 3 L via nasal cannula Generally weak but denies any other significant symptoms 05/22/2022 The patient was seen and examined in ICU with telemetry status She has been feeling much better but remains very weak and lethargic She complains to have anorexia but no other significant symptoms 05/23/2022 The patient was seen and examined in ICU with telemetry status She has been weak and lethargic otherwise denies any significant symptoms She has been out of bed today 05/24/2022 The patient was seen and examined in ICU with telemetry status She is out of bed on a chair and denies any significant symptoms except weakness Has been saturating on room air Getting physical therapy and getting stronger Review of Systems Review of Systems: All systems reviewed and are unremarkable except as noted below Neurologic: Generalized weakness Physical Exam Physical Exam: Sitting on a chair without any acute distress Constitutional: + ill appearing and average body habitus Eyes: PERRL, conjunctivae normal, anicteric sclerae ENMT: external ear and nose normal, oropharynx normal Neck: trachea midline, no thyromegaly Respiratory: no respiratory distress Auscultation: + diminished lung sounds; no crackles (Minimal bibasilar crackles) Cardiovascular: Rate/Rhythm: regular rate and regular rhythm; not tachycardic Heart Sounds: normal S1 and normal S2; no murmur Extremities: + edema (1 + bilaterally) Gastrointestinal (Abdomen): Inspection/Auscultation: normal bowel sounds; abdomen not distended Percussion/Palpation: abdomen soft; abdomen nontender Musculoskeletal: No acute arthritis in any joint Neurologic: normal touch/pain/proprioception and moves all extremities; not confused Psychiatric: A+Ox3, euthymic affect Lymphatic: no cervical or axillary lymphadenopathy Results & Data Results & Data ([facility]) Vital Signs (Past 12 Hours) Vital Signs Temp Pulse Pulse Resp BP Pulse Ox O2 Del Method 05/24/22 11:58 36.8 C 80 20 150/86 H 92 Room Air 05/24/22 09:00 37.0 C 66 16 140/77 97 05/24/22 08:00 Nasal Cannula 05/24/22 03:20 66 21 96 05/24/22 03:47 36.6 C 66 20 144/81 H 98 BiPAP O2 Flow Rate FiO2 05/24/22 11:58 05/24/22 09:00 05/24/22 08:00 2 05/24/22 03:20 35 05/24/22 03:47 35 Laboratory Results Short CBC 05/24/22 Range/Units 05:22 WBC 21.62 H (4.8-10.8) K/ul Hgb 13.0 (12.0-16.0) g/dl Hct 40.3 (34.1-44.9) % Plt Count 288 D (130-400) K/uL BMP 05/24/22 05:22 Sodium 135 L Potassium 3.9 Chloride 93 L Carbon Dioxide 32 BUN 42 H Creatinine 0.68 Glucose 121 H Calcium 9.4 Medications Administered Current Inpatient Medications Acetaminophen (Acetaminophen 500 Mg Tab) 1,000 mg PO Q8H PRN PRN Reason: pain Stop: 06/16/22 14:29 Amiodarone HCl (Amiodarone 200 Mg Tab) 200 mg PO BIDM VEGA Stop: 06/23/22 16:59 Apixaban (Apixaban 5 Mg Tablet) 5 mg PO BID VEGA Stop: 06/23/22 20:59 Dextrose (Dextrose 50% 50 Ml Syringe) 25 - 50 ml IV UD PRN; Protocol PRN Reason: Hypoglycemia Protocol Stop: 06/15/22 15:45 Furosemide (Furosemide 40 Mg Tab) 40 mg PO BID17 VEGA Stop: 06/23/22 08:59 Last Admin: 05/24/22 09:51 Dose: 40 mg Gabapentin (Gabapentin 100 Mg Cap) 100 mg PO TID VEGA Stop: 06/15/22 20:59 Last Admin: 05/24/22 13:22 Dose: 100 mg Glucagon (Glucagon For Inj 1 Mg Vial) 1 mg SQ UD PRN; Protocol PRN Reason: Hypoglycemia Protocol Stop: 06/15/22 15:45 Glucose (Glucose 40% Gel 15 Gm Tube) 15 - 30 gm PO UD PRN; Protocol PRN Reason: Hypoglycemia Protocol Stop: 06/15/22 15:45 Glucose (Glucose 10 Tab/Tube) 4 - 8 tab PO UD PRN; Protocol PRN Reason: Hypoglycemia Treatment Stop: 06/15/22 15:45 Dexamethasone 6 mg/ Syringe 1.5 mls @ 1 mls/min IV Q24H VEGA Stop: 05/26/22 16:00 Last Admin: 05/24/22 11:28 Dose: 1 mls/min Insulin Aspart (Insulin Aspart Per Unit) 0 units SC ACHS VEGA Stop: 06/17/22 11:59 Last Admin: 05/24/22 11:54 Dose: 1 units Miscellaneous (Ramelteon: Order Awaiting Action) 1 each N/A QS [facility] Stop: 06/15/22 15:59 Last Admin: 05/24/22 11:56 Dose: Not Given Miscellaneous (Carbohydrates For Hypoglycemia ) 15 - 30 gm PO UD PRN PRN Reason: Hypoglycemia Protocol Stop: 06/15/22 15:45 Pantoprazole Sodium (Pantoprazole 40 Mg Tab) 40 mg PO QAM VEGA Stop: 06/21/22 08:59 Last Admin: 05/24/22 09:50 Dose: 40 mg Sacubitril/Valsartan (Valsartan/Sacubitril 26/24mg Tab) 1 tab PO BID VEGA Stop: 06/23/22 20:59
[2022-05-24] MEDS: VALSARTAN/SACUBITRIL 26/24MG TAB PO SCH (20:24)
[2022-05-24] MEDS: APIXABAN 5 MG TABLET PO SCH (20:25)
[2022-05-25 06:41] LABS: Hematocrit (blood only) 37.8 % (34.1-44.9); Hemoglobin 12.4 g/dl (12.0-16.0); Mean Corpuscular Hemoglobin 26.8 pg (25.0-34.0); Mean Corpuscular Hgb Conc 32.8 g/dL (32.0-36.0); Mean Corpuscular Volume 81.8 fL (80.0-100.0); Mean Platelet Volume 12.2 fL (9.4-12.3); Platelet Count 321 K/uL (130-400); RDW Coefficient of Variation 15.6 % (11.5-14.5); RDW Standard Deviation 45.7 fL (36.4-46.3); Red Blood Count 4.62 M/uL (3.93-5.22); White Blood Count 26.45 K/ul (4.8-10.8)
[2022-05-25 07:07] LABS: BUN Creatinine Ratio 63.2 (10-20); Creatinine Clr Calc Pharmacy 55.6 ml/min; Est GFR (African American) 100.6 ml/min; Est GFR (Non-African American) 86.8 ml/min
[2022-05-25 07:31] LABS: Basophils # (auto) 0.04 K/uL (0-0.2); Basophils % (auto) 0.2 %; Immature Granulocytes # (auto) 0.32 K/uL (0.00-0.02); Immature Granulocytes % (auto) 1.2 %; Lymphocytes # (auto) 1.19 K/uL (1.2-3.4); Lymphocytes % (auto) 4.5 %; Monocytes # (auto) 1.71 K/uL (0.24-0.82); Monocytes % (auto) 6.5 %; Neutrophils # (auto) 23.19 K/uL (1.4-6.5); Neutrophils % (auto) 87.6 %; Ovalocytes 1+; Polychromasia 1+
[2022-05-25] MEDS: INSULIN ASPART PER UNIT SC SCH ×4 (07:50→21:12)
[2022-05-25] MEDS: AMIODARONE 200 MG TAB PO SCH ×2 (07:51→17:54)
[2022-05-25] MEDS: RAMELTEON: ORDER AWAITING ACTION SCH ×2 (07:52→15:52)
[2022-05-25] MEDS: GABAPENTIN 100 MG CAP PO SCH ×3 (09:29→21:30)
[2022-05-25] MEDS: APIXABAN 5 MG TABLET PO SCH ×2 (09:29→21:31)
[2022-05-25] MEDS: VALSARTAN/SACUBITRIL 26/24MG TAB PO SCH ×2 (09:29→21:30)
[2022-05-25] MEDS: PANTOprazole 40 MG TAB PO SCH (09:29)
[2022-05-25] MEDS: FUROSEMIDE 40 MG TAB PO SCH ×2 (09:29→17:54)
[2022-05-25] MEDS: dexAMETHasone 6 MG in SYRINGE 0 ML IV SCH (13:07)
--- NOTE | 2022-05-25 17:24 | Hospitalist Progress Note ---
Date of Service May 25, 2022 Assessment & Plan (1) Atrial fibrillation with rapid ventricular response: Plan: per Dr. Bradshaw's notes with addendum: Afib RVR Sustained VT requiring defibrillation Continue on amiodarone drip Continue IV heparin for anticoagulation Appreciate cardiology input Transition to Eliquis as able IV lidocaine discontinued Plan to start on Beta john if BP tolerates Has been improving gradually . We will moved to telemetry unit We will continue with the intravenous amiodarone for now as per timber trimmer Remains stable without any cardiac symptoms Heart rate remains controlled and asymptomatic Amiodarone doses have been decreased to 200 mg twice daily Clinically remains stable Heparin has been discontinued and she has been on Eliquis from today 05/25: stable overall continue Amiodarone and Eliquis Nonischemic cardiomyopathy Possibly Takotsubo cardiomyopathy Cardiogenic shock -S/P Cardiac Cath:Multivessel coronary artery disease. 50% mid LAD. Medium D2 80% proximal. 50% calcified ostial circumflex, 50% inferior branch of OM2. 60% mid, 50% distal RCA. Elevated left-sided filling pressure (LVEDP 22). Normal pulmonary artery pressure. Preserved cardiac output --ECHO: Apical ballooning pattern of the LV chamber. Moderate hypokinesis of all basal wall segments with progressive akinesis at the mid levels and dyskinesis at the apex. Severely reduced LV systolic function EF 15 to 20%. Right ventricular cavity size is normal. Right ventricular systolic function is normal as assessed by tricuspid annular plane systolic excursion. Aortic valve sclerosis moderate, without significant aortic valvular stenosis. Mild aortic regurgitation. PASP of 48 mmHg. --Patient had sustained VT requiring defibrillation --Appreciate Cardiology, Critical Care Input --Pressors discontinued --volume status, I's and O's, daily weight --Monitor electrolytes -Rate is controlled and no evidence of fluid overload -Cumulative fluid balance is --282 ml -Intravenous Lasix has been discontinued and now placed on Lasix 40 twice daily -Monitor electrolytes 05/25 continue Lasix, Entresto Anorexia No problem with swallowing Diet consistency and form as per speech therapist Leukocytosis Likely secondary to use of Decadron No signs and or symptoms of infection Decadron will be discontinued after 10 doses (2) NSVT (nonsustained ventricular tachycardia): Plan: Management as above (3) Elevated troponin: Plan: Likely demand ischemia due to Sepsis, tachyarrhythmias, stress-induced cardiomyopathy, COVID-19 infection (4) Pneumonia due to COVID-19 virus: Plan: Sepsis Likely multifactorial: COVID-19 infection, colitis, possible UTI Lactic acidosis Colitis UTI ruled out Urine Culture Mixed Probable Skin elier Blood Cultures:No growth to date Zosyn discontinued Course of antibiotic's finished Decadron will be finished tomorrow Acute respiratory distress syndrome Acute hypoxic respiratory failure S/P Intubation 05/17 COVID 19 Infection Patient is intubated in [employer] CRP:5.69 Procalcitonin: 0.24 Appreciate critical care input Continue vent support Continue Dexamethasone Extubated on 05/19/2022 Remains medically stable-saturating normally on 3 L nasal cannula Oxygen requirement is down to 2 L/min Has been saturating normally on room air on room air stable (5) Hypokalemia: Plan: Hypokalemia Hypophosphatemia Replete electrolytes as needed (6) Chronic heart failure with preserved ejection fraction (HFpEF): Plan: Monitor volume status closely now on Lasix PO (7) HLD (hyperlipidemia): Plan: Resume Statin as able (8) Hypertension: Plan: Monitor (9) Ascending aortic aneurysm: Plan: Stable (10) Esophageal reflux: Plan Prediabetes HbA1C: 6.1 Continue ISS given elevated BGs while on steroids DVT Px: IV Heparin Code Status Conditional Code Admission and Anticipated Discharge Date Admission Date: May 16, 2022 Subjective ff up for COVID, cardiomyopathy, etc seen resting in bed, comfortable watching TV states she feels fine overall no chest pain, dyspnea, palpitations, dizziness no other symptoms Review of Systems Review of Systems: all noted and negative except for above Physical Exam Physical Exam: General- oriented x 3, not in distress, speaks in sentences with no effort or accessory muscle use Eyes- anicteric Neck- no JVD Lungs- clear breath sounds bilaterally, no rales/wheezes Heart- normal rate, regular rhythm; no murmurs Abdomen- normal bowel sounds, nondistended, soft, nontender Extremities- no pretibial edema, no calf tenderness Neuro- alert, oriented x 3; no gross focal neurologic deficits Skin- warm & dry Results & Data Results & Data ([facility]) Vital Signs (Past 12 Hours) Vital Signs Temp Pulse Pulse Resp BP BP Pulse Ox 05/25/22 16:21 105/63 05/25/22 15:46 36.3 C L 18 89/51 L 94 05/25/22 15:26 72 05/25/22 08:00 05/25/22 08:00 81 05/25/22 11:33 36.3 C L 78 18 105/61 96 05/25/22 07:52 36.7 C 88 18 109/70 94 05/25/22 06:58 82 19 95 O2 Del Method O2 Flow Rate 05/25/22 16:21 05/25/22 15:46 Room Air 05/25/22 15:26 05/25/22 08:00 Room Air 05/25/22 08:00 05/25/22 11:33 Room Air 05/25/22 07:52 Room Air 05/25/22 06:58 2 all noted and reviewed including below
[2022-05-26] MEDS: RAMELTEON: ORDER AWAITING ACTION SCH ×3 (00:12→16:53)
[2022-05-26] MEDS: INSULIN ASPART PER UNIT SC SCH ×4 (08:12→21:43)
[2022-05-26] MEDS: VALSARTAN/SACUBITRIL 26/24MG TAB PO SCH ×2 (09:29→21:28)
[2022-05-26] MEDS: GABAPENTIN 100 MG CAP PO SCH ×3 (09:30→21:28)
[2022-05-26] MEDS: FUROSEMIDE 40 MG TAB PO SCH (09:30)
[2022-05-26] MEDS: APIXABAN 5 MG TABLET PO SCH ×2 (09:30→21:28)
[2022-05-26] MEDS: AMIODARONE 200 MG TAB PO SCH (09:30)
[2022-05-26] MEDS: PANTOprazole 40 MG TAB PO SCH (09:30)
--- NOTE | 2022-05-26 09:49 | Cardiology Progress Note ---
Date of Service May 26, 2022 Assessment & Plan (1) PAF (paroxysmal atrial fibrillation): (2) NSVT (nonsustained ventricular tachycardia): (3) Diastolic dysfunction: (4) Ascending aortic aneurysm: (5) Pneumonia due to COVID-19 virus: (6) STEMI (ST elevation myocardial infarction): (7) Atrial flutter with rapid ventricular response: (8) Acute respiratory failure with hypoxia: Plan Adjusting medications. Decrease the amiodarone to 200 mg daily. I think we can also decrease her diuretics and switch her to 20 mg of Lasix twice daily. Admission and Anticipated Discharge Date Admission Date: May 16, 2022 Subjective The patient remains in isolation due to COVID. Review of Systems Review of Systems: Not obtainable Physical Exam Physical Exam: Per protocol and to reduce exposure to COVID I did not examine the patient. Results & Data ([facility]) Vital Signs (Past 12 Hours) Vital Signs Temp Pulse Pulse Resp BP Pulse Ox O2 Del Method 05/26/22 08:00 60 05/26/22 07:43 36.5 C 79 18 111/67 92 Room Air 05/26/22 04:09 36.5 C 69 16 115/75 96 CPAP 05/26/22 02:37 61 19 98 05/26/22 00:00 68 05/25/22 23:45 36.5 C 68 18 101/65 98 CPAP 05/25/22 22:30 68 05/25/22 22:59 66 20 97 O2 Flow Rate 05/26/22 08:00 05/26/22 07:43 05/26/22 04:09 05/26/22 02:37 2 05/26/22 00:00 05/25/22 23:45 05/25/22 22:30 05/25/22 22:59 2 Laboratory Results Laboratory Results - last 24 hr 05/25/22 05/25/22 05/25/22 11:28 16:41 20:50 POC Glucose 151 H 174 H 149 H 05/26/22 07:41 POC Glucose 130 H Medications Administered Current Inpatient Medications Acetaminophen (Acetaminophen 500 Mg Tab) 1,000 mg PO Q8H PRN PRN Reason: pain Stop: 06/16/22 14:29 Amiodarone HCl (Amiodarone 200 Mg Tab) 200 mg PO DAILY VEGA Stop: 06/26/22 08:59 Apixaban (Apixaban 5 Mg Tablet) 5 mg PO BID VEGA Stop: 06/23/22 20:59 Last Admin: 05/26/22 09:30 Dose: 5 mg Dextrose (Dextrose 50% 50 Ml Syringe) 25 - 50 ml IV UD PRN; Protocol PRN Reason: Hypoglycemia Protocol Stop: 06/15/22 15:45 Furosemide (Furosemide 20 Mg Tab) 20 mg PO BID17 VEGA Stop: 06/25/22 16:59 Gabapentin (Gabapentin 100 Mg Cap) 100 mg PO TID VEGA Stop: 06/15/22 20:59 Last Admin: 05/26/22 09:30 Dose: 100 mg Glucagon (Glucagon For Inj 1 Mg Vial) 1 mg SQ UD PRN; Protocol PRN Reason: Hypoglycemia Protocol Stop: 06/15/22 15:45 Glucose (Glucose 40% Gel 15 Gm Tube) 15 - 30 gm PO UD PRN; Protocol PRN Reason: Hypoglycemia Protocol Stop: 06/15/22 15:45 Glucose (Glucose 10 Tab/Tube) 4 - 8 tab PO UD PRN; Protocol PRN Reason: Hypoglycemia Treatment Stop: 06/15/22 15:45 Dexamethasone 6 mg/ Syringe 1.5 mls @ 1 mls/min IV Q24H VEGA Stop: 05/26/22 16:00 Last Admin: 05/25/22 13:07 Dose: 1 mls/min Insulin Aspart (Insulin Aspart Per Unit) 0 units SC ACHS VEGA Stop: 06/17/22 11:59 Last Admin: 05/26/22 08:12 Dose: Not Given Miscellaneous (Ramelteon: Order Awaiting Action) 1 each N/A QS VEGA Stop: 06/15/22 15:59 Last Admin: 05/26/22 09:39 Dose: Not Given Miscellaneous (Carbohydrates For Hypoglycemia ) 15 - 30 gm PO UD PRN PRN Reason: Hypoglycemia Protocol Stop: 06/15/22 15:45 Pantoprazole Sodium (Pantoprazole 40 Mg Tab) 40 mg PO QAM VEGA Stop: 06/21/22 08:59 Last Admin: 05/26/22 09:30 Dose: 40 mg Sacubitril/Valsartan (Valsartan/Sacubitril 26/24mg Tab) 1 tab PO BID EVGA Stop: 06/23/22 20:59 Last Admin: 05/26/22 09:29 Dose: 1 tab
[2022-05-26] MEDS: dexAMETHasone 6 MG in SYRINGE 0 ML IV SCH (12:52)
[2022-05-26] MEDS: FUROSEMIDE 20 MG TAB PO SCH (18:45)
--- NOTE | 2022-05-26 19:13 | Hospitalist Progress Note ---
Date of Service May 26, 2022 delayed entry date of service noted above Assessment & Plan (1) Atrial fibrillation with rapid ventricular response: Plan: per Dr. Bradshaw's notes with addendum: Afib RVR Sustained VT requiring defibrillation Continue on amiodarone drip Continue IV heparin for anticoagulation Appreciate cardiology input Transition to Eliquis as able IV lidocaine discontinued Plan to start on Beta john if BP tolerates Has been improving gradually . We will moved to telemetry unit We will continue with the intravenous amiodarone for now as per ortho rn Remains stable without any cardiac symptoms Heart rate remains controlled and asymptomatic Amiodarone doses have been decreased to 200 mg twice daily Clinically remains stable Heparin has been discontinued and she has been on Eliquis from today 05/26 remains stable continue Amiodarone and Eliquis Nonischemic cardiomyopathy Possibly Takotsubo cardiomyopathy Cardiogenic shock -S/P Cardiac Cath:Multivessel coronary artery disease. 50% mid LAD. Medium D2 80% proximal. 50% calcified ostial circumflex, 50% inferior branch of OM2. 60% mid, 50% distal RCA. Elevated left-sided filling pressure (LVEDP 22). Normal pulmonary artery pressure. Preserved cardiac output --ECHO: Apical ballooning pattern of the LV chamber. Moderate hypokinesis of all basal wall segments with progressive akinesis at the mid levels and dyskinesis at the apex. Severely reduced LV systolic function EF 15 to 20%. Right ventricular cavity size is normal. Right ventricular systolic function is normal as assessed by tricuspid annular plane systolic excursion. Aortic valve sclerosis moderate, without significant aortic valvular stenosis. Mild aortic regurgitation. PASP of 48 mmHg. --Patient had sustained VT requiring defibrillation --Appreciate Cardiology, Critical Care Input --Pressors discontinued --volume status, I's and O's, daily weight --Monitor electrolytes -Rate is controlled and no evidence of fluid overload -Cumulative fluid balance is --282 ml -Intravenous Lasix has been discontinued and now placed on Lasix 40 twice daily -Monitor electrolytes 05/26 euvolemic continue Lasix, Entresto Anorexia No problem with swallowing Diet consistency and form as per speech therapist Leukocytosis Likely secondary to use of Decadron No signs and or symptoms of infection Decadron to complete 10 day course (2) NSVT (nonsustained ventricular tachycardia): Plan: Management as above (3) Elevated troponin: Plan: Likely demand ischemia due to Sepsis, tachyarrhythmias, stress-induced cardiomyopathy, COVID-19 infection (4) Pneumonia due to COVID-19 virus: Plan: Sepsis Likely multifactorial: COVID-19 infection, colitis, possible UTI Lactic acidosis Colitis UTI ruled out Urine Culture Mixed Probable Skin elier Blood Cultures:No growth to date Zosyn discontinued Course of antibiotic's finished Decadron will be finished tomorrow Acute respiratory distress syndrome Acute hypoxic respiratory failure S/P Intubation 05/17 COVID 19 Infection Patient is intubated in Roving Weight Gauger CRP:5.69 Procalcitonin: 0.24 Appreciate critical care input Continue vent support Continue Dexamethasone Extubated on 05/19/2022 Remains medically stable-saturating normally on 3 L nasal cannula Oxygen requirement is down to 2 L/min Has been saturating normally on room air on room air stable (5) Hypokalemia: Plan: Hypokalemia Hypophosphatemia Replete electrolytes as needed (6) Chronic heart failure with preserved ejection fraction (HFpEF): Plan: Monitor volume status closely now on Lasix PO (7) HLD (hyperlipidemia): Plan: Resume Statin as able (8) Hypertension: Plan: Monitor (9) Ascending aortic aneurysm: Plan: Stable (10) Esophageal reflux: Plan Prediabetes HbA1C: 6.1 Continue ISS given elevated BGs while on steroids DVT Px: IV Heparin Code Status Conditional Code Admission and Anticipated Discharge Date Admission Date: May 16, 2022 Subjective ff up for COVID infection, etc seen resting in bed, comfortable sitting up alert, oriented states she feels fine overall no chest pain, dyspnea, palpitations, dizziness appetite is good no leg pain Review of Systems Review of Systems: all noted and negative except for above Physical Exam Physical Exam: General- oriented x 2, not in distress, speaks in sentences with no effort or accessory muscle use Eyes- anicteric Neck- no JVD Lungs- clear BS bilaterally, no rales/wheezes Heart- normal rate, regular rhythm; no murmurs Abdomen- normal bowel sounds, nondistended, soft, nontender Extremities- no pretibial edema, no calf tenderness Neuro- alert, oriented x 2, no gross focal neurologic deficits Skin- warm & dry Results & Data Results & Data ([facility]) Vital Signs (Past 12 Hours) Vital Signs Temp Pulse Pulse Resp BP Pulse Ox O2 Del Method 05/26/22 16:43 36.5 C 73 20 99/64 L 92 Room Air 05/26/22 16:00 68 05/26/22 14:35 94 05/26/22 11:33 36.3 C L 62 18 106/69 95 Room Air 05/26/22 10:13 Room Air, BiPAP 05/26/22 08:00 60 05/26/22 07:43 36.5 C 79 18 111/67 92 Room Air all noted and reviewed including below
[2022-05-26] MEDS ORDERED: RAMELTEON 8 MG PO SCH (21:00)
--- NOTE | 2022-05-26 21:26 | Electrocardiogram Report ---
Test Reason : Blood Pressure : / mmHG Vent. Rate : 068 BPM Atrial Rate : 068 BPM P-R Int : 120 ms QRS Dur : 110 ms QT Int : 566 ms P-R-T Axes : 042 -07 061 degrees QTc Int : 601 ms Sinus rhythm Prolonged QT Abnormal ECG When compared with ECG of 20-MAY-2022 04:32, Nonspecific T wave abnormality, improved in Anterolateral leads Confirmed by Luke Vallejo ([id number]) on 05/26/2022 9:26:07 PM Referred By: REFERRED SELF Confirmed By:Luke Vallejo
[2022-05-27] MEDS: INSULIN ASPART PER UNIT SC SCH ×2 (08:05→11:43)
[2022-05-27] MEDS ORDERED: AMIODARONE 200 MG TAB PO SCH (09:00)
[2022-05-27] MEDS: APIXABAN 5 MG TABLET PO SCH (09:21)
[2022-05-27] MEDS: FUROSEMIDE 20 MG TAB PO SCH (09:21)
[2022-05-27] MEDS: VALSARTAN/SACUBITRIL 26/24MG TAB PO SCH (09:21)
[2022-05-27] MEDS: GABAPENTIN 100 MG CAP PO SCH ×2 (09:21→15:18)
[2022-05-27] MEDS: PANTOprazole 40 MG TAB PO SCH (09:21)
[2022-05-27] MEDS ORDERED: POLYETHYLENE (MIRALAX) 17 GM PACK PO SCH (09:45)
--- NOTE | 2022-05-27 10:14 | Cardiology Progress Note ---
Date of Service May 27, 2022 Assessment & Plan (1) PAF (paroxysmal atrial fibrillation): (2) NSVT (nonsustained ventricular tachycardia): (3) Diastolic dysfunction: (4) Ascending aortic aneurysm: (5) Pneumonia due to COVID-19 virus: (6) STEMI (ST elevation myocardial infarction): (7) Atrial flutter with rapid ventricular response: (8) Acute respiratory failure with hypoxia: Plan The patient has a bed at the rehab hospital and I think she is stable enough to go there. In addition to her current medications I have added metoprolol XL 12.5 mg daily as part of guideline directed medications for her ischemic cardiomyopathy and chronic systolic heart failure. We will see her as an outpatient and make additional adjustments, probably after she has completed her term at rehab. Admission and Anticipated Discharge Date Admission Date: May 16, 2022 Subjective The patient remains in COVID isolation. Review of Systems Review of Systems: Not obtainable Physical Exam Physical Exam: As per protocol and to limit the spread of COVID, no physical exam was performed. Results & Data ([facility]) Vital Signs (Past 12 Hours) Vital Signs Temp Pulse Pulse Resp BP Pulse Ox O2 Del Method 05/27/22 08:00 Room Air 05/27/22 08:00 58 L 05/27/22 09:20 71 114/66 05/27/22 07:25 66 22 98 05/27/22 06:58 36.5 C 61 20 106/67 99 CPAP 05/27/22 05:16 37.3 C 60 18 101/66 98 CPAP 05/27/22 04:00 63 21 97 05/27/22 00:00 BiPAP 05/26/22 22:40 69 05/26/22 23:55 36.4 C L 70 20 96/60 L 98 CPAP 05/26/22 23:18 73 22 96 O2 Flow Rate 05/27/22 08:00 05/27/22 08:00 05/27/22 09:20 05/27/22 07:25 2 05/27/22 06:58 05/27/22 05:16 05/27/22 04:00 2 05/27/22 00:00 05/26/22 22:40 05/26/22 23:55 05/26/22 23:18 2 Laboratory Results Laboratory Results - last 24 hr 05/26/22 05/26/2205/26/22 11:15 16:34 21:12 POC Glucose 140 H 193 H 204 H 05/27/22 06:57 POC Glucose 134 H Medications Administered Current Inpatient Medications Acetaminophen (Acetaminophen 500 Mg Tab) 1,000 mg PO Q8H PRN PRN Reason: pain Stop: 06/16/22 14:29 Amiodarone HCl (Amiodarone 200 Mg Tab) 200 mg PO DAILY VEGA Stop: 06/26/22 08:59 Last Admin: 05/27/22 09:21 Dose: 200 mg Apixaban (Apixaban 5 Mg Tablet) 5 mg PO BID VEGA Stop: 06/23/22 20:59 Last Admin: 05/27/22 09:21 Dose: 5 mg Dextrose (Dextrose 50% 50 Ml Syringe) 25 - 50 ml IV UD PRN; Protocol PRN Reason: Hypoglycemia Protocol Stop: 06/15/22 15:45 Furosemide (Furosemide 20 Mg Tab) 20 mg PO [id number] VEGA Stop: 06/25/22 16:59 Last Admin: 05/27/22 09:21 Dose: 20 mg Gabapentin (Gabapentin 100 Mg Cap) 100 mg PO TID VEGA Stop: 06/15/22 20:59 Last Admin: 05/27/22 09:21 Dose: 100 mg Glucagon (Glucagon For Inj 1 Mg Vial) 1 mg SQ UD PRN; Protocol PRN Reason: Hypoglycemia Protocol Stop: 06/15/22 15:45 Glucose (Glucose 40% Gel 15 Gm Tube) 15 - 30 gm PO UD PRN; Protocol PRN Reason: Hypoglycemia Protocol Stop: 06/15/22 15:45 Glucose (Glucose 10 Tab/Tube) 4 - 8 tab PO UD PRN; Protocol PRN Reason: Hypoglycemia Treatment Stop: 06/15/22 15:45 Insulin Aspart (Insulin Aspart Per Unit) 0 units SC ACHS VEGA Stop: 06/17/22 11:59 Last Admin: 05/27/22 08:05 Dose: Not Given Metoprolol Succinate (Metoprolol Succ 25mg Ext Rel Tab) 12.5 mg PO QAM VEGA Stop: 06/26/22 10:14 Miscellaneous (Carbohydrates For Hypoglycemia ) 15 - 30 gm PO UD PRN PRN Reason: Hypoglycemia Protocol Stop: 06/15/22 15:45 Ramelteon 8 Mg Tablet - Non- Formulary Patient's Own Med 1 each PO HS VEGA Stop: 06/25/22 20:59 Last Admin: 05/26/22 21:27 Dose: 1 tab Pantoprazole Sodium (Pantoprazole 40 Mg Tab) 40 mg PO QAM VEGA Stop: 06/21/22 08:59 Last Admin: 05/27/22 09:21 Dose: 40 mg Polyethylene Glycol (Polyethylene (Miralax) 17 Gm Pack) 17 gm PO DAILY VEGA Stop: 06/26/22 09:44 Sacubitril/Valsartan (Valsartan/Sacubitril 26/24mg Tab) 1 tab PO BID VEGA Stop: 06/23/22 20:59 Last Admin: 05/27/22 09:21 Dose: 1 tab
[2022-05-27] MEDS ORDERED: METOPROLOL SUCC 25MG EXT REL TAB PO SCH (10:15)
--- NOTE | 2022-05-27 10:53 | Electrocardiogram Report ---
Test Reason : Blood Pressure : / mmHG Vent. Rate : 063 BPM Atrial Rate : 063 BPM P-R Int : 112 ms QRS Dur : 102 ms QT Int : 570 ms P-R-T Axes : 043 006 071 degrees QTc Int : 583 ms Normal sinus rhythm Prolonged QT Abnormal ECG When compared with ECG of 26-MAY-2022 11:23, No significant change was found Confirmed by Luke Vallejo ([id number]) on 05/27/2022 10:52:47 AM Referred By: REFERRED SELF Confirmed By:Luke Vallejo
--- NOTE | 2022-05-27 15:57 | Hospitalist Progress Note ---
Date of Service May 27, 2022 delayed entry date of service noted above Assessment & Plan (1) Atrial fibrillation with rapid ventricular response: Plan: (1) Pneumonia due to COVID-19 virus: Sepsis Likely multifactorial: COVID-19 infection Lactic acidosis Urine Culture Mixed Probable Skin elier Blood Cultures:No growth to date Acute respiratory distress syndrome Acute hypoxic respiratory failure, secondary to flash pulmonary edema, COVID-19 pneumonia S/P Intubation 05/17 Completed IV Lasix, Decadron course Extubated on 05/19/2022 Saturating well on room air Requiring 2 L of oxygen while sleeping (2) Atrial fibrillation with rapid ventricular response: per Dr. Bradshaw's notes with addendum: Nonischemic cardiomyopathy Possibly Takotsubo cardiomyopathy Cardiogenic shock -S/P Cardiac Cath:Multivessel coronary artery disease. 50% mid LAD. Medium D2 80% proximal. 50% calcified ostial circumflex, 50% inferior branch of OM2. 60% mid, 50% distal RCA. Elevated left-sided filling pressure (LVEDP 22). Normal pulmonary artery pressure. Preserved cardiac output --ECHO: Apical ballooning pattern of the LV chamber. Moderate hypokinesis of all basal wall segments with progressive akinesis at the mid levels and dyskinesis at the apex. Severely reduced LV systolic function EF 15 to 20%. Right ventricular cavity size is normal. Right ventricular systolic function is normal as assessed by tricuspid annular plane systolic excursion. Aortic valve sclerosis moderate, without significant aortic valvular stenosis. Mild aortic regurgitation. PASP of 48 mmHg. --Patient had sustained VT requiring defibrillation Required vasopressors, IV Lasix 05/27 continue Lasix 20 mg twice a day Entresto daily Follow-up with [facility] cardiology Afib RVR Sustained VT requiring defibrillation Was placed on amiodarone drip and IV heparin Heart rate remains controlled and asymptomatic 05/27 stable overall continue Amiodarone, metoprolol XL, and Eliquis Follow-up with [facility] cardiology in 2 weeks Anorexia No problem with swallowing Per speech therapist: Minced and moist diet (3) NSVT (nonsustained ventricular tachycardia): Management as above (4) Elevated troponin: Likely demand ischemia due to Sepsis, tachyarrhythmias, stress-induced cardiomyopathy, COVID-19 infection (5) Hypokalemia: Hypokalemia Hypophosphatemia -- Replaced (6) Thyroid nodule: Seen on CT chest A 2.1 cm right thyroid nodule.Follow-up nonemergent thyroid ultrasound recommended for further evaluation. (7) HLD (hyperlipidemia): Resume Statin (8) Hypertension: Medications per above (9) Ascending aortic aneurysm: Stable (10) Esophageal reflux: Protonix started, reevaluate Plan Prediabetes HbA1C: 6.1 Now off IV steroids Monitor DVT Px: Now on Eliquis Code Status Conditional Code (2) NSVT (nonsustained ventricular tachycardia): (3) Elevated troponin: (4) Pneumonia due to COVID-19 virus: (5) Hypokalemia: (6) Chronic heart failure with preserved ejection fraction (HFpEF): (7) HLD (hyperlipidemia): (8) Hypertension: (9) Ascending aortic aneurysm: (10) Esophageal reflux: Admission and Anticipated Discharge Date Admission Date: May 16, 2022 Subjective ff up for COVID infection, etc seen resting in bed, comfortable sitting up patient's at bedside states she feels fine overall much better no chest pain, dyspnea, palpitations, dizziness no other symptoms states she is ready for discharge Review of Systems Review of Systems: all noted and negative except for above Physical Exam Physical Exam: General- oriented x 2, not in distress, speaks in sentences with no effort or accessory muscle use Eyes- anicteric Neck- no JVD Lungs- clear BS bilaterally, no crackles no wheezing Heart- normal rate, regular rhythm; no murmurs Abdomen- normal bowel sounds, nondistended, soft, nontender Extremities- no pretibial edema, no calf tenderness Neuro- alert, oriented x 3; no gross focal neurologic deficits Skin- warm & dry Results & Data Results & Data ([facility]) Vital Signs (Past 12 Hours) Vital Signs Temp Pulse Pulse Resp BP BP Pulse Ox 05/27/22 14:41 36.8 C 65 19 102/58 L 95 05/27/22 11:24 71 99/64 L 05/27/22 11:10 36.5 C 65 20 98/62 L 95 05/27/22 08:00 05/27/22 08:00 58 L 05/27/22 09:20 71 114/66 05/27/22 07:25 66 22 98 05/27/22 06:58 36.5 C 61 20 106/67 99 09/09/22 05:16 37.3 C 60 18 101/66 98 05/27/22 04:00 63 21 97 O2 Del Method O2 Flow Rate 05/27/22 14:41 Room Air 05/27/22 11:24 05/27/22 11:10 Room Air 05/27/22 08:00 Room Air 05/27/22 08:00 05/27/22 09:20 05/27/22 07:25 2 05/27/22 06:58 CPAP 05/27/22 05:16 CPAP 05/27/22 04:00 2 all noted and reviewed including below
--- NOTE | 2022-05-27 16:07 | Discharge Summary ---
Date of Service May 27, 2022 Admission HPI Per Admitting Provider This is 72 y/o female with a PMH of PAF on chronic AC with Eliquis, HFpEF, stable thoracic aortic aneurysm, HTN, GERD, anxiety, migraine, and hypercholesterolemia who presents to the ED today with N/V and weakness. Pt apparently started with congestion and cough five days ago, which last about two days. Three days ago, she started with N/V/D, fatigue, and loss of appetite. Yesterday, symptoms were particularly severe with frequent diarrhea, subjective fevers, sweats, abdominal pain, and weakness. Today, although the diarrhea has started to improve, she had multiple episodes of emesis and was so weak that she was unable to walk so her called EMS to bring her to the ED. In the ED, she developed a tachyarrhythmia with multiple runs of non-sustained V-tach so she was given an amiodarone bolus and started on a drip with improvement. Since then, her HR has improved and she has been hemodynamically stable. She reports mild SOB but no significant cough. Denies headache, chest pain or tightness. She has noted dizziness, worse with position changes. Pt was vaccinated for COVID x 3 ([employer]). She notes that she was around her sister last week who tested positive for COVID. Admission Exam Per Admitting Provider Constitutional: well developed and well nourished; no acute distress Eyes: + anicteric sclerae ENMT: Mouth: + dry oral mucous membranes Neck: trachea midline Respiratory: no respiratory distress and no labored breathing Auscultation: + crackles (at left base); no wheezes Cardiovascular: Rate/Rhythm: + tachycardic and + irregularly irregular Vessels: dorsalis pedis pulses present and radial pulses present Extremities: no calf tenderness and no pedal edema Gastrointestinal (Abdomen): Inspection/Auscultation: + hypoactive bowel sounds; abdomen not distended Percussion/Palpation: + abdomen tender (diffusely but worse in epigastric area) and abdomen soft Musculoskeletal: Head/Neck/Chest: normocephalic, head atraumatic and neck supple Skin: no jaundice Neurologic: moves all extremities; no focal motor deficits and not confused Psychiatric: A+Ox3, euthymic affect Principal Diagnosis Acute hypoxic respiratory failure, COVID-19 pneumonia Nonischemic cardiomyopathy, Takotsubo cardiomyopathy Atrial fibrillation in RVR Discharge Exam General- oriented x 2, not in distress, speaks in sentences with no effort or accessory muscle use Eyes- anicteric Neck- no JVD Lungs- clear BS bilaterally, no rales/wheezes Heart- normal rate, regular rhythm; no murmurs Abdomen- normal bowel sounds, nondistended, soft, nontender Extremities- no pretibial edema, no calf tenderness Neuro- alert, oriented x 2; no gross focal neurologic deficits Skin- warm & dry Discharge Data Allergies Allergy/AdvReac Type Severity Reaction Status Date / Time No Known Allergies Allergy Verified 05/16/22 12:46 Consultations 05/16/22 12:36 ED Decision to Admit Stat 05/16/22 17:55 Consult General Surgery Routine 05/17/22 07:59 Consult Cardiology Routine 05/17/22 09:20 Consult 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 TECHNIQUE: Following the IV administration of 120 cc of Optiray 300, CT scan of the abdomen and pelvis is performed from the lung bases to the proximal femora. Images are reviewed in the axial, sagittal, and coronal planes. IV contrast was administered without complication. A dose lowering technique was utilized adhering to the principles of ALARA. FINDINGS: Lung bases: The heart is enlarged and without pericardial effusion. The coronary arteries a density calcified. There is a small hiatal hernia. The lung bases are clear noting dependent atelectasis. There is mild aneurysmal dilatation of the partially visualized ascending thoracic aorta. This measures at least 4.0 cm in diameter. Liver: The contrast-enhanced liver is normal in size, contour, and attenuation. There is no intrahepatic biliary ductal dilatation. The hepatic veins and portal veins are patent. Gallbladder: Surgically absent. Spleen: Normal in size and attenuation. Pancreas: Atrophic and grossly unremarkable. Adrenal glands: Unremarkable. Kidneys: The contrast enhanced kidneys are normal in size and without hydronephrosis. The kidneys enhance symmetrically. Scattered subcentimeter cortical hypodensities likely represent cysts but are too small for definitive characterization. Abdominal vasculature: There is advanced atherosclerotic calcification mild ectasia of the abdominal aorta. Bowel: There is moderate colonic diverticulosis without CT evidence of acute diverticulitis. No bowel obstruction is seen. Question mucosal hyperemia of the left colon. There is no colonic wall thickening or surrounding inflammation. The appendix is identified and reported surgically absent. Peritoneum: There is no intraperitoneal free air or abdominal ascites. Lymphadenopathy: None. Pelvic viscera: The bladder is mildly distended but otherwise normal in appearance. The uterus is surgically absent. No adnexal lesion is seen. Skeletal structures: No lytic or blastic lesions are seen. IMPRESSION: 1. Question mucosal hyperemia of the left colon. There is no colonic wall thickening or surrounding inflammation. Correlate clinically for evidence of a mild nonspecific colitis. 2. Colonic diverticulosis without CT evidence of acute diverticulitis. 3. There is no bowel obstruction. 4. Additional findings as above. ACT 112: Negative or not required by law. 05/16/22 10:55 CT angio chest PE protocol Stat COMPARISON STUDY: Chest CT 01/27/2014. FINDINGS: There is a 2.1 cm right thyroid nodule. No mediastinal or hilar lymphadenopathy. There is a small hiatus hernia. Otherwise, normal caliber esophagus moderate focal narrowing at the takeoff of the right subclavian artery due to the calcified plaque. The ascending thoracic aorta measures up to 4.3 cm in diameter which is slightly increased in size. The heart is mildly enlarged. No evidence for an aortic dissection. Please refer to the same day abdomen and pelvis CT for further evaluation of the abdominal structures. No pleural or pericardial effusions. No suspicious lytic or blastic osseous lesions. Nondiagnostic evaluation of the bilateral lower lobe subsegmental pulmonary arteries due to the respiratory motion artifact. Otherwise, the remaining pulmonary arteries show no filling defects to suggest a pulmonary embolus. No pneumothorax. The central airways are patent. No focal lung consolidations to suggest pneumonia. Mild dependent changes seen at the lung bases. IMPRESSION: 1. No evidence for pulmonary embolus with limitations as described above. 2. Mild aneurysmal dilatation of the ascending thoracic aorta measuring 4.3 cm in diameter. This has slightly increased in size. 3. No focal lung consolidations to suggest pneumonia. 4. A 2.1 cm right thyroid nodule. Follow-up nonemergent thyroid ultrasound recommended for further evaluation. ACT 112: Negative or not required by law. 05/17/22 09:18 CL Cath Imgs for PACS use only Routine Hospital Course (1) Pneumonia due to COVID-19 virus: Sepsis Likely multifactorial: COVID-19 infection Lactic acidosis Urine Culture Mixed Probable Skin elier Blood Cultures:No growth to date Acute respiratory distress syndrome Acute hypoxic respiratory failure, secondary to flash pulmonary edema, COVID-19 pneumonia S/P Intubation 05/17 Completed IV Lasix, Decadron course Extubated on 05/19/2022 Saturating well on room air Requiring 2 L of oxygen while sleeping (2) Atrial fibrillation with rapid ventricular response: per Dr. Bradshaw's notes with addendum: Nonischemic cardiomyopathy Possibly Takotsubo cardiomyopathy Cardiogenic shock -S/P Cardiac Cath:Multivessel coronary artery disease. 50% mid LAD. Medium D2 80% proximal. 50% calcified ostial circumflex, 50% inferior branch of OM2. 60% mid, 50% distal RCA. Elevated left-sided filling pressure (LVEDP 22). Normal pulmonary artery pressure. Preserved cardiac output --ECHO: Apical ballooning pattern of the LV chamber. Moderate hypokinesis of all basal wall segments with progressive akinesis at the mid levels and dyskinesis at the apex. Severely reduced LV systolic function EF 15 to 20%. Right ventricular cavity size is normal. Right ventricular systolic function is normal as assessed by tricuspid annular plane systolic excursion. Aortic valve sclerosis moderate, without significant aortic valvular stenosis. Mild aortic regurgitation. PASP of 48 mmHg. --Patient had sustained VT requiring defibrillation Required vasopressors, IV Lasix 05/27 continue Lasix 20 mg twice a day Entresto daily Follow-up with [facility] cardiology Afib RVR Sustained VT requiring defibrillation Was placed on amiodarone drip and IV heparin Heart rate remains controlled and asymptomatic 05/27 stable overall continue Amiodarone, metoprolol XL, and Eliquis Follow-up with [facility] cardiology in 2 weeks Anorexia No problem with swallowing Per speech therapist: Minced and moist diet (3) NSVT (nonsustained ventricular tachycardia): Management as above (4) Elevated troponin: Likely demand ischemia due to Sepsis, tachyarrhythmias, stress-induced cardiomyopathy, COVID-19 infection (5) Hypokalemia: Hypokalemia Hypophosphatemia -- Replaced (6) Thyroid nodule: Seen on CT chest A 2.1 cm right thyroid nodule. Follow-up nonemergent thyroid ultrasound recommended for further evaluation. (7) HLD (hyperlipidemia): Resume Statin (8) Hypertension: Medications per above (9) Ascending aortic aneurysm: Stable (10) Esophageal reflux: Protonix started, reevaluate Plan Prediabetes HbA1C: 6.1 Now off IV steroids Monitor DVT Px: Now on Eliquis Code Status Conditional Code Total Time Total Time Spent Total Time Spent (In Minutes): >30 minutes Discharge Plan Discharge Items Patient Disposition: Transfer Inpatient Rehab Fac Reason For Visit: AFIB W RVR, COVID, DEHYDRATION Discharge Diagnosis: Acute hypoxic respiratory failure secondary to COVID-pneumonia Ischemic cardiomyopathy, possible Takotsubo cardiomyopathy Atrial fibrillation with RVR Activity: Resume your previous activity Activity Comment: continue PT and OT, Fall precautions please Lifting: Wait until after follow-up appointment Exercise/Sports: Wait until after follow-up appointment Driving/Machine Use: no driving Non-emergency contact: Primary Care Provider Call non-emergency contact if: you have any medication questions, your symptoms worsen and you have a fever Follow-up/Referrals: Agapito Robles DO [Training And Development Head] - Everett Macedo DO [Primary Care Provider] - Diet: Heart Healthy Diet Comment: Minced and moist diet Addtl Attending Provider Instructions: Please refer to accompanying hospital discharge summary for further details. Patient needs to remain on COVID isolation protocol until Monday May 30, 2022. Patient requiring 2 L of oxygen via nasal cannula while sleeping. Pending Studies at Discharge: No Stand-Alone Forms: My [facility] Skilled Items Patient informed of condition?: Yes DNR: No Discharge Level of Care: Acute rehab Communicable Disease: Yes Discharge Prognosis: Stable Urinary Catheter: No Medications and DC Order Prescriptions: New amiodarone 200 mg Tablet 200 mg PO DAILY Qty: 30 0RF metoprolol succinate 25 mg Tablet Extended Release 24 Hr 12.5 mg PO QAM 30 Days Qty: 15 0RF Entresto 24-26 mg Tablet 1 tab PO BID 30 Days Qty: 60 0RF furosemide 20 mg Tablet 20 mg PO BID17 30 Days Qty: 30 0RF pantoprazole 40 mg Tablet,Delayed Release (Dr/Ec) 40 mg PO QAM 7 Days Qty: 7 0RF polyethylene glycol 3350 [Miralax] 17 gram Powder In Packet 17 g PO DAILY 30 Days Qty: 30 0RF Continued atorvastatin 40 mg tablet 40 mg PO DAILY lorazepam 0.5 mg tablet 0.5 mg PO BID PRN (Reason: Anxiety) gabapentin 100 mg capsule 100 mg PO TID ramelteon 8 mg tablet 8 mg PO HS Eliquis 5 mg tablet 5 mg PO BID Discontinued trazodone 50 mg tablet 50 mg PO HS doxazosin 4 mg tablet 4 mg PO QPM clonidine 0.3 mg/24 hr patch weekly 0.3 mg transdermal WK Rx Instructions: Wednesdays Discharge Orders: Discharge Order (Routine); Ordered 05/27/22 Ordered By: Ayush Barkley/Other Patient Handouts: A1C, 5 Steps for Eating Healthier Admission Data Admit Date/Time: 05/16/22 13:17 Attending Provider: Ayush Henriquez Admit Provider: Darling Valdes Primary Care Provider: Everett Macedo Other Providers: Javier Cardoso ; Darling Valdes ; Chavez Jacques ; Chavez Benitez ; Karan Palmer ; Fely Bradshaw ; [facility] ; [place],[facility]
== END 2022-05-27 16:30 | DRG 871 ==
LOC: ED 08:46 → 2S 13:17 → SUATTDRO 13:17 → 2S 14:50 → 1E 05-17 10:50 → 2S 05-24 19:35
DX: I51.81 Takotsubo syndrome; I50.32 Chronic diastolic (congestive) heart failure; J81.0 Acute pulmonary edema; I24.8 Other forms of acute ischemic heart disease; I25.10 Atherosclerotic heart disease of native coronary artery without angina pectoris; E83.39 Other disorders of phosphorus metabolism; R57.0 Cardiogenic shock; I48.0 Paroxysmal atrial fibrillation; I47.2 Ventricular tachycardia; J80 Acute respiratory distress syndrome; U07.1 COVID-19; E78.5 Hyperlipidemia, unspecified; I42.8 Other cardiomyopathies; I71.2 Thoracic aortic aneurysm, without rupture; J12.82 Pneumonia due to coronavirus disease 2019; Z28.311 Partially vaccinated for COVID-19; I48.92 Unspecified atrial flutter; K55.9 Vascular disorder of intestine, unspecified; E87.2 Acidosis; I21.09 ST elevation (STEMI) myocardial infarction involving other coronary artery of anterior wall; N39.0 Urinary tract infection, site not specified; R65.20 Severe sepsis without septic shock; A41.89 Other specified sepsis; E87.6 Hypokalemia; Z79.01 Long term (current) use of anticoagulants

== ENCOUNTER 2023-07-08 09:26 | Observation (INO) ==
[2023-07-08] MEDS ORDERED: SODIUM CHLORIDE 0.9% 500 ML IV SCH (10:00)
--- NOTE | 2023-07-08 10:03 | Emergency Department Note ---
History of Present Illness General Chief complaint: Fall Stated complaint: FALL Time Seen by Provider: 07/08/23 09:37 Source: patient, family ( who is at the bedside), RN notes reviewed and old records reviewed (I have reviewed a old CAT scan that was done on 05-16-2022 and her thoracic aneurysm is 4.3 cm) Mode of arrival: ambulatory Limitations: no limitations History of Present Illness This patient is a 73-year-old female with multiple medical problems including cardiac disease/arrhythmia, chronic anticoagulation and history of a Thoracic aneurysm comes in after having 3 episodes where she fell she was K yesterday she woke with 5:00 and fell 3 times she is were not sure why she fell she not sure if she passed out or not. She said that just happened. She does not think she injured anything. Note denies a headache. Occasionally she will have double vision but that is not new that is been going on for 10 years off-and-on she says. Denies focal numbness weakness no chest pain or shortness of breath she has some chronic back pain which is unchanged questionable mild epigastric pain. No blood or melena stool no dysuria hematuria. She has been keeping up with fluids she felt a little lightheaded earlier. Home Medications Medication Instructions Recorded Confirmed Type apixaban 5 mg tablet (Eliquis) 5 mg PO BID 05/16/22 05/16/22 History atorvastatin 40 mg tablet 40 mg PO DAILY 05/16/22 05/16/22 History gabapentin 100 mg capsule 100 mg PO TID 05/16/22 05/16/22 History lorazepam 0.5 mg tablet 0.5 mg PO BID PRN Anxiety 05/16/22 05/16/22 History ramelteon 8 mg tablet 8 mg PO HS 05/16/22 05/16/22 History amiodarone 200 mg tablet 200 mg PO DAILY #30 tabs 05/27/22 Rx Allergies Allergy/AdvReac Type Severity Reaction Status Date / Time No Known Allergies Allergy Verified 05/16/22 12:46 Past Med/Surg History Medical History Anxiety Ascending aortic aneurysm 4.4cm per resting echo 04/2021 Chronic heart failure with preserved ejection fraction (HFpEF) Diastolic dysfunction Esophageal reflux HLD (hyperlipidemia) Hypertension Left atrial dilation Migraine PAF (paroxysmal atrial fibrillation) Persistent insomnia Surgical History History of cholecystectomy History of lumbar surgery History of partial hysterectomy Family History Mother Hypertension Father TIA (transient ischemic attack) Sister Diabetes Other No pertinent family history in first degree relatives Social History Smoking Status: Never smoker Hx Alcohol Use: No Hx Substance Use: No Preferred Language: [place] Communication Ability: Unable Visual Impairment: No Limitations Hearing Ability: Normal Sock Turner Required: No Beliefs That Will Affect Care: None marital status: Current Living Situation: Spouse current occupational status: retired Feels Safe at Home: Yes Assistive Devices: None Review of Systems A total of 10 systems reviewed and were otherwise negative Physical Exam Vital Signs Vital Signs - 24 hr 07/08/23 09:34 07/08/23 10:10 07/08/23 11:28 Temperature 36.2 C L Temperature Source Oral Pulse Rate 69 60 Pulse Rate from SpO2 Sensor Pulse Rhythm Regular Pulse Strength Normal Respiratory Rate 20 Respiratory Effort / Characteristics Non-Labored Spontaneous Respiratory Depth Normal Respiratory Pattern Regular Blood Pressure 135/71 Blood Pressure Mean 92 Blood Pressure Position Sitting Pulse Oximetry 97 96 Oxygen Delivery Method Room Air Room Air Sepsis Recent Fever Within 48 Hours No Sepsis New/Unexplained Change in Mental Status No Sepsis Action Taken by Nursing No Action Required 07/08/23 12:00 07/08/23 13:01 Temperature Temperature Source Pulse Rate 60 61 Pulse Rate from SpO2 Sensor 62 61 Pulse Rhythm Pulse Strength Respiratory Rate 22 19 Respiratory Effort / Characteristics Respiratory Depth Respiratory Pattern Blood Pressure 129/67 124/54 L Blood Pressure Mean 87 77 Blood Pressure Position Pulse Oximetry 97 97 Oxygen Delivery Method Sepsis Recent Fever Within 48 Hours Sepsis New/Unexplained Change in Mental Status Sepsis Action Taken by Nursing General: Well developed well nourished non-ill appearing older female who appears in no acute distress, breathing comfortably on room air. Normal speech HEENT: Normal cephalic atraumatic. Pupils are equal round and reactive to light. Extraocular movements are intact. Oropharynx is pink with moist mucous membranes. No swelling of the mouth lips or tongue. Neck: Supple with a midline trachea. No meningeal signs or stiffness, no JVD or bruits. No Stridor. Chest: Clear to auscultation bilaterally. No wheezes or rhonchi. No increased work of breathing. Heart: Regular rate and rhythm without murmurs or gallops. Abdomen: Soft nontender, nondistended without rebound guarding or rigidity. Extremities: No cyanosis clubbing or edema. No calf tenderness or assymetry Spine/Back. Non tender to palpation. No CVA tenderness Skin: Good turgor without rashes. Neurologic exam: Cranial nerves two through 12 are intact. Motor and sensation are intact and symmetrical throughout. Course Administered Medications Discontinued Medications Sodium Chloride (Nss) 500 mls @ 999 mls/hr IV .Q31M VEGA Stop: 07/08/23 10:30 Last Infusion: 07/08/23 11:52 Dose: 0 mls/hr Documented By: Admin: 07/08/23 10:11 Dose: 999 mls/hr Documented By: ISABELA Ioversol (Optiray 320 500ml) 115 ml IV ONCE ONE Stop: 07/08/23 11:06 Last Admin: 07/08/23 11:05 Dose: 115 ml Documented By: JAI Medical Decision Making Differential Diagnosis Syncope, arrhythmia, fall, traumatic injury, neurologic process, intracranial hemorrhage, complication related to aneurysm, anemia, GI bleed, dehydration, infection, electrolyte or metabolic abnormality Medical Records Attestation: I reviewed the patient's medical records. Home Medications Current Medication List: was personally reviewed by me Laboratory Data Attestation: I reviewed the patient's lab results. 07/08/23 10:05 07/08/23 10:05 Lab Results 07/08/23 07/08/23 07/08/23 Range/Units 10:05 10:05 10:05 WBC 4.77 L (4.8-10.8) K/ul RBC 3.99 L (4.20-5.40) M/uL Hgb 11.1 L (12.0-16.0) g/dl Hct 34.0 L (37.0-47.0) % MCV 85.2 (80.0-100.0) fL MCH 27.8 (25.0-34.0) pg MCHC 32.6 (32.0-36.0) g/dL RDW Std Deviation 51.0 H (36.4-46.3) fL RDW Coeff of Jessica 16.2 H (11.5-14.5) % Plt Count 202 (130-400) K/uL MPV 11.2 (9.4-12.4) fL Immature Gran % (Auto) 0.2 % Neut % (Auto) 41.3 % Lymph % (Auto) 45.9 % Mcintosh % (Auto) 9.0 % Eos % (Auto) 2.3 % Baso % (Auto) 1.3 % Neut # (Auto) 1.97 (1.40-6.50) K/uL Lymph # (Auto) 2.19 (1.20-3.40) K/uL Mcintosh # (Auto) 0.43 (0.11-0.59) K/uL Eos # (Auto) 0.11 (0.00-0.50) K/uL Baso # (Auto) 0.06 (0.00-0.20) K/uL Immature Gran # (Auto) 0.01 (0.01-0.20) K/uL PT 10.9 (9.0-12.0) Seconds INR 1.0 (0.9-1.1) APTT 27.7 (21.0-31.0) Seconds PTT Ratio 1.0 Sodium 135 L (136-145) mmol/L Potassium 3.9 (3.5-5.1) mmol/L Chloride 106 (98-107) mmol/L Carbon Dioxide 23 (21-32) mmol/L Anion Gap 6 (3-11) BUN 21 (6-23) mg/dl Creatinine 0.88 (0.6-1.2) mg/dl Est Cr Clr Drug Dosing Not Reportable Est GFR ( Amer) 75.0 ml/min Est GFR (Non-Af Amer) 64.7 ml/min BUN/Creatinine Ratio 23.9 H (10-20) Glucose 112 H (70-99(Fasting)) mg/dl Calcium 9.2 (8.6-10.3) mg/dl Magnesium 1.8 (1.7-2.4) mg/dl Total Bilirubin 0.2 (0.2-1.0) mg/dl AST 23 (13-39) U/L ALT 14 (7-52) U/L Alkaline Phosphatase 88 (34-104) U/L Troponin I High Sens 3.5 (0-14) pg/ml Total Protein 7.3 (6.0-8.3) gm/dl Albumin 4.3 (3.4-5.0) gm/dl Globulin 3.0 (2.5-4.0) gm/dl Albumin/Globulin Ratio 1.4 (0.9-2) Lipase 25 (11-82) U/L TSH 3.767 (0.300-4.500) uIu/ml Imaging Data Attestation: I personally reviewed and interpreted this imaging study as follows: My Impression: Head CTno hemorrhage or mass effect seen Chest x-rayno acute infiltrate, failure, pneumothorax seen Radiologist's Impression: Chest X-Ray 07/08/23 09:50 XR chest 1V portable CLINICAL HISTORY: syncope COMPARISON STUDY: Chest CT May 16, 2022. Chest radiograph May 20, 2022. FINDINGS: Lung volumes are normal. Lungs are clear. There is no pneumothorax or pleural effusion. Cardiac size is normal. Mediastinal contours are normal. Mild interstitial thickening is noted. This may be chronic. IMPRESSION: No acute cardiopulmonary findings. ACT 112: Negative or not required by law. Electronically signed by: Mega Butler M.D. 07/08/2023 10:[address] 07/08/23 09:52 CT OF THE HEAD WITHOUT CONTRAST CLINICAL HISTORY: Falls. COMPARISON STUDY: Head CT July 25, 2010. MRI of the brain March 28, 2012. TECHNIQUE: Helical axial images of the head were obtained without IV contrast. Automated exposure control was utilized for the study. A dose lowering technique was utilized adhering to the principles of ALARA. FINDINGS: No acute intracranial hemorrhage, midline shift or mass effect is present. The ventricular system is unremarkable. The basal cisterns are patent. No extra-axial collections are present. There are no findings to suggest acute dural sinus thrombosis or acute territorial infarct. No significant calvarial abnormalities are present. Visualized portions of the sinuses and mastoid air cells are clear. IMPRESSION: 1. No acute intracranial findings. 2. No calvarial fracture. ACT 112: Negative or not required by law. Electronically signed by: Mega Butler M.D. 07/08/2023 11:07 AM Abdomen/Pelvis CTA 07/08/23 09:54 CT ANGIOGRAPHY OF THE ABDOMEN AND PELVIS CLINICAL HISTORY: Abdominal pain. Frequent falls. COMPARISON STUDY: CT of the abdomen and pelvis May 16, 2022. TECHNIQUE: Helical axial images of the abdomen and pelvis were obtained during arterial phase following intravenous injection 115 cc of Optiray 320 IV. Sagittal and coronal reconstructions were viewed as well as maximal intensity projections on an independent 3-D workstation. Automated exposure control was utilized for the study. A dose lowering technique was utilized adhering to the principles of ALARA. FINDINGS: The caliber of the abdominal aorta is normal. There is no abdominal aortic aneurysm. There is moderate plaque of the abdominal aorta. No dissection within the abdomen or pelvis is noted. Branch vessels are patent. No pneumatosis, free air or portal venous gas is present. The gallbladder is likely surgically absent. There is trace perihepatic ascites. There is mild volume loss of the medial segment of the left hepatic lobe. A 2.7 cm hypodense focus within the medial segment of the left hepatic lobe on image 95 of 530 is noted. A rterial phase images of the spleen, adrenal glands and kidneys are unremarkable. Is no hydronephrosis. There is no evidence for a bowel obstruction. Colonic diverticulosis without evidence for acute diverticulitis. The appendix is not visualized. There is no lymphadenopathy. No acute fractures are identified within visualized skeletal structures IMPRESSION: 1. No acute process within the abdomen or pelvis. 2. Normal caliber abdominal aorta. Moderate atherosclerotic plaque within the abdominal aorta with patent branch vessels. No abdominal aortic dissection. 3. Ill-defined height of a dense focus measuring 2.7 cm within the medial segment of the left hepatic lobe with associated volume loss and trace adjacent ascites. Left hepatic lobe atrophy is favored. An underlying lesion is cons idered less likely however a nonemergent liver protocol MRI is recommended. ACT 112: Positive. There are findings on this exam that require communication between the performing entity and the patient following Patient Test Result I nformation Act ([place] Act 112) guidelines. Electronically signed by: Mega Butler M.D. 07/08/2023 11:36 AM Chest CTA 07/08/23 09:54 CT ANGIOGRAPHY OF THE CHEST DISSECTION PROTOCOL CLINICAL HISTORY: hx of aaa. Chest and abdominal pain. Falls. COMPARISON STUDY: Chest radiograph performed earlier today. Chest CT May 16, 2022. TECHNIQUE: Before and following the IV administration of 115 mL of Optiray, helical axial images of the chest were obtained. Maximal intensity projections and sagittal and coronal reformats were viewed on an independent 3D workstation. IV contrast was administered without complication. Automated exposure control was utilized for the study. A dose lowering technique was utilized adhering to the principles of ALARA. CT DOSE: 1972.15 mGy.cm FINDINGS: Dilatation of the ascending aorta measuring 4.4 cm at the level of the main pulmonary artery is unchanged since CT of May 16, 2022. There is no thoracic aortic dissection. No intramural hematoma is present. No pulmonary emboli are identified. There is moderate cardiomegaly and extensive coronary artery calcification. Central airways are patent. Groundglass opacities with mosaic attenuation within the lungs are noted. There is no pneumothorax or pleural effusion. No acute fractures within the bony thorax are noted. The abdomen and pelvis CT will be reported separately. IMPRESSION: 1. No thoracic aortic dissection. 2. Stable aneurysmal dilatation of the ascending aorta, measuring 4.4 cm, since CT of May 16, 2022. 3. Groundglass opacities with mosaic attenuation within the lungs. The findings favor atelectasis however air trapping or mild pulmonary edema could appear similar. 4. Moderate cardiomegaly and extensive coronary artery calcification. ACT 112: Negative or not required by law. Electronically signed by: Mega Butler M.D. 07/08/2023 11:25 AM ECG Data Attestation: I personally reviewed and interpreted this ECG as follows: Indication: + syncope Rate (beats per minute): 70 Rhythm: + sinus with SA ECG Intervals/blocks: + Short [place] ECG [place]: + Normal ECG ST segments: + Normal ST segments ECG Findings: no PACs or no PVCs Comparison ECG Date: from (05/27/2022) Change: the following changes noted (QTc has decreased.) MDM Narrative This patient comes in as described above. She was placed on a poultry pinner in room B8. She had 3 episodes where the she fell and may have had syncopal episode she looks okay now denies any physical complaints has a normal neurologic exam. She does have a concerning history looking through her history she has had V. tach in the past she is also had cardiomyopathy and she has an aneurysm. She was placed on a poultry pinner EKG was ordered as well as chest x-ray and multiple blood testing she was given a small IV fluid bolus given her possible syncopal episode. I did order a CAT scan of her head as well as CT angiography of her chest and abdomen given her history of aneurysm. She was reassessed frequently. She has no significant electrolyte or metabolic abnormalities. Her CAT scan of her head as well as imaging of her aorta/chest/abdomen were unremarkable unchanged from old. Her EKG has a short [place] and there may be some variability from the [place] intervals. There is no ischemic change her troponin is normal. Given the fact that she had 3 episodes where she may have had syncope I do think she needs to be admitted and she does have a history of ventricular arrhythmias and cardiomyopathy. [facility] these [facility]. 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, Hx of coronary artery disease Discharge Plan Visit Data Chief Complaint: Fall Stated Complaint: FALL ED Provider: Ralf Ragsdale Discharge Problem: Syncope, Fall, PAF (paroxysmal atrial fibrillation), penit[facility]iary (current) use of anticoagulants, Hx of coronary artery disease Forms Stand Alone Forms: My [facility] Spool Prescriptions Prescriptions: No Action atorvastatin 40 mg tablet 40 mg PO DAILY lorazepam 0.5 mg tablet 0.5 mg PO BID PRN (Reason: Anxiety) gabapentin 100 mg capsule 100 mg PO TID ramelteon 8 mg tablet 8 mg PO HS Eliquis 5 mg tablet 5 mg PO BID amiodarone 200 mg Tablet 200 mg PO DAILY Qty: 30 0RF Referrals Referrals: Everett Macedo DO [Primary Care Provider] -
[2023-07-08 10:20] LABS: Basophils # (auto) 0.06 K/uL (0.00-0.20); Basophils % (auto) 1.3 %; Eosinophils # (auto) 0.11 K/uL (0.00-0.50); Eosinophils % (auto) 2.3 %; Hemoglobin 11.1 g/dl (12.0-16.0); Immature Granulocytes # (auto) 0.01 K/uL (0.01-0.20); Immature Granulocytes % (auto) 0.2 %; Lymphocytes # (auto) 2.19 K/uL (1.20-3.40); Lymphocytes % (auto) 45.9 %; Mean Corpuscular Hemoglobin 27.8 pg (25.0-34.0); Mean Corpuscular Hgb Conc 32.6 g/dL (32.0-36.0); Mean Corpuscular Volume 85.2 fL (80.0-100.0); Mean Platelet Volume 11.2 fL (9.4-12.4); Monocytes # (auto) 0.43 K/uL (0.11-0.59); Neutrophils # (auto) 1.97 K/uL (1.40-6.50); Neutrophils % (auto) 41.3 %; Platelet Count 202 K/uL (130-400); RDW Coefficient of Variation 16.2 % (11.5-14.5); Red Blood Count 3.99 M/uL (4.20-5.40); White Blood Count 4.77 K/ul (4.8-10.8)
[2023-07-08 10:37] LABS: Alanine Aminotransferase 14 U/L (7-52); Albumin Globulin Ratio 1.4 (0.9-2); Albumin Level 4.3 gm/dl (3.4-5.0); Alkaline Phosphatase 88 U/L (34-104); Anion Gap 6 (3-11); Aspartate Aminotransferase 23 U/L (13-39); BUN Creatinine Ratio 23.9 (10-20); Bilirubin,Total 0.2 mg/dl (0.2-1.0); Blood Urea Nitrogen 21 mg/dl (6-23); Calcium 9.2 mg/dl (8.6-10.3); Carbon Dioxide 23 mmol/L (21-32); Chloride 106 mmol/L (98-107); Est GFR (Non-African American) 64.7 ml/min; Glucose 112 mg/dl (70-99(Fasting)); Lipase 25 U/L (11-82); Magnesium 1.8 mg/dl (1.7-2.4); Potassium 3.9 mmol/L (3.5-5.1); Sodium 135 mmol/L (136-145); Total Protein 7.3 gm/dl (6.0-8.3)
--- NOTE | 2023-07-08 10:45 | XRay Report ---
XR chest 1V portable CLINICAL HISTORY: syncope COMPARISON STUDY: Chest CT May 16, 2022. Chest radiograph May 20, 2022. FINDINGS: Lung volumes are normal. Lungs are clear. There is no pneumothorax or pleural effusion. Car diac size is normal. Mediastinal contours are normal. Mild interstitial thickening is noted. This may be chronic. IMPRESSION: No acute cardiopulmonary findings. ACT 112: Negative or not required by law. Electronically signed by: Mega Butler M.D. 07/08/2023 10:44 AM
[2023-07-08 10:51] LABS: Thyroid Stimulating Hormone 3.767 uIu/ml (0.300-4.500)
[2023-07-08 10:56] LABS: Partial Thromboplastin Time 27.7 Seconds (21.0-31.0); Prothrombin Time 10.9 Seconds (9.0-12.0)
[2023-07-08] MEDS ORDERED: OPTIRAY 320 500ml IV ONE (11:05)
--- NOTE | 2023-07-08 11:08 | CT Scan Report ---
CT OF THE HEAD WITHOUT CONTRAST CLINICAL HISTORY: Falls. COMPARISON STUDY: Head CT July 25, 2010. MRI of the brain March 28, 2012. TECHNIQUE: Helical axial images of the head were obtained without IV contrast. Automated exposure con trol was utilized for the study. A dose lowering technique was utilized adhering to the principles o f ALARA. FINDINGS: No acute intracranial hemorrhage, midline shift or mass effect is present. The ventricular system is unremarkable. The basal cisterns are patent. No extra-axial collections are present. There are no findings to suggest acute dural sinus thrombosis or acute territorial infarct. No significant calvarial abnormalities are present. Visualized portions of the sinuses and mastoid air cells are juan alberto ar. IMPRESSION: 1. No acute intracranial findings. 2. No calvarial fracture. ACT 112: Negative or not required by law. Electronically signed by: Mega Butler M.D. 07/08/2023 11:07 AM
--- NOTE | 2023-07-08 11:27 | CT Scan Report ---
CT ANGIOGRAPHY OF THE CHEST DISSECTION PROTOCOL CLINICAL HISTORY: hx of aaa. Chest and abdominal pain. Falls. COMPARISON STUDY: Chest radiograph performed earlier today. Chest CT May 16, 2022. TECHNIQUE: Before and following the IV administration of 115 mL of Optiray, helical axial images of t he chest were obtained. Maximal intensity projections and sagittal and coronal reformats were viewed on an independent 3D workstation. IV contrast was administered without complication. Automated exp osure control was utilized for the study. A dose lowering technique was utilized adhering to the jackie Ramesh. CT DOSE: 1972.15 mGy.cm FINDINGS: Dilatation of the ascending aorta measuring 4.4 cm at the level of the main pulmonary leander ry is unchanged since CT of May 16, 2022. There is no thoracic aortic dissection. No intramural he matoma is present. No pulmonary emboli are identified. There is moderate cardiomegaly and extensive c oronary artery calcification. Central airways are patent. Groundglass opacities with mosaic attenuati on within the lungs are noted. There is no pneumothorax or pleural effusion. No acute fractures withi n the bony thorax are noted. The abdomen and pelvis CT will be reported separately. IMPRESSION: 1. No thoracic aortic dissection. 2. Stable aneurysmal dilatation of the ascending aorta, measuring 4.4 cm, since CT of May 16, 2022 . 3. Groundglass opacities with mosaic attenuation within the lungs. The findings favor atelectasis how ever air trapping or mild pulmonary edema could appear similar. 4. Moderate cardiomegaly and extensive coronary artery calcification. ACT 112: Negative or not required by law. Electronically signed by: Mega Butler M.D. 07/08/2023 11:25 AM
--- NOTE | 2023-07-08 11:38 | CT Scan Report ---
CT ANGIOGRAPHY OF THE ABDOMEN AND PELVIS CLINICAL HISTORY: Abdominal pain. Frequent falls. COMPARISON STUDY: CT of the abdomen and pelvis May 16, 2022. TECHNIQUE: Helical axial images of the abdomen and pelvis were obtained during arterial phase followi ng intravenous injection 115 cc of Optiray 320 IV. Sagittal and coronal reconstructions were viewed a s well as maximal intensity projections on an independent 3-D workstation. Automated exposure control was utilized for the study. A dose lowering technique was utilized adhering to the principles of AL AMY. FINDINGS: The caliber of the abdominal aorta is normal. There is no abdominal aortic aneurysm. There is moderate plaque of the abdominal aorta. No dissection within the abdomen or pelvis is noted. Branc h vessels are patent. No pneumatosis, free air or portal venous gas is present. The gallbladder is li buster surgically absent. There is trace perihepatic ascites. There is mild volume loss of the medial s egment of the left hepatic lobe. A 2.7 cm hypodense focus within the medial segment of the left hepat ic lobe on image 95 of 530 is noted. Arterial phase images of the spleen, adrenal glands and kidneys are unremarkable. Is no hydronephrosis. There is no evidence for a bowel obstruction. Colonic diverti culosis without evidence for acute diverticulitis. The appendix is not visualized. There is no lympha denopathy. No acute fractures are identified within visualized skeletal structures IMPRESSION: 1. No acute process within the abdomen or pelvis. 2. Normal caliber abdominal aorta. Moderate atherosclerotic plaque within the abdominal aorta with pa tent branch vessels. No abdominal aortic dissection. 3. Ill-defined height of a dense focus measuring 2.7 cm within the medial segment of the left hepatic lobe with associated volume loss and trace adjacent ascites. Left hepatic lobe atrophy is favored. A n underlying lesion is considered less likely however a nonemergent liver protocol MRI is recommended . ACT 112: Positive. There are findings on this exam that require communication between the performing entity and the patient following Patient Test Result Information Act ([place] Act 112) guidelines. Electronically signed by: Mega Butler M.D. 07/08/2023 11:36 AM
[2023-07-08 12:23] LABS: Troponin I High Sensitivity 3.5 pg/ml (0-14)
--- NOTE | 2023-07-08 13:37 | History & Physical Report ---
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 Falls, possible syncope Multiple falls earlier today preceded by lightheadedness H/o similar sx back in January with Zio monitor revealing primarily sinus rhythm with 4 short episodes of likely PAF Also with history of NICM last year 2/2 covid but per most recent 2D echo Apr 18 2023 revealing an improved EF of 60-64%, moderate aortic sclerosis but no aortic stenosis. Mild AR, mod MR, proximal ascending aorta measuring 4.4 cm Work-up today with negative CT head, CTA chest with no thoracic aortic dissection, stable aneurysmal dilatation of the ascending aorta, measuring 4.4 cm, since CT of May 16, 2022, CT abd/pelvis without acute process Orthostatics, continued monitoring, routine cardiology consult Considering possible DDI between Ramelteon,trazodone, Ativan causing increased dizziness and motor coordination - holding trazodone Thoracic aortic aneurysm Stable at 4.4cm as mentioned above Atrial fibrillation Continue amiodarone, Toprol, anticoagulation on Eliquis Chronic diastolic heart failure HTN H/o NICM with most recent Apr 18 showing resolution of reduced EF, following with cardiology Currently on Entresto, Toprol, ARB Hypothyroidism Continue levothyroxine Abnormality on CT abd/pelvis Ill-defined height of a dense focus measuring 2.7 cm within the medial segment of the left hepatic lobe with associated volume loss and trace adjacent ascites. Left hepatic lobe atrophy is favored. An underlying lesion is considered less likely however a nonemergent liver protocol MRI is recommended Follow up with PCP DVT Ppx: Eliquis Code status: PCP: [facility] Dispo: Observation PCU Patient seen in collaboration with Dr. Valdes. Please see addendum. History of Present Illness Chief Complaint: Falls, possible syncope Primary Care Provider: Everett Macedo, This is a 73-year-old female with PMH of stable thoracic aortic aneurysm, atrial fibrillation on Eliquis, chronic diastolic heart failure with valvular disease, non-obstructive CAD, hypothyroidism, insomnia, hypertension, anxiety, history of stress-induced cardiomyopathy in setting of covid with recurrent VT in Apr 2022 and hyperlipidemia who presents with multiple unwitnessed falls earlier today. Had a busy day yesterday bringing a friend to the hospital and admittedly did not drink as much water or rest as usual. When she got up this morning was walking to the kitchen she had her first event where she came to on the ground. Is not completely sure if she lost consciousness but does not remember falling. Denies any preceding chest pain, palpitations but did feel little bit lightheaded with standing. This occurred again when she bent down to feed her cat and then again when she got up from the kitchen and walked back to her bed in an attempt to rest. Denies any F/C, recent viral illness, congestion, sore throat, CP, palpitations, SOB, N/V, abd pain, dysuria, diarrhea or constipation. Taking all medications as scheduled and took AM meds today. Did get flu and covid vaccines last week. Completed Bactrim course for ESBL UTI last month. Follows with cardiology and is on Eliquis, amiodarone and Toprol for A fib and Entresto for h/o NICM and HTN. Was seen by cards last January with symptoms of lightheadedness and EKG showed short NH and PACs - Zio monitor showed primarily sinus rhythm with 4 short episodes of likely PAF. 2D echo from April 18, 2023 revealing an improved EF of 60-64%, moderate aortic sclerosis but no aortic stenosis. Mild aortic regurgitation, moderate MR, proximal ascending aorta measuring 4.4 cm. Allergies Allergy/AdvReac Type Severity Reaction Status Date / Time No Known Allergies Allergy Verified 05/16/22 12:46 Home Medications Medication Instructions Recorded Confirmed Type apixaban 5 mg tablet (Eliquis) 5 mg PO BID 05/16/22 07/08/23 History atorvastatin 40 mg tablet 40 mg PO DAILY 05/16/22 07/08/23 History gabapentin 100 mg capsule 100 mg PO TID 05/16/22 07/08/23 History lorazepam 0.5 mg tablet 0.5 mg PO BID PRN Anxiety 05/16/22 07/08/23 History ramelteon 8 mg tablet 8 mg PO HS 05/16/22 07/08/23 History amiodarone 200 mg tablet 200 mg PO DAILY #30 tabs 05/27/22 07/08/23 Rx [id number]-[id number] 1 tab PO Q6H PRN Migraine Headache 07/08/23 07/08/23 History 50 mg-325 mg-40 mg tablet calcium 500 mg tablet 500 mg PO DAILY 07/08/23 07/08/23 History cholecalciferol (vitamin D3) 25 25 mcg PO DAILY 07/08/23 07/08/23 History mcg (1,000 unit) tablet levothyroxine 75 mcg tablet 75 mcg PO DAILY 07/08/23 07/08/23 History metoprolol succinate 25 mg 12.5 mg PO DAILY 07/08/23 07/08/23 History tablet,extended release 24 hr pantoprazole 40 mg tablet,delayed 40 mg PO DAILY 07/08/23 07/08/23 History release sacubitril 24 mg-valsartan 26 mg 1 tab PO BID 07/08/23 07/08/23 History tablet (Entresto) trazodone 50 mg tablet 50 mg PO HS 07/08/23 07/08/23 History Past Med/Surg History Medical History Anxiety Ascending aortic aneurysm 4.4cm per resting echo 04/2021 Chronic heart failure with preserved ejection fraction (HFpEF) Diastolic dysfunction Esophageal reflux HLD (hyperlipidemia) Hypertension Left atrial dilation Migraine PAF (paroxysmal atrial fibrillation) Persistent insomnia Surgical History History of cholecystectomy History of lumbar surgery History of partial hysterectomy Family History Mother Hypertension Father TIA (transient ischemic attack) Sister Diabetes Other No pertinent family history in first degree relatives Social History Smoking Status: Never smoker Hx Alcohol Use: No Hx Substance Use: No Preferred Language: Cymro Communication Ability: Effective Visual Impairment: No Limitations Hearing Ability: Normal Electric Dolly 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 Physical Exam Physical Exam: General Appearance: WD/WN, vitals as above, NAD, sitting up in bed, pleasant, conversing easily Head: normocephalic, atraumatic Eyes: normal inspection, PERRL, conjunctivae normal, anicteric sclerae ENT: external ear and nose normal, oropharynx normal Neck: normal visual inspection, trachea midline, no thyromegaly Respiratory: normal respiratory effort, lungs clear to auscultation, no wheeze, rales, rhonchi. No accessory muscle use Cardiovascular: regular rate, rhythm, normal peripheral pulses, no BLE edema. Vessels: no JVD Chest: normal inspection of chest Abdomen/GI: normal bowel sounds, soft, nontender, no hepatosplenomegaly Extremities/Musculoskeletal: no cyanosis or clubbing, extremities motor strength 5/5 Neurologic: PERRL, EOMI, accommodation nl, no face palsy, no dysarthria, CN's II-XI intact bilaterally and moves all extremities Psychiatric: A+Ox3, euthymic affect Skin: no rashes, normal color, warm/dry Results & Data Results & Data Vital Signs (Past 12 Hours) Vital Signs Temp Pulse Resp BP Pulse Ox O2 Del Method 07/08/23 12:00 60 22 129/67 97 07/08/23 11:28 60 07/08/23 10:10 96 Room Air 07/08/23 09:34 36.2 C L 69 20 135/71 97 Room Air Laboratory Results Short CBC 07/08/23 Range/Units 10:05 WBC 4.77 L (4.8-10.8) K/ul Hgb 11.1 L (12.0-16.0) g/dl Hct 34.0 L (37.0-47.0) % Plt Count 202 (130-400) K/uL BMP 07/08/23 10:05 Sodium 135 L Potassium 3.9 Chloride 106 Carbon Dioxide 23 BUN 21 Creatinine 0.88 Glucose 112 H Calcium 9.2 Liver Function 07/08/23 Range/Units 10:05 Total Bilirubin 0.2 (0.2-1.0) mg/dl AST 23 (13-39) U/L ALT 14 (7-52) U/L Alkaline Phosphatase 88 (34-104) U/L Albumin 4.3 (3.4-5.0) gm/dl Diagnostic Findings Chest X-Ray 07/08/23 09:50 XR chest 1V portable CLINICAL HISTORY: syncope COMPARISON STUDY: Chest CT May 16, 2022. Chest radiograph May 20, 2022. FINDINGS: Lung volumes are normal. Lungs are clear. There is no pneumothorax or pleural effusion. Cardiac size is normal. Mediastinal contours are normal. Mild interstitial thickening is noted. This may be chronic. IMPRESSION: No acute cardiopulmonary findings. ACT 112: Negative or not required by law. Electronically signed by: Mega Butler M.D. 07/08/2023 10:[address] 07/08/23 09:52 CT OF THE HEAD WITHOUT CONTRAST CLINICAL HISTORY: Falls. COMPARISON STUDY: Head CT July 25, 2010. MRI of the brain March 28, 2012. TECHNIQUE: Helical axial images of the head were obtained without IV contrast. Automated exposure control was utilized for the study. A dose lowering technique was utilized adhering to the principles of ALARA. FINDINGS: No acute intracranial hemorrhage, midline shift or mass effect is present. The ventricular system is unremarkable. The basal cisterns are patent. No extra-axial collections are present. There are no findings to suggest acute dural sinus thrombosis or acute territorial infarct. No significant calvarial abnormalities are present. Visualized portions of the sinuses and mastoid air cells are clear. IMPRESSION: 1. No acute intracranial findings. 2. No calvarial fracture. ACT 112: Negative or not required by law. Electronically signed by: Mega Butler M.D. 07/08/2023 11:07 AM Abdomen/Pelvis CTA 07/08/23 09:54 CT ANGIOGRAPHY OF THE ABDOMEN AND PELVIS CLINICAL HISTORY: Abdominal pain. Frequent falls. COMPARISON STUDY: CT of the abdomen and pelvis May 16, 2022. TECHNIQUE: Helical axial images of the abdomen and pelvis were obtained during arterial phase following intravenous injection 115 cc of Optiray 320 IV. Sagittal and coronal reconstructions were viewed as well as maximal intensity projections on an independent 3-D workstation. Automated exposure control was utilized for the study. A dose lowering technique was utilized adhering to the principles of ALARA. FINDINGS: The caliber of the abdominal aorta is normal. There is no abdominal aortic aneurysm. There is moderate plaque of the abdominal aorta. No dissection within the abdomen or pelvis is noted. Branch vessels are patent. No pneumatosis, free air or portal venous gas is present. The gallbladder is likely surgically absent. There is trace perihepatic ascites. There is mild volume loss of the medial segment of the left hepatic lobe. A 2.7 cm hypodense focus within the medial segment of the left hepatic lobe on image 95 of 530 is noted. Arterial phase images of the spleen, adrenal glands and kidneys are unremarkable. Is no hydronephrosis. There is no evidence for a bowel obstruction. Colonic diverticulosis without evidence for acute diverticulitis. The appendix is not visualized. There is no lymphadenopathy. No acute fractures are identified within visualized skeletal structures IMPRESSION: 1. No acute process within the abdomen or pelvis. 2. Normal caliber abdominal aorta. Moderate atherosclerotic plaque within the abdominal aorta with patent branch vessels. No abdominal aortic dissection. 3. Ill-defined height of a dense focus measuring 2.7 cm within the medial segment of the left hepatic lobe with associated volume loss and trace adjacent ascites. Left hepatic lobe atrophy is favored. An underlying lesion is considered less likely however a nonemergent liver protocol MRI is recommended. ACT 112: Positive. There are findings on this exam that require communication between the performing entity and the patient following Patient Test Result Information Act ([place] Act 112) guidelines. Electronically signed by: Mega Butler M.D. 07/08/2023 11:36 AM Chest CTA 07/08/23 09:54 CT ANGIOGRAPHY OF THE CHEST DISSECTION PROTOCOL CLINICAL HISTORY: hx of aaa. Chest and abdominal pain. Falls. COMPARISON STUDY: Chest radiograph performed earlier today. Chest CT May 16, 2022. TECHNIQUE: Before and following the IV administration of 115 mL of Optiray, helical axial images of the chest were obtained. Maximal intensity projections and sagittal and coronal reformats were viewed on an independent 3D workstation. IV contrast was administered without complication. Automated exposure control was utilized for the study. A dose lowering technique was utilized adhering to the principles of ALARA. CT DOSE: 1972.15 mGy.cm FINDINGS: Dilatation of the ascending aorta measuring 4.4 cm at the level of the main pulmonary artery is unchanged since CT of May 16, 2022. There is no thoracic aortic dissection. No intramural hematoma is present. No pulmonary emboli are identified. There is moderate cardiomegaly and extensive coronary artery calcification. Central airways are patent. Groundglass opacities with mosaic attenuation within the lungs are noted. There is no pneumothorax or pleural effusion. No acute fractures within the bony thorax are noted. The abdomen and pelvis CT will be reported separately. IMPRESSION: 1. No thoracic aortic dissection. 2. Stable aneurysmal dilatation of the ascending aorta, measuring 4.4 cm, since CT of May 16, 2022. 3. Groundglass opacities with mosaic attenuation within the lungs. The findings favor atelectasis however air trapping or mild pulmonary edema could appear similar. 4. Moderate cardiomegaly and extensive coronary artery calcification. ACT 112: Negative or not required by law. Electronically signed by: Mega Butler M.D. 07/08/2023 11:25 AM ECG Additional Comments: EKG reviewed- sinus rhythm with marked sinus arrhythmia with short NH Code Status & VTE Plan VTE Prophylaxis Plan VTE Prophylaxis will be ordered: Yes Supervising Physician Co-Signing Physician Notes I have seen and examined the patient and have discussed the case with the provider above. I agree with the assessment and plan as stated. 73 yo F presents with dizziness with changing position resulting in multiple episodes of syncope. She reports feeling this way for at least one year, but this was the most intense today. She is on multiple evening medications to assist with sleep including ramelteon, trazodone, lorazepam, gabapentin. When asked why she is taking these, she quotes that she just kept taking what various doctors were giving. She is fine with stopping trazodone which is a recommendation. Additionally, it is recommended that she see a psychologist regarding sleep behavior and the reasons behind her insomnia. Further de-escalation of medications to prevent additional medication polypharmacy side effects are recommended including stopping ramelteon. We discussed this and how to do this with her primary care doctor. She and her both verbalized understanding to pursue this as outpatient with intent to comply. Work-up is otherwise negative and syncope with persistent side effects in the morning are likely secondary to this polypharmacy from these drugs. Notably she feels better in the afternoon and worse in the morning which is also supportive of a polypharmacy side effect. My physical exam is consistent with that above. There is no gross focal neurologic deficits. She is mentating at baseline and is a good historian. is at bedside and assists with the history. Labs and medications and imaging reviewed. Stop trazodone moving forward and continue de-escalation in the next couple of weeks. DO Lucio (1) Syncope Syncope type: unspecified Qualified Code(s): R55 - Syncope and collapse (2) Fall Encounter type: initial encounter Qualified Code(s): W19.XXXA - Unspecified fall, initial encounter
[2023-07-08] MEDS ORDERED: ONDANSETRON INJ 2 MG/ML 2 ML VIAL IV PRN (14:22)
[2023-07-08] MEDS ORDERED: ACETAMINOPHEN 325 MG TAB PO PRN (14:22)
[2023-07-08] MEDS ORDERED: POLYETHYLENE (MIRALAX) 17 GM PACK PO PRN (14:22)
[2023-07-08 15:57] LABS: Appearance Urine Clear (Clear); Bilirubin Urine Negative (Negative); Blood Urine 2+ (Negative); Color Urine Yellow; Glucose Urine UA Negative (Negative); Ketones Urine Negative (Negative); Leukocyte Esterase Urine Negative (Negative); Nitrite Urine Negative (Negative); Protein Urine Negative (Negative); Specific Gravity Urine 1.041 (1.000-1.030); Urobilinogen Urine Negative (Negative); pH Urine 5.5 (4.5-7.5)
[2023-07-08 16:10] LABS: Bacteria Urine Negative (Negative); Epithelial Cell Urine 20-30 /lpf (0-5); WBC Urine 0-5 /hpf (0-5)
[2023-07-08] MEDS ORDERED: BUTALBITAL/ACETAMIN/CAFFEINE TAB PO PRN (16:10)
--- NOTE | 2023-07-08 17:20 | Cardiology Consultation ---
Date of Consultation July 08, 2023 Assessment & Plan (1) Syncope: Plan This is a 73 year old female with a pmhx of Afib, HTN, hx of Stress induced cardiomyopathy in the setting of COVID19 with recurrent VT (on amiodarone) who presents after multiple syncopal episodes. 1. Syncope -may be consistent with orthostatic hypotension -will speak with RN to perform orthostatics -she does have a history of VT, so she should at least be monitored overnight on telemetry -continue amiodarone -recently had a TTE which showed normal LVEF -recommend gentle hydration; encourage PO intake. I spent 80 min on physical exam at bedside, reviewing the chart, discussing the case and counseling the patient in regards to syncope. Trey Cifuentes MD History of Present Illness Reason for Consultation: Syncope Attending Physician: Darling Valdes DO History of Present Illness This is a 73 year old female with a pmhx of Afib, HTN, hx of Stress induced cardiomyopathy in the setting of COVID19 with recurrent VT (on amiodarone) who presents after multiple syncopal episodes. She tells us that the episodes occur red after rising from a sitting position and walking short distances. She is unsure if she passed out, as she cannot remember what happened after she fell to the ground. This occurred multiple times. She denies palpitations. No N/V/LEIGH; afebrile. No PND or orthopnea. She admits to decreased PO intake as of late. She denies any witnessed seizure-like activity. Allergies Allergy/AdvReac Type Severity Reaction Status Date / Time No Known Allergies Allergy Verified 05/16/22 12:46 Home Medications Medication Instructions Recorded Confirmed Type apixaban 5 mg tablet (Eliquis) 5 mg PO BID 05/16/22 07/08/23 History atorvastatin 40 mg tablet 40 mg PO DAILY 05/16/22 07/08/23 History gabapentin 100 mg capsule 100 mg PO TID 05/16/22 07/08/23 History lorazepam 0.5 mg tablet 0.5 mg PO BID PRN Anxiety 05/16/22 07/08/23 History ramelteon 8 mg tablet 8 mg PO HS 05/16/22 07/08/23 History amiodarone 200 mg tablet 200 mg PO DAILY #30 tabs 05/27/22 07/08/23 Rx [id number]-[id number] 1 tab PO Q6H PRN Migraine Headache 07/08/23 07/08/23 History 50 mg-325 mg-40 mg tablet calcium 500 mg tablet 500 mg PO DAILY 07/08/23 07/08/23 History cholecalciferol (vitamin D3) 25 25 mcg PO DAILY 07/08/23 07/08/23 History mcg (1,000 unit) tablet levothyroxine 75 mcg tablet 75 mcg PO DAILY 07/08/23 07/08/23 History metoprolol succinate 25 mg 12.5 mg PO DAILY 07/08/23 07/08/23 History tablet,extended release 24 hr pantoprazole 40 mg tablet,delayed 40 mg PO DAILY 07/08/23 07/08/23 History release sacubitril 24 mg-valsartan 26 mg 1 tab PO BID 07/08/23 07/08/23 History tablet (Entresto) trazodone 50 mg tablet 50 mg PO HS 07/08/23 07/08/23 History Patient History Medical History Anxiety Ascending aortic aneurysm 4.4cm per resting echo 04/2021 Chronic heart failure with preserved ejection fraction (HFpEF) Diastolic dysfunction Esophageal reflux HLD (hyperlipidemia) Hypertension Left atrial dilation Migraine PAF (paroxysmal atrial fibrillation) Persistent insomnia Surgical History History of cholecystectomy History of lumbar surgery History of partial hysterectomy Family History Mother Hypertension Father TIA (transient ischemic attack) Sister Diabetes Other No pertinent family history in first degree relatives Social History Smoking Status: Never smoker Hx Alcohol Use: No Hx Substance Use: No Preferred Language: Occitan Communication Ability: Effective Visual Impairment: No Limitations Hearing Ability: Normal Career Orientation Teacher Required: No Beliefs That Will Affect Care: None marital status: Current Living Situation: Spouse current occupational status: retired Feels Safe at Home: Yes Safety Concerns: Feels Safe At This Time Assistive Devices: None Review of Systems Review of Systems: A full review of systems is otherwise negative unless noted above. Physical Exam Constitutional: AAOx3; NAD Neck: No JVD Respiratory: normal respiratory effort, lungs clear to auscultation Cardiovascular: RRR, no murmur, no edema Gastrointestinal (Abdomen): normal bowel sounds, soft, nontender, no hepatosplenomegaly Skin: no rashes, warm and dry Neurologic: Deferred. Psychiatric: A+Ox3, euthymic affect Results & Data Vital Signs (Past 12 Hours) Vital Signs Temp Pulse Pulse Resp BP BP Pulse Ox 07/08/23 16:05 64 07/08/23 14:28 36.9 C 86 16 139/82 97 07/08/23 13:01 61 19 124/54 L 97 07/08/23 12:00 60 22 129/67 97 07/08/23 11:28 60 07/08/23 10:10 96 07/08/23 09:34 36.2 C L 69 20 135/71 97 O2 Del Method 07/08/23 16:05 07/08/23 14:28 Room Air 07/08/23 13:01 07/08/23 12:00 07/08/23 11:28 07/08/23 10:10 Room Air 07/08/23 09:34 Room Air (1) Syncope Syncope type: unspecified Qualified Code(s): R55 - Syncope and collapse
[2023-07-08] MEDS: VALSARTAN/SACUBITRIL 26/24MG TAB PO SCH (20:12)
[2023-07-08] MEDS: GABAPENTIN 100 MG CAP PO SCH (20:12)
[2023-07-08] MEDS: APIXABAN 5 MG TABLET PO SCH (20:12)
[2023-07-08] MEDS: LORazepam 0.5 MG TAB PO PRN (20:28)
[2023-07-08] MEDS ORDERED: traZODone HCL 50 MG TAB PO SCH (21:00)
[2023-07-09] MEDS ORDERED: LEVOTHYROXINE SODIUM 75 MCG TABLET PO SCH (06:30)
--- NOTE | 2023-07-09 07:40 | Hospitalist Progress Note ---
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 Falls, possible syncope Multiple falls earlier today preceded by lightheadedness H/o similar sx back in January with Zio monitor revealing primarily sinus rhythm with 4 short episodes of likely PAF Also with history of NICM last year 2/2 covid but per most recent 2D echo Apr 18 2023 revealing an improved EF of 60-64%, moderate aortic sclerosis but no aortic stenosis. Mild AR, mod MR, proximal ascending aorta measuring 4.4 cm Work-up today with negative CT head, CTA chest with no thoracic aortic dissection, stable aneurysmal dilatation of the ascending aorta, measuring 4.4 cm, since CT of May 16, 2022, CT abd/pelvis without acute process Orthostatics, continued monitoring, routine cardiology consult Considering possible DDI between Ramelteon,trazodone, Ativan causing increased dizziness and motor coordination - holding trazodone Thoracic aortic aneurysm Stable at 4.4cm as mentioned above Atrial fibrillation Continue amiodarone, Toprol, anticoagulation on Eliquis Chronic diastolic heart failure HTN H/o NICM with most recent Apr 18 showing resolution of reduced EF, following with cardiology Currently on Entresto, Toprol, ARB Hypothyroidism Continue levothyroxine Abnormality on CT abd/pelvis Ill-defined height of a dense focus measuring 2.7 cm within the medial segment of the left hepatic lobe with associated volume loss and trace adjacent ascites. Left hepatic lobe atrophy is favored. An underlying lesion is considered less likely however a nonemergent liver protocol MRI is recommended Follow up with PCP DVT Ppx: Eliquis Code status: PCP: [facility] Dispo: Observation PCU Patient seen in collaboration with Dr. Valdes. Please see addendum. Admission and Anticipated Discharge Date Admission Date: July 08, 2023 Results & Data Results & Data Vital Signs (Past 12 Hours) Vital Signs Temp Pulse Pulse Resp BP Pulse Ox O2 Del Method 07/09/23 06:38 37.0 C 75 18 134/73 96 Room Air 07/09/23 07:01 76 07/09/23 03:29 36.8 C 72 14 135/84 99 Room Air 07/08/23 23:15 70 07/08/23 22:56 36.6 C 61 18 139/71 97 Room Air 07/08/23 20:07 36.8 C 72 16 156/72 H 97 Room Air Laboratory Results Short CBC 07/08/23 Range/Units 10:05 WBC 4.77 L (4.8-10.8) K/ul Hgb 11.1 L (12.0-16.0) g/dl Hct 34.0 L (37.0-47.0) % Plt Count 202 (130-400) K/uL BMP 07/08/23 10:05 Sodium 135 L Potassium 3.9 Chloride 106 Carbon Dioxide 23 BUN 21 Creatinine 0.88 Glucose 112 H Calcium 9.2 Liver Function 07/08/23 Range/Units 10:05 Total Bilirubin 0.2 (0.2-1.0) mg/dl AST 23 (13-39) U/L ALT 14 (7-52) U/L Alkaline Phosphatase 88 (34-104) U/L Albumin 4.3 (3.4-5.0) gm/dl Urine 07/08/23 Range/Units 13:45 Urine Color Yellow Urine Appearance Clear (Clear) Urine pH 5.5 (4.5-7.5) Ur Specific Lambert 1.041 H (1.000-1.030) Urine Protein Negative (Negative) Urine Glucose (UA) Negative (Negative) Medications Administered Current Inpatient Medications Acetaminophen (Acetaminophen 325 Mg Tab) 650 mg PO Q4H PRN PRN Reason: Pain or Fever Stop: 08/07/23 14:21 Acetaminophen/Butalbital/Caffeine (Butalbital/Acetamin/Caffeine Tab) 1 tab PO Q6H PRN PRN Reason: Migraine Headache Stop: 08/07/23 16:09 Last Admin: 07/08/23 20:28 Dose: 1 tab Amiodarone HCl (Amiodarone 200 Mg Tab) 200 mg PO DAILY COUNTS INCLUDE 234 BEDS AT THE [facility] Stop: 08/08/23 08:59 Apixaban (Apixaban 5 Mg Tablet) 5 mg PO BID VEGA Stop: 08/07/23 20:59 Last Admin: 07/08/23 20:12 Dose: 5 mg Atorvastatin Calcium (Atorvastatin 40 Mg Tab) 40 mg PO DAILY VEGA Stop: 08/08/23 08:59 Calcium Carbonate (Calcium Carbonate 1250mg Tab) 1,250 mg PO DAILY VEGA Stop: 08/08/23 08:59 Gabapentin (Gabapentin 100 Mg Cap) 100 mg PO TID VEGA Stop: 08/07/23 20:59 Last Admin: 07/08/23 20:12 Dose: 100 mg Levothyroxine Sodium (Levothyroxine Sodium 75 Mcg Tablet) 75 mcg PO DAILYBB COUNTS INCLUDE 234 BEDS AT THE [facility] Stop: 08/08/23 06:29 Last Admin: 07/09/23 05:49 Dose: 75 mcg Lorazepam (Lorazepam 0.5 Mg Tab) 0.5 mg PO BID PRN PRN Reason: Anxiety Stop: 08/07/23 16:09 Last Admin: 07/08/23 20:28 Dose: 0.5 mg Metoprolol Succinate (Metoprolol Succ 25mg Ext Rel Tab) 12.5 mg PO DAILY COUNTS INCLUDE 234 BEDS AT THE [facility] Stop: 08/08/23 08:59 Miscellaneous (Ramelteon 8 Mg Tablet ~ Order Awaiting Action) 1 each N/A QS COUNTS INCLUDE 234 BEDS AT THE [facility] Stop: 08/08/23 00:00 Last Admin: 07/09/23 01:17 Dose: Not Given Ondansetron HCl (Ondansetron Inj 2 Mg/Ml 2 Ml Vial) 4 mg IV Q6H PRN PRN Reason: Nausea Stop: 08/07/23 14:21 Pantoprazole Sodium (Pantoprazole 40 Mg Tab) 40 mg PO DAILY COUNTS INCLUDE 234 BEDS AT THE [facility] Stop: 08/08/23 08:59 Polyethylene Glycol (Polyethylene (Miralax) 17 Gm Pack) 17 gm PO DAILY PRN PRN Reason: Constipation Stop: 08/07/23 14:21 Sacubitril/Valsartan (Valsartan/Sacubitril 26/24mg Tab) 1 tab PO BID VEGA Stop: 08/07/23 20:59 Last Admin: 07/08/23 20:12 Dose: 1 tab Trazodone HCl (Trazodone Hcl 50 Mg Tab) 50 mg PO HS VEGA Stop: 08/07/23 20:59 Vitamin D (Cholecalciferol 1,000 Units 25 Mcg Tab) 1,000 units PO DAILY VEGA Stop: 08/08/23 08:59 (1) Syncope Syncope type: unspecified Qualified Code(s): R55 - Syncope and collapse (2) Fall Encounter type: initial encounter Qualified Code(s): W19.XXXA - Unspecified fall, initial encounter
[2023-07-09 07:52] LABS: Hemoglobin 12.3 g/dl (12.0-16.0); Mean Corpuscular Hemoglobin 27.3 pg (25.0-34.0); Mean Corpuscular Hgb Conc 32.4 g/dL (32.0-36.0); Mean Corpuscular Volume 84.4 fL (80.0-100.0); Mean Platelet Volume 11.1 fL (9.4-12.4); Platelet Count 227 K/uL (130-400); RDW Standard Deviation 49.6 fL (36.4-46.3); White Blood Count 5.68 K/ul (4.8-10.8)
[2023-07-09 08:08] LABS: BUN Creatinine Ratio 18.2 (10-20); Calcium 9.3 mg/dl (8.6-10.3); Est GFR (African American) 88.2 ml/min; Est GFR (Non-African American) 76.1 ml/min; Potassium 4.1 mmol/L (3.5-5.1)
[2023-07-09] MEDS: GABAPENTIN 100 MG CAP PO SCH (08:28)
[2023-07-09] MEDS: APIXABAN 5 MG TABLET PO SCH (08:29)
[2023-07-09] MEDS: VALSARTAN/SACUBITRIL 26/24MG TAB PO SCH (08:29)
[2023-07-09] MEDS: LORazepam 0.5 MG TAB PO PRN (08:34)
[2023-07-09] MEDS ORDERED: ATORVASTATIN 40 MG TAB PO SCH (09:00)
[2023-07-09] MEDS ORDERED: PANTOprazole 40 MG TAB PO SCH (09:00)
[2023-07-09] MEDS ORDERED: AMIODARONE 200 MG TAB PO SCH (09:00)
[2023-07-09] MEDS ORDERED: CALCIUM CARBONATE 1250MG TAB PO SCH (09:00)
[2023-07-09] MEDS ORDERED: METOPROLOL SUCC 25MG EXT REL TAB PO SCH (09:00)
[2023-07-09] MEDS ORDERED: CHOLECALCIFEROL 1,000 UNITS 25 MCG TAB PO SCH (09:00)
--- NOTE | 2023-07-09 11:56 | Discharge Summary ---
Discharge Summary Date of Service July 09, 2023 Admission HPI Per Admitting Provider This is a 73-year-old female with PMH of stable thoracic aortic aneurysm, atrial fibrillation on Eliquis, chronic diastolic heart failure with valvular disease, non-obstructive CAD, hypothyroidism, insomnia, hypertension, anxiety, history of stress-induced cardiomyopathy in setting of covid with recurrent VT in Apr 2022 and hyperlipidemia who presents with multiple unwitnessed falls earlier today. Had a busy day yesterday bringing a friend to the hospital and admittedly did not drink as much water or rest as usual. When she got up this morning was walking to the kitchen she had her first event where she came to on the ground. Is not completely sure if she lost consciousness but does not remember falling. Denies any preceding chest pain, palpitations but did feel little bit lightheaded with standing. This occurred again when she bent down to feed her cat and then again when she got up from the kitchen and walked back to her bed in an attempt to rest. Denies any F/C, recent viral illness, congestion, sore throat, CP, palpitations, SOB, N/V, abd pain, dysuria, diarrhea or constipation. Taking all medications as scheduled and took AM meds today. Did get flu and covid vaccines last week. Completed Bactrim course for ESBL UTI last month. Follows with cardiology and is on Eliquis, amiodarone and Toprol for A fib and Entresto for h/o NICM and HTN. Was seen by cards last January with symptoms of lightheadedness and EKG showed short DC and PACs - Zio monitor showed primarily sinus rhythm with 4 short episodes of likely PAF. 2D echo from April 18, 2023 revealing an improved EF of 60-64%, moderate aortic sclerosis but no aortic stenosis. Mild aortic regurgitation, moderate MR, proximal ascending aorta measuring 4.4 cm. Principal Dx & Hospital Course #1 = Principal Diagnosis (1) Polypharmacy: (2) Syncope: Updated Medication List Medication Instructions Recorded Confirmed Type apixaban 5 mg tablet (Eliquis) 5 mg PO BID 05/16/22 07/08/23 History atorvastatin 40 mg tablet 40 mg PO DAILY 05/16/22 07/08/23 History gabapentin 100 mg capsule 100 mg PO TID 05/16/22 07/08/23 History lorazepam 0.5 mg tablet 0.5 mg PO BID PRN Anxiety 05/16/22 07/08/23 History ramelteon 8 mg tablet 8 mg PO HS 05/16/22 07/08/23 History amiodarone 200 mg tablet 200 mg PO DAILY #30 tabs 05/27/22 07/08/23 Rx ikeqbuznzl-hbepabqfndhug-asveaffd 1 tab PO Q6H PRN Migraine Headache 07/08/23 07/08/23 History 50 mg-325 mg-40 mg tablet calcium 500 mg tablet 500 mg PO DAILY 07/08/23 07/08/23 History cholecalciferol (vitamin D3) 25 25 mcg PO DAILY 07/08/23 07/08/23 History mcg (1,000 unit) tablet levothyroxine 75 mcg tablet 75 mcg PO DAILY 07/08/23 07/08/23 History metoprolol succinate 25 mg 12.5 mg PO DAILY 07/08/23 07/08/23 History tablet,extended release 24 hr pantoprazole 40 mg tablet,delayed 40 mg PO DAILY 07/08/23 07/08/23 History release sacubitril 24 mg-valsartan 26 mg 1 tab PO BID 07/08/23 07/08/23 History tablet (Entresto) Hospital Stay Data Consultations 07/08/23 13:08 ED Decision to Admit Stat 07/08/23 14:44 Consult Cardiology Routine Diagnostic Imagining Performed 07/08/23 09:52 CT head/brain wo con Stat 07/08/23 09:54 CT angio abdomen pelvis w con Stat CT angio chest dissec wo/w con Stat Pending Results Patient Have Any Pending Studies at Discharge: No Discharge Instructions Given to Patient (Per Discharging Provider) Please take all medications as instructed on the discharge list below. Please work with your primary care physician (PCP) on continuing to take away sleep aids at night. Trazodone has been stopped and would consider stopping Ramelteon next gradually, and under the supervision of your PCP. Please consider speaking with a counselor to help clarify the cause or any contributing factors to your chronic insomnia. Please followup with your PCP in one week. It was a pleasure taking care of you! Please call if you have any questions or problems. You can reach a [facility] hospitalist on duty at [facility] 24 hours a day by calling [phone]. Take care of yourself. Darling Valdes DO [facility]
--- NOTE | 2023-07-09 12:55 | Cardiology Progress Note ---
Date of Service July 09, 2023 Assessment & Plan (1) Syncope: (2) Fall: Plan This is a 73 year old female with a pmhx of Afib, HTN, hx of Stress induced cardiomyopathy in the setting of COVID19 with recurrent VT (on amiodarone) who presents after multiple syncopal episodes. 1. Syncope -no evidence of significant arrhythmia on telemetry. -this was likely due to orthostasis 2/2 dehydration. -her symptoms resolved s/p 500cc IVF. -resume home medications. I spent 55 min on physical exam at bedside, reviewing the chart, discussing the case and counseling the patient in regards to syncope. Trey Cifuentes MD Admission and Anticipated Discharge Date Admission Date: July 08, 2023 Subjective No acute events overnight. Feeling much better today. No episodes of dizziness or syncope. Orthostatics negative. Review of Systems Review of Systems: A full review of systems is negative unless otherwise noted above. Physical Exam Constitutional: WD/WN, vitals as above Neck: trachea midline, no thyromegaly No JVD. Respiratory: normal respiratory effort, lungs clear to auscultation Cardiovascular: RRR, no murmur, no edema Gastrointestinal (Abdomen): normal bowel sounds, soft, nontender, no hepatosplenomegaly Skin: no rashes, warm and dry Results & Data Vital Signs (Past 12 Hours) Vital Signs Temp Pulse Pulse Resp BP Pulse Ox O2 Del Method 07/09/23 12:30 36.9 C 86 18 169/84 H 93 07/09/23 10:56 36.9 C 86 18 169/84 H 93 Room Air 07/09/23 06:38 37.0 C 75 18 134/73 96 Room Air 07/09/23 07:01 76 07/09/23 03:29 36.8 C 72 14 135/84 99 Room Air (1) Syncope Syncope type: unspecified Qualified Code(s): R55 - Syncope and collapse (2) Fall Encounter type: initial encounter Qualified Code(s): W19.XXXA - Unspecified fall, initial encounter
--- NOTE | 2023-07-10 06:05 | Electrocardiogram Report ---
Test Reason : Blood Pressure : / mmHG Vent. Rate : 070 BPM Atrial Rate : 070 BPM P-R Int : 088 ms QRS Dur : 090 ms QT Int : 434 ms P-R-T Axes : 000 005 070 degrees QTc Int : 468 ms Sinus rhythm with marked sinus arrhythmia with short IL Otherwise normal ECG When compared with ECG of 27-MAY-2022 09:39, QT has shortened Confirmed by Luke Vallejo ([id number]) on 07/10/2023 6:04:36 AM Referred By: REFERRED SELF Confirmed By:Luke Vallejo
== END 2023-07-09 12:55 | disposition home or self-care (01) ==
LOC: ED 09:26 → 2E 09:26

== ENCOUNTER 2023-10-03 10:55 | Inpatient (IN) ==
[2023-10-03] MEDS ORDERED: SODIUM CHLORIDE 0.9% 500 ML IV ONE (11:08)
[2023-10-03] MEDS ORDERED: METOPROLOL TARTRATE 1 MG/ML VIAL IV STA ×2 (11:10→12:08)
[2023-10-03] MEDS ORDERED: METOPROLOL SUCC 25MG EXT REL TAB PO STA (11:10)
[2023-10-03] MEDS: POTASSIUM CHLORIDE / WTR 10 MEQ/100 ML PLCT IV SCH ×2 (11:20→12:43)
[2023-10-03] MEDS ORDERED: POTASSIUM CHLORIDE CRTAB 20 MEQ TABCR PO STA ×2 (11:21→17:51)
--- NOTE | 2023-10-03 11:26 | Emergency Department Note ---
Impression & Plan Atrial fibrillation with rapid ventricular response, Hypokalemia, Closed left ankle fracture, Acute dehydration ED Provider Note NAME: JAYDA EDWARDS AGE: 73 SEX: F : 1950 ARRIVES VIA: Walk-In INFORMANT: [Patient] ED PROVIDER(S): [Austin Pyle MD] CHIEF COMPLAINT: Tachycardia HISTORY OF PRESENT ILLNESS: The patient is a 73-year-old female with chronic atrial fibrillation on Eliquis. Around a week ago, she injured her left ankle. She was at the ED and diagnosed with a trimalleolar fracture. The ankle is splinted. She has been holding her Eliquis. She also did not take her morning medications today. At the surgical center this morning, her heart rate was around 160, her potassium was 2.5. She was sent to the ER for evaluation as they cannot perform the surgery with these conditions. The patient complains of left ankle pain. She is not short of breath. She has no palpitations, there is no chest pain. She does admit she felt a bit dizzy this morning when she first got up. No syncopal spell. PMHx/PSHx/Social Hx: See Below PHYSICAL EXAM: GENERAL: Patient is in no acute distress. HEENT: No acute trauma, normocephalic atraumatic, mucous membranes moist, no nasal congestion. NECK: No stridor, no adenopathy, no meningismus, trachea is midline. LUNGS: Clear to auscultation bilaterally, no wheeze, no rhonchi, breath sounds equal. HEART: Tachycardic and irregular, no obvious murmur. ABDOMEN: Soft, nontender, no peritonitis. EXTREMITIES: No cyanosis. The patient does have a large splint on the left ankle and leg. NEUROLOGIC: Oriented x 3, no acute motor or sensory deficits, no focal weakness. SKIN: No jaundice, no diaphoresis. DIFFERENTIAL DIAGNOSIS: Rapid atrial fibrillation, missed medication dosing, electrolyte imbalance, anemia, dehydration, cardiac ischemia, among others. EMERGENCY DEPARTMENT PROCEDURES: MEDICAL DECISION MAKING: There was no leukocytosis or concerning anemia. There was a normal platelet count. No coagulopathy. Renal panel testing showed a potassium low at 2.5. No renal failure. Urinalysis shows ketones consistent with dehydration. No infection. ECG showed a rapid atrial fibrillation with some T wave changes across the anterior lateral leads. These T wave changes were likely from the rapid rate. Troponin was slightly elevated, likely from her rapid heart rate, of note, she had no complaints of chest pain. Chest x-ray did not show mediastinal widening, pneumonia or pneumothorax. The patient has a left ankle fracture for which she needs surgery. Unfortunately, she was found to be in rapid A-fib at her preop screening. She will need hospitalized here. The patient was given IV saline for hydration. She was given a 500 cc bolus while in the ED. She was given IV potassium, IV morphine. The patient was given a dose of IV Lopressor, a second IV Lopressor dose was given. She received a dose of oral metoprolol succinate. The patient's heart rate has decreased with the intervention noted above. She is currently resting comfortably. I did speak with the patient and case management, the on-call hospitalist has been consulted. Orthopedics can be consulted during this hospital stay. Prior/Outside records/notes reviewed: Orthopedic note from 09/28/2023 discussing her injury and the recommendation for surgical intervention. ECG per my interpretation: Indication was tachycardia. The ECG shows atrial fibrillation with a rate of 161. No PVCs. There are ST depressions seen across the anterior and lateral leads. There is no ST elevation. No PVCs. The QTc is 474. Compared to an ECG from 27 September 2023, A-fib is now present, the anterior lateral T wave changes are new. Continuous Cardiac Monitoring per my interpretation: An order was placed for continuous cardiac monitoring. The monitor shows a rate of 162 with atrial fibrillation. Imaging/x-ray results per my interpretation: Chest x-ray did not show mediastinal widening, pneumonia or pneumothorax. Chronic Medical/Social conditions affecting care: Chronic anticoagulation, advanced age. Care/Management discussed with: Case management, the on-call hospitalist. Level of care consideration(s): After review of the information above and other included data: --I believe the patient requires escalation of care to admission Critical Care Note: I have personally spent 41 minutes of critical care time in the direct management of this patient. This includes bedside care, interpretation of diagnostic studies, and testing, discussion with consultants, patient, and family members, and other required patient management activities. This 41 minutes is in excess of all separately billable procedures. 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 in the setting of COVID-19 pneumonia and sepsis Pneumonia due to COVID-19 virus Apr 2022 > was in rehab at for a approx 3 weeks STEMI (ST elevation myocardial infarction) Apr 2022 > was related to covid, per pt, not an actual STEMI Acute cardiogenic shock and recurrent VT April 2022 per cardio records Syncope Jun 2023- admitted overnight at [facility]- felt related to dehydration; no arrhythmias ; no issues since per 09/19/23 cardio note Anxiety Persistent insomnia HLD (hyperlipidemia) Left atrial dilation Severe- follows with [facility] cardio Migraine Chronic heart failure with preserved ejection fraction (HFpEF) EF 60-64% per 04/2023 ECHO Ascending aortic aneurysm Proximal ascending thoracic aorta 4.4cm per 04/2023 ECHO Diastolic dysfunction NYHA Class 1 Hypertension Labile PAF (paroxysmal atrial fibrillation) no pacer > med controlled on Eliquis Esophageal reflux Surgical History History of cardiac cath 04/2022 [place] History of appendectomy History of tooth extraction History of partial hysterectomy History of cholecystectomy History of lumbar surgery Family History Mother Hypertension Father TIA (transient ischemic attack) Sister Diabetes Other No pertinent family history in first degree relatives Social History Smoking Status: Never smoker Second Hand Exposure: No; Do You Dip or Chew Tobacco: No; Hx Alcohol Use: No Hx Substance Use: No Preferred Language: Pakistani Communication Ability: Effective Visual Impairment: No Limitations Hearing Ability: Normal Database Administration Manager Required: No Beliefs That Will Affect Care: None marital status: Current Living Situation: Spouse current occupational status: retired Other Information That Helps Us Care for You: No Feels Safe at Home: Yes Safety Concerns: Feels Safe At This Time Assistive Devices: Denture - Upper, Denture - Lower and Glasses Allergies Allergies Allergy/AdvReac Type Severity Reaction Status Date / Time No Known Allergies Allergy Verified 10/03/23 10:00 Home Meds Home Medications Medication Instructions Recorded Confirmed apixaban 5 mg tablet (Eliquis) 5 mg PO BID 05/16/22 10/03/23 atorvastatin 40 mg tablet 40 mg PO QPM 05/16/22 10/03/23 gabapentin 100 mg capsule 100 mg PO TID 05/16/22 10/03/23 lorazepam 0.5 mg tablet 0.5 mg PO BID PRN Anxiety 05/16/22 10/03/23 ramelteon 8 mg tablet 8 mg PO HS 05/16/22 10/03/23 [id number]-[id number] 1 tab PO Q6H PRN Migraine Headache 07/08/23 10/03/23 50 mg-325 mg-40 mg tablet calcium 500 mg tablet 500 mg PO QAM 07/08/23 10/03/23 cholecalciferol (vitamin D3) 25 25 mcg PO QAM 07/08/23 10/03/23 mcg (1,000 unit) tablet levothyroxine 75 mcg tablet 75 mcg PO QAM 07/08/23 10/03/23 metoprolol succinate 25 mg 12.5 mg PO QAM 07/08/23 10/03/23 tablet,extended release 24 hr pantoprazole 40 mg tablet,delayed 40 mg PO QAM 07/08/23 10/03/23 release sacubitril 24 mg-valsartan 26 mg 1 tab PO BID 07/08/23 10/03/23 tablet (Entresto) alendronate 70 mg tablet 70 mg PO WK 09/27/23 10/03/23 amiodarone 200 mg tablet 200 mg PO QAM 09/27/23 10/03/23 trazodone 50 mg tablet 50 mg PO HS 09/27/23 10/03/23 Previous Rx's Medication Instructions Recorded oxycodone 5 mg tablet 5 mg PO Q4H PRN pain #15 tabs 09/27/23 Results & Data (ED) Vital Signs Vital Signs - 24 hr 10/03/23 10:57 10/03/23 10:57 10/03/23 10:57 Temperature 36.7 C 36.7 C Temperature Source Oral Oral Pulse Rate 163 H Pulse Rate [Apical] 163 H Respiratory Rate 20 20 Respiratory Effort / Characteristics Non-Labored Respiratory Depth Normal Respiratory Pattern Regular Blood Pressure 159/120 H Blood Pressure [Right Arm] 159/120 H Blood Pressure Mean 133 Blood Pressure Mean [Right Arm] 133 Pulse Oximetry 97 95 97 Oxygen Delivery Method Room Air Room Air Room Air Sepsis Recent Fever Within 48 Hours No Sepsis New/Unexplained Change in Mental Status N/A Sepsis Action Taken by Nursing No Action Required 10/03/23 11:10 10/03/23 11:16 10/03/23 11:21 Temperature Temperature Source Pulse Rate 151 H 167 H 142 H Pulse Rate [Apical] Respiratory Rate 19 Respiratory Effort / Characteristics Respiratory Depth Respiratory Pattern Blood Pressure 150/87 H Blood Pressure [Right Arm] Blood Pressure Mean Blood Pressure Mean [Right Arm] Pulse Oximetry Oxygen Delivery Method Sepsis Recent Fever Within 48 Hours Sepsis New/Unexplained Change in Mental Status Sepsis Action Taken by [facility] Medications Current Medication List: was personally reviewed by me Laboratory Data Attestation: I reviewed the patient's lab results. 10/03/23 17:03 Lab Results 10/03/23 Range/Units 11:15 Magnesium 1.9 (1.7-2.4) mg/dl Total Bilirubin 0.6 (0.2-1.0) mg/dl Direct Bilirubin 0.1 (0-0.2) mg/dl AST 25 (13-39) U/L ALT 12 (7-52) U/L Alkaline Phosphatase 91 (34-104) U/L Troponin I High Sens 14.8 H (0-14) pg/ml Total Protein 8.8 H (6.0-8.3) gm/dl Albumin 4.6 (3.4-5.0) gm/dl Procalcitonin < 0.05 (0-0.5) ng/ml TSH 0.874 (0.300-4.500) uIu/ml Administered Medications Acetaminophen (Acetaminophen 325 Mg Tab) 650 mg PO Q6H VEGA Stop: 11/02/23 16:29 Last Admin: 10/03/23 17:04 Dose: 650 mg Documented By: AMB Gabapentin (Gabapentin 100 Mg Cap) 100 mg PO TID VEGA Stop: 11/02/23 16:29 Last Admin: 10/03/23 17:04 Dose: 100 mg Documented By: AMB Heparin Sodium/Dextrose (Heparin Sodium/Dextrose) 25,000 units in 500 mls @ 13 mls/hr IV .Q24H VEGA; Protocol Stop: 11/02/23 12:29 Last Titration: 10/03/23 18:57 Dose: 650 units/hr, 13 mls/hr Documented By: ALFREDITO Co-signed By: ELLA Admin: 10/03/23 13:27 Dose: 650 units/hr, 13 mls/hr Documented By: Co-signed By: MULU Lorazepam (Lorazepam 0.5 Mg Tab) 0.5 mg PO BID PRN PRN Reason: Anxiety Stop: 11/02/23 16:06 Last Admin: 10/03/23 16:37 Dose: 0.5 mg Documented By: ELLA Oxycodone HCl (Oxycodone Hcl Ir 5 Mg Tab (Immediate Release)) 5 mg PO Q4H PRN PRN Reason: Moderate Pain (Scale 4, 5, 6) Stop: 10/17/23 16:06 Last Admin: 10/03/23 16:32 Dose: 5 mg Documented By: ELLA Polyethylene Glycol (Polyethylene (Miralax) 17 Gm Pack) 17 gm PO DAILY VEGA Stop: 11/02/23 16:14 Last Admin: 10/03/23 18:21 Dose: Not Given Documented By: ELLA Senna/Docusate Sodium (Docusate Sodium/Senna 50/8.6mg Tab) 1 tab PO QAM VEGA Stop: 11/02/23 16:29 Last Admin: 10/03/23 17:03 Dose: 1 tab Documented By: ELLA Discontinued Medications Heparin Sodium/Dextrose (Heparin Iv Adult Wt-Based Low-Dose *No* Initial Bolus Protocol) 1 each IV ONE STA; Protocol Stop: 10/03/23 12:18 Last Admin: 10/03/23 13:27 Dose: 1 each Documented By: Potassium Chloride (K José / Wtr) 10 meq in 100 mls @ 100 mls/hr IV Q1H VEGA Stop: 10/03/23 13:14 Last Infusion: 10/03/23 13:58 Dose: Infused Documented By: Admin: 10/03/23 12:43 Dose: 100 mls/hr Documented By: Infusion: 10/03/23 12:20 Dose: Infused Documented By: Admin: 10/03/23 11:20 Dose: 100 mls/hr Documented By: MULU Sodium Chloride (Nss) 500 mls @ 999 mls/hr IV .Q31M ONE Stop: 10/03/23 11:38 Last Infusion: 10/03/23 11:46 Dose: Infused Documented By: Admin: 10/03/23 11:15 Dose: 999 mls/hr Documented By: MULU Magnesium Sulfate/Dextrose (Magnesium Sulfate / D5w) 1 gm in 100 mls @ 100 mls/hr IV NOW STA Stop: 10/03/23 13:03 Last Infusion: 10/03/23 13:58 Dose: Infused Documented By: Admin: 10/03/23 12:50 Dose: 100 mls/hr Documented By: Metoprolol Succinate (Metoprolol Succ 25mg Ext Rel Tab) 12.5 mg PO NOW STA Stop: 10/03/23 11:11 Last Admin: 10/03/23 11:27 Dose: 12.5 mg Documented By: MULU Metoprolol Succinate (Metoprolol Succ 25mg Ext Rel Tab) 12.5 mg PO NOW ONE Stop: 10/03/23 16:59 Last Admin: 10/03/23 17:06 Dose: 12.5 mg Documented By: ELLA Metoprolol Tartrate (Metoprolol Tartrate 1 Mg/Ml Vial) 5 mg IV NOW STA Stop: 10/03/23 11:11 Last Admin: 10/03/23 11:21 Dose: 5 mg Documented By: MULU Metoprolol Tartrate (Metoprolol Tartrate 1 Mg/Ml Vial) 5 mg IV NOW STA Stop: 10/03/23 12:09 Last Admin: 10/03/23 12:45 Dose: 5 mg Documented By: Morphine Sulfate (Morphine Sulfate 2 Mg/Ml Carp) 1 mg IV NOW STA Stop: 10/03/23 11:34 Last Admin: 10/03/23 11:44 Dose: 1 mg Documented By: MULU Morphine Sulfate (Morphine Sulfate 4 Mg/Ml 1 Ml Carp\Vial) 4 mg IV Q30M PRN PRN Reason: Pain Stop: 10/17/23 12:07 Last Admin: 10/03/23 15:05 Dose: 4 mg Documented By: Morphine Sulfate (Morphine Sulfate 2 Mg/Ml Carp) 1 mg IV Q4H PRN PRN Reason: Severe Pain (Scale 7, 8, 9,10) Stop: 10/17/23 16:06 Last Admin: 10/03/23 17:48 Dose: 1 mg Documented By: ELLA Potassium Chloride (Potassium Chloride Crtab 20 Meq Tabcr) 40 meq PO NOW STA Stop: 01/16/24 11:22 Last Admin: 10/03/23 11:28 Dose: 40 meq Documented By: MULU Potassium Chloride (Potassium Chloride Crtab 20 Meq Tabcr) 40 meq PO ONE ONE Stop: 10/03/23 16:08 Last Admin: 10/03/23 17:03 Dose: 40 meq Documented By: AMB Discharge Plan Visit Data Chief Complaint: Tachycardia ED Provider: Austin Pyle Discharge Problem: Atrial fibrillation with rapid ventricular response, Hypokalemia, Closed left ankle fracture, Acute dehydration Patient Disposition: Admitted As Inpatient Condition: Fair Discharge Instructions Interventions: ED Discharge Assessment Last Done: 10/03/23 15:35 Discharge Problem: Closed left ankle fracture Qualifiers: Encounter type: initial encounter Qualified Code(s): S82.892A - Other fracture of left lower leg, initial encounter for closed fracture
[2023-10-03] MEDS ORDERED: MoRPHine SULFATE 2 MG/ML CARP IV STA (11:33)
--- NOTE | 2023-10-03 11:53 | History & Physical Report ---
Date of Service October 03, 2023 Assessment & Plan (1) Atrial fibrillation with RVR: (2) Hypokalemia: (3) Closed trimalleolar fracture of left ankle: Admission and Anticipated Discharge Date Admission Date: This is a 73-year-old female who has a significant past medical history of paroxysmal atrial fibrillation anticoagulated on Eliquis, HTN, HLD, history of nonischemic cardiomyopathy CKD, thoracic aortic aneurysm ascending 4.3 x 4.3 cm, history of NSVT, GERD, osteoporosis, vitamin D deficiency, history of migraine, anxiety and insomnia who presents to ED at the referral of preop secondary to A- fib with RVR. Atrial fib with RVR Elevated troponin admit to PCU surgery on hold consult cardiology for further medical optimization Pt states she took her metoprolol and amiodarone this a.m.; also told ED provider she did not so this is uncertain has been off eliquis for a reported week for upcoming surgery [id number] score 4, age, f, htn, chf hx will place on IV heparin for now while medically optimizing replace electrolytes last echo 04/2023 EF preserved infectious w/u 2/2 elevated anion gap continue metoprolol and amiodarone for now, HR improving to 90s after bolus of 5mg IV lopressor, she also received a dose of 12.5mg metoprolol succinate in ED repeat trop @ 1500 Hypokalemia K 2.5 replace, 40meq KCL oral and 2 riders ordered in ED will give additional 40meq KCL @ 1600 try to keep k > 4 mag is 1.9 so will give 1g mag sulfate to try to attain mag > 2 Elevated anion gap no clear source replace lytes, infectious work up repeat in @ 1500 Trimalleolar ankle fx, POA cast in place, occurred ~ 1 week ago presented for surgery today and surgery cancelled 2/[address] 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 Macedo DVT ppx: IV heparin Dispo: admit to PCU, medically stabilize prior to surgery Pt was seen and examined in collaboration with Dr. Nuñez, please see addendum A total of 60 minutes was spent coordinating, documenting, and providing care for this patient excluding time spent in the performance of separately billed services. This included personally viewing all current laboratories and imaging studies, medication reconciliation, outpatient chart review, and discussion with specialists. History of Present Illness Chief Complaint: Referred from Pre op 2/2 afib rvr Primary Care Provider: Everett Macedo DO This is a 73-year-old female who has a significant past medical history of paroxysmal atrial fibrillation anticoagulated on Eliquis, HTN, HLD, history of nonischemic cardiomyopathy CKD, thoracic aortic aneurysm ascending 4.3 x 4.3 cm, history of NSVT, GERD, osteoporosis, vitamin D deficiency, history of migraine, anxiety and insomnia who presents to ED at the referral of preop secondary to A- fib with RVR. Of significance patient was to undergo left ankle ORIF today after sustaining a trimalleolar fracture approximately [address] Duncan. Unfortunately secondary to elevated heart rates as well as hypokalemia and she was referred to ED. Currently she complains of left ankle pain. She has been utilizing oxycodone without much relief. She currently has a cast in place and states that there is a blister under the cast. She denies any fever, chills, sweats, lightheadedness, dizziness, chest pain, shortness of breath, URI symptoms, nausea, vomiting or abdominal pain. She did have a bowel movement today, but states this was the first in a few days. She further denied any urinary symptoms including dysuria, hematuria, increased urgency or frequency with urination. She admits to being compliant with medications. She states she has been off Eliquis for the past week and preps for upcoming surgery. She states that she did take her metoprolol and amiodarone this morning. In ED patient was found to be in A-fib with RVR with heart rates in the 160s. Preop lab testing was independently reviewed interpreted by myself which revealed a significant anion gap 25 and hypokalemia at 2.5. Her CBC was trended unremarkable. In ED she received additional 12.5 mg of oral metoprolol succinate as well as 5 mg of IV Lopressor. She was also started on potassium repletion. Allergies Allergy/AdvReac Type Severity Reaction Status Date / Time No Known Allergies Allergy Verified 10/03/23 10:00 Home Medications Medication Instructions Recorded Confirmed Type apixaban 5 mg tablet (Eliquis) 5 mg PO BID 05/16/22 10/03/23 History atorvastatin 40 mg tablet 40 mg PO QPM 05/16/22 10/03/23 History gabapentin 100 mg capsule 100 mg PO TID 05/16/22 10/03/23 History lorazepam 0.5 mg tablet 0.5 mg PO BID PRN Anxiety 05/16/22 10/03/23 History ramelteon 8 mg tablet 8 mg PO HS 05/16/22 10/03/23 History jdocbprymn-adtlhjzhynzrz-jbzwvrbl 1 tab PO Q6H PRN Migraine Headache 07/08/23 10/03/23 History 50 mg-325 mg-40 mg tablet calcium 500 mg tablet 500 mg PO QAM 07/08/23 10/03/23 History cholecalciferol (vitamin D3) 25 25 mcg PO QAM 07/08/23 10/03/23 History mcg (1,000 unit) tablet levothyroxine 75 mcg tablet 75 mcg PO QAM 07/08/23 10/03/23 History metoprolol succinate 25 mg 12.5 mg PO QAM 07/08/23 10/03/23 History tablet,extended release 24 hr pantoprazole 40 mg tablet,delayed 40 mg PO QAM 07/08/23 10/03/23 History release sacubitril 24 mg-valsartan 26 mg 1 tab PO BID 07/08/23 10/03/23 History tablet (Entresto) alendronate 70 mg tablet 70 mg PO WK 09/27/23 10/03/23 History amiodarone 200 mg tablet 200 mg PO QAM 09/27/23 10/03/23 History oxycodone 5 mg tablet 5 mg PO Q4H PRN pain #15 tabs 09/27/23 10/03/23 Rx trazodone 50 mg tablet 50 mg PO HS 09/27/23 10/03/23 History Past Med/Surg History Medical History CAD (coronary artery disease) Nonobstructive per 05/17/22 cath Nonischemic cardiomyopathy 04/2022- 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 in the setting of COVID-19 pneumonia and sepsis Pneumonia due to COVID-19 virus Apr 2022 > was in rehab at for a approx 3 weeks STEMI (ST elevation myocardial infarction) Apr 2022 > was related to covid, per pt, not an actual STEMI Acute cardiogenic shock and recurrent VT April 2022 per cardio records Syncope Jun 2023- admitted overnight at [facility]- felt related to dehydration; no arrhythmias ; no issues since per 09/19/23 cardio note Anxiety Persistent insomnia HLD (hyperlipidemia) Left atrial dilation Severe- follows with [facility] cardio Migraine Chronic heart failure with preserved ejection fraction (HFpEF) EF 60-64% per 04/2023 ECHO Ascending aortic aneurysm Proximal ascending thoracic aorta 4.4cm per 04/2023 ECHO Diastolic dysfunction NYHA Class 1 Hypertension Labile PAF (paroxysmal atrial fibrillation) no pacer > med controlled on Eliquis Esophageal reflux Surgical History History of cardiac cath 04/2022 [place] History of appendectomy History of tooth extraction History of partial hysterectomy History of cholecystectomy History of lumbar surgery Family History Mother Hypertension Father TIA (transient ischemic attack) Sister Diabetes Other No pertinent family history in first degree relatives Social History Smoking Status: Never smoker Second Hand Exposure: No; Do You Dip or Chew Tobacco: No; Hx Alcohol Use: No Hx Substance Use: No Preferred Language: Pashto Communication Ability: Effective Visual Impairment: No Limitations Hearing Ability: Normal 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 Cha addendum for physical exam findings. Results & Data Results & Data Vital Signs (Past 12 Hours) Vital Signs Temp Pulse Pulse Resp BP BP Pulse Ox 10/03/23 11:45 90 179/102 H 10/03/23 11:21 142 H 150/87 H 10/03/23 11:16 167 H 10/03/23 10:57 36.7 C 163 H 20 159/120 H 97 10/03/23 10:57 95 10/03/23 10:57 36.7 C 163 H 20 159/120 H 97 O2 Del Method 10/03/23 11:45 10/03/23 11:21 10/03/23 11:16 10/03/23 10:57 Room Air 10/03/23 10:57 Room Air 10/03/23 10:57 Room Air Laboratory Results I have independently reviewed and interpreted patient's admitting labs including CBC, CMP, PTT, PT/INR, mag and troponin. Medications Administered Medication List Potassium Chloride (K José / Wtr) 10 meq in 100 mls @ 100 mls/hr IV Q1H VEGA Stop: 10/03/23 13:14 Last Admin: 10/03/23 11:20 Dose: 100 mls/hr Documented By: MULU Discontinued Medications Sodium Chloride (Nss) 500 mls @ 999 mls/hr IV .Q31M ONE Stop: 10/03/23 11:38 Last Infusion: 10/03/23 11:46 Dose: Infused Documented By: Admin: 10/03/23 11:15 Dose: 999 mls/hr Documented By: MULU Metoprolol Succinate (Metoprolol Succ 25mg Ext Rel Tab) 12.5 mg PO NOW STA Stop: 10/03/23 11:11 Last Admin: 10/03/23 11:27 Dose: 12.5 mg Documented By: MULU Metoprolol Tartrate (Metoprolol Tartrate 1 Mg/Ml Vial) 5 mg IV NOW STA Stop: 10/03/23 11:11 Last Admin: 10/03/23 11:21 Dose: 5 mg Documented By: MULU Morphine Sulfate (Morphine Sulfate 2 Mg/Ml Carp) 1 mg IV NOW STA Stop: 10/03/23 11:34 Last Admin: 10/03/23 11:44 Dose: 1 mg Documented By: MULU Potassium Chloride (Potassium Chloride Crtab 20 Meq Tabcr) 40 meq PO NOW STA Stop: 10/03/23 11:22 Last Admin: 10/03/23 11:28 Dose: 40 meq Documented By: MULU ECG Rate (beats per minute): 161 Additional Comments: I have independently reviewed and interpreted patient's admitting EKG which revealed: appears to be more of an SVT vs afib as rhythm appears regular, ST changes throughout COVID-19 Results Results COVID-19 Adm Lab Results: Na Pending 10/03/23 K Pending 10/03/23 Cl Pending 10/03/23 CO2 Pending 10/03/23 Anion Gap Pending 10/03/23 BUN Pending 10/03/23 Creatinine Pending 10/03/23 BUN/Creatinine Ratio Pending 10/03/23 Glucose Level Pending 10/03/23 Ca Pending 10/03/23 Total Bilirubin 0.6 mg/dl (0.2-1.0) 10/03/23 Direct Bilirubin 0.1 mg/dl (0-0.2) 10/03/23 AST/SGOT 25 U/L (13-39) 10/03/23 ALT/SGPT 12 U/L (7-52) 10/03/23 Alkaline Phosphatase 91 U/L (34-104) 10/03/23 Total Protein 8.8 gm/dl (6.0-8.3) H 10/03/23 Albumin 4.6 gm/dl (3.4-5.0) 10/03/23 Procalcitonin < 0.05 ng/ml (0-0.5) 10/03/23 Chest X-Ray 10/03/23 Code Status & VTE Plan Code Status FULL CODE VTE Prophylaxis Plan VTE Prophylaxis will be ordered: No Supervising Physician Co-Signing Physician Notes I have seen and discussed the case with the collaborating DEANNA. I agree with the above H&P. I have reviewed and confirmed the patients medical history, the findings on physical examination, and the patients diagnosis and treatment plan with Rodney HUERTA and agree with the information documented. In short, Ms. Knox is a 73 year old woman with complicated cardiac history of PAF on Eliquis, Prior VT on amio, labile hypertension, mixed valvular heart disease, HFpEF, ascending aorta aneurysm , HLD, nonobstructive CAD who is admitted for concern of SVT. Patient was sent to ED from preoperative evaluation for planned procedure for left ankle fracture and found to be tachycardic to 161s, hypotensive--reports of not taking medication this morning unclear, initally reported "did not take" then subsequently stated she did. Notes poor po intake given uncontrolled pain. Denies fevers, chills. Sign out reflected A Fib, personally reviewed and seems to be SVT Labs reviewed with K 2.5. Gap 23. Lactate normal. Procal negative. WBC 10.68 Physical Exam General: Conversational, pleasant woman; AOx3, requires some aid from for timeleine CV: Regular, tachycardic, no murmur/bruits appreciated Resp: CTABL GI soft NTND MSK Left immobilizer cast in place, no surround skin erythema noted Neuro: no focal deficits appreciated A/P Ms. Knox is a 73 year old woman with complex cardiac history who missed am medications (potentially per initial story) admitted for cardiac optimization prior to possible orthopedic procedure for left trimalleolar fracture. #Hypokalemia -Reports being on potassium supplement, but nothing in MAR to clarify -Replace potassium, PO and IV, repeat BMP -Ensure Mag >2.0, phos >3, k >4 #AGMA -Unclear etiology, notable ketones in urine from poor po likely -no hx of diabetes, glucose acceptable range, lactate normal -Repeat BMP and assess response s/p fluids/PO intake -Infectious work up pending, low suspicions for occult infection at this time #SVT #PAF on eliquis #NSVT on amiodarone -Resume home metoprolol and amio -s/p IV metoprolol with appropriate response -Hold eliquis, start low dose heparin drip #HFpEF #HTN #HLD -Resume entresto #Left trimalleolar fracture -Ortho on consult, left ankle CT pending Rest of plan as above (3) Closed trimalleolar fracture of left ankle Encounter type: initial encounter Qualified Code(s): S82.852A - Displaced trimalleolar fracture of left lower leg, initial encounter for closed fracture
[2023-10-03 11:54] LABS: Magnesium 1.9 mg/dl (1.7-2.4)
[2023-10-03 12:02] LABS: Troponin I High Sensitivity 14.8 pg/ml (0-14)
[2023-10-03] MEDS ORDERED: MAGNESIUM SULFATE / D5W 1 GM/100 ML BAG IV STA (12:04)
[2023-10-03] MEDS ORDERED: MoRPHine SULFATE 4 MG/ML 1 ML CARP\\VIAL IV PRN (12:08)
[2023-10-03 12:11] LABS: Thyroid Stimulating Hormone 0.874 uIu/ml (0.300-4.500)
--- NOTE | 2023-10-03 12:14 | XRay Report ---
XR chest 1V portable HISTORY: 73 years-old Female admit, gap acute shortness of breath COMPARISON: 07/08/2023 TECHNIQUE: AP view of the chest FINDINGS: Cardiomediastinal and hilar silhouettes are within normal limits. No pneumothorax, pleural effusion o r airspace consolidation. The bones appear grossly intact. IMPRESSION: No acute process. ACT 112: Negative or not required by law. The above report was generated using voice recognition software. It may contain grammatical, syntax o r spelling errors. Electronically signed by: Roberto Bustillo M.D. 10/03/2023 12:13 PM
[2023-10-03] MEDS ORDERED: Heparin IV Adult Wt-Based Low-Dose *NO* INITIAL Bolus Protocol IV STA (12:17)
[2023-10-03 12:20] LABS: Albumin Level 4.6 gm/dl (3.4-5.0); Bilirubin Direct 0.1 mg/dl (0-0.2); Bilirubin,Total 0.6 mg/dl (0.2-1.0); Total Protein 8.8 gm/dl (6.0-8.3)
--- NOTE | 2023-10-03 12:33 | Orthopedic Consultation ---
Date of Consultation October 03, 2023 Assessment & Plan (1) Closed trimalleolar fracture of left ankle: Planned surgery for today cancelled. Will await medical optimization before proceeding. Depending on timing of clearance and OR availability may have one of my partners take over and preform the surgery. For Now KLARISSA WELLER. Maintain in AO splint. Will obtain a CT of the ankle to better assess the fractures. Appreciate medicine and cardiology's input. Continue care per primary service. Present on Admission?: Yes History of Present Illness Reason for Consultation: L Tri-malleolar ankle fracture Requesting Physician: Terrance Duncan MD Attending Physician: Fabiola Stevens PA-C History of Present Illness Margy Knox is a 73 year old Female who initially injured her left ankle when she slipped on icy outside stairs on 09/25/23 falling down 2 steps. She went to the ER on 09/27/22 and was splinted. She had been scheduled for surgery today to fix her left tri-malleolar ankle fracture. She has been off her Eliquis. While in the prep and hold area prior to surgery she was found to have an irregular heart rate and electrolyte imbalance and anesthesia cancelled her case and she was sent to the ED. She continues to note pain in her left ankle. Allergies Allergy/AdvReac Type Severity Reaction Status Date / Time No Known Allergies Allergy Verified 10/03/23 10:00 Home Medications Medication Instructions Recorded Confirmed Type apixaban 5 mg tablet (Eliquis) 5 mg PO BID 05/16/22 10/03/23 History atorvastatin 40 mg tablet 40 mg PO QPM 05/16/22 10/03/23 History gabapentin 100 mg capsule 100 mg PO TID 05/16/22 10/03/23 History lorazepam 0.5 mg tablet 0.5 mg PO BID PRN Anxiety 05/16/22 10/03/23 History ramelteon 8 mg tablet 8 mg PO HS 05/16/22 10/03/23 History ywslednvoo-gookmzoxtfqrl-yrtpdals 1 tab PO Q6H PRN Migraine Headache 07/08/23 10/03/23 History 50 mg-325 mg-40 mg tablet calcium 500 mg tablet 500 mg PO QAM 07/08/23 10/03/23 History cholecalciferol (vitamin D3) 25 25 mcg PO QAM 07/08/23 10/03/23 History mcg (1,000 unit) tablet levothyroxine 75 mcg tablet 75 mcg PO QAM 07/08/23 10/03/23 History metoprolol succinate 25 mg 12.5 mg PO QAM 07/08/23 10/03/23 History tablet,extended release 24 hr pantoprazole 40 mg tablet,delayed 40 mg PO QAM 07/08/23 10/03/23 History release sacubitril 24 mg-valsartan 26 mg 1 tab PO BID 07/08/23 10/03/23 History tablet (Entresto) alendronate 70 mg tablet 70 mg PO WK 09/27/23 10/03/23 History amiodarone 200 mg tablet 200 mg PO QAM 09/27/23 10/03/23 History oxycodone 5 mg tablet 5 mg PO Q4H PRN pain #15 tabs 09/27/23 10/03/23 Rx trazodone 50 mg tablet 50 mg PO HS 09/27/23 10/03/23 History Patient History Medical History CAD (coronary artery disease) Nonobstructive per 05/17/22 cath Nonischemic cardiomyopathy 04/2022- 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 in the setting of COVID-19 pneumonia and sepsis Pneumonia due to COVID-19 virus Apr 2022 > was in rehab at for a approx 3 weeks STEMI (ST elevation myocardial infarction) Apr 2022 > was related to covid, per pt, not an actual STEMI Acute cardiogenic shock and recurrent VT April 2022 per cardio records Syncope Jun 2023- admitted overnight at [facility]- felt related to dehydration; no arrhythmias ; no issues since per 09/19/23 cardio note Anxiety Persistent insomnia HLD (hyperlipidemia) Left atrial dilation Severe- follows with [facility] cardio Migraine Chronic heart failure with preserved ejection fraction (HFpEF) EF 60-64% per 04/2023 ECHO Ascending aortic aneurysm Proximal ascending thoracic aorta 4.4cm per 04/2023 ECHO Diastolic dysfunction NYHA Class 1 Hypertension Labile PAF (paroxysmal atrial fibrillation) no pacer > med controlled on Eliquis Esophageal reflux Surgical History History of cardiac cath 04/2022 [place] History of appendectomy History of tooth extraction History of partial hysterectomy History of cholecystectomy History of lumbar surgery Family History Mother Hypertension Father TIA (transient ischemic attack) Sister Diabetes Other No pertinent family history in first degree relatives Social History Smoking Status: Never smoker Second Hand Exposure: No; Do You Dip or Chew Tobacco: No; Hx Alcohol Use: No Hx Substance Use: No Preferred Language: Kyrgyz Communication Ability: Effective Visual Impairment: No Limitations Hearing Ability: Normal Immigration Associate Required: No Beliefs That Will Affect Care: None marital status: Current Living Situation: Spouse current occupational status: retired Feels Safe at Home: Yes Assistive Devices: Glasses Physical Exam Physical Exam: LLE: Splint in place in good shape. BCR < 2 sec. Wiggling toes. Sensation to light touch intact distally. Results & Data Vital Signs (Past 12 Hours) Vital Signs Temp Pulse Pulse Resp BP BP Pulse Ox 10/03/23 11:45 90 179/102 H 10/03/23 11:21 142 H 150/87 H 10/03/23 11:16 167 H 10/03/23 10:57 36.7 C 163 H 20 159/120 H 97 10/03/23 10:57 95 10/03/23 10:57 36.7 C 163 H 20 159/120 H 97 O2 Del Method 10/03/23 11:45 10/03/23 11:21 10/03/23 11:16 10/03/23 10:57 Room Air 10/03/23 10:57 Room Air 10/03/23 10:57 Room Air Laboratory Results Laboratory Results Lactate 1.4 mmol/L (0.4-2.0) 10/03/23 11:44 Magnesium 1.9 mg/dl (1.7-2.4) 10/03/23 11:15 Total Bilirubin 0.6 mg/dl (0.2-1.0) 10/03/23 11:15 Direct Bilirubin 0.1 mg/dl (0-0.2) 10/03/23 11:15 AST 25 U/L (13-39) 10/03/23 11:15 ALT 12 U/L (7-52) 10/03/23 11:15 Alkaline Phosphatase 91 U/L (34-104) 10/03/23 11:15 Troponin I High Sens 14.8 pg/ml (0-14) H 10/03/23 11:15 Total Protein 8.8 gm/dl (6.0-8.3) H 10/03/23 11:15 Albumin 4.6 gm/dl (3.4-5.0) 10/03/23 11:15 TSH 0.874 uIu/ml (0.300-4.500) 10/03/23 11:15 Impressions Chest X-Ray 10/03/23 11:44 XR chest 1V portable HISTORY: 73 years-old Female admit, gap acute shortness of breath COMPARISON: 07/08/2023 TECHNIQUE: AP view of the chest FINDINGS: Cardiomediastinal and hilar silhouettes are within normal limits. No pneumothorax, pleural effusion or airspace consolidation. The bones appear grossly intact. IMPRESSION: No acute process. ACT 112: Negative or not required by law. The above report was generated using voice recognition software. It may contain grammatical, syntax or spelling errors. Electronically signed by: Roberto Bustillo M.D. 10/03/2023 12:13 PM (1) Closed trimalleolar fracture of left ankle Encounter type: initial encounter Qualified Code(s): S82.852A - Displaced trimalleolar fracture of left lower leg, initial encounter for closed fracture
[2023-10-03] MEDS: HEPARIN SODIUM/DEXTROSE 25,000 UNITS/500 ML BAG IV SCH (13:27)
[2023-10-03 13:41] LABS: Appearance Urine Cloudy (Clear); Bacteria Urine Automated 1+ (Negative); Bilirubin Urine Negative (Negative); Blood Urine 2+ (Negative); Color Urine Yellow; Epithelial Cell Urine Auto >30 /lpf (0-5); Glucose Urine UA Negative (Negative); Ketones Urine 4+ (Negative); Leukocyte Esterase Urine Negative (Negative); Nitrite Urine Negative (Negative); Protein Urine 3+ (Negative); Specific Gravity Urine 1.022 (1.000-1.030); Urobilinogen Urine Negative (Negative)
--- NOTE | 2023-10-03 15:56 | Cardiology Consultation ---
Date of Consultation October 03, 2023 Assessment & Plan (1) Preop cardiovascular exam: (2) PAF (paroxysmal atrial fibrillation): (3) SVT (supraventricular tachycardia): (4) Valvular heart disease: (5) Labile hypertension: (6) Ectopic atrial beats: Plan Complex 73-year-old female who presented this morning for surgical intervention of a left trimalleolar ankle fracture following a mechanical fall in September 24, 2023. Initial presentation today notable for abnormal heart rate/rhythm, EKG revealing PAF with marked diffuse ST segment change. Rhythm improved with IV and oral beta-john therapy as well as electrolyte replacement and pain control. Follow-up EKG as well as telemetry with sinus/sinus tachycardia with frequent premature supraventricular complexes and ongoing short episodes of SVT/PAT. Possible medication noncompliance noted. Options of management dis cussed. Preoperative risks explained, for the necessary procedure. RECOMMENDATIONS: Correct hypokalemia, achieve and maintain normokalemia as well as normomagnesemia. Additional 12.5 mg of oral metoprolol succinate now. Continue amiodarone at 200 mg once a day (QT interval prolonged when on high dosing of amiodarone in 05/2022 per chart review) Refer for resting echocardiography Hold Entresto after the PM dose tonight, i.e. AM of surgery. Continue to hold apixiban (Eliquis anticoagulation), resuming postoperative when determined to be safe. She notes being off of said medication since 09/24/2023 OK for OR in AM as long as rate/rhythm acceptably controlled. Outpatient Electrophysiology Consultation. Supervising Physician Co-Signing Physician Notes 73-year-old female presented to the hospital for surgical intervention of left malleolus fracture following a mechanical fall 09/24/2023. ECG and telemetry reviewed demonstrating paroxysmal atrial fibrillation with ST changes. No chest discomfort. Patient essentially asymptomatic from a cardiovascular perspective. Reports compliance with beta-john and antiarrhythmic therapy. Significant hypokalemia noted on presentation as well. She separately converted to sinus rhythm. Currently resting comfortably. PE: VSS. Gen: NAD, AAOx3. Heart: Regular rhythm, normal S1-S2. No murmur. Lungs: Clear bilateral, no rales, rhonchi, wheeze. Extremities: No edema. A/P: Agree with above PA-C history, physical exam, assessment and plan. 73-year-old female presenting for orthopedic surgery with ECG demonstrating rapid atrial fibrillation. No symptoms reported. Spontaneous conversion to sinus rhythm with frequent PACs. Significant hypokalemia noted on presentation. Recommend potassium supplementation. Increase amiodarone to 200 mg twice daily. Monitor QT interval and electrolytes daily. Repeat echocardiogram in AM. Continue to hold oral anticoagulation anticipation of orthopedic surgery. Continue IV heparin infusion overnight. History of Present Illness Reason for Consultation: Atrial fibrillation with a rapid ventricular response Requesting Physician: Rodney Attending Physician: Joaquin History of Present Illness Ms. Margy Knox is a 73-year-old female who sustained a mechanical fall on September 24, 2023, slipping on snow/ice covered steps. Imaging in the ER on September 27, 2022 revealed a left trimalleolar ankle fracture. Patient scheduled for surgery this AM; while in the preoperative holding area this morning the patient was found to have an abnormal heart rate along with marked hypokalemia (2.5 mmol/L) and was referred for hospitalization. Personal review of the initial EKG reveals SVT/PAT with a ventricular rate of 161 bpm with marked diffuse ST abnormality and a QTc of 474 ms. In the ER patient received 5 mg of IV Lopressor x 2, 12.5 mg of oral metoprolol succinate, 40 mEq of oral potassium chloride and two potassium riders, 1 magnesium rider, and IV heparin. A second EKG performed at 12:39:22 revealed sinus tachycardia with atrial complexes and nonspecific STT wave abnormality. QTc 484 ms. Prior to the mechanical fall on September 24, 2023 patient was in her usual state of health. She describes driving to different places, going grocery shopping, carrying the groceries into the house, cleaning her house, and doing the laundry without significant difficulty though not as fast as she had in her younger years. She specifically denies activity related chest discomfort or shortness of breath. She is been unaware of recent palpitations and was asymptomatic with elevated heart rate this morning. She denies cough, chest congestion, orthopnea, PND, or right lower extremity peripheral edema. She denies recent illness including nausea, vomiting, or diarrhea. She denies melena or hematochezia. She denies hematuria or dysuria. She notes no recent issues with dizziness or syncope. She denies fevers or chills. 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 EF previously 15%, resolved. Nonobstructive coronary artery disease via cardiac catheterization performed at [facility] on May 17, 2022 Enlarged ascending aorta 4.4 cm Hospitalization at [facility] in June 2023 with syncope attributed to dehydration Paroxysmal atrial fibrillation first diagnosed in 05/2020 asymptomatic Severe left atrial dilation Asymptomatic PACs and PVCs Dyslipidemia Hypothyroidism Migraine headaches GERD Anxiety insomnia Osteoporosis Partial hysterectomy Cholecystectomy Lumbar spine intervention in 1992 Family History: Mother with hypertension, pacemaker. Father in his 80s, CVA. Sister with diabetes Social History: Never smoker. No smokeless tobacco. No significant alcohol. No illegal drug use. to her second Mo who was present for my evaluation today. Allergies Allergy/AdvReac Type Severity Reaction Status Date / Time No Known Allergies Allergy Verified 10/03/23 10:00 Home Medications Medication Instructions Recorded Confirmed Type apixaban 5 mg tablet (Eliquis) 5 mg PO BID 05/16/22 10/03/23 History atorvastatin 40 mg tablet 40 mg PO QPM 05/16/22 10/03/23 History gabapentin 100 mg capsule 100 mg PO TID 05/16/22 10/03/23 History lorazepam 0.5 mg tablet 0.5 mg PO BID PRN Anxiety 05/16/22 10/03/23 History ramelteon 8 mg tablet 8 mg PO HS 05/16/22 10/03/23 History yejbkhzcox-gnmngdntdsptw-hoazzudo 1 tab PO Q6H PRN Migraine Headache 07/08/23 10/03/23 History 50 mg-325 mg-40 mg tablet calcium 500 mg tablet 500 mg PO QAM 07/08/23 10/03/23 History cholecalciferol (vitamin D3) 25 25 mcg PO QAM 07/08/23 10/03/23 History mcg (1,000 unit) tablet levothyroxine 75 mcg tablet 75 mcg PO QAM 07/08/23 10/03/23 History metoprolol succinate 25 mg 12.5 mg PO QAM 07/08/23 10/03/23 History tablet,extended release 24 hr pantoprazole 40 mg tablet,delayed 40 mg PO QAM 07/08/23 10/03/23 History release sacubitril 24 mg-valsartan 26 mg 1 tab PO BID 07/08/23 10/03/23 History tablet (Entresto) alendronate 70 mg tablet 70 mg PO WK 09/27/23 10/03/23 History amiodarone 200 mg tablet 200 mg PO QAM 09/27/23 10/03/23 History oxycodone 5 mg tablet 5 mg PO Q4H PRN pain #15 tabs 09/27/23 10/03/23 Rx trazodone 50 mg tablet 50 mg PO HS 09/27/23 10/03/23 History Patient History Medical History CAD (coronary artery disease) Nonobstructive per 05/17/22 cath Nonischemic cardiomyopathy 04/2022- 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 in the setting of COVID-19 pneumonia and sepsis Pneumonia due to COVID-19 virus Apr 2022 > was in rehab at for a approx 3 weeks STEMI (ST elevation myocardial infarction) Apr 2022 > was related to covid, per pt, not an actual STEMI Acute cardiogenic shock and recurrent VT April 2022 per cardio records Syncope Jun 2023- admitted overnight at [facility]- felt related to dehydration; no arrhythmias ; no issues since per 09/19/23 cardio note Anxiety Persistent insomnia HLD (hyperlipidemia) Left atrial dilation Severe- follows with [facility] cardio Migraine Chronic heart failure with preserved ejection fraction (HFpEF) EF 60-64% per 04/2023 ECHO Ascending aortic aneurysm Proximal ascending thoracic aorta 4.4cm per 04/2023 ECHO Diastolic dysfunction NYHA Class 1 Hypertension Labile PAF (paroxysmal atrial fibrillation) no pacer > med controlled on Eliquis Esophageal reflux Surgical History History of cardiac cath 04/2022 [place] History of appendectomy History of tooth extraction History of partial hysterectomy History of cholecystectomy History of lumbar surgery Family History Mother Hypertension Father TIA (transient ischemic attack) Sister Diabetes Other No pertinent family history in first degree relatives Social History Smoking Status: Never smoker Second Hand Exposure: No; Do You Dip or Chew Tobacco: No; Hx Alcohol Use: No Hx Substance Use: No Preferred Language: Indian Communication Ability: Effective Visual Impairment: No Limitations Hearing Ability: Normal [employer] Required: No Beliefs That Will Affect Care: None marital status: Current Living Situation: Spouse current occupational status: retired Other Information That Helps Us Care for You: No Feels Safe at Home: Yes Safety Concerns: Feels Safe At This Time Assistive Devices: Bedside Commode and Walker Review of Systems Review of Systems: Left leg pain. Upset stomach. Decreased PO intake. Off Eliquis since around 09/24/2023. Complete review of systems is otherwise as stated above, negative, or noncontributory. Physical Exam Physical Exam: General: A&Ox3. NAD. Pallor. HENT: Normocephalic. Atraumatic. Eyes: PER. Conjunctiva pink, sclera clear. Neck: No JVD. No HJR. Heart: Irregularly irregular around 100 bpm. + Systolic murmur. No diastolic murmur. No rub. Lungs: Clear to auscultation. Abdomen: +BS. Soft. Nontender. No masses or organomegaly. Extremities: Left leg dressing not removed. Right lower extremity without clubbing, cyanosis, or peripheral edema. Limited neurological examination is without focal deficits. Pulses: radial=2/4, posterior tibial=2/4 on the right. Results & Data Vital Signs (Past 12 Hours) Vital Signs Temp Pulse Pulse Resp BP BP Pulse Ox 10/03/23 15:35 10/03/23 14:00 136/73 10/03/23 14:00 97 H 16 10/03/23 13:45 92 H 15 96 10/03/23 13:45 145/83 H 10/03/23 13:31 89 149/89 H 10/03/23 13:30 100 H 23 96 10/03/23 13:30 149/89 H 10/03/23 13:15 96 H 22 98 10/03/23 13:15 168/113 H 10/03/23 13:00 151/91 H 10/03/23 13:00 86 24 92 10/03/23 12:46 122 H 22 97 10/03/23 12:46 151/99 H 10/03/23 12:45 122 H 151/99 H 10/03/23 12:30 109 H 18 96 10/03/23 12:30 148/91 H 10/03/23 12:01 102 H 19 10/03/23 12:01 168/74 H 10/03/23 12:00 107 H 17 10/03/23 11:45 179/102 H 10/03/23 11:45 106 H 27 H 98 10/03/23 11:45 90 179/102 H 10/03/23 11:30 111 H 17 97 10/03/23 11:30 172/108 H 10/03/23 11:21 142 H 150/87 H 10/03/23 11:16 167 H 10/03/23 11:10 151 H 19 10/03/23 10:57 36.7 C 163 H 20 159/120 H 97 10/03/23 10:57 95 10/03/23 10:57 36.7 C 163 H 20 159/120 H 97 Laboratory Results Cardiac Enzymes 10/03/23 Range/Units 11:15 AST 25 (13-39) U/L Troponin I High Sens 14.8 H (0-14) pg/ml Comprehensive Metabolic Panel 10/03/23 Range/Units 11:15 Direct Bilirubin 0.1 (0-0.2) mg/dl AST 25 (13-39) U/L ALT 12 (7-52) U/L Alkaline Phosphatase 91 (34-104) U/L Total Protein 8.8 H (6.0-8.3) gm/dl Albumin 4.6 (3.4-5.0) gm/dl Intake and Output 10/03/23 10/03/23 10/03/23 06:59 14:59 22:59 Intake Total 800 / 800 Balance 800 / 800 Intake: IV 800 / 800 Magnesium Sulfate / D5w 1 gm In 100 / 100 100 ml @ 100 mls/hr IV NOW STA Rx#:[id number] Potassium Chloride / Wtr 10 meq 200 / 200 In 100 ml @ 100 mls/hr IV Q1H VEGA Rx#:[id number] Sodium Chloride 0.9% 500 ml @ 500 / 500 999 mls/hr IV .Q31M ONE Rx#: [id number] Other: Weight 63.2 kg Weight Measurement Method Built in [facility] Patient Weight 10/04/23 06:59 Weight 63.2 kg Diagnostic Findings May 17, 2022 TTE Interpretation Summary: Apical ballooning pattern of the LV chamber. Moderate hypokinesis of all basal wall segments with progressive akinesis at the mid levels and dyskinesis at the apex. Severely reduced LV systolic function. EF 15 to 20%. Normal RV cavity size and function. Moderate aortic valve sclerosis without significant stenosis. Mild aortic regurgitation. PASP 48 mmHg assuming an RA pressure of 3 mmHg while on O2 mask. May 17, 2022 Coronary Angiography ([facility], Dr. Heaton): 1. Multivessel coronary artery disease (50% mid LAD. Medium D2 80% proximal. 50% calcified ostial circumflex. 50% inferior branch of OM2. 60% mid, 50% distal RCA) 2. Elevated left-sided filling pressure (LVEDP 22) 3. Normal pulmonary artery pressure 4. Preserved cardiac output 5. Sustained VT requiring defibrillation x1 6. Acute hypoxic respiratory failure post intubation Recommendations: Patient has YARA-3 flow throughout coronaries. No occlusive/high risk CAD to explain new LV dysfunction, decompensated heart failure. Has a nonischemic cardiomyopathy, possible stress-induced. November 2022 Zio Monitor: Patient had a min HR of 36 bpm, max HR of 160 bpm, and avg HR of 55 bpm. Predominant underlying rhythm was Sinus Rhythm. 85 Supraventricular Tachycardia runs occurred, the run with the fastest interval lasting 4 beats with a max rate of 160 bpm, the longest lasting 13.9 secs with an avg rate of 103 bpm. Isolated SVEs were frequent (11.0%, [id number]), SVE Couplets were occasional (1.3%, 6764), and SVE Triplets were rare (<1.0%, 1844). Isolated VEs were rare (<1.0%), and no VE Couplets or VE Triplets were present. April 18, 2023 TTE Interpretation Summary: Normal size LV Borderline increased LV wall thickness Normal LV wall motion Ejection fraction 60 to 64% Grade 2 diastolic dysfunction Severely enlarged left atrium Moderate aortic valve sclerosis mild aortic valve regurgitation Moderate mitral regurgitation Mildly enlarged proximal ascending thoracic aorta (4.4 cm) Telemetry monitoring thus far reveals sinus rhythm with frequent premature atrial complexes and short runs of SVT/PAT. No overt atrial fibrillation observed on telemetry.
[2023-10-03] MEDS ORDERED: POTASSIUM CHLORIDE CRTAB 20 MEQ TABCR PO ONE (16:07)
[2023-10-03] MEDS ORDERED: LORazepam 0.5 MG TAB PO PRN (16:07)
[2023-10-03] MEDS ORDERED: ONDANSETRON INJ 2 MG/ML 2 ML VIAL IV PRN (16:07)
[2023-10-03] MEDS ORDERED: ALUMINUM/MAGNESIUM SUSP 30 ML UDC PO PRN (16:07)
[2023-10-03] MEDS ORDERED: MAGNESIUM HYDROXIDE SUSP 30 ML UDC PO PRN (16:07)
[2023-10-03] MEDS ORDERED: MoRPHine SULFATE 2 MG/ML CARP IV PRN (16:07)
--- NOTE | 2023-10-03 16:25 | CT Scan Report ---
LEFT ANKLE CT CT DOSE: 394.98 mGy.cm HISTORY: Left ankle fracture. to better assess fracture pattern TECHNIQUE: Multiaxial CT images of the left ankle were performed and reformatted in the sagittal and coronal plane without the use of contrast. A dose lowering technique was utilized adhering to the pr inciples of KIEKO. COMPARISON: Left ankle radiograph 09/27/2023. FINDINGS: Soft tissue edema seen throughout the left ankle and visualized foot. There is a displaced oblique fracture within the distal fibula. This demonstrates up to 4 mm of posterior displacement and 1 cm of superior displacement. There is associated posterior angulation of the fracture fragment. Co mminuted mildly distracted fracture of the medial malleolus demonstrating up to 7 mm of medial displa cement. There is also an oblique fracture through the posterior malleolus which demonstrates up to 7 mm of posterior displacement and 6 mm of superior displacement. The talus and calcaneus appear intact . Plantar and posterior calcaneal spurs are noted. IMPRESSION: Displaced trimalleolar left ankle fracture as described above. ACT 112: Negative or not required by law. Electronically signed by: César Decker M.D. 10/03/2023 4:23 PM
[2023-10-03] MEDS: oxyCODONE HCL IR 5 MG TAB (IMMEDIATE RELEASE) PO PRN (16:32)
[2023-10-03 16:34] LABS: BUN Creatinine Ratio 21.4 (10-20); Blood Urea Nitrogen 15 mg/dl (6-23); Calcium 8.2 mg/dl (8.6-10.3); Carbon Dioxide 19 mmol/L (21-32); Chloride 110 mmol/L (98-107); Creatinine Clr Calc Pharmacy 55.8 ml/min; Est GFR (African American) 98.9 ml/min; Est GFR (Non-African American) 85.4 ml/min; Glucose 120 mg/dl (70-99(Fasting))
[2023-10-03] MEDS ORDERED: METOPROLOL SUCC 25MG EXT REL TAB PO ONE (16:58)
[2023-10-03] MEDS: DOCUSATE SODIUM/SENNA 50/8.6MG TAB PO SCH (17:03)
[2023-10-03] MEDS: ACETAMINOPHEN 325 MG TAB PO SCH ×2 (17:04→22:16)
[2023-10-03] MEDS: GABAPENTIN 100 MG CAP PO SCH ×2 (17:04→20:31)
[2023-10-03 17:45] LABS: BUN Creatinine Ratio 25.4 (10-20); Calcium 8.4 mg/dl (8.6-10.3); Est GFR (African American) 102.4 ml/min; Est GFR (Non-African American) 88.4 ml/min; Potassium 3.5 mmol/L (3.5-5.1)
[2023-10-03] MEDS: POLYETHYLENE (MIRALAX) 17 GM PACK PO SCH (18:21)
[2023-10-03 20:14] LABS: ANTI-Xa, UFH(UnfractionatedHep 0.43 IU/ml (0.3-0.7)
[2023-10-03] MEDS: VALSARTAN/SACUBITRIL 26/24MG TAB PO SCH (20:31)
[2023-10-03] MEDS: ATORVASTATIN 40 MG TAB PO SCH (20:31)
[2023-10-03] MEDS: traZODone HCL 50 MG TAB PO SCH (20:32)
[2023-10-03] MEDS: AMIODARONE 200 MG TAB PO SCH (20:32)
[2023-10-03] MEDS: MoRPHine SULFATE 2 MG/ML CARP IV PRN (20:32)
[2023-10-04] MEDS: MoRPHine SULFATE 2 MG/ML CARP IV PRN ×2 (01:19→19:51)
[2023-10-04] MEDS: PANTOprazole 40 MG TAB PO SCH ×2 (01:19→08:51)
[2023-10-04] MEDS: ACETAMINOPHEN 325 MG TAB PO SCH ×4 (05:43→21:34)
[2023-10-04] MEDS: LEVOTHYROXINE SODIUM 75 MCG TABLET PO SCH (05:44)
[2023-10-04 06:23] LABS: Basophils # (auto) 0.07 K/uL (0.00-0.20); Basophils % (auto) 0.9 %; Eosinophils # (auto) 0.04 K/uL (0.00-0.50); Eosinophils % (auto) 0.5 %; Hematocrit (blood only) 35.1 % (37.0-47.0); Hemoglobin 11.5 g/dl (12.0-16.0); Immature Granulocytes # (auto) 0.03 K/uL (0.01-0.20); Immature Granulocytes % (auto) 0.4 %; Lymphocytes # (auto) 1.85 K/uL (1.20-3.40); Lymphocytes % (auto) 22.6 %; Mean Corpuscular Hgb Conc 32.8 g/dL (32.0-36.0); Mean Corpuscular Volume 82.4 fL (80.0-100.0); Mean Platelet Volume 10.6 fL (9.4-12.4); Monocytes # (auto) 0.65 K/uL (0.11-0.59); Monocytes % (auto) 7.9 %; Neutrophils # (auto) 5.56 K/uL (1.40-6.50); Neutrophils % (auto) 67.7 %; Platelet Count 287 K/uL (130-400); RDW Standard Deviation 46.4 fL (36.4-46.3); Red Blood Count 4.26 M/uL (4.20-5.40)
[2023-10-04 06:42] LABS: Albumin Level 3.8 gm/dl (3.4-5.0); Bilirubin,Total 0.5 mg/dl (0.2-1.0); Calcium 8.3 mg/dl (8.6-10.3); Creatinine Clr Calc Pharmacy 67.3 ml/min; Est GFR (African American) 105.2 ml/min; Est GFR (Non-African American) 90.8 ml/min; Globulin 3.7 gm/dl (2.5-4.0); Potassium 3.8 mmol/L (3.5-5.1); Total Protein 7.5 gm/dl (6.0-8.3)
[2023-10-04 07:52] LABS: ANTI-Xa, UFH(UnfractionatedHep 0.54 IU/ml (0.3-0.7)
[2023-10-04] MEDS: POTASSIUM CHLORIDE / WTR 10 MEQ/100 ML PLCT IV SCH ×2 (08:03→09:12)
[2023-10-04 08:04] LABS: Estimated Average Glucose 117 mg/dl; Hemoglobin A1C 5.7 % (4.5-5.6)
[2023-10-04] MEDS: CHOLECALCIFEROL 1,000 UNITS 25 MCG TAB PO SCH (08:51)
[2023-10-04] MEDS: CALCIUM CARBONATE 1250MG TAB PO SCH (08:51)
[2023-10-04] MEDS: AMIODARONE 200 MG TAB PO SCH (08:51)
[2023-10-04] MEDS: DOCUSATE SODIUM/SENNA 50/8.6MG TAB PO SCH (08:51)
[2023-10-04] MEDS: GABAPENTIN 100 MG CAP PO SCH ×3 (08:51→21:32)
[2023-10-04] MEDS: POLYETHYLENE (MIRALAX) 17 GM PACK PO SCH (08:53)
[2023-10-04] MEDS ORDERED: PANTOprazole 40 MG TAB PO SCH (09:00)
[2023-10-04] MEDS ORDERED: AMIODARONE 200 MG TAB PO SCH (09:00)
[2023-10-04] MEDS ORDERED: METOPROLOL SUCC 25MG EXT REL TAB PO SCH (09:00)
[2023-10-04] MEDS: oxyCODONE HCL IR 5 MG TAB (IMMEDIATE RELEASE) PO PRN ×3 (09:24→17:29)
--- NOTE | 2023-10-04 10:44 | Cardiology Progress Note ---
Date of Service October 04, 2023 Assessment & Plan (1) Preop cardiovascular exam: (2) PAF (paroxysmal atrial fibrillation): (3) SVT (supraventricular tachycardia): (4) Valvular heart disease: (5) Labile hypertension: (6) Ectopic atrial beats: Plan Complex 73-year-old female who presented this morning for surgical intervention of a left trimalleolar ankle fracture following a mechanical fall in September 24, 2023. Initial presentation today notable for abnormal heart rate/rhythm, EKG revealing PAF with marked diffuse ST segment change. Rhythm improved with IV and oral beta-john therapy as well as electrolyte replacement and pain control. Follow-up EKG as well as telemetry with sinus/sinus tachycardia with frequent ectopy. Possible medication noncompliance noted. QTc prolonged on today's EKG. RECOMMENDATIONS: Additional supplemental potassium. Patient received 2K riders this morning. Additional 20 mEq oral potassium ordered. Additional 12.5 mg of oral metoprolol succinate now, increasing metoprolol to succinate dosing to 25 mg twice per day Decrease amiodarone back to 200 mg once per day due to prolonged QTc interval Resume Entresto. Hold dose in AM of surgery. Resume apixiban (Eliquis anticoagulation) postoperatively when determined to be safe Outpatient Electrophysiology Consultation. Admission and Anticipated Discharge Date Admission Date: October 03, 2023 Supervising Physician Co-Signing Physician Notes 73-year-old female presented to the hospital for surgical intervention of left malleolus fracture following a mechanical fall 09/24/2023. Paroxysmal atrial fibrillation with rapid ventricular response noted on admission without associated symptoms. Telemetry currently reveals wandering atrial pacemaker. Remains asymptomatic from a cardiovascular perspective. Review of bedside echocardiogram demonstrates preserved LV systolic function without significant valvular pathology. PE: VSS. Gen: NAD, AAOx3. Heart: Regular rhythm, normal S1-S2. No murmur. Lungs: Clear bilateral, no rales, rhonchi, wheeze. Extremities: No edema. A/P: Agree with above PA-C history, physical exam, assessment and plan. 73-year-old female presenting for orthopedic surgery with ECG demonstrating rapid atrial fibrillation. No symptoms reported. Spontaneous conversion to sinus rhythm with frequent PACs. Telemetry today likely represent an wandering atrial pacemaker versus sinus rhythm with frequent PACs. Electrolytes supplemented. Amiodarone will be reduced back to 200 mg once daily due to QT prolongation. Titrate Toprol-XL to 25 mg twice daily. Continue to hold oral anticoagulation anticipation of orthopedic surgery. Continue IV heparin, Entresto, and atorvastatin. Transition from heparin to apixaban postoperatively when bleeding risk is deemed acceptable by the operating surgeon. Subjective Patient seen and examined. Chart, medications, telemetry reviewed. Lone complaint voiced is that of left ankle pain. Otherwise feels fine. No chest pain. No palpitations. No shortness of breath. No orthopnea or PND. No fevers or chills. EKG today reveals sinus tachycardia with short [place] interval atrial ectopy, nonspecific STT wave abnormality, prolonged QTc interval of 539 ms Telemetry: Sinus/sinus tachycardia with frequent atrial ectopy and some ventricular ectopy October 04, 2023 TTE: Compared to prior study of May 17, 2022, LV systolic function has significantly improved with, with normalization of LV wall motion. EF 55 to 60%. Mild concentric LVH. Moderately dilated left atrium. Mild aortic valve sclerosis without significant stenosis. Mild aortic regurgitation. Mild mitral regurgitation. Trace tricuspid regurgitation. Doppler findings not suggestive of pulmonary hypertension. Review of Systems Review of Systems: Complete review of systems is otherwise as stated above, negative, or noncontributory. Physical Exam Physical Exam: General: A&Ox3. NAD. Pallor. HENT: Normocephalic. Atraumatic. Eyes: PER. Conjunctiva pink, sclera clear. Neck: No JVD. No HJR. Heart: Irregularly irregular at 90 bpm. + Systolic murmur. No diastolic murmur. No rub. Lungs: Clear to auscultation. Abdomen: +BS. Soft. Nontender. No masses or organomegaly. Extremities: Left leg dressing not removed. Right lower extremity without clubbing, cyanosis, or peripheral edema. Limited neurological examination is without focal deficits. Pulses: radial=2/4, posterior tibial=2/4 on the right. Results & Data Vital Signs (Past 12 Hours) Vital Signs Temp Pulse Pulse Resp BP Pulse Ox O2 Del Method 10/04/23 08:30 Room Air 10/04/23 08:20 36.8 C 93 H 16 167/76 H 97 Room Air 10/04/23 07:35 99 H 10/04/23 03:32 36.6 C 91 H 16 113/79 97 Room Air 10/04/23 00:16 36.6 C 89 18 112/64 97 Room Air 10/03/23 22:49 74 Laboratory Results Cardiac Enzymes 10/03/23 10/03/23 10/04/23 Range/Units 11:15 15:42 05:58 AST 25 24 (13-39) U/L Troponin I High Sens 14.8 H 24.0 H (0-14) pg/ml CBC 10/04/23 Range/Units 05:58 WBC 8.20 (4.8-10.8) K/ul RBC 4.26 (4.20-5.40) M/uL Hgb 11.5 L (12.0-16.0) g/dl Hct 35.1 L (37.0-47.0) % Plt Count 287 (130-400) K/uL Neut # (Auto) 5.56 (1.40-6.50) K/uL Lymph # (Auto) 1.85 (1.20-3.40) K/uL [place] # (Auto) 0.65 H (0.11-0.59) K/uL Eos # (Auto) 0.04 (0.00-0.50) K/uL Baso # (Auto) 0.07 (0.00-0.20) K/uL Comprehensive Metabolic Panel 10/03/23 10/03/23 10/03/23 Range/Units 11:15 15:42 17:03 Sodium TNP 139 Potassium TNP 3.5 D Chloride 110 H 110 H (98-107) mmol/L Carbon Dioxide 19 L 16 L (21-32) mmol/L BUN 15 16 (6-23) mg/dl Creatinine 0.70 0.63 (0.6-1.2) mg/dl Glucose 120 H 112 H (70-99(Fasting)) mg/dl Calcium 8.2 L 8.4 L (8.6-10.3) mg/dl Direct Bilirubin 0.1 (0-0.2) mg/dl AST 25 (13-39) U/L ALT 12 (7-52) U/L Alkaline Phosphatase 91 (34-104) U/L Total Protein 8.8 H (6.0-8.3) gm/dl Albumin 4.6 (3.4-5.0) gm/dl 10/04/23 Range/Units 05:58 Sodium 139 Potassium 3.8 Chloride 110 H (98-107) mmol/L Carbon Dioxide 18 L (21-32) mmol/L BUN 18 (6-23) mg/dl Creatinine 0.58 L (0.6-1.2) mg/dl Glucose 117 H (70-99(Fasting)) mg/dl Calcium 8.3 L (8.6-10.3) mg/dl Direct Bilirubin (0-0.2) mg/dl AST 24 (13-39) U/L ALT 12 (7-52) U/L Alkaline Phosphatase 73 (34-104) U/L Total Protein 7.5 (6.0-8.3) gm/dl Albumin 3.8 (3.4-5.0) gm/dl Intake and Output 10/03/23 10/04/23 10/04/23 22:59 06:59 14:59 Intake Total 371.5 / 1171.5 359.683 / 359.683 Output Total 100 / 100 Balance 271.5 / 1071.5 359.683 / 359.683 Intake: IV 71.5 / 871.5 359.683 / 359.683 Heparin Sodium/Dextrose 25,000 71.5 / 71.5 159.683 / 159.683 units In 500 ml @ 650 UNITS/HR 13 mls/hr IV .Q24H VEGA Rx#: [id number] Potassium Chloride / Wtr 10 meq 200 / 200 In 100 ml @ 100 mls/hr IV Q1H VEGA Rx#:[id number] Oral 300 / 300 Output: Urine Amount (Catheter) 100 / 100 External 100 / 100 Other: Other Intake Source NPO NPO # Unmeasured Voids 1 Weight 58.241 kg 59 kg Weight Measurement Method Built in [facility] Built in [facility]
[2023-10-04] MEDS ORDERED: METOPROLOL SUCC 25MG EXT REL TAB PO ONE (10:45)
[2023-10-04] MEDS ORDERED: POTASSIUM CHLORIDE CRTAB 20 MEQ TABCR PO ONE (10:45)
--- NOTE | 2023-10-04 12:45 | Orthopedic Progress Note ---
Date of Service October 04, 2023 Assessment & Plan (1) Closed trimalleolar fracture of left ankle: Plan: Patient was optimized for surgery, per medicine and will plan for left ankle ORIF tomorrow with Dr. Andersen. Keep splint intact. Nonweightbearing. N.p. o. tonight at midnight. Pain management per primary. Hold Eliquis. She can resume postop day 1. Preop orders placed including Ancef, lactated Ringer's. Consent done and filled out in the chart. Admission and Anticipated Discharge Date Admission Date: October 03, 2023 Supervising Physician Co-Signing Physician Notes I saw and examined the patient, reviewed her x-rays and CT scan, and agree with the above note. Reviewed risks/benefits of surgery, alternatives and expected outcomes. All questions answered. She would like to proceed with surgery. Informed consent signed. Will plan on ORIF tomorrow. NPO after midnight tonight. Patient asked if she could go home tomorrow after surgery. I said OK with me but will need permission from internal medicine, her primary care team. Subjective Patient seen examined bedside. She says she is doing well. She is having some pain this morning. She is eager for her surgery. She has no questions or complaints this morning. Physical Exam Physical Exam: Patient is lying comfortably in bed. Splint is intact. Patient is able to wiggle her toes. Skin color warm and pink. Skin is perfusable distally. Results & Data Vital Signs (Past 12 Hours) Vital Signs Temp Pulse Pulse Resp BP Pulse Ox O2 Del Method 10/04/23 11:38 36.4 C L 99 H 16 123/73 95 Room Air 10/04/23 08:30 Room Air 10/04/23 08:20 36.8 C 93 H 16 167/76 H 97 Room Air 10/04/23 07:35 99 H 10/04/23 03:32 36.6 C 91 H 16 113/79 97 Room Air (1) Closed trimalleolar fracture of left ankle Encounter type: initial encounter Qualified Code(s): S82.852A - Displaced trimalleolar fracture of left lower leg, initial encounter for closed fracture
--- NOTE | 2023-10-04 15:43 | Hospitalist Progress Note ---
Date of Service October 04, 2023 Assessment & Plan (1) Atrial fibrillation with RVR: (2) Hypokalemia: (3) Closed trimalleolar fracture of left ankle: Plan Ms. Knox is a 73-year-old female who has a significant past medical history of paroxysmal atrial fibrillation anticoagulated on Eliquis, HTN, HLD, history of nonischemic cardiomyopathy CKD, thoracic aortic aneurysm ascending 4.3 x 4.3 cm, history of NSVT, GERD, osteoporosis, vitamin D deficiency, history of migraine, anxiety and insomnia who presents to ED at the referral of preop secondary to SVT v Afib RVR. Patient admitted on 10/03 for management of SVT/PAF prior to surgical intervention #SVT #Atrial fib with RVR #Elevated troponin 2/2 demand from tachycardia -Rates in 160s on admission, resolved with IV lopressor and resumption of oral meds, question of medication non-compliance -ECHO 10/04 EF 55-60% consult cardiology for further medical optimization has been off Eliquis for a reported week for upcoming surgery, can resume POD 1 Upull5oadc score 4, age, f, htn, chf hx Continue IV heparin for now while medically optimizing replace electrolytes, K >4, m >2 infectious w/u 2/2 elevated anion gap, negative to date -Reviewed Cardiology recommendations -Increased metoprolol succinate to 25mgBID -Continue amiodaron 200mg daily -Hold entresto am of surgery (tentatively 10/05) -Will need EP follow up as OP #Trimalleolar ankle fx, POA cast in place, occurred ~ 1 week ago presented for surgery today and surgery cancelled 2/[address] Duncan place on oxy IR for mild-mod pain, and IV morphine severe pain schedule bowel regimen NWB to LLE Clear for surgery 10/05 at this time per cardiology, CTM #Hypokalemia K 2.5 on admission, notably improved this am try to keep k > 4 mag is 1.9 so will give 1g mag sulfate to try to attain mag > 2 #Elevated anion gap *resolved no clear source replace lytes, infectious work NGTD Likely 2/2 starvation ketosis given ++ ketones in urine and improvement with fluids #Nonobstructive CAD #HTN #HLD on metoprolol, entresto, statin euvolemic continue home meds, hold entresto in am prior to surgery daily weights, I and Os #Anxiety #Insomnia chronic, stable continue home meds FULL CODE PCP: Dr. Macedo DVT ppx: IV heparin Dispo: admit to PCU, medically stabilize prior to surgery Admission and Anticipated Discharge Date Admission Date: October 03, 2023 Subjective NAEO Ready for surgery as soon as possible, feels uncomfortable from left ankle cast but understands need to wait Physical Exam Constitutional: WD/WN, vitals as above Respiratory: normal respiratory effort, lungs clear to auscultation Cardiovascular: irregularly irregular, tachycardic Results & Data Results & Data Vital Signs (Past 12 Hours) Vital Signs Temp Pulse Pulse Resp BP Pulse Ox O2 Del Method 10/04/23 11:38 36.4 C L 99 H 16 123/73 95 Room Air 10/04/23 08:30 Room Air 10/04/23 08:20 36.8 C 93 H 16 167/76 H 97 Room Air 10/04/23 07:35 99 H Laboratory Results Short CBC 10/04/23 Range/Units 05:58 WBC 8.20 (4.8-10.8) K/ul Hgb 11.5 L (12.0-16.0) g/dl Hct 35.1 L (37.0-47.0) % Plt Count 287 (130-400) K/uL BMP 10/03/23 10/03/23 10/04/23 15:42 17:03 05:58 Sodium TNP 139 139 Potassium TNP 3.5 D 3.8 Chloride 110 H 110 H 110 H Carbon Dioxide 19 L 16 L 18 L BUN 15 16 18 Creatinine 0.70 0.63 0.58 L Glucose 120 H 112 H 117 H Calcium 8.2 L 8.4 L 8.3 L Liver Function 10/04/23 Range/Units 05:58 Total Bilirubin 0.5 (0.2-1.0) mg/dl AST 24 (13-39) U/L ALT 12 (7-52) U/L Alkaline Phosphatase 73 (34-104) U/L Albumin 3.8 (3.4-5.0) gm/dl Medications Administered Home Medications Medication Instructions Recorded Confirmed Last Taken apixaban 5 mg tablet (Eliquis) 5 mg PO BID 05/16/22 10/03/2324 atorvastatin 40 mg tablet 40 mg PO QPM 05/16/22 10/03/23 10/01/23 20:00 gabapentin 100 mg capsule 100 mg PO TID 05/16/22 10/03/23 10/02/23 20:00 lorazepam 0.5 mg tablet 0.5 mg PO BID PRN Anxiety 05/16/22 10/03/23 Unknown ramelteon 8 mg tablet 8 mg PO HS 05/16/22 10/03/23 10/01/23 20:00 [id number] 1 tab PO Q6H PRN Migraine Headache 07/08/23 10/03/23 Unknown 50 mg-325 mg-40 mg tablet calcium 500 mg tablet 500 mg PO QAM 07/08/23 10/03/23 10/03/23 04:00 cholecalciferol (vitamin D3) 25 25 mcg PO QAM 07/08/23 10/03/23 10/02/23 06:00 mcg (1,000 unit) tablet levothyroxine 75 mcg tablet 75 mcg PO QAM 07/08/23 10/03/23 10/03/23 04:00 metoprolol succinate 25 mg 12.5 mg PO QAM 07/08/23 10/03/23 10/03/23 04:00 tablet,extended release 24 hr pantoprazole 40 mg tablet,delayed 40 mg PO QAM 07/08/23 10/03/23 10/02/23 04:00 release sacubitril 24 mg-valsartan 26 mg 1 tab PO BID 07/08/23 10/03/23 10/03/23 04:00 tablet (Entresto) alendronate 70 mg tablet 70 mg PO WK 09/27/23 10/03/23 09/27/23 amiodarone 200 mg tablet 200 mg PO QAM 09/27/23 10/03/23 10/03/23 04:00 oxycodone 5 mg tablet 5 mg PO Q4H PRN pain #15 tabs 09/27/23 10/03/23 10/02/23 20:00 trazodone 50 mg tablet 50 mg PO HS 09/27/23 10/03/23 10/01/23 20:00 Active Medications Generic Name Dose Route Start Last Admin Trade Name Freq PRN Reason Stop Dose Admin Acetaminophen 650 mg 10/03/23 16:30 10/04/23 11:26 Acetaminophen 325 Mg Tab PO 11/02/23 16:29 650 mg Q6H VEGA Administration Atorvastatin Calcium 40 mg 10/03/23 21:00 10/03/23 20:31 Atorvastatin 40 Mg Tab PO 11/02/23 20:59 40 mg QPM VEGA Administration Calcium Carbonate 1,250 mg 10/04/23 09:00 10/04/23 08:51 Calcium Carbonate 1250mg Tab PO 11/03/23 08:59 1,250 mg QAM VEGA Administration Gabapentin 100 mg 10/03/23 16:30 10/04/23 14:01 Gabapentin 100 Mg Cap PO 11/02/23 16:29 100 mg TID VEGA Administration Heparin Sodium/Dextrose 25,000 units in 500 mls @ 13 mls/hr 10/03/23 12:30 10/04/23 07:14 Heparin Sodium/Dextrose IV 11/02/23 12:29 650 units/hr .Q24H VEGA 13 mls/hr Titration Protocol 650 UNITS/HR Levothyroxine Sodium 75 mcg 10/04/23 06:30 10/04/23 05:44 Levothyroxine Sodium 75 Mcg Tablet PO 11/03/23 06:29 75 mcg DAILYBB VEGA Administration Lorazepam 0.5 mg 10/03/23 16:07 10/03/23 16:37 Lorazepam 0.5 Mg Tab PO 11/02/23 16:06 0.5 mg BID PRN Administration Anxiety Miscellaneous 1 each 10/04/23 00:00 10/04/23 08:53 Ramelteon 8mg: Order Awaiting Action N/A 11/03/23 00:00 Not Given QS VEGA Morphine Sulfate 2 mg 10/03/23 18:55 10/04/23 01:19 Morphine Sulfate 2 Mg/Ml Carp IV 10/17/23 16:06 2 mg Q4H PRN Administration Severe Pain (Scale 7, 8, 9,10) Oxycodone HCl 5 mg 10/03/23 16:07 10/04/23 13:26 Oxycodone Hcl Ir 5 Mg Tab (Immediate Release) PO 10/17/23 16:06 5 mg Q4H PRN Administration Moderate Pain (Scale 4, 5, 6) Pantoprazole Sodium 40 mg 10/04/23 01:10 10/04/23 08:51 Pantoprazole 40 Mg Tab PO 11/03/23 01:09 40 mg QAM VEGA Administration Polyethylene Glycol 17 gm 10/03/23 16:15 10/04/23 08:53 Polyethylene (Miralax) 17 Gm Pack PO 11/02/23 16:14 Not Given DAILY VEGA Sacubitril/Valsartan 1 tab 10/03/23 21:00 10/03/23 20:31 Valsartan/Sacubitril 26/24mg Tab PO 11/02/23 20:59 1 tab BID VEGA Administration Senna/Docusate Sodium 1 tab 10/03/23 16:30 10/04/23 08:51 Docusate Sodium/Senna 50/8.6mg Tab PO 11/02/23 16:29 1 tab QAM VEGA Administration Trazodone HCl 50 mg 10/03/23 21:00 10/03/23 20:32 Trazodone Hcl 50 Mg Tab PO 11/02/23 20:59 50 mg HS VEGA Administration Vitamin D 1,000 units 10/04/23 09:00 10/04/23 08:51 Cholecalciferol 1,000 Units 25 Mcg Tab PO 11/03/23 08:59 1,000 units QAM VEGA Administration (3) Closed trimalleolar fracture of left ankle Encounter type: initial encounter Qualified Code(s): S82.852A - Displaced trimalleolar fracture of left lower leg, initial encounter for closed fracture
[2023-10-04] MEDS: HEPARIN SODIUM/DEXTROSE 25,000 UNITS/500 ML BAG IV SCH (17:43)
[2023-10-04] MEDS: ATORVASTATIN 40 MG TAB PO SCH (21:32)
[2023-10-04] MEDS: RAMELTEON 8 MG TAB PO SCH (21:32)
[2023-10-04] MEDS: VALSARTAN/SACUBITRIL 26/24MG TAB PO SCH (21:32)
[2023-10-04] MEDS: traZODone HCL 50 MG TAB PO SCH (21:32)
[2023-10-04] MEDS: METOPROLOL SUCC 25MG EXT REL TAB PO SCH (21:33)
[2023-10-04] MEDS ORDERED: Nursing to Pharmacy Communication SCH (23:15)
[2023-10-05] MEDS: MoRPHine SULFATE 2 MG/ML CARP IV PRN ×4 (02:32→22:08)
[2023-10-05] MEDS: ACETAMINOPHEN 325 MG TAB PO SCH ×4 (05:46→22:23)
[2023-10-05] MEDS: LEVOTHYROXINE SODIUM 75 MCG TABLET PO SCH (05:47)
[2023-10-05] MEDS ORDERED: LACTATED RINGER'S 1,000 ML IV SCH (06:00)
[2023-10-05] MEDS ORDERED: ceFAZolin 2000MG 2,000 MG/15 ML SYR IV SCH (06:00)
[2023-10-05] MEDS ORDERED: ROPIVACAINE 0.5% 5 MG/ML 30 ML VIAL ONE (06:39)
[2023-10-05 06:49] LABS: Basophils # (auto) 0.08 K/uL (0.00-0.20); Basophils % (auto) 1.1 %; Eosinophils # (auto) 0.06 K/uL (0.00-0.50); Eosinophils % (auto) 0.8 %; Hematocrit (blood only) 34.2 % (37.0-47.0); Hemoglobin 11.4 g/dl (12.0-16.0); Immature Granulocytes # (auto) 0.02 K/uL (0.01-0.20); Immature Granulocytes % (auto) 0.3 %; Lymphocytes # (auto) 1.91 K/uL (1.20-3.40); Mean Corpuscular Hgb Conc 33.3 g/dL (32.0-36.0); Mean Corpuscular Volume 80.9 fL (80.0-100.0); Mean Platelet Volume 10.5 fL (9.4-12.4); Monocytes # (auto) 0.77 K/uL (0.11-0.59); Monocytes % (auto) 10.9 %; Neutrophils # (auto) 4.24 K/uL (1.40-6.50); Neutrophils % (auto) 59.9 %; Platelet Count 286 K/uL (130-400); RDW Coefficient of Variation 16.2 % (11.5-14.5); RDW Standard Deviation 45.8 fL (36.4-46.3); Red Blood Count 4.23 M/uL (4.20-5.40); White Blood Count 7.08 K/ul (4.8-10.8)
[2023-10-05 07:08] LABS: Albumin Level 3.8 gm/dl (3.4-5.0); BUN Creatinine Ratio 40.4 (10-20); Bilirubin,Total 0.4 mg/dl (0.2-1.0); Calcium 8.6 mg/dl (8.6-10.3); Creatinine Clr Calc Pharmacy 68.5 ml/min; Est GFR (African American) 105.8 ml/min; Est GFR (Non-African American) 91.3 ml/min; Globulin 3.7 gm/dl (2.5-4.0); Magnesium 1.9 mg/dl (1.7-2.4); Potassium 3.8 mmol/L (3.5-5.1); Total Protein 7.5 gm/dl (6.0-8.3)
--- NOTE | 2023-10-05 09:17 | Cardiology Progress Note ---
Date of Service October 05, 2023 Assessment & Plan (1) Preop cardiovascular exam: (2) PAF (paroxysmal atrial fibrillation): (3) SVT (supraventricular tachycardia): (4) Valvular heart disease: (5) Labile hypertension: (6) Ectopic atrial beats: Plan Complex 73-year-old female who presented on 10/03/2023 for surgical intervention of a left trimalleolar ankle fracture following a mechanical fall in September 24, 2023. Initial presentation in AM of 10/03 notable for abnormal heart rate/rhythm, EKG revealing PAF with marked diffuse ST segment change. Rhythm improved with IV and oral beta-john therapy as well as electrolyte replacement and pain control. Follow-up EKG as well as telemetry with sinus/sinus tachycardia with frequent ectopy. Possible medication noncompliance noted. QTc prolonged RECOMMENDATIONS: Additional supplemental potassium. Continue metoprolol succinate and amiodarone without interruption. Hold Entresto this AM, resuming postoperatively as hemodynamics permits. Resume apixaban (Eliquis anticoagulation) postoperatively when determined to be safe Outpatient Electrophysiology Consultation. Admission and Anticipated Discharge Date Admission Date: October 03, 2023 Supervising Physician Co-Signing Physician Notes 73-year-old female presented to the hospital for surgical intervention of left malleolus fracture following a mechanical fall 09/24/2023. Paroxysmal atrial fibrillation with rapid ventricular response noted on admission without associated symptoms. Taken to the OR earlier today, 10/05/2023. Surgery performed without immediate complication. Somewhat confused right now after receiving benzodiazepine. Vital signs are stable. Denies chest pain or shortness of breath. Pain well- controlled at this time. PE: VSS. Gen: NAD, AAOx3. Heart: Regular rhythm, normal S1-S2. No murmur. Lungs: Clear bilateral, no rales, rhonchi, wheeze. Extremities: No edema. A/P: Agree with above PA-C history, physical exam, assessment and plan. 73-year-old female presenting for orthopedic surgery with ECG demonstrating rapid atrial fibrillation. No symptoms reported. Spontaneous conversion to sinus rhythm with frequent PACs. Telemetry during hospitalization demonstrated wandering atrial pacemaker and sinus rhythm with frequent PACs. Orthopedic surgery performed today without immediate complication. Recommend continue amiodarone and beta-john therapy uninterrupted. Scheduled to receive the p.m. dose of Entresto. Resume Eliquis as soon as bleeding risk is deemed ac ceptable by the operating surgeon. Subjective Patient seen and examined. Chart, medications, telemetry reviewed. Lone complaint voiced is that of left ankle pain. For the OR later this morning. Denies chest pain, palpitations, or shortness of breath. EKG today is technically limited, appearing to demonstrate sinus with atrial and ventricular ectopy Telemetry: Sinus/sinus tachycardia with atrial and ventricular ectopy, heart rates currently in the 70s. October 04, 2023 TTE: Compared to prior study of May 17, 2022, LV systolic function has significantly improved with, with normalization of LV wall motion. EF 55 to 60%. Mild concentric LVH. Moderately dilated left atrium. Mild aortic valve sclerosis without significant stenosis. Mild aortic regurgitation. Mild mitral regurgitation. Trace tricuspid regurgitation. Doppler findings not suggestive of pulmonary hypertension. Review of Systems Review of Systems: Complete review of systems is otherwise as stated above, negative, or noncontributory. Physical Exam Physical Exam: General: A&Ox3. NAD. HENT: Normocephalic. Atraumatic. Eyes: PER. Conjunctiva pink, sclera clear. Neck: No JVD. No HJR. Heart: Irregular at 74 bpm. + Systolic murmur. No diastolic murmur. No rub. Lungs: Clear to auscultation. Abdomen: +BS. Soft. Nontender. No masses or organomegaly. Extremities: Left leg dressing. Right lower extremity without clubbing, cyanosis, or peripheral edema. Limited neurological examination is without focal deficits. Pulses: radial=2/4, posterior tibial=2/4 on the right. Results & Data Vital Signs (Past 12 Hours) Vital Signs Temp Pulse Pulse Resp BP Pulse Ox O2 Del Method 10/05/23 07:40 36.7 C 86 16 169/71 H 97 Room Air 10/05/23 03:45 36.7 C 71 16 121/70 94 Room Air 10/04/23 22:43 36.6 C 91 H 18 136/71 96 Room Air 10/04/23 21:58 96 H Laboratory Results Cardiac Enzymes 10/05/23 Range/Units 06:11 AST 27 (13-39) U/L CBC 10/05/23 Range/Units 06:11 WBC 7.08 (4.8-10.8) K/ul RBC 4.23 (4.20-5.40) M/uL Hgb 11.4 L (12.0-16.0) g/dl Hct 34.2 L (37.0-47.0) % Plt Count 286 (130-400) K/uL Neut # (Auto) 4.24 (1.40-6.50) K/uL Lymph # (Auto) 1.91 (1.20-3.40) K/uL [place] # (Auto) 0.77 H (0.11-0.59) K/uL Eos # (Auto) 0.06 (0.00-0.50) K/uL Baso # (Auto) 0.08 (0.00-0.20) K/uL Comprehensive Metabolic Panel 10/05/23 Range/Units 06:11 Sodium 140 (136-145) mmol/L Potassium 3.8 (3.5-5.1) mmol/L Chloride 108 H (98-107) mmol/L Carbon Dioxide 22 (21-32) mmol/L BUN 23 (6-23) mg/dl Creatinine 0.57 L (0.6-1.2) mg/dl Glucose 122 H (70-99(Fasting)) mg/dl Calcium 8.6 (8.6-10.3) mg/dl AST 27 (13-39) U/L ALT 13 (7-52) U/L Alkaline Phosphatase 75 (34-104) U/L Total Protein 7.5 (6.0-8.3) gm/dl Albumin 3.8 (3.4-5.0) gm/dl Intake and Output 10/04/23 10/05/23 10/05/23 22:59 06:59 14:59 Intake Total 271.016 / 750.699 120 / 750.699 Output Total 100 / 400 Balance 271.016 / 350.699 20 / 350.699 Intake: IV 151.016 / 510.699 Heparin Sodium/Dextrose 25,000 151.016 / 310.699 units In 500 ml @ 650 UNITS/HR 13 mls/hr IV .Q24H VEGA Rx#: [id number] Oral 120 / 240 120 / 240 Output: Urine 100 / 400 Other: Other Intake Source NPO # Unmeasured Voids 1 1 Weight 57.8 kg Weight Measurement Method Built in [facility]
[2023-10-05] MEDS ORDERED: POTASSIUM CHLORIDE CRTAB 20 MEQ TABCR PO ONE (09:19)
[2023-10-05] MEDS: METOPROLOL SUCC 25MG EXT REL TAB PO SCH ×2 (09:20→20:03)
[2023-10-05] MEDS: AMIODARONE 200 MG TAB PO SCH (09:20)
[2023-10-05] MEDS ORDERED: ONDANSETRON INJ 2 MG/ML 2 ML VIAL IV PRN ×2 (09:39→13:56)
[2023-10-05] MEDS ORDERED: ePHEDrine sulfate 50 MG/ML AMP IV PRN (09:39)
[2023-10-05] MEDS ORDERED: HYDROmorphone INJ 1 MG/ML SYRINGE IV PRN (09:39)
[2023-10-05] MEDS ORDERED: fentaNYL citrate PF 100 MCG/2 ML VIAL IV PRN (09:39)
[2023-10-05] MEDS ORDERED: PROMETHAZINE HCL 6.25 MG in SODIUM CHLORIDE 0.9% 50 ML IV PRN (09:39)
[2023-10-05] MEDS ORDERED: ATROPINE SULFATE 0.1 MG/ML 10ML SYR IV PRN (09:39)
[2023-10-05] MEDS ORDERED: fentaNYL citrate PF 100 MCG/2 ML VIAL ONE (10:13)
[2023-10-05] MEDS ORDERED: MIDAZOLAM HCL 1 MG/ML 2ML VIAL ONE (10:14)
--- NOTE | 2023-10-05 10:18 | Orthopedic Progress Note ---
Date of Service October 05, 2023 Assessment & Plan (1) Closed trimalleolar fracture of left ankle: Plan: Patient is on the OR schedule for today for left ankle ORIF tomorrow with Dr. Andersen. Keep splint intact. Nonweightbearing. She has been NPO since mi dnight, continue with this until further notice. Pain management per primary. Hold Eliquis. She can resume postop day 1. Patient and family had ample time to answer questions. Patient reports she has walker and a knee scooter at home for use. Will continue to follow post operatively. . Present on Admission?: Yes Admission and Anticipated Discharge Date Admission Date: October 03, 2023 Supervising Physician Co-Signing Physician Notes I saw and examined the patient this morning. She has no other questions about the surgery. Informed consent was signed yesterday and surgical site marked. Has been NPO since midnight. Plan on proceeding to OR today for ORIF ankle fracture Subjective Patient was seen bedside this a.m. Family was present. She is alert and oriented x 3 no acute distress. She states she is doing well and has mild pain in her left ankle. She states she feels her pain is managed with the pain medication. She denies any numbness or tingling in her toes or her leg at this time. She is eager to have surgery today. She denies having anything to eat or drink after midnight. She is maintained nonweightbearing on the left lower extremity she offers no questions or concerns. Family offers no questions or concerns either. She denies any fever, chills, chest pain or shortness of breath. Review of Systems Review of Systems: Please refer to HPI Physical Exam Physical Exam: General: Patient is alert and oriented x 3 no acute distress pleasant and conversive Integument eyes:/Musculoskeletal. Splint is in place. Minimal edema in the left lower extremity. Patient is able to wiggle toes. Capillary refills less than 2 seconds. Her sensation is intact. She is able to flex and extend knee without difficulty. Results & Data Vital Signs (Past 12 Hours) Vital Signs Temp Pulse Resp BP Pulse Ox O2 Del Method 10/05/23 07:40 36.7 C 86 16 169/71 H 97 Room Air 10/05/23 03:45 36.7 C 71 16 121/70 94 Room Air 10/04/23 22:43 36.6 C 91 H 18 136/71 96 Room Air Laboratory Results 10/05/23 Range/Units 06:11 WBC 7.08 (4.8-10.8) K/ul RBC 4.23 (4.20-5.40) M/uL Hgb 11.4 L (12.0-16.0) g/dl Hct 34.2 L (37.0-47.0) % MCV 80.9 (80.0-100.0) fL MCH 27.0 (25.0-34.0) pg MCHC 33.3 (32.0-36.0) g/dL RDW Std Deviation 45.8 (36.4-46.3) fL RDW Coeff of Jessica 16.2 H (11.5-14.5) % Plt Count 286 (130-400) K/uL MPV 10.5 (9.4-12.4) fL Immature Gran % (Auto) 0.3 % Neut % (Auto) 59.9 % Lymph % (Auto) 27.0 % [place] % (Auto) 10.9 % Eos % (Auto) 0.8 % Baso % (Auto) 1.1 % Neut # (Auto) 4.24 (1.40-6.50) K/uL Lymph # (Auto) 1.91 (1.20-3.40) K/uL [place] # (Auto) 0.77 H (0.11-0.59) K/uL Eos # (Auto) 0.06 (0.00-0.50) K/uL Baso # (Auto) 0.08 (0.00-0.20) K/uL Immature Gran # (Auto) 0.02 (0.01-0.20) K/uL Sodium 140 (136-145) mmol/L Potassium 3.8 (3.5-5.1) mmol/L Chloride 108 H (98-107) mmol/L Carbon Dioxide 22 (21-32) mmol/L Anion Gap 10 (3-11) BUN 23 (6-23) mg/dl Creatinine 0.57 L (0.6-1.2) mg/dl Est Cr Clr Drug Dosing 68.5 ml/min Est GFR ( Amer) 105.8 ml/min Est GFR (Non-Af Amer) 91.3 ml/min BUN/Creatinine Ratio 40.4 H (10-20) Glucose 122 H (70-99(Fasting)) mg/dl Calcium 8.6 (8.6-10.3) mg/dl Magnesium 1.9 (1.7-2.4) mg/dl Total Bilirubin 0.4 (0.2-1.0) mg/dl AST 27 (13-39) U/L ALT 13 (7-52) U/L Alkaline Phosphatase 75 (34-104) U/L Total Protein 7.5 (6.0-8.3) gm/dl Albumin 3.8 (3.4-5.0) gm/dl Globulin 3.7 (2.5-4.0) gm/dl Albumin/Globulin Ratio 1.0 (0.9-2) (1) Closed trimalleolar fracture of left ankle Encounter type: initial encounter Qualified Code(s): S82.852A - Displaced trimalleolar fracture of left lower leg, initial encounter for closed fracture
[2023-10-05] MEDS ORDERED: ONDANSETRON INJ 2 MG/ML 2 ML VIAL ONE (10:26)
[2023-10-05] MEDS ORDERED: PROPOFOL IV EMULSION 10 MG/ML 20 ML VIAL IV ONE (10:26)
[2023-10-05] MEDS ORDERED: DEXAMETHASONE SOD INJ 4 MG/ML VIAL ONE (10:26)
[2023-10-05] MEDS ORDERED: ROCURONIUM BROMIDE 10 MG/ML 5 ML VIAL IV ONE ×3 (10:26→12:46)
--- NOTE | 2023-10-05 10:28 | Anesthesiology Consultation ---
Date of Service October 05, 2023 Assessment & Plan (1) Encounter for pre-operative examination: Chart Review Chart Review: Acceptable Risk for Surgery and Patient NOT seen in Pre Admission Testing Consults Requested none History Surgery Operation Date: 10/05/23 11:40 Proposed Procedures p Left Ankle Fracture Open Reduction Internal Fixation - Jr Andersen MD Height/Weight Height: 5 ft 2 in Weight: 57.8 kg Allergies Allergy/AdvReac Type Severity Reaction Status Date / Time No Known Allergies Allergy Verified 10/03/23 10:00 Medications Home Medications Medication Instructions Recorded Confirmed Last Taken apixaban 5 mg tablet (Eliquis) 5 mg PO BID 05/16/22 10/03/23 09/28/23 atorvastatin 40 mg tablet 40 mg PO QPM 05/16/22 10/03/23 10/01/23 20:00 gabapentin 100 mg capsule 100 mg PO TID 05/16/22 10/03/23 10/02/23 20:00 lorazepam 0.5 mg tablet 0.5 mg PO BID PRN Anxiety 05/16/22 10/03/23 Unknown ramelteon 8 mg tablet 8 mg PO HS 05/16/22 10/03/23 10/01/23 20:00 [id number] 1 tab PO Q6H PRN Migraine Headache 07/08/23 10/03/23 Unknown 50 mg-325 mg-40 mg tablet calcium 500 mg tablet 500 mg PO QAM 07/08/23 10/03/23 10/03/23 04:00 cholecalciferol (vitamin D3) 25 25 mcg PO QAM 07/08/23 10/03/23 10/02/23 06:00 mcg (1,000 unit) tablet levothyroxine 75 mcg tablet 75 mcg PO QAM 07/08/23 10/03/23 10/03/23 04:00 metoprolol succinate 25 mg 12.5 mg PO QAM 07/08/23 10/03/23 10/03/23 04:00 tablet,extended release 24 hr pantoprazole 40 mg tablet,delayed 40 mg PO QAM 07/08/23 10/03/23 10/02/23 04:00 release sacubitril 24 mg-valsartan 26 mg 1 tab PO BID 07/08/23 10/03/23 10/03/23 04:00 tablet (Entresto) alendronate 70 mg tablet 70 mg PO WK 09/27/23 10/03/23 09/27/23 amiodarone 200 mg tablet 200 mg PO QAM 09/27/23 10/03/23 10/03/23 04:00 oxycodone 5 mg tablet 5 mg PO Q4H PRN pain #15 tabs 09/27/23 10/03/23 10/02/23 20:00 trazodone 50 mg tablet 50 mg PO HS 09/27/23 10/03/23 10/01/23 20:00 Active Medications Generic Name Dose Route Start Last Admin Trade Name Freq PRN Reason Stop Dose Admin Acetaminophen 650 mg 10/03/23 16:30 10/05/23 05:46 Acetaminophen 325 Mg Tab PO 11/02/23 16:29 650 mg Q6H VEGA Administration Amiodarone HCl 200 mg 10/05/23 09:00 10/05/23 09:20 Amiodarone 200 Mg Tab PO 11/04/23 08:59 200 mg QAM VEGA Administration Atorvastatin Calcium 40 mg 10/03/23 21:00 10/04/23 21:32 Atorvastatin 40 Mg Tab PO 11/02/23 20:59 40 mg QPM VEGA Administration Calcium Carbonate 1,250 mg 10/04/23 09:00 10/04/23 08:51 Calcium Carbonate 1250mg Tab PO 11/03/23 08:59 1,250 mg QAM VEGA Administration Gabapentin 100 mg 10/03/23 16:30 10/04/23 21:32 Gabapentin 100 Mg Cap PO 11/02/23 16:29 100 mg TID VEGA Administration Heparin Sodium/Dextrose 25,000 units in 500 mls @ 13 mls/hr 10/03/23 12:30 10/04/23 18:51 Heparin Sodium/Dextrose IV 11/02/23 12:29 650 units/hr .Q24H VEGA 13 mls/hr Titration Protocol 650 UNITS/HR Lactated Ringer's 1,000 mls @ 60 mls/hr 10/05/23 06:00 10/05/23 05:47 Lr IV 10/05/23 22:39 60 mls/hr .[id number] VEGA Administration Levothyroxine Sodium 75 mcg 10/04/23 06:30 10/05/23 05:47 Levothyroxine Sodium 75 Mcg Tablet PO 11/03/23 06:29 75 mcg DAILYBB VEGA Administration Lorazepam 0.5 mg 10/03/23 16:07 10/03/23 16:37 Lorazepam 0.5 Mg Tab PO 11/02/23 16:06 0.5 mg BID PRN Administration Anxiety Metoprolol Succinate 25 mg 10/04/23 21:00 10/05/23 09:20 Metoprolol Succ 25mg Ext Rel Tab PO 11/03/23 20:59 25 mg BID VEGA Administration Morphine Sulfate 2 mg 10/03/23 18:55 10/05/23 09:31 Morphine Sulfate 2 Mg/Ml Carp IV 10/17/23 16:06 2 mg Q4H PRN Administration Severe Pain (Scale 7, 8, 9,10) Oxycodone HCl 5 mg 10/03/23 16:07 10/04/23 17:29 Oxycodone Hcl Ir 5 Mg Tab (Immediate Release) PO 10/17/23 16:06 5 mg Q4H PRN Administration Moderate Pain (Scale 4, 5, 6) Pantoprazole Sodium 40 mg 10/04/23 01:10 10/04/23 08:51 Pantoprazole 40 Mg Tab PO 11/03/23 01:09 40 mg QAM VEGA Administration Polyethylene Glycol 17 gm 10/03/23 16:15 10/04/23 08:53 Polyethylene (Miralax) 17 Gm Pack PO 11/02/23 16:14 Not Given DAILY VEGA Sacubitril/Valsartan 1 tab 10/03/23 21:00 10/04/23 21:32 Valsartan/Sacubitril 26/24mg Tab PO 11/02/23 20:59 1 tab BID VEGA Administration Senna/Docusate Sodium 1 tab 10/03/23 16:30 10/04/23 08:51 Docusate Sodium/Senna 50/8.6mg Tab PO 11/02/23 16:29 1 tab QAM VEGA Administration Trazodone HCl 50 mg 10/03/23 21:00 10/04/23 21:32 Trazodone Hcl 50 Mg Tab PO 11/02/23 20:59 50 mg HS VEGA Administration Vitamin D 1,000 units 10/04/23 09:00 10/04/23 08:51 Cholecalciferol 1,000 Units 25 Mcg Tab PO 11/03/23 08:59 1,000 units QAM VEGA Administration NPO Date Last Intake of Fluids: 10/04/23 Time Last Intake of Fluids: 21:00 Date Last Intake of Solids: 10/04/23 Time Last Intake of Solids: 17:00 Past Medical History Medical History CAD (coronary artery disease) Nonobstructive per 05/17/22 cath Nonischemic cardiomyopathy 04/2022- 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 in the setting of COVID-19 pneumonia and sepsis Pneumonia due to COVID-19 virus Apr 2022 > was in rehab at for a approx 3 weeks STEMI (ST elevation myocardial infarction) Apr 2022 > was related to covid, per pt, not an actual STEMI Acute cardiogenic shock and recurrent VT April 2022 per cardio records Syncope Jun 2023- admitted overnight at [facility]- felt related to dehydration; no arrhythmias ; no issues since per 09/19/23 cardio note Anxiety Persistent insomnia HLD (hyperlipidemia) Left atrial dilation Severe- follows with [facility] cardio Migraine Chronic heart failure with preserved ejection fraction (HFpEF) EF 60-64% per 04/2023 ECHO Ascending aortic aneurysm Proximal ascending thoracic aorta 4.4cm per 04/2023 ECHO Diastolic dysfunction NYHA Class 1 Hypertension Labile PAF (paroxysmal atrial fibrillation) no pacer > med controlled on Eliquis Esophageal reflux Exercise / Class Metabolic Activity III < 4 Walking/Shop/Light housework Past Family History Family History Mother Hypertension Father TIA (transient ischemic attack) Sister Diabetes Other No pertinent family history in first degree relatives Past Surgical History Surgical History History of cardiac cath 04/2022 [place] History of appendectomy History of tooth extraction History of partial hysterectomy History of cholecystectomy History of lumbar surgery Social History Smoking Status: Never smoker Do You Dip or Chew Tobacco: No Hx Alcohol Use: No Hx Substance Use: No substance use type: does not use Physical Exam Vital Signs Last Vital Signs Temp 37.1 C 10/05/23 10:06 Pulse 80 10/05/23 10:06 Resp 20 10/05/23 10:06 BP 91/73 L 10/05/23 10:06 Pulse Ox 98 10/05/23 10:06 O2 Del Method Room Air 10/05/23 10:06 Testing Laboratory Results 10/05/23 06:11 10/05/23 06:11 Hemoglobin A1c 5.7 % (4.5-5.6) H 10/04/23 05:58 Urine Color Yellow 10/03/23 13:17 Urine Appearance Cloudy (Clear) A 10/03/23 13:17 Urine pH 6.0 (4.5-7.5) 10/03/23 13:17 Ur Specific [place] 1.022 (1.000-1.030) 10/03/23 13:17 Urine Protein 3+ (Negative) H 10/03/23 13:17 Urine Glucose (UA) Negative (Negative) 10/03/23 13:17 Urine Ketones 4+ (Negative) H 10/03/23 13:17 Urine Nitrite Negative (Negative) 10/03/23 13:17 Ur Leukocyte Esterase Negative (Negative) 10/03/23 13:17 Urine WBC (Auto) 5-10 /hpf (0-5) H 10/03/23 13:17 Urine RBC (Auto) 5-10 /hpf (0-4) H 10/03/23 13:17 U Hyaline Cast (Auto) 1-5 /lpf (0-5) 10/03/23 13:17 U Epithel Cells (Auto) >30 /lpf (0-5) H 10/03/23 13:17 Urine Bacteria (Auto) 1+ (Negative) H 10/03/23 13:17 10/03/23 13:17 Urine Culture - Final Urine,Clean Catch More than three types of organisms present, all high counts mixed probable skin elier - No further identifications or sensitivities to follow. 10/03/23 11:44 Aerobic Blood Culture - Preliminary Blood No growth in Aerobic bottle after 24 hours. Anaerobic Blood Culture - Final 10/03/23 12:19 Aerobic Blood Culture - Preliminary Blood No growth in Aerobic bottle after 24 hours. Anaerobic Blood Culture - Preliminary No growth in Anaerobic bottle after 24 hours. Electrocardiogram Date: 10/05/23 Findings: + NSR @ (94) Poor data quality, interpretation may be adversely affected Sinus rhythm with Premature supraventricular complexes and with occasional Premature ventricular complexes ST & T wave abnormality, consider lateral ischemia Abnormal ECG When compared with ECG of 04-OCT-2023 05:25, (unconfirmed) Sinus rhythm has replaced Atrial fibrillation Nonspecific T wave abnormality, improved in Anterior leads Chest X-Ray Date: 10/03/23 XR chest 1V portable HISTORY: 73 years-old Female admit, gap acute shortness of breath COMPARISON: 07/08/2023 TECHNIQUE: AP view of the chest FINDINGS: Cardiomediastinal and hilar silhouettes are within normal limits. No pneumothorax, pleural effusion or airspace consolidation. The bones appear grossly intact. IMPRESSION: No acute process. Other Testing EKG today is technically limited, appearing to demonstrate sinus with atrial and ventricular ectopy Telemetry: Sinus/sinus tachycardia with atrial and ventricular ectopy, heart rates currently in the 70s. October 04, 2023 TTE: Compared to prior study of May 17, 2022, LV systolic function has significantly improved with, with normalization of LV wall motion. EF 55 to 60%. Mild concentric LVH. Moderately dilated left atrium. Mild aortic valve sclerosis without significant stenosis. Mild aortic regurgitation. Mild mitral regurgitation. Trace tricuspid regurgitation. Doppler findings not suggestive of pulmonary hypertension.
[2023-10-05] MEDS ORDERED: PHENYLEPHRINE 100MCG/ML 10ML SYR IV ONE (11:29)
[2023-10-05] MEDS ORDERED: ePHEDrine sulfate 50 MG/5 ML SYR ONE (11:29)
[2023-10-05] MEDS ORDERED: SUGAMMADEX SODIUM 200 MG/2 ML VIAL IV ONE (12:17)
--- NOTE | 2023-10-05 12:45 | Hospitalist Progress Note ---
Date of Service October 05, 2023 Assessment & Plan (1) Atrial fibrillation with RVR: (2) Hypokalemia: (3) Closed trimalleolar fracture of left ankle: Plan Ms. Knox is a 73-year-old female who has a significant past medical history of paroxysmal atrial fibrillation anticoagulated on Eliquis, HTN, HLD, history of nonischemic cardiomyopathy CKD, thoracic aortic aneurysm ascending 4.3 x 4.3 cm, history of NSVT, GERD, osteoporosis, vitamin D deficiency, history of migraine, anxiety and insomnia who presents to ED at the referral of preop secondary to SVT v Afib RVR. Patient admitted on 10/03 for management of SVT/PAF prior to surgical intervention #SVT #Atrial fib with RVR #Elevated troponin 2/2 demand from tachycardia -Rates in 160s on admission, resolved with IV lopressor and resumption of oral meds, question of medication non-compliance -ECHO 10/04 EF 55-60% consult cardiology for further medical optimization has been off Eliquis for a reported week for upcoming surgery, can resume POD 1 [id number] score 4, age, f, htn, chf hx Continue IV heparin for now while medically optimizing replace electrolytes, K >4, m >2 infectious w/u 2/2 elevated anion gap, negative to date -Reviewed Cardiology recommendations -Increased metoprolol succinate to 25mgBID -Continue amiodarone 200mg daily -Resume entresto postoperatively -Will need EP follow up as OP #Trimalleolar ankle fx, POA cast in place, occurred ~ 1 week ago presented for surgery today and surgery cancelled 2/[address] Duncan place on oxy IR for mild-mod pain, and IV morphine severe pain schedule bowel regimen NWB to LLE Clear for surgery 10/05, will follow post op #Hypokalemia *resolved K 2.5 on admission, notably improved this am try to keep k > 4 mag is 1.9 so will give 1g mag sulfate to try to attain mag > 2 #Elevated anion gap *resolved no clear source replace lytes, infectious work NGTD Likely 2/2 starvation ketosis given ++ ketones in urine and improvement with fluids #Nonobstructive CAD #HTN #HLD on metoprolol, entresto, statin euvolemic continue home meds, hold entresto in am prior to surgery daily weights, I and Os #Anxiety #Insomnia chronic, stable continue home meds FULL CODE PCP: Dr. Macedo DVT ppx: IV heparin Dispo: admit to PCU, medically stabilize prior to surgery Admission and Anticipated Discharge Date Admission Date: October 03, 2023 Subjective NAEO Reports feeling well and eager for procedure--denies chest pain, palpitations or other acute concerns Physical Exam Constitutional: WD/WN, vitals as above Respiratory: normal respiratory effort, lungs clear to auscultation Cardiovascular: sounds regular on exam Gastrointestinal (Abdomen): normal bowel sounds, soft, nontender, no hepatosplenomegaly Results & Data Results & Data Vital Signs (Past 12 Hours) Vital Signs Temp Pulse Pulse Resp BP BP Pulse Ox 10/05/23 10:06 37.1 C 80 20 91/73 L 98 10/05/23 08:00 93 H 10/05/23 07:40 36.7 C 86 16 169/71 H 97 10/05/23 03:45 36.7 C 71 16 121/70 94 O2 Del Method 10/05/23 10:06 Room Air 10/05/23 08:00 10/05/23 07:40 Room Air 10/05/23 03:45 Room Air Laboratory Results Short CBC 10/05/23 Range/Units 06:11 WBC 7.08 (4.8-10.8) K/ul Hgb 11.4 L (12.0-16.0) g/dl Hct 34.2 L (37.0-47.0) % Plt Count 286 (130-400) K/uL BMP 10/05/23 06:11 Sodium 140 Potassium 3.8 Chloride 108 H Carbon Dioxide 22 BUN 23 Creatinine 0.57 L Glucose 122 H Calcium 8.6 Liver Function 10/05/23 Range/Units 06:11 Total Bilirubin 0.4 (0.2-1.0) mg/dl AST 27 (13-39) U/L ALT 13 (7-52) U/L Alkaline Phosphatase 75 (34-104) U/L Albumin 3.8 (3.4-5.0) gm/dl Medications Administered Home Medications Medication Instructions Recorded Confirmed Last Taken apixaban 5 mg tablet (Eliquis) 5 mg PO BID 05/16/22 10/03/23 09/28/23 atorvastatin 40 mg tablet 40 mg PO QPM 05/16/22 10/03/23 10/01/23 20:00 gabapentin 100 mg capsule 100 mg PO TID 05/16/22 10/03/23 10/02/23 20:00 lorazepam 0.5 mg tablet 0.5 mg PO BID PRN Anxiety 05/16/22 10/03/23 Unknown ramelteon 8 mg tablet 8 mg PO HS 05/16/22 10/03/23 10/01/23 20:00 [id number] 1 tab PO Q6H PRN Migraine Headache 07/08/23 10/03/23 Unknown 50 mg-325 mg-40 mg tablet calcium 500 mg tablet 500 mg PO QAM 07/08/23 10/03/23 10/03/23 04:00 cholecalciferol (vitamin D3) 25 25 mcg PO QAM 07/08/23 10/03/23 10/02/23 06:00 mcg (1,000 unit) tablet levothyroxine 75 mcg tablet 75 mcg PO QAM 07/08/23 10/03/23 10/03/23 04:00 metoprolol succinate 25 mg 12.5 mg PO QAM 07/08/23 10/03/23 10/03/23 04:00 tablet,extended release 24 hr pantoprazole 40 mg tablet,delayed 40 mg PO QAM 07/08/23 10/03/23 10/02/23 04:00 release sacubitril 24 mg-valsartan 26 mg 1 tab PO BID 07/08/23 10/03/23 10/03/23 04:00 tablet (Entresto) alendronate 70 mg tablet 70 mg PO WK 09/27/23 10/03/23 09/27/23 amiodarone 200 mg tablet 200 mg PO QAM 09/27/23 10/03/23 10/03/23 04:00 oxycodone 5 mg tablet 5 mg PO Q4H PRN pain #15 tabs 09/27/23 10/03/23 10/02/23 20:00 trazodone 50 mg tablet 50 mg PO HS 09/27/23 10/03/23 10/01/23 20:00 Active Medications Generic Name Dose Route Start Last Admin Trade Name Freq PRN Reason Stop Dose Admin Acetaminophen 650 mg 10/03/23 16:30 10/05/23 05:46 Acetaminophen 325 Mg Tab PO 11/02/23 16:29 650 mg Q6H VEGA Administration Amiodarone HCl 200 mg 10/05/23 09:00 10/05/23 09:20 Amiodarone 200 Mg Tab PO 11/04/23 08:59 200 mg QAM VEGA Administration Atorvastatin Calcium 40 mg 10/03/23 21:00 10/04/23 21:32 Atorvastatin 40 Mg Tab PO 11/02/23 20:59 40 mg QPM VEGA Administration Calcium Carbonate 1,250 mg 10/04/23 09:00 10/04/23 08:51 Calcium Carbonate 1250mg Tab PO 11/03/23 08:59 1,250 mg QAM VEGA Administration Gabapentin 100 mg 10/03/23 16:30 10/04/23 21:32 Gabapentin 100 Mg Cap PO 11/02/23 16:29 100 mg TID VEGA Administration Heparin Sodium/Dextrose 25,000 units in 500 mls @ 13 mls/hr 10/03/23 12:30 10/04/23 18:51 Heparin Sodium/Dextrose IV 11/02/23 12:29 650 units/hr .Q24H VEGA 13 mls/hr Titration Protocol 650 UNITS/HR Lactated Ringer's 1,000 mls @ 60 mls/hr 10/05/23 06:00 10/05/23 05:47 Lr IV 10/05/23 22:39 60 mls/hr .[id number] VEGA Administration Levothyroxine Sodium 75 mcg 10/04/23 06:30 10/05/23 05:47 Levothyroxine Sodium 75 Mcg Tablet PO 11/03/23 06:29 75 mcg DAILYBB VEGA Administration Lorazepam 0.5 mg 10/03/23 16:07 10/03/23 16:37 Lorazepam 0.5 Mg Tab PO 11/02/23 16:06 0.5 mg BID PRN Administration Anxiety Metoprolol Succinate 25 mg 10/04/23 21:00 10/05/23 09:20 Metoprolol Succ 25mg Ext Rel Tab PO 11/03/23 20:59 25 mg BID VEGA Administration Morphine Sulfate 2 mg 10/03/23 18:55 10/05/23 09:31 Morphine Sulfate 2 Mg/Ml Carp IV 10/17/23 16:06 2 mg Q4H PRN Administration Severe Pain (Scale 7, 8, 9,10) Oxycodone HCl 5 mg 10/03/23 16:07 10/04/23 17:29 Oxycodone Hcl Ir 5 Mg Tab (Immediate Release) PO 10/17/23 16:06 5 mg Q4H PRN Administration Moderate Pain (Scale 4, 5, 6) Pantoprazole Sodium 40 mg 10/04/23 01:10 10/04/23 08:51 Pantoprazole 40 Mg Tab PO 11/03/23 01:09 40 mg QAM VEGA Administration Polyethylene Glycol 17 gm 10/03/23 16:15 10/04/23 08:53 Polyethylene (Miralax) 17 Gm Pack PO 11/02/23 16:14 Not Given DAILY VEGA Sacubitril/Valsartan 1 tab 10/03/23 21:00 10/04/23 21:32 Valsartan/Sacubitril 26/24mg Tab PO 11/02/23 20:59 1 tab BID VEGA Administration Senna/Docusate Sodium 1 tab 10/03/23 16:30 10/04/23 08:51 Docusate Sodium/Senna 50/8.6mg Tab PO 11/02/23 16:29 1 tab QAM VEGA Administration Trazodone HCl 50 mg 10/03/23 21:00 10/04/23 21:32 Trazodone Hcl 50 Mg Tab PO 11/02/23 20:59 50 mg HS VEGA Administration Vitamin D 1,000 units 10/04/23 09:00 10/04/23 08:51 Cholecalciferol 1,000 Units 25 Mcg Tab PO 11/03/23 08:59 1,000 units QAM VEGA Administration (3) Closed trimalleolar fracture of left ankle Encounter type: initial encounter Qualified Code(s): S82.852A - Displaced trimalleolar fracture of left lower leg, initial encounter for closed fracture
--- NOTE | 2023-10-05 13:48 | Operative Report ---
Post Operative Report Pre & Post Diagnosis Operation Date: 10/05/23 11:40 Pre-Op Diagnosis: Closed trimalleolar fracture of left ankle Post-Op Diagnosis: Closed trimalleolar fracture of left ankle I identified the patient and participated in the time-out.: Yes Procedure Operation Date: 10/05/23 11:40 Actual Procedures Open Reduction Internal Fixation Trimalleolar Left Ankle Fracture - Jr Andersen MD Surgeon Jr Andersen MD Computer Science Instructor ADRI Jean PA-C. No resident or fellow was available to assist. Estimated Blood Loss 50 Findings Consistent with Post-Op Diagnosis Specimens None Anesthesia Type General Regional Complications none Disposition Disposition: Recovery Room Indications 73-year-old female, injured her left ankle sustaining a trimalleolar fracture. She was seen by my partner Dr. Duncan who indicated for for surgery. Her surgery is scheduled for Monday of this week. However on presenting to the hospital her potassium was noted to be low and she had her surgery canceled and sent to the emergency room where she was subsequently admitted to the internal medicine service and cardiology was consulted. She was subsequently cleared for surgery. I was in the operating room today and Dr. Duncan asked if I could take care of her ankle fracture. I saw the patient yesterday and reviewed the risks and benefits of surgery, alternatives, and expected outcomes. After reviewing all these she elected to proceed with surgery. All questions were answered. Informed consent was signed. Description of Procedure Patient was identified in the preoperative holding area where her surgical site was marked. She was given a block by anesthesia and brought back to the main operating room where general anesthesia was administered on the hospital bed. She was then carefully rolled onto the operating room table in the prone position on laminectomy rolls. All bony prominences were padded. Perioperative antibiotics were administered. She was prepped and draped in the usual sterile fashion. Prior to incision a multidisciplinary timeout was called. All in the room were in agreement. I began by exsanguinating the limb with an Esmarch bandage. Tourniquet was inflated to 250 mmHg. Total tourniquet time for the case was 90 minutes. A 12 cm long incision was made midway between the Achilles tendon and the posterior border the fibula for a posterior lateral approach to the ankle. I dissected down to subcutaneous tissues. Crossing venous branches were electro coagulated and these along with the sural nerve were retracted medially. The fascia was cleared off in the fascia was incised in line with the incision. I then made windows on each side of the peroneal tendons. We then proceeded to move the peroneal tendons medially to expose the posterior aspect of the fibula. Fracture was identified and subperiosteal dissection allowed us to visualize the fractured ends. Fracture hematoma was evacuated and then a pointed tenaculum clamp was used to obtain a provisional reduction of the fracture. 2 K wires were then placed on each side of the fracture outside of the zone where a posterior lateral plate would be applied. Once these were in good position fluoroscopy confirmed the reduction. An Arthrex posterolateral antiglide plate was then applied to the posterior aspect of the distal fibula. BB tacks were used to secure the plate. The position of the plate was optimized under fluoroscopic visualization. We then filled the proximal aspect of the plate using 3.5 mm cortical screws x 4. These nicely buttress the fracture improving or reduction even further. The K wires were then removed and the distal aspect of the plate was filled with 4 unicortical locking screws. Once this was complete fluoroscopic images of the fibula were obtained. I was happy with the position of the plate, reduction of the fracture, and screw lengths. We then turned our attention towards the posterior malleolus fragment. The peroneal tendons were now retracted laterally and the flexor hallucis longus tendon was retracted medially subperiosteally off the tibia. Hohmann retractor was placed medially. The posterior malleolus fracture was identified and again subperiosteal dissection was used to expose the fracture edges. I was having difficulty getting a good reduction and therefore I elected to expose the medial malleolus fracture to ensure that there was no interposed fragments in the fracture. A 4 cm curved incision was made centered over the medial malleolus. I dissected down to subcutaneous tissues. Medial malleolus fracture was identified. Using a [place] elevator I was able to manipulate the medial malleolus fracture into a near anatomic reduction. I then turned my attention back to the posterior malleolus fragment. A bump was placed underneath the need to take more stress off the gastrocnemius. Now I was able to get a good reduction of the posterior malleolus fragment. An Arthrex posterolateral distal tibial plate was then applied and secured with BB tacks. We optimized the position of the plate under fluoroscopy. I then placed three 3.5 mm cortical screws through the proximal aspect of the plate which nicely buttress the fragment anteriorly. 2 locking screws were then placed distally. Excellent fixation was obtained. Finally, we turned our attention back to the medial malleolus. Using fluoros copic guidance a K wire was placed into the medial malleolus fracture fragment distally. I then joystick this fragment into an anatomic position and drove the wire further across the fracture. We checked the position of the wire under fluoroscopy and took our measurement. It came to a 48 mm cannulated cancellous screw. I drilled the near cortex and then placed the screw without difficulty. Excellent fixation was obtained. At this point her final fluoroscopic images were obtained. I was very happy with the reduction and the position of her hardware. The wound was then irrigated out with copious amounts normal saline. 0 Vicryl sutures were used for the fascial layer in the posterior lateral incision. 2-0 Vicryl sutures were used in the deep dermal layer for both incisions. Katrin were used for the skin. Patient was placed into a posterior new plaster slab splint. She was then awoke from anesthesia and transferred the recovery room in stable condition. Postoperative course: Patient will be readmitted to the floor from the recovery room. She will be nonweightbearing for the next 6 weeks. 2 weeks from now she can really move her splint and katrin at her follow-up and transition to a cam boot so she can begin early range of motion exercises by removing her boot. Anticoagulation per the internal medicine service. I attest to the content of the Intraoperative Record and any orders documented therein. Any exceptions are noted below.
[2023-10-05] MEDS ORDERED: MoRPHine SULFATE 4 MG/ML 1 ML CARP\\VIAL IV PRN (13:56)
[2023-10-05] MEDS ORDERED: oxyCODONE/ACETAMINOPHEN 5mg/325mg TAB PO PRN (13:56)
--- NOTE | 2023-10-05 13:56 | Operative Report ---
Post Operative Report Pre & Post Diagnosis Operation Date: 10/05/23 11:40 Pre-Op Diagnosis: Closed trimalleolar fracture of left ankle Post-Op Diagnosis: Closed trimalleolar fracture of left ankle I identified the patient and participated in the time-out.: Yes Procedure Operation Date: 10/05/23 11:40 Actual Procedures p Left Ankle Fracture Open Reduction Internal Fixation - Jr Andersen MD Surgeon Jr Andersen MD Truck Driver Flatbed ADRI Jean PA-C. No resident or fellow was available to assist. Estimated Blood Loss 50 Findings Consistent with Post-Op Diagnosis Specimens none Description of Procedure I was present during the entire case assisting with positioning, prepping, draping, wound retraction, wound closure, dressing and splint application. No fellow present. Please see Dr. Andersen procedure note for specifics of the case. I attest to the content of the Intraoperative Record and any orders documented therein. Any exceptions are noted below.
[2023-10-05] MEDS ORDERED: BUTALBITAL/ACETAMIN/CAFFEINE TAB PO PRN (13:58)
--- NOTE | 2023-10-05 14:37 | Fluoroscopy Report ---
FL ankle LT min 3V RTN CLINICAL HISTORY: Left ankle fx ORIF COMPARISON STUDY: Left ankle 09/27/2023. FLUOROSCOPY TIME: 57 seconds FLUOROSCOPY IMAGES: 3 Ka,r: 1.3 mGy FINDINGS: Status post internal fixation of a trimalleolar left ankle fracture with cortical plates an d screws. The hardware appears intact. Alignment appears near-anatomic. IMPRESSION: Fluoroscopic assistance as above. ACT 112: Negative or not required by law. Electronically signed by: César Decker M.D. 10/05/2023 2:36 PM
[2023-10-05] MEDS: GABAPENTIN 100 MG CAP PO SCH ×3 (14:39→20:04)
[2023-10-05] MEDS: POLYETHYLENE (MIRALAX) 17 GM PACK PO SCH (14:39)
--- NOTE | 2023-10-05 14:49 | Anesthesiology Progress Note ---
Date of Service October 05, 2023 Anesthesia Post Procedure Vital Signs Vital Signs: Temp Pulse Pulse Resp BP BP Pulse Ox 10/05/23 14:35 37 C 70 20 149/84 H 97 10/05/23 14:25 71 18 149/89 H 98 10/05/23 14:15 70 18 158/79 H 97 10/05/23 14:05 76 18 159/78 H 97 10/05/23 13:57 36.3 C L 83 16 144/85 H 98 10/05/23 10:06 37.1 C 80 20 91/73 L 98 10/05/23 08:00 93 H 10/05/23 07:40 36.7 C 86 16 169/71 H 97 10/05/23 03:45 36.7 C 71 16 121/70 94 10/04/23 22:43 36.6 C 91 H 18 136/71 96 10/04/23 21:58 96 H 10/04/23 20:18 37.1 C 88 17 153/82 H 98 10/04/23 19:15 10/04/23 16:00 102 H 10/04/23 15:50 36.5 C 107 H 16 130/80 96 O2 Del Method O2 Flow Rate 10/05/23 14:35 Nasal Cannula 2 10/05/23 14:25 Oxymask 2 10/05/23 14:15 Oxymask 2 10/05/23 14:05 Oxymask 2 10/05/23 13:57 Oxymask 6 10/05/23 10:06 Room Air 10/05/23 08:00 10/05/23 07:40 Room Air 10/05/23 03:45 Room Air 10/04/23 22:43 Room Air 10/04/23 21:58 10/04/23 20:18 Room Air 10/04/23 19:15 Room Air 10/04/23 16:00 10/04/23 15:50 Room Air Pain Intensity Left Ankle: Pain Intensity: 7 Transfer of Care Handoff Completed per policy Notes Mental Status: alert / awake / arousable and participated in evaluation Patient Amnestic to Procedure: Yes Nausea / Vomiting: adequately controlled Pain: adequately controlled Airway Patency, RR, SpO2: stable & adequate BP & HR: stable & adequate Hydration State: stable & adequate Anesthetic Complications: no major complications apparent and Pt Satisfied with anesthetic care Notes: Patient with mild confusion postoperatively. Is denying pain and nausea. Good b/l muscle strength in upper extremities. No facial asymmetry. Plan to transfer patient back to room as she is meeting pacu discharge criteria.
[2023-10-05] MEDS: DOCUSATE SODIUM/SENNA 50/8.6MG TAB PO SCH (15:36)
[2023-10-05] MEDS: PANTOprazole 40 MG TAB PO SCH (16:50)
[2023-10-05] MEDS: CHOLECALCIFEROL 1,000 UNITS 25 MCG TAB PO SCH (16:51)
[2023-10-05] MEDS: CALCIUM CARBONATE 1250MG TAB PO SCH (16:51)
[2023-10-05] MEDS: APIXABAN 5 MG TABLET PO SCH (19:39)
[2023-10-05] MEDS: ATORVASTATIN 40 MG TAB PO SCH (20:02)
[2023-10-05] MEDS: VALSARTAN/SACUBITRIL 26/24MG TAB PO SCH (20:02)
[2023-10-05] MEDS: traZODone HCL 50 MG TAB PO SCH (20:15)
[2023-10-05] MEDS: RAMELTEON 8 MG TAB PO SCH (20:17)
[2023-10-06] MEDS: MoRPHine SULFATE 2 MG/ML CARP IV PRN ×6 (00:32→20:45)
[2023-10-06] MEDS: ACETAMINOPHEN 325 MG TAB PO SCH ×4 (05:03→20:45)
[2023-10-06] MEDS: LEVOTHYROXINE SODIUM 75 MCG TABLET PO SCH (05:05)
[2023-10-06 06:56] LABS: Hematocrit (blood only) 32.6 % (37.0-47.0); Hemoglobin 10.9 g/dl (12.0-16.0); Mean Corpuscular Hemoglobin 27.3 pg (25.0-34.0); Mean Corpuscular Hgb Conc 33.4 g/dL (32.0-36.0); Mean Corpuscular Volume 81.7 fL (80.0-100.0); Platelet Count 267 K/uL (130-400); RDW Coefficient of Variation 16.2 % (11.5-14.5); RDW Standard Deviation 46.8 fL (36.4-46.3); Red Blood Count 3.99 M/uL (4.20-5.40); White Blood Count 9.74 K/ul (4.8-10.8)
--- NOTE | 2023-10-06 07:11 | Hospitalist Progress Note ---
Date of Service October 06, 2023 Assessment & Plan (1) Atrial fibrillation with RVR: (2) Hypokalemia: (3) Closed trimalleolar fracture of left ankle: Plan Ms. Knox is a 73-year-old female who has a significant past medical history of paroxysmal atrial fibrillation anticoagulated on Eliquis, HTN, HLD, history of nonischemic cardiomyopathy CKD, thoracic aortic aneurysm ascending 4.3 x 4.3 cm, history of NSVT, GERD, osteoporosis, vitamin D deficiency, history of migraine, anxiety and insomnia who presents to ED at the referral of preop secondary to SVT v Afib RVR. Patient admitted on 10/03 for management of SVT/PAF prior to surgical intervention. #SVT #Atrial fib with RVR #Elevated troponin 2/2 demand from tachycardia -Rates in 160s on admission, resolved with IV lopressor and resumption of oral meds, question of medication non-compliance -ECHO 10/04 EF 55-60% consult cardiology for further medical optimization has been off Eliquis for a reported week for upcoming surgery, can resume POD 1 [id number] score 4, age, f, htn, chf hx Continue IV heparin for now while medically optimizing replace electrolytes, K >4, m >2 infectious w/u 2/2 elevated anion gap, negative to date -Reviewed Cardiology recommendations -Continue metoprolol succinate to 25mgBID -Continue amiodarone 200mg daily -Continue entresto postoperatively -Will need EP follow up as OP #Acute blood loss anemia, 2/2 post-op -10.9 this am, will order iron labs, b12, folate to optimize #Trimalleolar ankle fx, POA cast in place, occurred ~ 1 week ago presented for surgery today and surgery cancelled 2/[address] Duncan place on oxy IR for mild-mod pain, and IV morphine severe pain schedule bowel regimen NWB to LLE Clear for surgery 10/05, will follow post op #Hypokalemia *resolved K 2.5 on admission, notably improved this am try to keep k > 4 mag is 1.9 so will give 1g mag sulfate to try to attain mag > 2 Discharge with supplementation PO #Elevated anion gap *resolved no clear source replace lytes, infectious work NGTD Likely 2/2 starvation ketosis given ++ ketones in urine and improvement with fluids #Nonobstructive CAD #HTN #HLD on metoprolol, entresto, statin euvolemic continue home meds daily weights, I and Os #Anxiety #Insomnia chronic, stable continue home meds FULL CODE PCP: Dr. Macedo DVT ppx: eliquis Dispo: admit to PCU, medically stabilize prior to surgery Admission and Anticipated Discharge Date Admission Date: October 03, 2023 Subjective NAEO Reports of a fall over night Denies any other acute events--eager to leave and get home. States pain is in much better control. Denies chest pain or palpitations. Refuses any rehab or additional resources at this time Physical Exam Constitutional: WD/WN, vitals as above Respiratory: normal respiratory effort, lungs clear to auscultation Cardiovascular: RRR, no murmur, no edema Gastrointestinal (Abdomen): normal bowel sounds, soft, nontender, no hepatosplenomegaly Musculoskeletal: left immbolizer in place of LLE Results & Data Results & Data Vital Signs (Past 12 Hours) Vital Signs Temp Pulse Pulse Resp BP BP Pulse Ox 10/06/23 02:33 37.0 C 84 18 128/70 95 10/06/23 00:18 79 10/05/23 22:48 36.5 C 78 18 103/62 95 10/05/23 19:31 36.6 C 92 H 18 156/77 H 96 O2 Del Method 10/06/23 02:33 Room Air 10/06/23 00:18 10/05/23 22:48 Room Air 10/05/23 19:31 Room Air Laboratory Results Short CBC 10/06/23 Range/Units 05:39 WBC 9.74 (4.8-10.8) K/ul Hgb 10.9 L (12.0-16.0) g/dl Hct 32.6 L (37.0-47.0) % Plt Count 267 (130-400) K/uL BMP 10/06/23 05:39 Sodium 136 Potassium 3.4 L Chloride 103 Carbon Dioxide 23 BUN 13 Creatinine 0.51 L Glucose 169 H Calcium 8.2 L Medications Administered Home Medications Medication Instructions Recorded Confirmed Last Taken apixaban 5 mg tablet (Eliquis) 5 mg PO BID 05/16/22 10/03/23 09/28/23 atorvastatin 40 mg tablet 40 mg PO QPM 05/16/22 10/03/23 10/01/23 20:00 gabapentin 100 mg capsule 100 mg PO TID 05/16/22 10/03/23 10/02/23 20:00 lorazepam 0.5 mg tablet 0.5 mg PO BID PRN Anxiety 05/16/22 10/03/23 Unknown ramelteon 8 mg tablet 8 mg PO HS 05/16/22 10/03/23 10/01/23 20:00 [id number] 1 tab PO Q6H PRN Migraine Headache 07/08/23 10/03/23 Unknown 50 mg-325 mg-40 mg tablet calcium 500 mg tablet 500 mg PO QAM 07/08/23 10/03/23 10/03/23 04:00 cholecalciferol (vitamin D3) 25 25 mcg PO QAM 07/08/23 10/03/23 10/02/23 06:00 mcg (1,000 unit) tablet levothyroxine 75 mcg tablet 75 mcg PO QAM 07/08/23 10/03/23 10/03/23 04:00 pantoprazole 40 mg tablet,delayed 40 mg PO QAM 07/08/23 10/03/23 10/02/23 04:00 release sacubitril 24 mg-valsartan 26 mg 1 tab PO BID 07/08/23 10/03/23 10/03/23 04:00 tablet (Entresto) alendronate 70 mg tablet 70 mg PO WK 09/27/23 10/03/23 09/27/23 amiodarone 200 mg tablet 200 mg PO QAM 09/27/23 10/03/23 10/03/23 04:00 trazodone 50 mg tablet 50 mg PO HS 09/27/23 10/03/23 10/01/23 20:00 metoprolol succinate 25 mg 25 mg PO BID #60 tabs 10/06/23 Unknown tablet,extended release 24 hr potassium chloride 20 mEq 20 meq PO DAILY #30 tabs 10/06/23 Unknown tablet,extended release(part/cryst) (Klor-Con M) sennosides 8.6 mg-docusate sodium 1 tab PO QAM #30 tabs 10/06/23 Unknown 50 mg tablet (Senokot-S) Active Medications Generic Name Dose Route Start Last Admin Trade Name Freq PRN Reason Stop Dose Admin Acetaminophen 650 mg 10/03/23 16:30 10/06/23 17:15 Acetaminophen 325 Mg Tab PO 11/02/23 16:29 650 mg Q6H VEGA Administration Amiodarone HCl 200 mg 10/05/23 09:00 10/06/23 08:08 Amiodarone 200 Mg Tab PO 11/04/23 08:59 200 mg QAM VEGA Administration Apixaban 5 mg 10/05/23 21:00 10/06/23 08:06 Apixaban 5 Mg Tablet PO 11/04/23 20:59 5 mg BID VEGA Administration Atorvastatin Calcium 40 mg 10/03/23 21:00 10/05/23 20:02 Atorvastatin 40 Mg Tab PO 11/02/23 20:59 40 mg QPM VEGA Administration Calcium Carbonate 1,250 mg 10/04/23 09:00 10/06/23 08:06 Calcium Carbonate 1250mg Tab PO 11/03/23 08:59 1,250 mg QAM VEGA Administration Gabapentin 100 mg 10/03/23 16:30 10/06/23 13:26 Gabapentin 100 Mg Cap PO 11/02/23 16:29 100 mg TID VEGA Administration Levothyroxine Sodium 75 mcg 10/04/23 06:30 10/06/23 05:05 Levothyroxine Sodium 75 Mcg Tablet PO 11/03/23 06:29 75 mcg DAILYBB VEGA Administration Lorazepam 0.5 mg 10/03/23 16:07 10/03/23 16:37 Lorazepam 0.5 Mg Tab PO 11/02/23 16:06 0.5 mg BID PRN Administration Anxiety Metoprolol Succinate 25 mg 10/04/23 21:00 10/06/23 08:06 Metoprolol Succ 25mg Ext Rel Tab PO 11/03/23 20:59 25 mg BID VEGA Administration Morphine Sulfate 2 mg 10/03/23 18:55 10/06/23 17:14 Morphine Sulfate 2 Mg/Ml Carp IV 10/17/23 16:06 2 mg Q4H PRN Administration Severe Pain (Scale 7, 8, 9,10) Morphine Sulfate 2 mg 10/05/23 13:56 10/06/23 02:46 Morphine Sulfate 2 Mg/Ml Carp IV 10/19/23 13:55 2 mg Q2H PRN Administration Pain (scale 1-5) Oxycodone HCl 5 mg 10/03/23 16:07 10/06/23 14:42 Oxycodone Hcl Ir 5 Mg Tab (Immediate Release) PO 10/17/23 16:06 5 mg Q4H PRN Administration Moderate Pain (Scale 4, 5, 6) Pantoprazole Sodium 40 mg 10/04/23 01:10 10/06/23 08:06 Pantoprazole 40 Mg Tab PO 11/03/23 01:09 40 mg QAM VEGA Administration Polyethylene Glycol 17 gm 10/03/23 16:15 10/06/23 08:07 Polyethylene (Miralax) 17 Gm Pack PO 11/02/23 16:14 17 gm DAILY VEGA Administration Sacubitril/Valsartan 1 tab 10/03/23 21:00 10/06/23 08:06 Valsartan/Sacubitril 26/24mg Tab PO 11/02/23 20:59 1 tab BID VEGA Administration Senna/Docusate Sodium 1 tab 10/03/23 16:30 10/06/23 08:06 Docusate Sodium/Senna 50/8.6mg Tab PO 11/02/23 16:29 1 tab QAM VEGA Administration Trazodone HCl 50 mg 10/03/23 21:00 10/05/23 20:15 Trazodone Hcl 50 Mg Tab PO 11/02/23 20:59 50 mg HS VEGA Administration Vitamin D 1,000 units 10/04/23 09:00 10/06/23 08:06 Cholecalciferol 1,000 Units 25 Mcg Tab PO 11/03/23 08:59 1,000 units QAM VEGA Administration (3) Closed trimalleolar fracture of left ankle Encounter type: initial encounter Qualified Code(s): S82.852A - Displaced trimalleolar fracture of left lower leg, initial encounter for closed fracture
[2023-10-06 07:12] LABS: BUN Creatinine Ratio 25.5 (10-20); Calcium 8.2 mg/dl (8.6-10.3); Creatinine Clr Calc Pharmacy 76.5 ml/min; Est GFR (African American) 109.8 ml/min; Est GFR (Non-African American) 94.7 ml/min; Potassium 3.4 mmol/L (3.5-5.1)
[2023-10-06 07:15] LABS: Magnesium 1.6 mg/dl (1.7-2.4)
[2023-10-06] MEDS ORDERED: POTASSIUM PHOS 3 MMOL/1 ML INFUSION IV STA (07:29)
[2023-10-06] MEDS ORDERED: POTASSIUM CHLORIDE CRTAB 20 MEQ TABCR PO STA (07:30)
[2023-10-06] MEDS ORDERED: POTASSIUM PHOSPHATE 30 MMOL in SODIUM CHLORIDE 0.9% 500 ML IV ONE (07:45)
[2023-10-06] MEDS: GABAPENTIN 100 MG CAP PO SCH ×3 (08:06→20:44)
[2023-10-06] MEDS: VALSARTAN/SACUBITRIL 26/24MG TAB PO SCH ×2 (08:06→20:45)
[2023-10-06] MEDS: DOCUSATE SODIUM/SENNA 50/8.6MG TAB PO SCH (08:06)
[2023-10-06] MEDS: CHOLECALCIFEROL 1,000 UNITS 25 MCG TAB PO SCH (08:06)
[2023-10-06] MEDS: CALCIUM CARBONATE 1250MG TAB PO SCH (08:06)
[2023-10-06] MEDS: METOPROLOL SUCC 25MG EXT REL TAB PO SCH ×2 (08:06→20:44)
[2023-10-06] MEDS: APIXABAN 5 MG TABLET PO SCH ×2 (08:06→20:44)
[2023-10-06] MEDS: PANTOprazole 40 MG TAB PO SCH (08:06)
[2023-10-06] MEDS: POLYETHYLENE (MIRALAX) 17 GM PACK PO SCH (08:07)
[2023-10-06] MEDS: AMIODARONE 200 MG TAB PO SCH (08:08)
[2023-10-06] MEDS: MAGNESIUM SULFATE / D5W 1 GM/100 ML BAG IV SCH ×2 (08:29→10:09)
--- NOTE | 2023-10-06 10:03 | Orthopedic Progress Note ---
Date of Service October 06, 2023 Assessment & Plan (1) Closed trimalleolar fracture of left ankle: Plan: Patient is s/p POD #1 left ankle ORIF 10/05/23 Patient was reassured that her toes are blue due to cleansing agent that was used preoperatively. She was adv ised on keeping left leg elevated and may wiggle toes. She is to keep splint in place. Discussed with Nurse, Nacho, patient reported a fall however he was unaware of this. I was able to review nursing notes with him and the fall is not documented. She was documented to have confusion last night. I am recommending patient have a Xray of the left ankle, order was placed by nursing. She will remain nonweightbearing on the left leg x6 weeks. Patient will benefit from use of wheel chair with elevated leg rests due to NWB status a prescription was provided for this and given to nursing Pain management per primary. DVT prophylaxis per primary may resume today if primary agreeable Will continue to follow post operatively Patient will follow up in our office in 2 weeks and anticipate transitioning to [facility] at that time. Admission and Anticipated Discharge Date Admission Date: October 03, 2023 Subjective Patient is a 73-year-old female who is a postop patient status post a left ankle ORIF for trimalleolar fracture with Dr. Andersen postop day 1. She was seen bedside this a.m. Her was present for part of the exam and then left. She states she is doing okay she has pain in her left ankle that is rated as 6/10. She is concerned because her toes are blue. She states she has been trying to move them and does not seem to change. She denies any calf pain chest pain or shortness of breath. She does report that this a.m. she tried to get out of bed and she lost her balance and reported falling. She states she may have hit the ankle on the inside on the left. Per patient nursing was aware and came in to assist her. Discussed with nurse, Nacho, who was unaware of incident. She denies hitting her head or any loss of consciousness. She denies any other injuries or having pain anywhere else. She offers no concerns. Review of Systems Review of Systems: Please refer to HPI Physical Exam Physical Exam: General: Patient is alert and oriented x 3 no acute distress pleasant and conversive. Answering questions appropriately Integument eyes:/Musculoskeletal. Splint is in place. Minimal edema in the left lower extremity. Skin is blue. Temperature of toes is normal in color. Patient is able to wiggle toes. Capillary refills less than 2 seconds. Her sensation is intact. She is able to flex and extend knee without difficulty. No apparent injury appreciated at this time . Results & Data Vital Signs (Past 12 Hours) Vital Signs Temp Pulse Pulse Resp BP Pulse Ox O2 Del Method 10/06/23 07:51 36.5 C 84 18 120/69 94 Room Air 10/06/23 02:33 37.0 C 84 18 128/70 95 Room Air 10/06/23 00:18 79 10/05/23 22:48 36.5 C 78 18 103/62 95 Room Air Laboratory Results 10/06/23 Range/Units 05:39 WBC 9.74 (4.8-10.8) K/ul RBC 3.99 L (4.20-5.40) M/uL Hgb 10.9 L (12.0-16.0) g/dl Hct 32.6 L (37.0-47.0) % MCV 81.7 (80.0-100.0) fL MCH 27.3 (25.0-34.0) pg MCHC 33.4 (32.0-36.0) g/dL RDW Std Deviation 46.8 H (36.4-46.3) fL RDW Coeff of Jessica 16.2 H (11.5-14.5) % Plt Count 267 (130-400) K/uL MPV 11.0 (9.4-12.4) fL Sodium 136 (136-145) mmol/L Potassium 3.4 L (3.5-5.1) mmol/L Chloride 103 (98-107) mmol/L Carbon Dioxide 23 (21-32) mmol/L Anion Gap 10 (3-11) BUN 13 (6-23) mg/dl Creatinine 0.51 L (0.6-1.2) mg/dl Est Cr Clr Drug Dosing 76.5 ml/min Est GFR ( Amer) 109.8 ml/min Est GFR (Non-Af Amer) 94.7 ml/min BUN/Creatinine Ratio 25.5 H (10-20) Glucose 169 H (70-99(Fasting)) mg/dl Calcium 8.2 L (8.6-10.3) mg/dl Phosphorus 1.0 L* (2.5-4.9) mg/dl Magnesium 1.6 L (1.7-2.4) mg/dl Diagnostic Findings Ankle X-Ray 10/05/23 00:00 FL ankle LT min 3V RTN CLINICAL HISTORY: Left ankle fx ORIF COMPARISON STUDY: Left ankle 09/27/2023. FLUOROSCOPY TIME: 57 seconds FLUOROSCOPY IMAGES: 3 Ka,r: 1.3 mGy FINDINGS: Status post internal fixation of a trimalleolar left ankle fracture with cortical plates and screws. The hardware appears intact. Alignment appears near-anatomic. IMPRESSION: Fluoroscopic assistance as above. ACT 112: Negative or not required by law. Electronically signed by: César Decker M.D. 10/05/2023 2:36 PM (1) Closed trimalleolar fracture of left ankle Encounter type: initial encounter Qualified Code(s): S82.852A - Displaced trimalleolar fracture of left lower leg, initial encounter for closed fracture
--- NOTE | 2023-10-06 10:50 | XRay Report ---
LEFT ANKLE 3 VIEWS CLINICAL HISTORY: Fall. FINDINGS: 3 views of the left ankle are compared to study dated 09/27/2023. The examination is perform ed through a splint, obscuring fine bony detail. The skeletal structures are osteopenic. Again, seen are distal tibial and fibular fractures. There has been buttress plate fixation along the posterolate ral cortex of the distal fibula and posterior cortex of the distal tibia. A cortical lag screw transf ixes the medial malleolus. The orthopedic hardware appears intact. No new fracture is identified. Adriana tomic alignment is maintained at the ankle mortise. Soft tissue edema is noted. Skin clips are in jennifer ce. IMPRESSION: 1. Distal tibial and fibular fractures as above status post open reduction and internal fixation. The orthopedic hardware appears intact. 2. No new fracture is clearly identified. Dictated: 10/06/2023 9:55 AM Transcribed: 10/06/2023 10:47 AM [place] [id number] [email or web address] Electronically signed by: Austin Saucedo M.D. 10/06/2023 10:49 AM
--- NOTE | 2023-10-06 10:56 | Electrocardiogram Report ---
Test Reason : Blood Pressure : / mmHG Vent. Rate : 101 BPM Atrial Rate : 101 BPM P-R Int : 136 ms QRS Dur : 088 ms QT Int : 374 ms P-R-T Axes : 066 005 083 degrees QTc Int : 484 ms Sinus tachycardia with Premature supraventricular complexes vs multifocal atrial tachycardia Nonspecific ST and T wave abnormality Prolonged QT Abnormal ECG When compared with ECG of 03-OCT-2023 10:30, Vent. rate has decreased by 60 bpm Confirmed by Luke Vallejo ([id number]) on 10/06/2023 10:55:47 AM Referred By: Confirmed By:Luke Vallejo
--- NOTE | 2023-10-06 12:33 | Cardiology Progress Note ---
Date of Service October 06, 2023 Assessment & Plan (1) Preop cardiovascular exam: (2) PAF (paroxysmal atrial fibrillation): (3) SVT (supraventricular tachycardia): (4) Valvular heart disease: (5) Labile hypertension: (6) Ectopic atrial beats: Plan Complex 73-year-old female who presented on 10/03/2023 for surgical intervention of a left trimalleolar ankle fracture following a mechanical fall in September 24, 2023. Initial presentation in AM of 10/03 notable for abnormal heart rate/rhythm, EKG revealing PAF with marked diffuse ST segment change. Rhythm improved with IV and oral beta-john therapy as well as electrolyte replacement and pain control. Follow-up EKG as well as telemetry with sinus/sinus tachycardia with frequent ectopy. Possible medication noncompliance noted. QTc prolonged RECOMMENDATIONS: Additional supplemental potassium. Continue metoprolol succinate (increased this admission), amiodarone, and Entresto as prescribed. Resume apixaban (Eliquis anticoagulation) when determined to be safe Outpatient Electrophysiology Consultation, RE: Atrial arrhythmias Outpatient Nephrology evaluation, RE: hypokalemia, ? renal potassium loss Please contact with any questions or concerns. Admission and Anticipated Discharge Date Admission Date: October 03, 2023 Supervising Physician Co-Signing Physician Notes 73-year-old female presented to the hospital for surgical intervention of left malleolus fracture following a mechanical fall 09/24/2023. Surgical repair performed 10/05/2023 without complication. Today, feeling well from a cardiovascular perspective. Denies chest pain or palpitations. PE: VSS. Gen: NAD, AAOx3. Heart: Regular rhythm, normal S1-S2. No murmur. Lungs: Clear bilateral, no rales, rhonchi, wheeze. Extremities: No edema. A/P: Agree with above PA-C history, physical exam, assessment and plan. Continue metoprolol, amiodarone, and Entresto. Supplement potassium as in dicated. Consider nephrology consultation for persistent hypokalemia. Restart Eliquis. Outpatient EP consultation. Subjective Patient seen and examined. Chart, medications, telemetry reviewed. Second Mo at bedside. Status post 10/05/2023 left ankle fracture open reduction and internal fixation by Dr. Andersen. Feeling OK. Denies chest pain, palpitations, or shortness of breath. Patient remains low without overt cause; recently with low caloric input but no vomiting, diarrhea, laxatives, or diuretics. Telemetry: Sinus in the 80's with occasional atrial>ventricular ectopy October 04, 2023 TTE: Compared to prior study of May 17, 2022, LV systolic function has significantly improved with, with normalization of LV wall motion. EF 55 to 60%. Mild concentric LVH. Moderately dilated left atrium. Mild aortic valve sclerosis without significant stenosis. Mild aortic regurgitation. Mild mitral regurgitation. Trace tricuspid regurgitation. Doppler findings not suggestive of pulmonary hypertension. Review of Systems Review of Systems: Complete review of systems is otherwise as stated above, negative, or noncontributory. Physical Exam Physical Exam: General: A&Ox3. NAD. HENT: Normocephalic. Atraumatic. Eyes: PER. Conjunctiva pink, sclera clear. Neck: No JVD. No HJR. Heart: Regular at 75 bpm. + Systolic murmur. No diastolic murmur. No rub. Lungs: Clear to auscultation. Abdomen: +BS. Soft. Nontender. No masses or organomegaly. Extremities: Left leg dressing. Right lower extremity without clubbing, cyanosis, or peripheral edema. Limited neurological examination is without focal deficits. Pulses: radial=2/4, posterior tibial=2/4 on the right. Results & Data Vital Signs (Past 12 Hours) Vital Signs Temp Pulse Resp BP Pulse Ox O2 Del Method 10/06/23 11:26 36.9 C 80 18 112/62 96 Room Air 10/06/23 07:51 36.5 C 84 18 120/69 94 Room Air 10/06/23 02:33 37.0 C 84 18 128/70 95 Room Air Laboratory Results CBC 10/06/23 Range/Units 05:39 WBC 9.74 (4.8-10.8) K/ul RBC 3.99 L (4.20-5.40) M/uL Hgb 10.9 L (12.0-16.0) g/dl Hct 32.6 L (37.0-47.0) % Plt Count 267 (130-400) K/uL Comprehensive Metabolic Panel 10/06/23 Range/Units 05:39 Sodium 136 (136-145) mmol/L Potassium 3.4 L (3.5-5.1) mmol/L Chloride 103 (98-107) mmol/L Carbon Dioxide 23 (21-32) mmol/L BUN 13 (6-23) mg/dl Creatinine 0.51 L (0.6-1.2) mg/dl Glucose 169 H (70-99(Fasting)) mg/dl Calcium 8.2 L (8.6-10.3) mg/dl Intake and Output 10/05/23 10/06/23 10/06/23 22:59 06:59 14:59 Intake Total 964 / 2101.95 180 / 2101.95 183.333 / 183.333 Output Total Balance 963 / 2050.95 180 / 2050.95 183.333 / 183.333 Intake: IV 724 / 881.95 183.333 / 183.333 Heparin Sodium/Dextrose 25,000 0 / 157.95 units In 500 ml @ 0 UNITS/HR IV .Q0M [facility] Rx#:[id number] Lactated Ringer's 1,000 ml @ 60 724 / 724 mls/hr IV .[id number] [facility]GA Rx#: [id number] Magnesium Sulfate / D5w 1 gm In 183.333 / 183.333 100 ml @ 50 mls/hr IV Q2H [facility] Rx#:[id number] Oral 240 / 420 180 / 420 Output: # Bowel Movements Other: # Unmeasured Voids 1 2 Weight 59.2 kg Weight Measurement Method Built in [facility]
[2023-10-06] MEDS: oxyCODONE HCL IR 5 MG TAB (IMMEDIATE RELEASE) PO PRN (14:42)
[2023-10-06] MEDS: ATORVASTATIN 40 MG TAB PO SCH (20:44)
[2023-10-06] MEDS: traZODone HCL 50 MG TAB PO SCH (20:44)
[2023-10-06] MEDS: RAMELTEON 8 MG TAB PO SCH (20:45)
[2023-10-06] MEDS ORDERED: APIXABAN 5 MG TABLET PO SCH (21:00)
--- NOTE | 2023-10-06 21:30 | Electrocardiogram Report ---
Test Reason : Blood Pressure : / mmHG Vent. Rate : 105 BPM Atrial Rate : 133 BPM P-R Int : 000 ms QRS Dur : 078 ms QT Int : 408 ms P-R-T Axes : 000 -11 -83 degrees QTc Int : 539 ms Multifocal atrial tachycardia Nonspecific ST and T wave abnormality Prolonged QT Abnormal ECG When compared with ECG of 03-OCT-2023 12:39, QT has lengthened Confirmed by Luke Vallejo ([id number]) on 10/06/2023 9:30:04 PM Referred By: REFERRED SELF Confirmed By:Luke Vallejo
[2023-10-07] MEDS: MoRPHine SULFATE 2 MG/ML CARP IV PRN ×3 (02:50→12:09)
[2023-10-07] MEDS: LEVOTHYROXINE SODIUM 75 MCG TABLET PO SCH (05:05)
[2023-10-07] MEDS: ACETAMINOPHEN 325 MG TAB PO SCH ×2 (05:05→11:43)
--- NOTE | 2023-10-07 05:49 | Electrocardiogram Report ---
Test Reason : Blood Pressure : / mmHG Vent. Rate : 094 BPM Atrial Rate : 094 BPM P-R Int : 118 ms QRS Dur : 072 ms QT Int : 416 ms P-R-T Axes : 073 -09 012 degrees QTc Int : 520 ms Poor data quality, interpretation may be adversely affected Sinus rhythm with Premature supraventricular complexes and with occasional Premature ventricular comp lexes Nonspecific ST and T wave abnormality Abnormal ECG When compared with ECG of 04-OCT-2023 05:25, Nonspecific T wave abnormality, improved in Anterior leads Confirmed by Luke Vallejo ([id number]) on 10/07/2023 5:49:09 AM Referred By: REFERRED SELF Confirmed By:Luke Vallejo
[2023-10-07 06:39] LABS: Hematocrit (blood only) 31.5 % (37.0-47.0); Hemoglobin 10.1 g/dl (12.0-16.0); Mean Corpuscular Hemoglobin 26.8 pg (25.0-34.0); Mean Corpuscular Hgb Conc 32.1 g/dL (32.0-36.0); Mean Corpuscular Volume 83.6 fL (80.0-100.0); Mean Platelet Volume 10.8 fL (9.4-12.4); Platelet Count 224 K/uL (130-400); RDW Coefficient of Variation 16.3 % (11.5-14.5); RDW Standard Deviation 48.6 fL (36.4-46.3); Red Blood Count 3.77 M/uL (4.20-5.40); White Blood Count 9.23 K/ul (4.8-10.8)
[2023-10-07 07:23] LABS: BUN Creatinine Ratio 20.8 (10-20); Calcium 8.5 mg/dl (8.6-10.3); Creatinine Clr Calc Pharmacy 81.3 ml/min; Est GFR (Non-African American) 96.6 ml/min; Ferritin 88.5 ng/ml (8-388); Folate (Folic Acid),Ser orPlas 8.84 ng/ml (>5.38); Potassium 4.2 mmol/L (3.5-5.1)
[2023-10-07] MEDS: CALCIUM CARBONATE 1250MG TAB PO SCH (08:19)
[2023-10-07] MEDS: PANTOprazole 40 MG TAB PO SCH (08:19)
[2023-10-07] MEDS: GABAPENTIN 100 MG CAP PO SCH (08:19)
[2023-10-07] MEDS: AMIODARONE 200 MG TAB PO SCH (08:20)
[2023-10-07] MEDS: CHOLECALCIFEROL 1,000 UNITS 25 MCG TAB PO SCH (08:20)
[2023-10-07] MEDS: APIXABAN 5 MG TABLET PO SCH (08:20)
[2023-10-07] MEDS: DOCUSATE SODIUM/SENNA 50/8.6MG TAB PO SCH (08:20)
[2023-10-07] MEDS: VALSARTAN/SACUBITRIL 26/24MG TAB PO SCH (08:20)
[2023-10-07] MEDS: METOPROLOL SUCC 25MG EXT REL TAB PO SCH (08:20)
[2023-10-07] MEDS: POLYETHYLENE (MIRALAX) 17 GM PACK PO SCH (08:21)
[2023-10-07] MEDS ORDERED: CYANOCOBALAMIN (B-12) 500 MCG TABLET PO SCH (09:00)
[2023-10-07] MEDS ORDERED: FERROUS SULFATE 325 MG TAB PO SCH (09:00)
--- NOTE | 2023-10-07 11:13 | Orthopedic Progress Note ---
Date of Service October 07, 2023 Assessment & Plan (1) Closed trimalleolar fracture of left ankle: Plan: Patient is s/p POD #2 left ankle ORIF 10/05/23 Keep left leg elevated and may wiggle toes. She is to keep splint in place. She will remain nonweightbearing on the left leg x6 weeks. Pain management per primary. DVT prophylaxis per primary may resume today if primary agreeable Will continue to follow post operatively Patient will follow up in our office in 2 weeks and anticipate transitioning to cam boot at that time. Admission and Anticipated Discharge Date Admission Date: October 03, 2023 Subjective Postop day 2 following open duction internal fixation left trimalleolar ankle fracture. Patient reports her pain is well-controlled. The block is completely worn off. Reports her splint is fitting well. She reports she is discharging home today. Physical Exam Physical Exam: Resting comfortably in bed. Alert and oriented x 3. Left lower extremity exam reveals her splint to be fitting her well. Her exposed toes are warm and well- perfused. She wiggles her toes appropriately. Results & Data Vital Signs (Past 12 Hours) Vital Signs Temp Pulse Resp BP Pulse Ox O2 Del Method 10/07/23 07:31 36.8 C 63 17 129/72 97 Room Air 10/07/23 03:30 36.6 C 74 16 145/70 H 97 Room Air 10/06/23 23:14 37.5 C 73 16 131/65 95 Room Air (1) Closed trimalleolar fracture of left ankle Encounter type: initial encounter Qualified Code(s): S82.852A - Displaced trimalleolar fracture of left lower leg, initial encounter for closed fracture
--- NOTE | 2023-10-07 11:13 | Discharge Summary ---
Discharge Summary Date of Service October 07, 2023 Notes For Next Care Provider Please follow up Potassium levels -Admitted with a 2.5, however, eventually at acceptable level upon discharge -Withheld daily dosing for close OP monitoring and oral replacement chronically if levels fall despite resolution of acute illness and issues Medication Changes From Visit Increased Metoprolol 12.5mg to 25mg BID Added Iron and B12 supplementation Admission HPI Per Admitting Provider This is a 73-year-old female who has a significant past medical history of pa roxysmal atrial fibrillation anticoagulated on Eliquis, HTN, HLD, history of nonischemic cardiomyopathy CKD, thoracic aortic aneurysm ascending 4.3 x 4.3 cm, history of NSVT, GERD, osteoporosis, vitamin D deficiency, history of migraine, anxiety and insomnia who presents to ED at the referral of preop secondary to A- fib with RVR. Of significance patient was to undergo left ankle ORIF today after sustaining a trimalleolar fracture approximately [address] Duncan. Unfortunately secondary to elevated heart rates as well as hypokalemia and she was referred to ED. Currently she complains of left ankle pain. She has been utilizing oxycodone without much relief. She currently has a cast in place and states that there is a blister under the cast. She denies any fever, chills, sweats, lightheadedness, dizziness, chest pain, shortness of breath, URI symptoms, nausea, vomiting or abdominal pain. She did have a bowel movement today, but states this was the first in a few days. She further denied any urinary symptoms including dysuria, hematuria, increased urgency or frequency with urination. She admits to being compliant with medications. She states she has been off Eliquis for the past week and preps for upcoming surgery. She states that she did take her metoprolol and amiodarone this morning. In ED patient was found to be in A-fib with RVR with heart rates in the 160s. Preop lab testing was independently reviewed interpreted by myself which revealed a significant anion gap 25 and hypokalemia at 2.5. Her CBC was trended unremarkable. In ED she received additional 12.5 mg of oral metoprolol succinate as well as 5 mg of IV Lopressor. She was also started on potassium repletion. Admission Exam Per Admitting Provider General: Conversational, pleasant woman; AOx3, requires some aid from for timeleine CV: Regular, tachycardic, no murmur/bruits appreciated Resp: CTABL GI soft NTND MSK Left immobilizer cast in place, no surround skin erythema noted Neuro: no focal deficits appreciated Principal Dx & Hospital Course #1 = Principal Diagnosis (1) Atrial fibrillation with RVR: (2) Hypokalemia: (3) Closed trimalleolar fracture of left ankle: Plan Ms. Knox is a 73-year-old female who has a significant past medical history of paroxysmal atrial fibrillation anticoagulated on Eliquis, HTN, HLD, history of nonischemic cardiomyopathy CKD, thoracic aortic aneurysm ascending 4.3 x 4.3 cm, history of NSVT, GERD, osteoporosis, vitamin D deficiency, history of migraine, anxiety and insomnia who presents to ED at the referral of preop secondary to SVT v Afib RVR. Patient admitted on 10/03 for management of SVT/PAF prior to surgical intervention. Patient's rapid rates were eventually controlled with metoprolol XL and resumption of home regimen. Patient did not tolerate increased dosing of amiodarone 2/2 QTC increase. Patient underwent ORIF on 10/05 and post-operative course unremarkable. Patient with non-weight bearing on LLE. Hypokalemia notable on admission, multifactorial given acute illness and poor po intake per patient. Levels improved to 4.2 after replacement. Requires close OP follow up to consider chronic supplementation. #SVT *resolved #Atrial fib with RVR *resolved #Elevated troponin 2/2 demand from tachycardia -Rates in 160s on admission, resolved with IV lopressor and resumption of oral meds, question of medication non-compliance -ECHO 10/04 EF 55-60% consult cardiology for further medical optimization has been off Eliquis for a reported week for upcoming surgery, can resume POD 1 [id number] score 4, age, f, htn, chf hx Continue IV heparin for now while medically optimizing replace electrolytes, K >4, m >2 infectious w/u 2/2 elevated anion gap, negative to date -Reviewed Cardiology recommendations -Continue metoprolol succinate to 25mgBID -Continue amiodarone 200mg daily -Continue entresto -Will need EP follow up as OP -Continue apixaban #Acute blood loss anemia, 2/2 post-op -10.9 this am, will order iron labs, b12, folate to optimize -Iron and b12 supplementation prescribed -Ferritin 88.5, FE 25; b12 176 #Trimalleolar ankle fx, POA s/p ORIF 10/[address], occurred ~ 1 week ago (09/26) consult Dr. Perla waller on oxy IR for mild-mod pain, and IV morphine severe pain schedule bowel regimen NWB to LLE Will need OP follow up in 2 weeks with ORTHO Pain medication sent to pharmacy: hydrocodone-acetaminophen [id number] for post-op recovery #Hypokalemia *resolved K 2.5 on admission, notably improved this am try to keep k > 4 mag is 1.9 so will give 1g mag sulfate to try to attain mag > 2 Discharge with recommendations for close follow up for K level and need for chronic replacement #Elevated anion gap *resolved no clear source replace lytes, infectious work NGTD Likely 2/2 starvation ketosis given ++ ketones in urine and improvement with fluids #Nonobstructive CAD #HTN #HLD on metoprolol, entresto, statin euvolemic continue home meds daily weights, I and Os #Anxiety #Insomnia chronic, stable continue home meds On day of discharge, patient alert oriented and eager for home. Patient with full support of . Discharge Exam Constitutional WD/WN, vitals as above Respiratory normal respiratory effort, lungs clear to auscultation Cardiovascular RRR, no murmur, no edema Gastrointestinal (Abdomen) normal bowel sounds, soft, nontender, no hepatosplenomegaly Updated Medication List Medication Instructions Recorded Confirmed Type apixaban 5 mg tablet (Eliquis) 5 mg PO BID 05/16/22 10/03/23 History atorvastatin 40 mg tablet 40 mg PO QPM 05/16/22 10/03/23 History gabapentin 100 mg capsule 100 mg PO TID 05/16/22 10/03/23 History lorazepam 0.5 mg tablet 0.5 mg PO BID PRN Anxiety 05/16/22 10/03/23 History ramelteon 8 mg tablet 8 mg PO HS 05/16/22 10/03/23 History abjqojbqlp-doizmfikwkqiq-wnahamiv 1 tab PO Q6H PRN Migraine Headache 07/08/23 10/03/23 History 50 mg-325 mg-40 mg tablet calcium 500 mg tablet 500 mg PO QAM 07/08/23 10/03/23 History cholecalciferol (vitamin D3) 25 25 mcg PO QAM 07/08/23 10/03/23 History mcg (1,000 unit) tablet levothyroxine 75 mcg tablet 75 mcg PO QAM 07/08/23 10/03/23 History pantoprazole 40 mg tablet,delayed 40 mg PO QAM 07/08/23 10/03/23 History release sacubitril 24 mg-valsartan 26 mg 1 tab PO BID 07/08/23 10/03/23 History tablet (Entresto) alendronate 70 mg tablet 70 mg PO WK 09/27/23 10/03/23 History amiodarone 200 mg tablet 200 mg PO QAM 09/27/23 10/03/23 History trazodone 50 mg tablet 50 mg PO HS 09/27/23 10/03/23 History metoprolol succinate 25 mg 25 mg PO BID #60 tabs 10/06/23 Rx tablet,extended release 24 hr sennosides 8.6 mg-docusate sodium 1 tab PO QAM #30 tabs 10/06/23 Rx 50 mg tablet (Senokot-S) cyanocobalamin (vitamin B-12) 500 1,000 mcg (2 x 500 mcg) PO QAM #60 10/07/23 Rx mcg tablet tabs ferrous sulfate 325 mg (65 mg 325 mg PO QAM #30 tabs 10/07/23 Rx iron) tablet,delayed release hydrocodone 10 mg-acetaminophen 1 tab PO Q6H PRN pain #20 tabs 10/07/23 Rx 325 mg tablet Hospital Stay Data Consultations 10/03/23 11:19 ED Decision to Admit Stat 10/03/23 11:32 Consult Orthopedic Surgery Routine 10/03/23 11:33 Consult Cardiology Routine Procedures Performed Operation Date: 10/05/23 11:40 Actual Procedures p Left Ankle Fracture Open Reduction Internal Fixation - Jr Andersen MD Diagnostic Imagining Performed 10/03/23 14:37 CT ankle LT wo con Routine 10/05/23 FL ankle LT min 3V RTN Routine 10/05/23 10:50 US - OR guided needle placemen Routine Pending Results Patient Have Any Pending Studies at Discharge: No Discharge Instructions Given to Patient (Per Discharging Provider) You were admitted to the hospital to help optimize your heart prior to undergoing surgery for your left ankle fracture. Your heart had a very irregular rhythm and fast rate. This was controlled by resuming your home medications and increasing the dose of one medications that helps pace the heart. Your potassium level was also notably low. Your metoprolol succinate was increased, please take 25mg two times a day. Please continue to take your Entresto two times a day. Please continue to take your amiodarone 200mg daily. These are important for your heart. Please continue your apixaban twice a day and contact your surgeon if there are any concerns for bleeding. You will need to follow up with your PCP for a lab check--BMP--to monior your potassium levels You were sent with iron supplement to take daily with breakfast, as well as B12 supplement. Total Time Total Time Spent Total Time Spent (In Minutes): 55
[2023-10-11] MEDS ORDERED: ALENDRONATE SODIUM 70 MG TAB PO SCH (07:00)
== END 2023-10-07 12:50 | disposition home or self-care (01) | DRG 982 ==
LOC: EDSEX → ED 10:55 → EDINP 11:30 → 2S 15:35